=== PATIENT | male | born 1980 | race Caucasian/White ===

== ENCOUNTER 2023-10-24 11:00 | Outpatient (OUT) | payer OTHER, SELFPAY ==
--- NOTE | 2023-10-24 | XR_ITS ---
[address] [address] Patient Name: LEANNE BERGMAN MRN: [id number] date: 1980 Sex: M Assigned Patient Location: Current Patient Location: Accession/Order Number: [id number] Exam Date: 10/24/2023 11:12 Report Date: 10/25/2023 07:25 At the request of: VINAYAK XIAO Procedure: XR foot RT min 3V PROCEDURE: XR foot RT min 3V COMPARISON: 10/12/2023 HISTORY: RIGHT FOOT PAIN FINDINGS: BONES:Stable complex extra-articular fracture diaphysis of the first proximal phalanx. Some mild periosteal reaction with incomplete bony bridging. No new fracture or dislocation. SOFT TISSUES:Negative. No visible soft tissue swelling. EFFUSION:None visible. OTHER: Vascular calcifications XR/XR foot RT min 3V IMPRESSION: Stable extra-articular complex fracture diaphysis of the first proximal phalanx Electronically authenticated by: SOLO ELLIS Date: 10/25/2023 07:25
== END 2023-10-24 11:01 | disposition home or self-care (01) ==
PROVIDERS: Visit Provider Podiatrist Foot & Ankle Surgery
DX: M79.674 Pain in right toe(s) (principal); S92.414D Nondisplaced fracture of proximal phalanx of right great toe, subsequent encounter for fracture with routine healing
CPT/HCPCS: 73630

== ENCOUNTER 2023-11-02 08:43 | Outpatient (OUT) | payer OTHER, SELFPAY ==
--- NOTE | 2023-11-02 08:48 | CT_ITS ---
[address] [address] Patient Name: LEANNE BERGMAN MRN: [id number] date: 1980 Sex: M Assigned Patient Location: CT Current Patient Location: CT Accession/Order Number: [id number] Exam Date: 11/02/2023 08:50 Report Date: 11/02/2023 09:34 At the request of: VINAYAK XIAO Procedure: CT foot RT wo con EXAMINATION: CT foot RT wo con HISTORY: Hallux Fracture COMPARISON: Plain x-ray 10/24/2023 TECHNIQUE: Multi-planar CT images were created without IV contrast. Dose reduction techniques were achieved by using automated exposure control and/or adjustment of mA and/or kV according to patient size and/or use of iterative reconstruction technique. FINDINGS: BONES: Complex intra-articular fracture involving the first proximal phalanx with some mild periosteal reaction but no significant bony bridging. No additional fracture. No dislocation. Mild degenerative changes with joint space narrowing and marginal osteophyte formation. SOFT TISSUES: Diffuse vascular calcifications. EFFUSION: None visible. OTHER: Negative. CT/CT foot RT wo con IMPRESSION: Complex intra-articular fracture first proximal phalanx with minimal sclerotic healing Electronically authenticated by: SOLO ELLIS Date: 11/02/2023 09:34
== END 2023-11-02 08:44 | disposition home or self-care (01) ==
LOC: CT 08:43
PROVIDERS: Visit Provider Podiatrist Foot & Ankle Surgery
DX: S92.491A Other fracture of right great toe, initial encounter for closed fracture (principal)
CPT/HCPCS: 73700

== ENCOUNTER 2023-12-26 11:18 | Outpatient (OUT) | payer OTHER, SELFPAY ==
--- NOTE | 2023-12-26 | XR_ITS ---
The [address] [address] Patient Name: LEANNE BERGMAN MRN: [id number] date: 1980 Sex: M Assigned Patient Location: Current Patient Location: Accession/Order Number: [id number] Exam Date: 12/26/2023 11:18 Report Date: 12/27/2023 06:32 At the request of: VINAYAK XIAO Procedure: XR foot RT min 3V PROCEDURE: XR foot RT min 3V HISTORY: RIGHT FOOT PAIN ; first proximal phalanx fracture. COMPARISON: XR foot right 10/24/2023 FINDINGS: BONES:Comminuted fracture of first toe proximal phalanx with extension into the distal articular surface. Increased callus formation along margins and density of the fracture line. Relatively normal alignment is maintained. SOFT TISSUES:No visible soft tissue swelling. EFFUSION:None visible. OTHER: Negative. XR/XR foot RT min 3V IMPRESSION: 1. Stable alignment and ongoing bone healing of first toe proximal phalanx fracture. Electronically authenticated by: VLADIMIR LUND Date: 12/27/2023 06:32
== END 2023-12-26 11:19 | disposition home or self-care (01) ==
LOC: EC 11:18
PROVIDERS: Visit Provider Podiatrist Foot & Ankle Surgery
DX: S92.411K Displaced fracture of proximal phalanx of right great toe, subsequent encounter for fracture with nonunion (principal)
CPT/HCPCS: 73630

== ENCOUNTER 2024-01-30 10:49 | Outpatient (OUT) | payer OTHER, SELFPAY ==
--- NOTE | 2024-01-30 | XR_ITS ---
The [address] [address] Patient Name: LEANNE BERGMAN MRN: [id number] date: 1980 Sex: M Assigned Patient Location: Current Patient Location: Accession/Order Number: [id number] Exam Date: 01/30/2024 11:00 Report Date: 01/30/2024 13:14 At the request of: VINAYAK XIAO Procedure: XR foot RT min 3V PROCEDURE: XR foot RT min 3V COMPARISON: 12/26/2023 HISTORY: RIGHT FOOT PAIN FINDINGS: BONES:Stable complex fracture involving the diaphysis and head of the first proximal phalanx extending to the articular surface. Slight increase in bony sclerosis and bony bridging. No new fracture or dislocation. Degenerative changes most significant first metatarsal-phalangeal joint SOFT TISSUES:Negative. No visible soft tissue swelling. EFFUSION:None visible. OTHER: Vascular calcifications XR/XR foot RT min 3V IMPRESSION: Stable healing complex intra-articular fracture of the first proximal phalanx Electronically authenticated by: SOLO ELLIS Date: 01/30/2024 13:14
--- OUTSIDE RECORDS SUMMARY | 2024-01-30 11:04 | XMS_ITS | CCD ---
Author Organization [facility] CliniSyfl Care Team Providers Care [facility] Police Officer Name Role Phone NONE, XXXX Primary Care Physician Unavailab Josselin Nielson Primary Care Physician [phone] Jennifer Patel Unavailable Unavailable LISA MADDEN Primary Care Physician Elva Gilmore Unavailable Karina Ugarte Unavailable Troy De Paz Attending Unavailable Troy De Paz Admitting Unavailable Maryanne, Lisa Primary [facility] Primary [facility] Provider [facility] Lisa Attending Provider MD Red Harden Attending Provider Lisa Madden Primary Care Unavailable Red Harden Admitting Unavailable Red Harden Attending Unavailable Maryanne, Lisa Primary Care Unavailable Maryanne, Lisa Attending Unavailable Maryanne, Lisa Admitting Unavailable Maryanne, Lisa Primary Care Unavailable Elva Gilmore Admitting Unavailable Elva Gilmore Attending Unavailable Red Harden Admitting Unavailable Red Harden Attending Unavailable Maryanne, Lisa Primary Care Unavailable Maryanne, [facility] Lisa Primary Care Provider MD Red Harden Attending Provider [phone] [facility] Lisa Primary Care Provider MD Red Harden Attending Provider Yenni Watt Attending Unavailable Troy De Paz Attending Unavailable Holden De Paz Attending Unavailable LISA MADDEN Referring Unavailable MARYANNE, LISA Attending Unavailable MARYANNE, LISA Admitting Unavailable Dolce, Troy R Attending Unavailable MARYANNE, LISA Primary Care Unavailable Dolce, Troy R Attending Unavailable Dolce, Troy R Attending Unavailable Negro Roblero V. Attending Unavailabl e Dolce, Troy R Attending Unavailable Dolcesar, Holden Rider Attending Unavailable Dolce, Holden Rider Attending Unavailable Dolce, Troy R Referring Unavailable Dolce, Troy R Admitting Unavailable Dolce, Troy R Attending Unavailable MARYANNE, LISA Primary Care Unavailable MARYANNE, LISA Attending Unavailable MARYANNE, LISA Admitting Unavailable MARYANNE, LISA Primary Care Unavailable MARYANNE, LISA Attending Unavailable MARYANNE, LISA Admitting Unavailable MARYANNE, LISA Primary Care Unavailable MARYANNE, LISA Attending Unavailable MARYANNE, LISA Admitting Unavailable MARYANNE, LISA Primary Care Unavailable DEIRDRE, SHIVANI Portillo Admitting Unavailabl e SCALLY, SHIVANI Portillo Attending Unavailabl e Yenni Watt Admitting Unavailable Yenni aWtt Attending Unavailable MARYANNE, LISA Primary Care Unavailable MARYANNE, LISA Attending Unavailable MARYANNE, LISA Admitting Unavailable KARINA UGARTE Admitting Unavailable KARINA UGARTE Attending Unavailable MARYANNE, LISA Primary Care Unavailable MARYANNE, LISA Primary Care Unavailable MARYANNE, LISA Attending Unavailable MARYANNE, LISA Admitting Unavailable Yenni Watt Attending Unavailable MARYANNE, LISA Primary Care Unavailable Yenni Watt Attending Unavailable SCALLY, SHIVANI Portillo Attending Unavailabl e SCALLY, SHIVANI Portillo Admitting Unavailabl e MARYANNE, LISA Primary Care Unavailable Allergies Allergy Classification Reported Allergen(s) Allergy Type Date of Onset Reaction(s) Facility (20 sources) Penicillin; Translations: [penicillin] Drug Allergy Disease of skin (disorder) [facility] (1 source) Penicillins Drug allergy (disorder) [facility] Repository Medications Current Medications Medication Drug Class(es) Dates Sig (Normalized) Sig (Original) acetaminophen 300 mg / codeine phosphate 30 mg oral tablet (5 sources) Opioid Agonist Start: 09-07-2022 acetaminophen-cod eine 300 mg-30 mg Tab Refill(s) 0 Start Date: 09/07/22 Status: Ordered acetaminophen 325 mg / oxyCODONE hydrochloride 5 mg oral tablet (2 sources) Opioid Agonist Start: 05-31-2023 End: 06-05-2023 take 1 tablet by mouth every six hours Percocet 5 mg-325 mg oral tablet 1 tab(s), Oral, q6hr for 5 day(s), 20 tab(s), Refill(s) 0, [facility], 177, cm, 04/14/23 11:32:00 EDT, Height/Length Dosing, 73, kg, 04/14/23 11:32:00 EDT, Weight Dosing Start Date: 05/31/23 Stop Date: 06/05/23 Status: Ordered Start: 05-24-2023 End: 05-29-2023 take 1 tablet by mouth every six hours Percocet 5 mg-325 mg oral tablet 1 tab(s), Oral, q6hr for 5 day(s), 20 tab(s), Refill(s) 0, [facility], 177, cm, 04/14/23 11:32:00 EDT, Height/Length Dosing, 73, kg, 04/14/23 11:32:00 EDT, Weight Dosing Start Date: 05/24/23 Stop Date: 05/29/23 Status: Ordered 24 hr alfuzosin hydrochloride 10 mg extended release oral tablet (15 sources) alpha-Adrenergic Shanda Start: 04-14-2023 End: 04-08-2024 take 10 mg by mouth once daily Alfuzosin Active 10 MG PO Daily January 25, 2024 12:00am allopurinol 300 mg oral tablet (1 source) Xanthine Oxidase Inhibitor Start: 01-25-2024 take 300 mg by mouth once daily Allopurinol Active 300 MG PO Daily January 25, 2024 12:00am 24 hr buPROPion hydrochloride 150 mg extended release oral tablet (20 sources) Aminoketone Start: 09-21-2023 take 150 mg by mouth once daily Bupropion Hcl Active 150 MG PO Daily September 21, 2023 1:00am Start: 04-14-2023 buPROPion 150 mg/24 hours XL Tab Refills(s) 0 Start Date: 04/14/23 Status: Ordered Start: 03-30-2023 take 1 tablet by belkis th every twenty-four hours buPROPion HCl ER (XL) 150 MG 1 tablet in the morning Orally Once a day for 30 day(s) Mar, Active cholecalciferol 0.125 mg oral capsule (1 source) Vitamin D Start: 01-25-2024 take 125 ug by mouth once daily Cholecalciferol (Vitamin D3) Active 125 MCG PO Daily January 25, 2024 12:00am ciprofloxacin 500 mg oral tablet (3 sources) Quinolone Antimicrobial Start: 02-08-2022 End: 02-22-2022 take 1 tablet by mouth every twelve hours Cipro 500 mg Tab 500 mg = 1 tab(s), Oral, q12hr, X 14 day(s), # 28 tab(s), Refills(s) 0, Pharmacy: [facility], 177, cm, 02/08/22 8:43:00 EDT, Height/Length Dosing, 73, kg, 02/08/22 8:43:00 EDT, Weight Dosing Start Date: 02/08/22 Stop Date: 02/22/22 Status: Ordered Start: 01-24-2022 take 1 tablet by belkis th every twelve hours Cipro 500 mg Tab 500 mg = 1 tab(s), Oral, q12hr, # 20 tab(s), Refills(s) 0, Pharmacy: [facility], 177, cm, 01/24/22 8:22:00 EDT, Height/Length Dosing, 73, kg, 01/24/22 8:22:00 EDT, Weight Dosing Start Date: 01/24/22 Status: Ordered clindamycin 300 mg oral capsule (17 sources) Lincosamide Antibacterial Start: 02-08-2023 take 1 capsule by mouth every eight hours clindamycin 300 mg oral cap 300 mg = 1 cap(s), Oral, q8hr, # 24 cap(s), Refills(s) 0, Pharmacy: [facility], 177, cm, 02/08/23 14:32:00 EDT, Height/Length Dosing, 179.2, kg, 02/08/23 14:32:00 EDT, Weight Dosing Start Date: 02/08/23 Status: Ordered Start: 12-07-2022 take 1 capsule by [facility] every six hours clindamycin 300 mg oral cap 300 mg = 1 cap(s), Oral, q6hr, # 28 cap(s), Refills(s) 0, Pharmacy: [facility], 177 paul, 12/04/22 18:24:00 EDT, Height/Length Dosing, 73, kg, 12/05/22 5:37:00 EDT, Weight Dosing Start Date: 12/07/22 Status: Ordered Start: 09-07-2022 clindamycin 30 0 mg oral cap Refills(s) 0 Start Date: 09/07/22 Status: Ordered colestipol hydrochloride 1000 mg oral tablet (1 source) Bile Acid Sequestrant Start: 01-15-2024 Colestipol (Colestid) 1 gram tablet Active 1 GM PO Twice daily 60 January 15, 2024 12:00am dicyclomine hydrochloride 20 mg oral tablet (20 sources) Anticholinergic Start: 03-30-2023 take 20 mg by mouth three times daily Dicyclomine Active 20 MG PO Three times daily September 21, 2023 1:00am doxycycline hyclate 100 mg oral capsule (9 sources) Tetracycline-class Drug Start: 09-20-2021 take 1 capsule by mouth every twelve hours doxycycline hyclate 100 mg Cap 100 mg = 1 cap(s), Oral, q12hr, # 20 cap(s), Refills(s) 0, Pharmacy: [facility], Eric paul, 09/20/21 11:48:00 EST, Height/Length Dosing, 73.7, kg, 09/20/21 11:48:00 EST, Weight Dosing Start Date: 09/20/21 Status: Ordered Start: 07-28-2021 End: 09-21-2023 take 100 mg by mouth twice daily Doxycycline Hyclate Discontinued 100 MG PO Twice daily July 28, 2021 1:00am September 21, 2023 12:45pm ferrous sulfate 325 mg oral tablet (13 sources) Start: 09-14-2021 ferrous sulfat e 325 mg Tab 325 mg = 1 tab(s), Oral, BIDWM, # 60 tab(s), Refills(s) 0, Pharmacy: [facility], 177paul, 09/12/21 9:14:00 EST, Height/Length Dosing, 73, kg, 09/12/21 9:14:00 EST, Weight Dosing Start Date: 09/14/21 Status: Ordered Flash Glucose Scanning Reade r (Freestyle Soha 2 [place]) misc (15 sources) Start: 11-16-2023 Flash Glucose Scanning [place] (Freestyle Soha 2 [place]) misc Active 0 .Route 1 November 16, 2023 10:32am As directed Start: 09-21-2023 Flash Glucose Scanning [place] (Freestyle Soha 2 [place]) misc Active 0 .Route September 21, 2023 1:00am As directed Start: 09-21-2023 End: 11-16-2023 Flash Glucose Scanning Reade r (Freestyle Soha 2 [place]) misc Discontinued 0 .Route 1 September 21, 2023 1:00am November 16, 2023 10:35am As directed Start: 09-21-2023 Flash Glucose Scanning [place] (Freestyle Soha 2 [place]) misc Active 0 .Route 1 September 21, 2023 12:00am As directed Start: 09-21-2023 Flash Glucose Scanning [place] (Freestyle Soha 2 [place]) misc Active 0 .Route September 21, 2023 12:00am As directed Flash Glucose Sensor (Freest yle Soha 2 Sensor) kit (6 sources) Start: 09-21-2023 Flash Glucose Sensor (Freestyle Soha 2 Sensor) kit Active 0 .Route September 21, 2023 1:00am As directed Start: 09-21-2023 Flash Glucose Sensor (Freestyle Soha 2 Sensor) kit Active 0 .Route September 21, 2023 12:00am As directed FreeStyle Soha 2 [place] - (3 sources) Start: 03-30-2023 FreeStyle Soha 2 [place] - as directed Not-Taking/PRN FREESTYLE SHOA 2 READER MIS (14 sources) Start: 04-14-2023 FREESTYLE LIBR E 2 READER MIS FREESTYLE SOHA 2 READER MIS Start Date: 04/14/23 Status: Ordered FreeStyle Soha 2 Sensor - (3 sources) Start: 03-30-2023 FreeStyle Soha 2 Sensor - as directed Not-Taking/PRN FREESTYLE SOHA 2 SENSOR KIT (14 sources) Start: 04-14-2023 FREESTYLE LIBR E 2 SENSOR KIT FREESTYLE SOHA 2 SENSOR KIT Start Date: 04/14/23 Status: Ordered gabapentin 800 mg oral tablet (14 sources) Anti-epileptic Agent Start: 01-25-2024 take 800 mg by mouth four times daily Gabapentin Active 800 MG PO Four times daily January 25, 2024 12:00am Start: 09-21-2023 End: 01-25-2024 take 800 mg by mouth four times daily Gabapentin Discontinued 800 MG PO Four times daily September 21, 2023 1:00am January 25, 2024 10:15am Start: 09-21-2023 take 600 mg by mouth three times daily Gabapentin Active 600 MG PO Three times daily September 21, 2023 12:00am Start: 01-06-2023 End: 08-04-2023 take 1 capsule by mouth twice daily gabapentin 300 mg Cap 300 mg = 1 cap(s), Oral, BID, X 30 day(s), # 60 cap(s), Refills(s) 6, Pharmacy: [facility], 177, cm, 01/06/23 10:08:00 EDT, Height/Length Dosing, 73, kg, 01/06/23 10:08:00 EDT, Weight Dosing Start Date: 01/06/23 Stop Date: 08/04/23 Status: Ordered Start: 11-30-2022 take 1 capsule by mo [facility] twice daily gabapentin 300 mg Cap 300 mg = 1 cap(s), Oral, BID, Take 1 cap twice a day, # 74 cap(s), Refills(s) 0, Pharmacy: [facility], 177, cm, 09/07/22 10:14:00 EST, Height/Length Dosing, 73, kg, 09/07/22 10:14:00 EST, Weight Dosing Start Date: 11/30/22 Status: Ordered take 1 tablet by belkis every six hours Gabapentin 600 MG 1 capsule Orally 4 times a day for 30 days Active take 1 tablet by belkis every eight hours Gabapentin 600 MG 1 tablet Orally tid Active 3 ml insulin aspart protamine, human 70 unt/ml / insulin aspart, human 30 unt/ml pen injector (1 source) Insulin Analog NovoLOG 70/30 Fl exPen ReliOn (70-30) 100 UNIT/ML as directed Subcutaneous as needed Active insulin aspart, human (20 sources) Insulin Analog Start: 11-17-2023 Insulin Aspart U-100 Active 0 SUBCUT Use as Directed 45 90 November 17, 2023 11:52am [facility] ISS 1:25, ICR 1:7, has written informatio, subcutaneously use as directed; Start: 09-21-2023 End: 11-17-2023 inject 1 dose by subcutaneous injection three times daily Insulin Aspart U-100 Discontinued 1 sliding scale dose SUBCUT Three times daily September 21, 2023 1:00am November 17, 2023 11:55am Start: 09-21-2023 inject 1 dose by sub cutaneous injection three times daily Insulin Aspart U-100 Active 1 sliding scale dose SUBCUT Three times daily September 21, 2023 1:00am Start: 09-21-2023 inject 1 dose by sub cutaneous injection three times daily Insulin Aspart U-100 Active 1 sliding scale dose SUBCUT Three times daily September 21, 2023 12:00am Start: 04-14-2023 Relion NovoLOG Flexpen 100 units/mL injectable solution Refills(s) 0 Start Date: 04/14/23 Status: Ordered Start: 03-30-2023 insulin detemir 100 unt/ml injectable solution (20 sources) Insulin Analog Start: 01-25-2024 inject 32 [IU] by subcutaneous injection once daily Insulin Detemir U-100 (Levemir U-100 Insulin) 100 unit/mL solution Active 32 UNIT SUBCUT Daily January 25, 2024 10:16am Start: 11-16-2023 End: 01-25-2024 inject 30 [IU] by subcutaneous injection once daily Insulin Detemir U-100 (Levemir U-100 Insulin) 100 unit/mL solution Discontinued 30 UNIT SUBCUT Daily November 16, 2023 9:53am January 25, 2024 10:18am Start: 09-21-2023 End: 11-16-2023 inject 32 [IU] by subcutaneous injection once daily Insulin Detemir U-100 (Levemir U-100 Insulin) 100 unit/mL solution Discontinued 32 UNIT SUBCUT Daily September 21, 2023 12:45pm November 16, 2023 9:56am Start: 09-21-2023 End: 09-21-2023 inject 40 [IU] by subcutaneous injection once daily Insulin Detemir U-100 (Levemir U-100 Insulin) 100 unit/mL solution Discontinued 40 UNIT SUBCUT Daily September 21, 2023 1:00am September 21, 2023 12:47pm Start: 04-14-2023 Levemir 100 un its/mL Injection-Insulin Refills(s) 0 Start Date: 04/14/23 Status: Ordered inject 40 [IU] by zavala bcutaneous injection once daily Levemir 100 UNIT/ML 40 units Subcutaneous once a day for 30 days Active Levemir FlexPen 100 UNIT/ML 40 units Subcutaneous daily Active insulin glargine 100 unt/ml injectable solution (8 sources) Insulin Analog Start: 09-14-2021 inject 25 [IU] by subcutaneous injection at bedtime insulin glargine 100 units/mL subcutaneous solution 25 unit(s), SubCutaneous, Bedtime, # 12 mL, Refills(s) 0, Pharmacy: [facility], 177, cm, 09/12/21 9:14:00 EST, Height/Length Dosing, 73, kg, 09/12/21 9:14:00 EST, Weight Dosing Start Date: 09/14/21 Status: Ordered insulin glargine 100 units/mL subcutaneous solution (1 source) Start: 09-14-2021 inject 25 [IU] by subcutaneous injection at bedtime insulin glargine 100 units/mL subcutaneous solution 25 unit(s), SubCutaneous, Bedtime, # 12 mL, Refills(s) 0, Pharmacy: [facility], 177, cm, 09/12/21 9:14:00 EST, Height/Length Dosing, 73, kg, 09/12/21 9:14:00 EST, Weight Dosing Start Date: 09/14/21 Status: Ordered insulin isophane, human 70 unt/ml / insulin, regular, human 30 unt/ml injectable suspension (18 sources) Insulin Start: 12-07-2022 Humulin 70/30 10 mL Injection-Insulin 20 unit(s), SubCutaneous, BIDAC, # 10 mL, Refills(s) 2, Pharmacy: [facility], 177, cm, 12/04/22 18:24:00 EDT, Height/Length Dosing, 73, kg, 12/05/22 5:37:00 EDT, Weight Dosing Start Date: 12/07/22 Status: Ordered insulin lispro 100 units/mL injectable solution (20 sources) Start: 09-14-2021 insulin lispro 100 units/mL injectable solution See Instructions, QID AC, HS Take 2 units of lispro if BS between 151-200 Take 4 units of lispro if BS between 201-250 Take 6 units of lispro if BS between 251-300 Take 8 units of lispro if BS between 301-350 Take 10 units of lispro if BS between 351-400 Take 14 units of lispro if BS between >400, # 15 mL, Refills(s) 0, Pharmacy: [facility], 177, cm, 09/12/21 9:14:00 EST, Height/Length Dosing, 73, kg, 09/12/21 9:14:00 EST, Weight Dosing Start Date: 09/14/21 Status: Ordered Start: 09-14-2021 insulin lispro 100 units/mL injectable solution 5 unit(s), SubCutaneous, TIDAC, # 15 mL, Refills(s) 0, Pharmacy: [facility], 177, cm, 09/12/21 9:14:00 EST, Height/Length Dosing, 73, kg, 09/12/21 9:14:00 EST, Weight Dosing Start Date: 09/14/21 Status: Ordered Start: 09-14-2021 insulin lispro 100 units/mL injectable solution See Instructions, QID AC, HS Take 2 units of lispro if BS between 151-200 Take 4 units of lispro if BS between 201-250 Take 6 units of lispro if BS between 251-300 Take 8 units of lispro if BS between 301-350 Take 10 units of lispro if BS betwe... Start Date: 09/14/21 Status: Ordered ketorolac tromethamine 10 mg oral tablet (2 sources) Nonsteroidal Anti-inflammatory Drug, Cyclooxygenase Inhibitor Start: 01-24-2022 take 1 tablet by mouth every six hours as needed for pain ketorolac 10 mg Tab 10 mg = 1 tab(s), Oral, q6hr, PRN for pain, # 20 tab(s), Refills(s) 0, Pharmacy: [facility], 177, cm, 01/24/22 8:22:00 EDT, Height/Length Dosing, 73, kg, 01/24/22 8:22:00 EDT, Weight Dosing Start Date: 01/24/22 Status: Ordered Loperamide (4 sources) Opioid Agonist Start: 01-25-2024 Loperamide Active 4 MG PO January 25, 2024 12:00am Start: 12-13-2023 End: 01-15-2024 Loperamide (Imodium A-D) 2 m g capsule Discontinued 4 MG PO Four times daily January 05, 2024 8:36am January 15, 2024 3:00pm take first thing in the morning Multivitamin preparation (7 sources) Start: 07-28-2021 take 1 tablet by mouth once daily Multivitamin Active 1 TAB PO Daily July 28, 2021 1:00am Start: 07-28-2021 take 1 tablet by belkis th once daily Multivitamin Active 1 TAB PO Daily July 28, 2021 12:00am pantoprazole 40 mg delayed release oral tablet (20 sources) Proton Pump Inhibitor Start: 12-13-2023 End: 12-13-2023 take 40 mg by mouth once daily, then take 20 mg by mouth once daily Pantoprazole Active 40 MG PO Daily December 13, 2023 4:24pm 40 mg twice a day while on Pylera. Then resume to 20 mg daily. Start: 10-20-2023 End: 12-13-2023 take 40 mg by mouth twice daily, then take 20 mg by mouth once daily Pantoprazole Discontinued 40 MG PO Twice daily 26 05October 20, 2023 12:00am December 13, 2023 1:19pm 40 mg twice a day while on Pylera. Then resume to 20 mg daily. Start: 03-30-2023 End: 11-16-2023 take 20 mg by mouth once daily Pantoprazole Discontinu ed 20 MG PO Daily September 21, 2023 1:00am November 16, 2023 9:54am pen needle, diabetic (BD Ultra-Fine Charis Pen Needle) (6 sources) Start: 09-21-2023 pen needle, di abetic (BD Ultra-Fine Charis Pen Needle) Active .Route September 21, 2023 1:00am Start: 09-21-2023 pen needle, di abetic (BD Ultra-Fine Charis Pen Needle) Active .Route September 21, 2023 12:00am rifAXIMin 550 mg oral tablet (2 sources) Rifamycin Antibacterial take 1 tablet by mouth every twelve hours Xifaxan 550 MG 1 tablet Orally Twice a day Active sulfamethoxazole 800 mg / trimethoprim 160 mg oral tablet (2 sources) Dihydrofolate Reductase Inhibitor Antibacterial, Sulfonamide Antimicrobial Start: 022 Bactrim DS 800 mg-160 mg Tab See Instructions, 2 tab(s), Refill(s) 0, 1 tab day before procedure and 1 tab after procedure, [facility], 177, cm, 10/07/21 11:37:00 EST, Height/Length Dosing, 73.7, kg, 10/07/21 11:37:00 EST, Weight Dosing Start Date: 10/10/21 Status: Ordered tadalafil 20 mg oral tablet (20 sources) Phosphodiesterase 5 Inhibitor Start: 024 take 1 tablet by mouth once daily as needed Tadalafil (Pulm. Hypertension) Active 20 MG PO Daily October 18, 2023 12:00am FreeTextSi tablet as needed Orally Once a day; Note: Source Status: Taking; Provider: Torito Aparicio ( ) Start: 01-06-2023 Cialis 20 mg T ab 20 mg = 1 tab(s), Oral, As Directed, PRN erectile dysfunction, 1 tab 1-2 hours prior to intercourse. Do not exceed 20 mg /24 hours, # 30 tab(s), Refills(s) 6, Pharmacy: [facility], 177, cm, 01/06/23 10:08:00 EDT, Height/Length Dosing, 73, kg, 01/06/23 10:08:00 EDT, Weight Dosing Start Date: 01/06/23 Status: Ordered take 1 tablet by belkis th every twenty-four hours Tadalafil 20 MG 1 tablet as needed Orally Once a day Active tamsulosin hydrochloride 0.4 mg oral capsule (20 sources) alpha-Adrenergic Shanda Start: 09-21-2023 take 0.4 mg by mouth once daily Tamsulosin Active 0.4 MG PO Daily September 21, 2023 1:00am Start: 01-06-2023 take 2 capsules by m outh once daily Flomax 0.4 mg Cap 0.8 mg = 2 cap(s), Oral, Daily, # 180 cap(s), Refills(s) 3, Pharmacy: [facility], 177, cm, 01/06/23 10:08:00 EDT, Height/Length Dosing, 73, kg, 01/06/23 10:08:00 EDT, Weight Dosing Start Date: 01/06/23 Status: Ordered Start: 12-05-2022 End: 12-07-2022 take 1 capsule by mouth twice daily tamsulosin 0.4 mg Cap 0.4 mg = 1 cap(s), Oral, BID, Refills(s) 0 Start Date: 12/05/22 Status: Ordered Start: 02-22-2022 take 2 capsules by m outh once daily Flomax 0.4 mg Cap 0.8 mg = 2 cap(s), Oral, Daily, # 180 cap(s), Refills(s) 3, Pharmacy: [facility], 177, cm, 02/22/22 9:00:00 EDT, Height/Length Dosing, 73, kg, 02/22/22 9:00:00 EDT, Weight Dosing Start Date: 02/22/22 Status: Ordered Start: 12-23-2021 take 2 capsules by m outh once daily Flomax 0.4 mg Cap 0.8 mg = 2 cap(s), Oral, Daily, # 60 cap(s), Refills(s) 11, Pharmacy: [facility], 177, cm, 12/23/21 15:16:00 EDT, Height/Length Dosing, 73, kg, 12/23/21 15:16:00 EDT, Weight Dosing Start Date: 12/23/21 Status: Ordered Start: 10-11-2021 take 1 capsule by mo uth once daily tamsulosin 0.4 mg Cap 0.4 mg = 1 cap(s), Oral, Daily, # 30 cap(s), Refills(s) 1, Pharmacy: [facility], 177, cm, 10/11/21 14:29:00 EST, Height/Length Dosing, 73.7, kg, 10/11/21 14:29:00 EST, Weight Dosing Start Date: 10/11/21 Status: Ordered varenicline 0.5 mg oral tablet (3 sources) Partial Cholinergic Nicotinic Agonist Start: 07-10-2023 End: 12-08-2023 take 1 tablet by mouth twice daily Varenicline Tart rate (Starter) 0.5 MG X 11 & 1 MG X 42 as directed Orally Not-Taking/PRN Completed/Discontinued Medications Medication Drug Class(es) Dates Sig (Normalized) Sig (Original) Bismuth Subcit F-Qplvvnmoy-Rqq (Pylera) 140-125-125 mg capsule (4 sources) Start: 10-20-2023 End: 10-20-2023 Bismuth Subcit E-Ptrqturdr-[id number] (Pylera) 140-125-125 mg capsule Discontinued 0 PO per package directions 05 16October 20, 2023 12:00am October 20, 2023 1:43pm PO PER PKG DIR bismuth subsalicylate 262 mg oral tablet (4 sources) Bismuth Start: 10-20-2023 End: 01-15-2024 take 524 mg by mouth four times daily Bismuth Subsalicylate Discontinued 524 MG PO Four times daily October 20, 2023 12:00am January 15, 2024 3:00pm dapagliflozin 10 mg oral tablet (9 sources) Sodium-Glucose Cotransporter 2 Inhibitor Start: 09-21-2023 End: 09-21-2023 take 1 tablet by mouth once daily Dapagliflozin Propanediol (Farxiga) 10 mg tablet Discontinued 10 MG PO Daily September 21, 2023 1:00am September 21, 2023 2:19pm Farxiga 10 MG Ta ke 1 tablet by mouth once daily for 30 days for 30 Active ibuprofen 800 mg oral tablet (7 sources) Nonsteroidal Anti-inflammatory Drug Start: 07-28-2021 End: 09-21-2023 take 800 mg by mouth three times daily Ibuprofen Discontinued 800 MG PO Three times daily July 28, 2021 1:00am September 21, 2023 12:45pm Insulin Lispro (19 sources) Insulin Analog Start: 12-07-2022 End: 12-07-2022 Insulin Lispro Sliding Scale 0-10 units, Injection-Insulin, SubCutaneous, Start date 12/07/22 7:30:00 EDT Start Date: 12/07/22 Stop Date: 12/07/22 Status: Completed Start: 12-06-2022 End: 12-06-2022 Insulin Lispro Sliding Scale 0-10 units, Injection-Insulin, SubCutaneous, Start date 12/06/22 21:00:00 EDT Start Date: 12/06/22 Stop Date: 12/06/22 Status: Completed Start: 12-06-2022 End: 12-06-2022 Insulin Lispro Sliding Scale 0-10 units, Injection-Insulin, SubCutaneous, Start date 12/06/22 16:30:00 EDT Start Date: 12/06/22 Stop Date: 12/06/22 Status: Completed Start: 09-14-2021 insulin lispro 100 units/mL injectable solution See Instructions, QID AC, HS Take 2 units of lispro if BS between 151-200 Take 4 units of lispro if BS between 201-250 Take 6 units of lispro if BS between 251-300 Take 8 units of lispro if BS between 301-350 Take 10 units of lispro if BS between 351-400 Take 14 units of lispro if BS between >400, # 15 mL, Refills(s) 0, Pharmacy: [facility], 177, cm, 09/12/21 9:14:00 EST, Height/Length Dosing, 73, kg, 09/12/21 9:14:00 EST, Weight Dosing Start Date: 09/14/21 Status: Ordered Start: 09-14-2021 insulin lispro 100 units/mL injectable solution 5 unit(s), SubCutaneous, TIDAC, # 15 mL, Refills(s) 0, Pharmacy: [facility] 1986, 177, cm, 09/12/21 9:14:00 EST, Height/Length Dosing, 73, kg, 09/12/21 9:14:00 EST, Weight Dosing Start Date: 09/14/21 Status: Ordered magnesium citrate 58.2 mg/ml oral solution (7 sources) Start: 07-28-2021 End: 09-21-2023 take 1 mL by mouth once Magnesium Citrate Discontinued 120 ML PO Once 120 July 28, 2021 1:00am September 21, 2023 12:46pm metroNIDAZOLE 250 mg oral tablet (4 sources) Nitroimidazole Antimicrobial Start: 10-20-2023 End: 12-13-2023 take 250 mg by mouth four times daily Metronidazole Discontinued 250 MG PO Four times daily 56 October 20, 2023 12:00am December 13, 2023 1:10pm tetracycline hydrochloride 500 mg oral capsule (4 sources) Tetracycline-class Antimicrobial Start: 10-20-2023 End: 11-16-2023 take 500 mg by mouth four times daily Tetracycline Discontinued 500 MG PO Four times daily 56 October 20, 2023 12:00am November 16, 2023 9:56am Problems Problem Classification Problem Date Documented Da te Episodic/Chronic Abdominal pain (20 sources) Abdominal pain 09-20-2021 Episodic Administrative/social admission (1 source) Dietary counseling and surveillance Episodic Diabetes mellitus with complications (20 sources) Hyperglycemia due to type 2 diabetes mellitus; Translations: [Type 2 diabetes mellitus with hyperglycemia] Onset: Chronic Diabetes mellitus without complication (20 sources) Diabetes mellitus; Translations: [Type 2 diabetes mellitus without complication] Onset: 3 09-07-2022 Chronic Disorders of lipid metabolism (20 sources) Hyperlipidemia; Translations: [Hyperlipidemia, unspecified] Chronic Esophageal disorders (3 sources) Gastroesophageal reflux disease; Translations: [Gastro-esophageal reflux disease without esophagitis] Chronic Essential hypertension (20 sources) Hypertensive disorder; Translations: [Essential (primary) hypertension] Chronic Fluid and electrolyte disorders (1 source) Hypo-osmolality and or hyponatremia; Translations: [Hypo-osmolality and hyponatremia] Onset: Episodic Fracture of upper limb (20 sources) Fracture at wrist and/or hand level 09-12-2021 Episodic Genitourinary symptoms and ill-defined conditions (19 sources) Urge incontinence of urine 09-07-2022 Chronic Genitourinary symptoms and ill-defined conditions (20 sources) Dysuria; Translations: [Dysuria] Onset: 2 09-20-2021 Episodic Hyperplasia of prostate (20 sources) Benign prostatic hypertrophy with outflow obstruction; Translations: [Benign prostatic hyperplasia with lower urinary tract symptoms] Onset: 2 10-11-2021 Chronic Inflammatory conditions of male genital organs (20 sources) Orchitis and epididymitis; Translations: [Inflammation of scrotum] Onset: 2 09-20-2021 Episodic Intestinal infection (6 sources) Infection caused by Helicobacter pylori; Translations: [Other specified bacterial intestinal infections] 10-20-2023 Episodic Malaise and fatigue (1 source) Asthenia; Translations: [Weakness] Onset: 3 Episodic Nutritional deficiencies (20 sources) Vitamin D deficiency; Translations: [Vitamin D deficiency, unspecified] Chronic Nutritional deficiencies (16 sources) Cobalamin deficiency; Translations: [Deficiency of other specified B group vitamins] 09-21-2023 Episodic Other aftercare (9 sources) Long-term current use of insulin; 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] 09-21-2023 Episodic Other aftercare (12 sources) 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; Translations: [Long-term (current) use of insulin] Episodic Other connective tissue disease (1 source) Infected bursa; Translations: [Other infective bursitis, unspecified site] Onset: 3 Episodic Other diseases of kidney and ureters (3 sources) Urinary tract obstruction; Translations: [Other obstructive and reflux uropathy] Onset: 2 Episodic Other gastrointestinal disorders (2 sources) Irritable bowel syndrome with diarrhea; Translations: [Irritable bowel syndrome with diarrhea] 01-25-2024 Chronic Other gastrointestinal disorders (1 source) Irritable bowel syndrome with diarrhea Chronic Other gastrointestinal disorders (7 sources) Constipation; Translations: [Constipation, unspecified] 07-28-2021 Episodic Other gastrointestinal disorders (1 source) Change in bowel habit; Translations: [Change in bowel habit] Onset: 4 Episodic Other gastrointestinal disorders (2 sources) Diarrhea; Translations: [Diarrhea, unspecified] 12-13-2023 Episodic Other gastrointestinal disorders (2 sources) Incontinence of feces; Translations: [Full incontinence of feces] 12-13-2023 Episodic Other gastrointestinal disorders (2 sources) Urgent desire for stool; Translations: [Fecal urgency] 12-13-2023 Episodic Other gastrointestinal disorders (2 sources) Diarrhea, unspecified; Translations: [Diarrhea] 12-13-2023 Episodic Other gastrointestinal disorders (2 sources) Full incontinence of feces; Translations: [Full incontinence of feces] 12-13-2023 Episodic Other gastrointestinal disorders (2 sources) Fecal urgency; Translations: [Fecal urgency] 12-13-2023 Episodic Other male genital disorders (20 sources) Impotence; Translations: [Male erectile dysfunction, unspecified] Onset: 3 09-07-2022 Chronic Other male genital disorders (20 sources) Encysted hydrocele of spermatic cord; Translations: [Encysted hydrocele] Onset: 2 09-07-2021 Episodic Other male genital disorders (20 sources) Pain of left testicle 08-23-2021 Episodic Other male genital disorders (20 sources) Pain in scrotum ; Translations: [Scrotal pain] Onset: 3 09-07-2022 Episodic Other male genital disorders (1 source) H/O: male genital disorder; Translations: [Personal history of other diseases of male genital organs] Onset: 3 Episodic Other nervous system disorders (1 source) Polyneuropathy; Translations: [Polyneuropathy, unspecified] Onset: 3 Chronic Other nervous system disorders (1 source) Neuropathy; Translations: [Polyneuropathy, unspecified] 01-25-2024 Chronic Other non-traumatic joint disorders (1 source) Ankle joint effusion; Translations: [Effusion, right ankle] Onset: 3 Episodic Other nutritional; endocrine; and metabolic disorders (11 sources) Body mass index (BMI) 26.0-26.9, adult; Translations: [Body Mass Index 26.0-26.9, adult] Episodic Other nutritional; endocrine; and metabolic disorders (6 sources) Overweight in adulthood with body mass index of 25 or more but less than 30; Translations: [Body mass index (BMI) 26.0-26.9, adult] 09-21-2023 Episodic Other screening for suspected conditions (not mental disorders or infectious disease) (20 sources) No current problems or disability 01-20-2014 Episodic Other skin disorders (1 source) Disorder of skin; Translations: [Disorder of the skin and subcutaneous tissue, unspecified] Onset: 3 Episodic Residual codes; unclassified (1 source) Tobacco user; Translations: [Tobacco use] Onset: 3 Episodic Skin and subcutaneous tissue infections (1 source) Cellulitis; Translations: [Cellulitis, unspecified] Onset: 3 Episodic Substance-related disorders (20 sources) Smoker; Translations: [Nicotine dependence] Onset: 3 09-08-2016 Chronic Comment on above: Added secondary to d ocumentation in Social History. Unclassified (20 sources) Body mass index 20-24 - normal 08-23-2021 Unclassified (20 sources) Non-healing surgical wound 11-11-2021 Results Test Name Value Interpretation Reference Range Facility Lab Miscellaneous-LCon 01-02 Lab Miscellaneous COMMENT Invalid Interpretation Code [facility] Comment on above: Result Comment: Test Ordered: [id number] Diabetes Autoimmune Profile Insulin Antibodies 7.1 [H ] uU/mL ES This test is also known as insulin autoantibody or IAA. This test was developed and its performance characteristics determined by [employer]. It has not been cleared or approved by the Food and Drug Administration. Reference Range: <5.0 Negative > or = 5.0 Positive Anti NAZ 65 Antibodies <5.0 U/mL ES Reference Range: <5.0 Negative > or = 5.0 Positive IA-2 Autoantibodies <7.5 U/mL ES Reference Range: <7.5 Negative > or = 7.5 Positive ZNT8 Antibodies <15 U/mL ES Reference Range: All Ages: <15 Negative > or =15 Positive Type 1 Diabetes Interpretation Comment ES Published positivity rates for diabetes autoantibodies in new-onset Type 1 Diabetes patients listed below are based on the combined analysis of NAZ-65, ICA 512, Insulin Antibodies, and ZNT8 Antibodies. The combined analysis has a 98% autoimmunity detection rate, with 1.8% of Type 1 diabetic individuals remaining as autoantibody-negative. Positivity rate in new-onset Type 1 Diabetes patients: NAZ-65 Antibodies = 68% positive IA-2/ICA 512 Antibodies = 72% positive Insulin Antibodies = 55% positive ZNT8 Antibodies = 63% positive An increase in the number of positive antibodies is associated with a higher likelihood of Type 1 Diabetes. Less than 3% of Type 2 Diabetics have positive antibodies.(1) Kari et al. PNAS. 2007;104(43):80284-49693. Performed at: [address] [id number] PhD Edwar Kaplan Performed By: #### 1 [id number] #### [facility] [address] [place] [id number] C-Peptideon 12-22-2023 C peptide [Mass/Vol] 2.2 ng/mL Invalid Interpretation Code 1.1-4.4 [facility] Comment on above: Result Comment: C-Pe ptide reference interval is for fasting patients. Performed at: [address] [id number] PhD Edwar Kaplan Performed By: #### 1 [id number] #### [facility] [address] [place] [address] XR Shoulder Complete Lefton 12-22-2023 XR Shoulder Complete Left Exam Date/Time: 12/21/2023 10:05 EDT Reason for Exam: [id number] Report IMPRESSION: NO ACUTE OSSEOUS ABNORMALITY. EXAM: XR Shoulder Complete Left HISTORY: Shoulder pain COMPARISON: None available TECHNIQUE: AP internal, external rotation views , axillary view, and a Y view of the shoulder obtained. FINDINGS: No acute fracture or dislocation. The acromioclavicular joint is intact. Soft tissues are within normal limits. Ordering Provider: , FINAL REPORT Dictated: 12/22/2023 3:58 pm Leon Echavarria DO Signed (Electronic Signature): 12/22/2023 3:58 pm Signed by: Leon Echavarria DO Transcribed by: CAROLE Technologist: KENNETH Technical Comments Radiation Dose: Ka,r in mGy = na DAP = na Normal [facility] CHEMISTRYOrdered By: SYSTEM SYSTEM on 12-21-2023 25-hydroxyvitamin D3 [Mass/Vol] 14.5 ng/mL Low 30.0 - 100.0 ng/mL Remisol Chem Consent for Treatmenton 12-05 Consent for Treatment [id number] 4050 [id number]#1.0 0TIFF Normal [facility] Consent for Treatment [id number] 4050 [id number]#1.0 0TIFF Normal [facility] Glu Fastingon 12-21-2023 Glucose [Mass/Vol] 181 mg/dL High 55-99 [facility] Comment on above: Performed By: #### 2 [id number] #### [facility] [address] [place] [address] Lab Miscellaneous-LCon 12-20 Test Code 227951 Invalid Interpretation Code [facility] Comment on above: Performed By: #### 1 [id number] #### [facility] [address] [place] [address] Test Name Diabetes Autoim Invalid Interpretation Code [facility] Comment on above: Performed By: #### 1 [id number] #### [facility] [address] [place] [address] Laboratory - Chemistry and C hemistry - challengeOrdered By: SYSTEM SYSTEM on 12-21-2023 Cobalamin (Vitamin B12) [Mass/Vol] 406 pg/mL 50-1500 Remisol Chem Glucose [Mass/Vol] 181 mg/dL 55-99 Remiso l Chem Lipase [Catalytic activity/Vol] 52 U/L 13-58 Remisol Chem Lipase Levelon 12-21-2023 Lipase [Catalytic activity/Vol] 52 U/L Normal 13-58 [facility] Comment on above: Performed By: #### 2 [id number] #### [facility] [address] [place] [address] No Panel Informationon 12-20 25-Hydroxy Vitamin D Total 14.5 ng/mL 30.0-100.0 [facility] C-Peptide 2.2 ng/mL 1.1-4.4 [facility] Miscellaneous Serology Test 3 [id number] [facility] Miscellaneous Test COMMENT [facility] Reference Lab Test Name Diabetes Autoim [facility] Physician Orderon 12-21-2023 Physician Order [id number]#1. 00TIFF Normal [facility] Physician Order [id number]#1. 00TIFF Normal [facility] Reference Laboratory Testing Ordered By: Calli Gillespie on 12-21-2023 Test Code 984853 1 Invalid Interpretation Code [facility] [place] [facility] Test Name Diabetes Autoim Invalid Interpretation Code [facility] [place] [facility] Vit B12on 12-21-2023 Cobalamin (Vitamin B12) [Mass/Vol] 406 pg/mL Normal 50-1500 [facility] Comment on above: Performed By: #### 2 [id number] #### [facility] [address] [place] [address] Vitamin D 25 Hydroxyon 12-20 25-hydroxyvitamin D3 [Mass/Vol] 14.5 ng/mL Low 30.0-100.0 [facility] Comment on above: Performed By: #### 5 [id number] #### [facility] [address] [place] [address] No Panel Informationon 11-15 Bedside Glucose 356 [facility] Amphetamine Screen Ql (U)Ord ered By: Red Harden on 10-18-2023 Amphetamines Ql (U) Negative Negative [facility] Barbiturates [Presence] in U rine by Screen methodOrdered By: Red Harden on 10-18-2023 Barbiturates Screen Ql (U) Negative Negative [facility] Benzodiazepines Screen Ql (U )Ordered By: Red Harden on 10-18-2023 Benzodiazepines Ql (U) Negative Negative [facility] Benzoylecgonine [Presence] i n Urine by Screen methodOrdered By: Red Harden on 10-18-2023 Benzoylecgonine Screen Ql (U) Negative Negative [facility] Cannabinoids [Presence] in U rine by Screen methodOrdered By: Red Harden on 10-18-2023 Cannabinoids Screen Ql (U) Positive Negative [facility] Comment on above: These are unconfirme d results and should not be used for legal purposes. Drug Cut-Off Concentration: AMPH 1000 ng/mL CAROLA 200 ng/mL LILLY 200 ng/mL COCM 300 ng/mL OP 300 ng/mL PCP 25 ng/mL THC 20 ng/mL Drug Screen,Urineon 10-18-19 24 Amphetamine Screen,Urine Negative Normal Negative [facility] Comment on above: Performed By: #### U RDS #### [address] Barbiturate Screen,Urine Negative Normal Negative [facility] Comment on above: Performed By: #### U RDS #### [place] [address] [place] Benzodiazepines Screen,Urine Negative Normal Negative [facility] Comment on above: Performed By: #### U RDS #### [place] [address] [place] Cannabinoid Screen,Urine Positive High Negative [facility] Comment on above: Result Comment: Thes e are unconfirmed results and should not be used for legal purposes. Drug Cut-Off Concentration: AMPH 1000 ng/mL CAROLA 200 ng/mL LILLY 200 ng/mL COCM 300 ng/mL OP 300 ng/mL PCP 25 ng/mL THC 20 ng/mL PERFORMED BY: [place] [address] PATHOLOGIST DENTAL MANAGER TATI RAIN M.D. Performed By: #### U RDS #### [place] [address] [place] Cocaine Screen,Urine Negative Normal Negative [facility] Comment on above: Performed By: #### U RDS #### [place] [address] [place] Opiate Screen,Urine Negative Normal Negative [facility] Comment on above: Performed By: #### U RDS #### [place] [address] [place] Phencyclidine Screen,Urine Negative Normal Negative [facility] Comment on above: Performed By: #### U RDS #### [address] Glucose Glucometer (dC) [M ass/Vol]Ordered By: Red Harden on 10-18-2023 Glucose [Mass/Vol] 215 mg/dL [facility] Comment on above: Random Glucose Refer ence Range is dependent on time and content of last meal. Glucose of more than 200 mg/dL in a nonstressed, ambulatory subject supports the diagnosis of Diabetes Mellitus. Glucose Poct Glucometerson 0 10-18-2023 Commemt1 Glu2: Cleaned Meter Normal [facility] Comment on above: Result Comment: PERF ORMED BY: [place] [address] PATHOLOGIST DENTAL MANAGER TATI RAIN M.D. Performed By: #### G LULS #### Point of Care testing , Glucose [Mass/Vol] 215 mg/dL Normal [facility] Comment on above: Result Comment: [facility] Glucose Reference Range is dependent on time and content of last meal. Glucose of more than 200 mg/dL in a nonstressed, ambulatory subject supports the diagnosis of Diabetes Mellitus. Performed By: #### G LULS #### Point of Care testing , Angelito 10-18-2023 L Specimen: [id number] Received: 10/18/23 Status: DIXIE Stewartrod Num: [id number] Spec Type: Surgical Subm Dr: Red Harden MD Tissues: A Small Intestine - Biopsy/Polyp (SMALL BOWEL BX) B GASTRIC FOR HP (GASTRIC HP) C Esophagus Biopsy (ESOPHAGUS BX) D Colon Biopsy (RANDOM COLON BX) Procedures: HE/8, Gross/Micro L4/4, H PYLORI, IHC First AB Age/ Patient Sex Location Account Attending Physician Arturo Bergman 43/M [id number] Red Harden MD SPEC NUM: [id number] RECD: 10/18/23 STATUS: DIXIE STEWARTRod NUM: [id number] MARANDA: 10/18/23 DR: Red Harden MD ENTERED: 10/18/[address] [facility] [address]: SPEC TYPE: Surgical DEPT: S ORDERED: HE/8, Gross/Micro L4/4, H PYLORI, IHC First AB ORDERED: HE/8, Gross/Micro L4/4, H PYLORI, IHC First AB Pathological Diagnosis A. Small bowel biopsy: - Unremarkable small bowel mucosa. - No features of celiac disease are identified. B. Gastric biopsy - Moderate chronic, focally active gastritis. - Helicobacter pylori immunostain demonstrate a moderate number of H.pylori. - Intestinal metaplasia without dysplasia is present. - Negative for malignancy. C. Esophagus, biopsy: - Fragments of unremarkable squamous mucosa. - Negative for eosinophilic esophagitis. D. Random colon, biopsies: - Unremarkable colonic mucosa. - No evidence for collagenous colitis, Lymphocytic colitis or other forms of colitis. ---- Specimen: [id number] Received: 10/18/23 Status: DIXIE Partida Num: [id number] Spec Type: Surgical Subm Dr: Red Harden MD Tissues: A Small Intestine - Biopsy/Polyp (SMALL BOWEL BX) B GASTRIC FOR HP (GASTRIC HP) C Esophagus Biopsy (ESOPHAGUS BX) D Colon Biopsy (RANDOM COLON BX) Procedures: SANDRO/Khanh, Gross/Micro L4/4, H PYLORI, IHC First AB ---- Patient: Arturo Bergman [id number] (Continued) ---- Specimen: [id number] Received: 10/18/23 (Continued) Signed (signature on file) Mima Coronel MD 10/19/23 1627 ---- Specimen: [id number] Received: 10/18/23 Status: DIXIE Partida Num: [id number] Spec Type: Surgical Subm Dr: Red Harden MD Tissues: A Small Intestine - Biopsy/Polyp (SMALL BOWEL BX) B GASTRIC FOR HP (GASTRIC HP) C Esophagus Biopsy (ESOPHAGUS BX) D Colon Biopsy (RANDOM COLON BX) Procedures: HE/8, Gross/Micro L4/4, H PYLORI, IHC First AB ---- Patient: Arturo Bergman [id number] (Continued) ---- Specimen: [id number] Received: 10/18/23 (Continued) Clinical Information GERD, diarrhea, rule out celiac, rule out H. pylori, rule out EOE, rule out microscopic colitis Gross Description A. Received in formalin labeled with the patient's name, date of and small bowel biopsy is one sandoval tissue measuring 0.5 x 0.4 x 0.2 cm. Entirely submitted in one cassette labeled A1. B. Received in formalin labeled with the patient's name, date of and gastric biopsy are three sandoval tissues ranging from 0.1 cm to 0.3 cm. Entirely submitted in one cassette labeled B1. C. Received in formalin labeled with the patient's name, date of and esophagus biopsy are two sandoval tissues measuring 0.1 cm and 0.3 x 0.2 x 0.1 cm. Entirely submitted in one cassette labeled C1. D. Received in formalin labeled with the patient's name, date of and random colon biopsies are two sandoval tissues measuring 0.2 x 0.1 x 0.1 cm and 0.4 x 0.2 x 0.2 cm. Entirely submitted in one cassette labeled D1. Microscopic Description Microscopic evaluation supports the above rendered diagnosis. CPT Codes 35751j7, 87175 ---- ---- Specimen: [id number] Received: 10/18/23 Status: DIXIE Jaquan Num: [id number] Spec Type: Surgical Subm Dr: Red Harden MD Tissues: A Small Intestine - Biopsy/Polyp (SMALL BOWEL BX) B GASTRIC FOR HP (GASTRIC HP) C Esophagus Biopsy (ESOPHAGUS BX) D Colon Biopsy (RANDOM COLON BX) Procedures: HE/8, Gross/Micro L4/4, H PYLORI, IHC First AB ---- Patient: Arturo Bergman [id number] (Continued) ---- Signed (more content not included)... Normal [facility] No Panel InformationOrdered By: Red Harden on 10-18-2023 Bedside Glucose Comment Glu2: cleaned meter [facility] Opiates [Presence] in Urine by Screen methodOrdered By: Red Harden on 10-18-2023 Opiates Screen Ql (U) Negative Negative [facility] Phencyclidine Screen Ql (U)O rdered By: Red Harden on 10-18-2023 Phencyclidine Ql (U) Negative Negative [facility] CMPon 10-12-2023 Albumin [Mass/Vol] 3.4 g/dL Normal 3.3-5.0 [facility] Comment on above: Performed By: #### 1 [id number], [id number], 6332506, 7742085, 6773210 #### [facility] [address] [place] [address] Albumin/Globulin (S) [Mass conc ratio] 1.1 Normal 1.1-2.2 [facility] Comment on above: Performed By: #### 1 [id number], [id number], 5665147, 3554373, 8253410 #### [facility] [address] [place] [address] ALP [Catalytic activity/Vol] 127 Int._Unit/L High 21-98 [facility] Comment on above: Performed By: #### 1 [id number], 24057804, 0805782, 1482009, [id number] #### [facility] [address] [place] [address] ALT No additional P-5'-P [Catalytic activity/Vol] 15 Int._Unit/L Normal 6-46 [facility] Comment on above: Performed By: #### 1 [id number], [id number], 2402767, 6983209, 1664360 #### [facility] [address] [place] [address] Anion gap [Moles/Vol] 15 mmol/L Normal 6-16 [facility] Comment on above: Performed By: #### 1 [id number], [id number], 7211861, 8979577, 3967754 #### [facility] [address] [place] [address] AST [Catalytic activity/Vol] 12 Int._Unit/L Normal 5-43 [facility] Comment on above: Performed By: #### 1 [id number], 42561518, 7892022, 6791033, 4350071 #### [facility] [address] [place] [address] Bilirubin [Mass/Vol] 0.4 mg/dL Normal 0.0-1.1 [facility] Comment on above: Performed By: #### 1 [id number], [id number], 7870577, 2795783, 7599657 #### [facility] [address] [place] [address] Calcium [Mass/Vol] 9.1 mg/dL Normal 8.9-11.1 [facility] Comment on above: Performed By: #### 1 [id number], [id number], 3785276, 7169641, 2670780 #### [facility] [address] [place] [address] Chloride [Moles/Vol] 101 mmol/L Normal 101-111 [facility] Comment on above: Performed By: #### 1 [id number], 07826752, 8469969, 3771482, 6062628 #### [facility] [address] [place] [address] CO2 [Moles/Vol] 27 mmol/L Normal 21-31 [facility] Comment on above: Performed By: #### 1 [id number], [id number], 0853171, 3686884, 1929992 #### [facility] [address] [place] [address] Creatinine [Mass/Vol] 1.2 mg/dL Normal 0.5-1.3 [facility] Comment on above: Performed By: #### 1 4864756, 09991998, 5896021, 3629475, 8353017 #### [facility] [address] [place] [address] Globulin (S) [Mass/Vol] 3.0 g/dL Normal 1.4-4.0 [facility] Comment on above: Performed By: #### 1 8502395, 61474496, 5161913, 3839021, 1056876 #### [facility] [address] [place] [address] Glucose [Mass/Vol] 227 mg/dL High 55-199 [facility] Comment on above: Performed By: #### 1 0156412, [id number], 6549423, 7624635, 8777380 #### [facility] [address] [place] [address] Potassium [Moles/Vol] 4.9 mmol/L Normal 3.5-5.3 [facility] Comment on above: Performed By: #### 1 0294403, 90109392, 3901763, 0176749, 4456457 #### [facility] [address] [place] [address] Protein [Mass/Vol] 6.4 g/dL Normal 6.0-7.8 [facility] Comment on above: Performed By: #### 1 1768970, 70125000, 9544191, 4842002, 5610023 #### [facility] [address] [place] [address] Sodium [Moles/Vol] 138 mmol/L Normal 135-145 [facility] Comment on above: Performed By: #### 1 8282807, 45320598, 7966696, 7948144, 9116656 #### [facility] [address] [place] [address] Urea nitrogen [Mass/Vol] 22 mg/dL High 5-21 [facility] Comment on above: Performed By: #### 1 7508307, 03577844, 1718160, 8141391, 5919971 #### [facility] [address] [place] [address] Urea nitrogen/Creatinine [Mass ratio] 18 No Units Normal 10-20 [facility] Comment on above: Performed By: #### 1 5683948, 71156282, 3817164, 6202628, 0185255 #### [facility] [address] [place] [address] Consent for Treatmenton 03- Consent for Treatment [id number] [id number]#1.0 0TIFF Normal [facility] Lipid Panelon 10-12-2023 Cholesterol [Mass/Vol] 295 mg/dL High 120-200 [facility] Comment on above: Performed By: #### 1 4288806, 00850896, 6453951, 1973536, 2822494 ####[facility] [address] [place] [address] Cholesterol in HDL [Mass/Vol] 38 mg/dL Invalid Interpretation Code [facility] Comment on above: Result Comment: '>= 60 LOW RISK' '<= 40 HIGH RISK' Performed By: #### 1 4115588, 94260924, 2470817, 9331555, 6867788 ####[facility] [address] [place] [address] Cholesterol in LDL [Mass/Vol] 225 mg/dL High <=129 [facility] Comment on above: Performed By: #### 1 4358371, 61314748, 5755194, 5707491, 1257531 ####[facility] [address] [place] [address] Cholesterol in VLDL [Mass/Vol] 44 mg/dL High 7-40 [facility] Comment on above: Performed By: #### 1 2937820, 58734784, 9315909, 2005918, 5471233 ####[facility] [address] [place] [address] Triglyceride [Mass/Vol] 219 mg/dL High <=149 [facility] Comment on above: Performed By: #### 1 0010283, 86714267, 8514528, 4674999, 3667294 ####[facility] [address] [place] [address] Physician Orderon 10-12-2023 Physician Order [id number]#1.0 0TIFF Normal [facility] Physician Order [id number]#1.0 0TIFF Normal [facility] T4 & TSHon 10-12-2023 TSH Qn 1.86 m[IU]/L Normal 0.34-5.60 [facility] Comment on above: Performed By: #### 1 3403005, 95767153, 3105880, 0322246, 6920720 #### [facility] [address] [place] [address] T4 [Mass/Vol] 11.3 microgram/dL High 4.6-9.1 [facility] Comment on above: Performed By: #### 1 4929654, 25856990, 1631796, 5301806, 9587277 #### [facility] [address] [place] [address] Uric Acidon 10-12-2023 Urate (U) [Mass/Vol] 7.7 mg/dL High 2.2-7.4 [facility] Comment on above: Performed By: #### 1 0748448, 01638748, 9880026, 1896851, 0309573 ####[facility] [address] [place] [address] XR Toe(s) Min 2 Views Righto n 10-12-2023 XR Toe(s) Min 2 Views Right Exam Date/Time: 10/12/2023 09:39 EST Reason for Exam: [id number] Report IMPRESSION: HEALING FRACTURE OF THE PROXIMAL PHALANX OF THE GREAT TOE. EXAMINATION: XR Toe(s) Min 2 Views Right HISTORY: Pain and swelling since injury months ago. COMPARISON: None available TECHNIQUE: AP, lateral, and oblique views of the great toe of the right foot FINDINGS: Healing obliquely oriented fracture of the diaphysis of the proximal phalanx of the great toe with associated soft tissue edema. No definitive intra-articular extension. No dislocation. Mild degenerative changes at the first metatarsophalangeal joint. Ordering Provider: , FINAL REPORT Dictated: 10/12/2023 3:43 pm Leon Echavarria DO Signed (Electronic Signature): 10/12/2023 3:43 pm Signed by: Leon Echavarria DO Transcribed by: CAROLE Technologist: TAMIR Technical Comments Radiation Dose: Ka,r in mGy = na DAP = na Normal [facility] eGFRon 10-12-2023 eGFR 77 mL/min/1.73 m2 Normal >=59 [facility] Comment on above: Order Comment: Order added by Discern Expert. Performed By: #### 1 5454032, 34909678, 5479243, 3357427, 9155921 ####[facility] [address] [place] [address] Laboratory - Hematology and Cell countson 09-21-2023 HbA1c (Bld) [Mass fraction] 10.2 % [facility] No Panel Informationon 09-21 Bedside Glucose 240 [facility] O & P EXAM, ROUTINE, REFLEXo n 09-13-2023 Ova and parasites identified Concentration Nom (Stl) Comment Invalid Interpretation Code [facility] Comment on above: Result Comment: No o va, cysts, or parasites seen. One negative specimen does not rule out the possibility of a parasitic infection. Performed at: [facility] [address] [place], [place] [id number] PhD Edwar Kaplan Performed By: #### 1 1254241, 5195094010, 2735385185, 41259999, [id number] #### [facility] [address] [place] [address] O & P Exam, Routineon 2023 Ova and parasites identified LM Nom (Unsp spec) Final report Invalid Interpretation Code [facility] Comment on above: Result Comment: Thes e results were obtained using wet preparation(s) and trichrome stained smear. This test does not include testing for Cryptosporidium parvum, Cyclospora, or Microsporidia. Performed at: [facility] [id number] PhD Edwar Kaplan Performed By: #### 1 3220673, 9748096829, 9122238034, 82856382, [id number] #### [facility] [address] [place] [address] Pancreatic Elastase, Fecalon 09-13-2023 Elastase.pancreatic (Stl) [Mass/Mass] 310 Invalid Interpretation Code >200 [facility] Comment on above: Result Comment: Wandy re Pancreatic Insufficiency: <100 Moderate Pancreatic Insufficiency: 100 - 200 Normal: >200 Performed at: [facility] [id number] MD Fredrick Chen Performed By: #### 1 9314959, 7518503822, 1104510186, 46134877, 6211859262 #### [facility] [address] [place] [address] Celiac Disease Comprehensive on 09-11-2023 Endomysium IgA Ql (S) Negative Invalid Interpretation Code Negative [facility] Comment on above: Performed By: #### 1 9981903, 3049632892, 8124854682, 33573332, 8894522317 #### [facility] [address] [place] [address] Gliadin peptide IgA Qn (S) 15 unit(s) Invalid Interpretation Code 0-19 [facility] Comment on above: Result Comment: Nega tive 0 - 19 Weak Positive 20 - 30 Moderate to Strong Positive >30 Performed By: #### 1 7648018, 4521000279, 9388880378, 32380196, 5085783124 #### [facility] [address] [place] [address] Gliadin peptide IgG Qn (S) 3 unit(s) Invalid Interpretation Code 0-19 [facility] Comment on above: Result Comment: Nega tive 0 - 19 Weak Positive 20 - 30 Moderate to Strong Positive >30 Performed By: #### 1 6025324, 3403114494, 8318860566, 20219660, 5726221989 #### [facility] [address] [place] [address] IgA [Mass/Vol] 435 mg/dL High 90-386 [facility] Comment on above: Result Comment: Perf ormed at: [facility] [address] [id number] PhD Edwar Kaplan Performed By: #### 1 5509597, 2435251053, 5446637321, 08536980, 2423559368 #### [facility] [address] [place] [address] tTG IgA Qn (S) <2 Invalid Interpretation Code 0-3 [facility] Comment on above: Result Comment: Nega tive 0 - 3 Weak Positive 4 - 10 Positive >10 Tissue Transglutaminase (tTG) has been identified as the endomysial antigen. Studies have demonstr- ated that endomysial IgA antibodies have over 99% specificity for gluten sensitive enteropathy. Performed By: #### 1 2293704, 7212470077, 9625112194, 11277411, 7999905477 #### [facility] [address] [place] [address] tTG IgG Qn (S) <2 Invalid Interpretation Code 0-5 [facility] Comment on above: Result Comment: Nega tive 0 - 5 Weak Positive 6 - 9 Positive >9 Performed By: #### 1 7917356, 9735946972, 0324777220, 67909322, 9630319305 #### [facility] [address] [place] [address] HIV Screen 4th Generation wR fxon 09-11-2023 HIV 1+2 Ab+HIV1 p24 Ag IA Ql Non-Reactive Invalid Interpretation Code Non Reactive [facility] Comment on above: Result Comment: HIV Negative HIV-1/HIV-2 antibodies and HIV-1 p24 antigen were NOT detected. There is no laboratory evidence of HIV infection. Performed at: [facility] [id number] PhD Edwar Kaplan Performed By: #### 1 6234793, 6226623779, 1015132845, 67922526, 6526360529 #### [facility] [address] [place] [address] Enteric Panel by PCRon 09-08 C. coli+jejuni+upsaliens is DNA DONNELL+non-probe Ql (Stl) Not detected Normal [facility] Comment on above: Result Comment: Test ing was performed utilizing reverse senior label specialist (RT), polymerase chain reaction (PCR), and array hybridization to detect specific gastrointestinal microbial nucleic acid gene sequences associated with the following pathogenic bacteria and viruses:Campylobacter Group (composed of C. coli, C. jejuni, and C. alia), Salmonella species, Shigella species (including S. dysenteriae, S. boydii, S. sonnei and S. flexneri), Vibrio Group (composed of V. cholera and V. parahaemolyticus), Yersinia enterocolitica, Norovirus GI/GII, and Rotavirus A. In addition, EPdetects Shiga toxin 1 gene and Shiga toxin 2 gene virulence markers. Shiga toxin producing E. coli (STEC) typically harbor one or both genes that encode for Shiga toxins 1 and 2. Campylobacter group, Salmonella species, Shigella species, Vibrio group, Rotavirus A, Shiga Toxin 1, Shiga Toxin 2, Norovirus GI/GII, and Yersinia enterocolitica were tested by Verigene nulcleic acid test. Performed By: #### 1 7986051, 8241372641, 3456832932, 10914471, 1654440323 #### [facility] [address] [place] [address] E. coli stx1+stx2 genes DONNELL+non-probe Ql (Stl) Negative Normal [facility] Comment on above: Performed By: #### 1 0282528, 3771228181, 4925377748, 13563740, 7224948688 #### [facility] [address] [place] [address] Enteric Panel Intrl QC Pass Normal [facility] Comment on above: Result Comment: Test ing was performed utilizing reverse senior label specialist (RT), polymerase chain reaction (PCR), and array hybridization to detect specific gastrointestinal microbial nucleic acid gene sequences associated with the following pathogenic bacteria and viruses:Campylobacter Group (composed of C. coli, C. jejuni, and C. alia), Salmonella species, Shigella species (including S. dysenteriae, S. boydii, S. sonnei and S. flexneri), Vibrio Group (composed of V. cholera and V. parahaemolyticus), Yersinia enterocolitica, Norovirus GI/GII, and Rotavirus A. In addition, EPdetects Shiga toxin 1 gene and Shiga toxin 2 gene virulence markers. Shiga toxin producing E. coli (STEC) typically harbor one or both genes that encode for Shiga toxins 1 and 2. Performed By: #### 1 2406327, 9950678139, 2381279952, 81340381, 1195732391 #### [facility] [address] [place] [address] Norovirus genogroup I+II RNA DONNELL+non-probe Ql (Stl) Not detected Normal [facility] Comment on above: Performed By: #### 1 6221833, 7441199490, 7454080556, 68483722, 5703601634 #### [facility] [address] [place] [address] Rotavirus A RNA DONNELL+non-probe Ql (Stl) Not detected Normal [facility] Comment on above: Performed By: #### 1 9290555, 5717083048, 5917403489, 52016059, 6692217534 #### [facility] [address] [place] [address] S. enterica+bongori DNA DONNELL+non-probe Ql (Stl) Not detected Normal [facility] Comment on above: Result Comment: This test result should be correlated with clinical presentations and medical history by a healthcare provider to determine its clinical significance. Performed By: #### 1 6783383, 5484656313, 6631614719, 87374514, 7184746601 #### [facility] [address] [place] [address] Shigella species+EIEC invasion plasmid antigen H ipaH gene DONNELL+non-probe Ql (Stl) Not detected Normal [facility] Comment on above: Performed By: #### 1 1846369, 9123598790, 2708892229, 04962254, 5892952130 #### [facility] [address] [place] [address] V. cholerae+parahaemolyt icus+vulnificus DNA DONNELL+non-probe Ql (Stl) Not detected Normal [facility] Comment on above: Performed By: #### 1 2643934, 4371320638, 4083785260, 46949325, 2314807921 #### [facility] [address] [place] [address] Y. enterocolitica DNA DONNELL+non-probe Ql (Stl) Not detected Normal [facility] Comment on above: Performed By: #### 1 3004686, 7900317830, 6214812381, 75898628, 9995355945 #### [facility] [address] [place] [address] CDiff PCRon 09-07-2023 Cdiff Specimen Acceptable Unacceptable Normal [facility] Comment on above: Performed By: #### 1 1499229, 4910357751, 9535212135, 51298902, 1430775012 #### [facility] [address] [place] [address] Order Cancelled YES Normal [facility] Comment on above: Performed By: #### 1 5286257, 7054538394, 0274305503, 55951043, 9437957879 #### [facility] [address] [place] [address] CHEMISTRYOrdered By: SYSTEM SYSTEM on 09-07-2023 CRP 1.1 mg/dL Normal <=1.9mg/dL Remisol Chem TSH Qn 1.79 m[IU]/L Normal 0.34 - 5.60 mcIU/mL Remisol Chem CRPon 09-07-2023 CRP 1.1 mg/dL Normal <=1.9 [facility] Comment on above: Performed By: #### 1 0404494, 0700328414, 5868066199, 37628405, 4655177973 #### [facility] [address] [place] [address] Consent for Treatmenton Consent for Treatment [id number] 4020 [id number]#1.0 0TIFF [facility] HEMATOLOGYOrdered By: Mabel Diaz on 09-07-2023 ESR (Bld) [Velocity] 30 mm/h High 0 - 19 mm/hr [facility] HemeAutoSS Physician Orderon 09-07-2023 Physician Order [id number]#1. 00TIFF Normal [facility] Sed Rate Automatedon 024 ESR (Bld) [Velocity] 30 mm/h High 0-19 [facility] Comment on above: Performed By: #### 1 5597347, 4358579856, 0691039695, 17335509, 7051859087 #### [facility] [address] [place] [address] TSHon 09-07-2023 TSH Qn 1.79 m[IU]/L Normal 0.34-5.60 [facility] Comment on above: Performed By: #### 1 9622577, 1801313383, 1461645865, 83574713, 4785146563 #### [facility] [address] [place] [address] Glucose - FINGER STICKon Glucose [Mass/Vol] 167 mg/dL [employer] Other Nursing Note - Woundon 07-17 Nursing Note - Wound [id number]#2. 00TIFF [facility] SINGH w/Reflex if POSon 2022 Nuclear Ab Ql (S) Negative Invalid Interpretation Code Negative [facility] Comment on above: Result Comment: Perf ormed at: [facility] [address] [place] [id number] PhD Edwar Kaplan Performed By: #### 1 8396467, 6421273414, 3752837744, 42375468, 0523559084 #### [facility] [address] [place] [address] Insulin Lvlon 07-11-2023 Insulin Qn 6.1 u[IU]/mL Invalid Interpretation Code 2.6-24.9 [facility] Comment on above: Result Comment: Perf ormed at: [address] [id number] PhD Edwar Kaplan Performed By: #### 1 7212725, 5488585481, 1614636139, 64781897, 1309851317 #### [facility] [address] [place] [address] Auto Diffon 07-10-2023 Basophils/100 WBC (Bld) 0.6 % Normal 0.0-2.0 [facility] Comment on above: Order Comment: Order Added by Discern Expert. Performed By: #### 1 3714732, 6276480348, 2389818537, 68289713, 9562274253 #### [facility] [address] [place] [address] Basophils/Leukocytes Auto (Bld) [Pure # fraction] 0.1 E9/L Normal 0.0-0.2 [facility] Comment on above: Order Comment: Order Added by Discern Expert. Performed By: #### 1 1023914, 5743045861, 7164431808, 81989288, 8383589096 #### [facility] [address] [place] [address] Eosinophils/100 WBC (Bld) 1.7 % Normal 0.0-8.0 [facility] Comment on above: Order Comment: Order Added by Discern Expert. Performed By: #### 1 3251171, 1035740991, 0070786472, 30567203, 1381315564 #### [facility] [address] [place] [address] Eosinophils/Leukocyte s Auto (Bld) [Pure # fraction] 0.1 E9/L Normal 0.0-0.5 [facility] Comment on above: Order Comment: Order Added by Discern Expert. Performed By: #### 1 7777002, 0512204108, 1997573705, 26432847, 8721110960 #### [facility] [address] [place] [address] Lymphocytes/100 WBC (Bld) 24.0 % Normal 14.0-50.0 [facility] Comment on above: Order Comment: Order Added by Jenny Expert. Performed By: #### 1 1135743, 9485176328, 7667565810, 83086504, 3008606159 #### [facility] [address] [place] [address] Lymphocytes/Leukocyte s Auto (Bld) [Pure # fraction] 2.1 E9/L Normal 1.0-4.0 [facility] Comment on above: Order Comment: Order Added by Jenny Expert. Performed By: #### 1 0527686, 9474778128, 5089394272, 44511766, 0546323680 #### [facility] [address] [place] [address] Monocytes/100 WBC (Bld) 5.1 % Normal 4.0-14.0 [facility] Comment on above: Order Comment: Order Added by Jenny Expert. Performed By: #### 1 3968442, 2992577480, 5719930376, 43723762, 0967727359 #### [facility] [address] [place] [address] Monocytes/Leukocytes Auto (Bld) [Pure # fraction] 0.4 E9/L Normal 0.2-1.0 [facility] Comment on above: Order Comment: Order Added by Jenny Expert. Performed By: #### 1 2283389, 2281886489, 8605713096, 71938095, 6052035507 #### [facility] [address] [place] [address] Neutrophils/100 WBC (Bld) 68.6 % Normal 36.0-75.0 [facility] Comment on above: Order Comment: Order Added by Discern Expert. Performed By: #### 1 9936021, 8912081267, 7620380671, 56833826, 4260686740 #### [facility] [address] [place] [address] Neutrophils/Leukocyte s Auto (Bld) [Pure # fraction] 5.9 E9/L Normal 2.0-7.5 [facility] Comment on above: Order Comment: Order Added by Discern Expert. Performed By: #### 1 4216955, 9594948047, 9339845115, 11942629, 1430353475 #### [facility] [address] [place] [address] CBC w/ Auto Diffon 3 Erythrocyte distribution width (RBC) [Ratio] 14.0 % Normal 10.9-14.2 [facility] Comment on above: Performed By: #### 1 7202962, 4475304627, 0886212707, 77817824, 4256884402 #### [facility] [address] [place] [address] Hematocrit (Bld) [Volume fraction] 45.2 % Normal 37.7-49.0 [facility] Comment on above: Performed By: #### 1 9715545, 9411368114, 2279326312, 92417610, 7257494731 #### [facility] [address] [place] [address] Hemoglobin (Bld) [Mass/Vol] 15.5 g/dL Normal 13.5-17.5 [facility] Comment on above: Performed By: #### 1 0114328, 4912632327, 5443319099, 41046676, 2541781359 #### [facility] [address] [place] [address] MCH (RBC) [Entitic mass] 29.5 pg Normal 27.0-34.0 [facility] Comment on above: Performed By: #### 1 4906756, 8100603958, 4572551704, 38301468, 4174280042 #### [facility] [address] [place], [place] [address] MCHC (RBC) [Mass/Vol] 34.3 g/dL Normal 31.4-36.0 [facility] Comment on above: Performed By: #### 1 6425766, 9690398988, 8692511554, 69037328, 5262865167 #### [facility] [address] [place] [address] MCV (RBC) [Entitic vol] 85.9 fL Normal 80.0-100.0 [facility] Comment on above: Performed By: #### 1 8778923, 5154883298, 5891631740, 79996065, 6518696821 #### [facility] [address] [place] [address] Platelet mean volume (Bld) [Entitic vol] 9.1 fL Normal 6.4-10.8 [facility] Comment on above: Performed By: #### 1 2109325, 1168670408, 0199300901, 45170925, 9805469052 #### [facility] [address] [place] [address] Platelets (Bld) [#/Vol] 219.0 E9/L Normal 150.0-500.0 [facility] Comment on above: Performed By: #### 1 8438881, 2850775062, 5970352604, 81874306, 2991618968 #### [facility] [address] [place] [address] RBC (Bld) [#/Vol] 5.3 E12/L Normal 4.3-5.9 [facility] Comment on above: Performed By: #### 1 9679989, 2240531270, 5890248096, 41782487, 7047517354 #### [facility] [address] [place] [address] WBC corrected for nucl RBC Auto (Bld) [#/Vol] 8.7 E9/L Normal 4.0-11.0 [facility] Comment on above: Performed By: #### 1 3968547, 1058505445, 6333011885, 29692333, 5519580890 #### [facility] [address] [place] [address] CHEMISTRYOrdered By: SYSTEM SYSTEM on 07-10-2023 Albumin [Mass/Vol] 3.0 g/dL Low 3.3 - 5.0 gm/dL [facility] Remisol Albumin/Globulin [Mass ratio] 0.8 {ratio} Low 1.1 - 2.2 [facility] Remisol ALP [Catalytic activity/Vol] 123 [iU]/d High 21 - 98 Int._Unit/L [facility] Remisol ALT No additional P-5'-P [Catalytic activity/Vol] 26 [iU]/d Normal 6 - 46 Int._Unit/L [facility] Remisol Anion gap [Moles/Vol] 10 mmol/L Normal 6 - 16 mEq/L [facility] Remisol AST [Catalytic activity/Vol] 18 [iU]/d Normal 5 - 43 Int._Unit/L [facility] Remisol Bilirubin [Mass/Vol] 0.2 mg/dL Normal 0.0 - 1 .1 mg/dL [facility] Remisol Calcium [Mass/Vol] 8.7 mg/dL Low 8.9 - 11. 1 mg/dL [facility] Remisol Chloride [Moles/Vol] 102 mmol/L Normal 101 - 1 11 mmol/L [facility] Remisol CO2 [Moles/Vol] 28 mmol/L Normal 21 - 31 mmol/L [facility] Remisol Creatinine [Mass/Vol] 1.1 mg/dL Normal 0.5 - 1.3 mg/dL [facility] Remisol CRP [Mass/Vol] 1.3 mg/dL Normal <=1.9mg/dL [facility] Remis ol GFR/1.73 sq M.predicted among non-blacks MDRD (S/P/Bld) [Vol rate/Area] 85 mL/min/1.73 m2 Normal >=59mL/min/ 1.73 m2 [facility] Chem S Comment on above: Interpretive Data: C hronic kidney disease could be indicated at eGFR's of less than 60 mL/min/1.73m2. Kidney failure is indicated at less than 15 mL/min/1.73m2. Globulin (S) [Mass/Vol] 4.0 g/dL Normal 1.4 - 4.0 gm/dL [facility] Remisol Glucose [Mass/Vol] 221 mg/dL High 55 - 199 mg/dL [facility] Remisol Comment on above: Interpretive Data: I f this glucose result represents a fasting glucose, interpretation should refer to the following reference range: 55-99 mg/dL Potassium [Moles/Vol] 4.6 mmol/L Normal 3.5 - 5.3 mmol/L [facility] Remisol Protein [Mass/Vol] 7.0 g/dL Normal 6.0 - 7.8 gm/dL [facility] Remisol Sodium [Moles/Vol] 135 mmol/L Normal 135 - 145 mmol/L [facility] Remisol Urea nitrogen [Mass/Vol] 24 mg/dL High 5 - 21 mg/dL [facility] Remisol Urea nitrogen/Creatinine [Mass ratio] 22 mg/mg High 10 - 20 [facility] Remisol CMPon 07-10-2023 Albumin [Mass/Vol] 3.0 g/dL Low 3.3-5.0 [facility] Comment on above: Performed By: #### 1 [id number], [id number], [id number], 21575449, [id number] #### [facility] [address] [place] [address] Albumin/Globulin (S) [Mass conc ratio] 0.8 Low 1.1-2.2 [facility] Comment on above: Performed By: #### 1 2647526, [id number], [id number], 94099209, [id number] #### [facility] [address] [place] [address] ALP [Catalytic activity/Vol] 123 Int._Unit/L High 21-98 [facility] Comment on above: Performed By: #### 1 6404765, [id number], 3775108008, 55987074, [id number] #### [facility] [address] [place] [address] ALT No additional P-5'-P [Catalytic activity/Vol] 26 Int._Unit/L Normal 6-46 [facility] Comment on above: Performed By: #### 1 1173450, [id number], 7834462790, 65901862, [id number] #### [facility] [address] [place] [address] Anion gap [Moles/Vol] 10 mmol/L Normal 6-16 [facility] Comment on above: Performed By: #### 1 5780582, [id number], 9578308328, 44109643, [id number] #### [facility] [address] [place] [address] AST [Catalytic activity/Vol] 18 Int._Unit/L Normal 5-43 [facility] Comment on above: Performed By: #### 1 5975274, 6981304102, 4096525752, 00344811, [id number] #### [facility] [address] [place] [address] Bilirubin [Mass/Vol] 0.2 mg/dL Normal 0.0-1.1 [facility] Comment on above: Performed By: #### 1 0158362, 8999098117, 2630143068, 87037736, 6601805919 #### [facility] [address] [place] [address] Calcium [Mass/Vol] 8.7 mg/dL Low 8.9-11.1 [facility] Comment on above: Performed By: #### 1 5578451, 4325642413, 9639308315, 02511467, 1603805259 #### [facility] [address] [place] [address] Chloride [Moles/Vol] 102 mmol/L Normal 101-111 [facility] Comment on above: Performed By: #### 1 0845872, 8736060654, 8377755109, 16792566, 0858934320 #### [facility] [address] [place] [address] CO2 [Moles/Vol] 28 mmol/L Normal 21-31 [facility] Comment on above: Performed By: #### 1 7642140, 2733392069, 8286775118, 78829666, [id number] #### [facility] [address] [place] [address] Creatinine [Mass/Vol] 1.1 mg/dL Normal 0.5-1.3 [facility] Comment on above: Performed By: #### 1 3430800, 7439622787, 5650224726, 87447362, 4179831751 #### [facility] [address] [place] [address] Globulin (S) [Mass/Vol] 4.0 g/dL Normal 1.4-4.0 [facility] Comment on above: Performed By: #### 1 3420204, 1367807939, 6638713073, 81893140, 0384305446 #### [facility] [address] [place] [address] Glucose [Mass/Vol] 221 mg/dL High 55-199 [facility] Comment on above: Result Comment: If t his glucose result represents a fasting glucose, interpretation should refer to the following reference range: 55-99 mg/dL Performed By: #### 1 6805220, 0871774568, 2153087639, 55212819, 7569737531 #### [facility] [address] [place] [address] Potassium [Moles/Vol] 4.6 mmol/L Normal 3.5-5.3 [facility] Comment on above: Performed By: #### 1 8091080, 4734561192, 7977936492, 96454264, 3557868387 #### [facility] [address] [place] [address] Protein [Mass/Vol] 7.0 g/dL Normal 6.0-7.8 [facility] Comment on above: Performed By: #### 1 1573212, 5435702451, 9015715825, 84837592, 1244474338 #### [facility] [address] [place] [address] Sodium [Moles/Vol] 135 mmol/L Normal 135-145 [facility] Comment on above: Performed By: #### 1 3508284, 6171622658, 2136658892, 33670984, 7549217843 #### [facility] [address] [place] [address] Urea nitrogen [Mass/Vol] 24 mg/dL High 5-21 [facility] Comment on above: Performed By: #### 1 5282708, 5482622403, 1428460002, 03473375, 7156756190 #### [facility] [address] [place] [address] Urea nitrogen/Creatinine [Mass ratio] 22 No Units High 10-20 [facility] Comment on above: Performed By: #### 1 3986567, 0974483950, 8491592815, 87020898, 2280560201 #### [facility] [address] [place] [address] CRPon 07-10-2023 CRP [Mass/Vol] 1.3 mg/dL Normal <=1.9 [facility] Comment on above: Performed By: #### 1 3977112, 5623169515, 6678483399, 06427370, 4741861777 #### [facility] [address] [place] [address] Consent for Treatmenton Consent for Treatment [id number] [id number]#1.0 0TIFF Normal [facility] HEMATOLOGYOrdered By: SYSTEM SYSTEM on 07-10-2023 Basophils/100 WBC (Bld) 0.6 % Normal 0.0 - 2.0 % [facility] Basophils/Leukocytes Auto (Bld) [Pure # fraction] 0.1 E9/L Normal 0.0 - 0.2 E9/L [facility] Eosinophils/100 WBC (Bld) 1.7 % Normal 0.0 - 8.0 % [facility] Eosinophils/Leukocyte s Auto (Bld) [Pure # fraction] 0.1 E9/L Normal 0.0 - 0.5 E9/L [facility] Lymphocytes/100 WBC (Bld) 24.0 % Normal 14.0 - 50.0 % [facility] Lymphocytes/Leukocyte s Auto (Bld) [Pure # fraction] 2.1 E9/L Normal 1.0 - 4.0 E9/L [facility] Monocytes/100 WBC (Bld) 5.1 % Normal 4.0 - 14.0 % [facility] Monocytes/Leukocytes Auto (Bld) [Pure # fraction] 0.4 E9/L Normal 0.2 - 1.0 E9/L [facility] Neutrophils/100 WBC (Bld) 68.6 % Normal 36.0 - 75.0 % [facility] Neutrophils/Leukocyte s Auto (Bld) [Pure # fraction] 5.9 E9/L Normal 2.0 - 7.5 E9/L [facility] HEMATOLOGYOrdered By: Alise Smith on 07-10-2023 Erythrocyte distribution width (RBC) [Ratio] 14.0 % Normal 10.9 - 14.2 % [facility] Hematocrit (Bld) [Volume fraction] 45.2 % Normal 37.7 - 49.0 % [facility] Hemoglobin (Bld) [Mass/Vol] 15.5 g/dL Normal 13.5 - 17.5 gm/dL [facility] MCH (RBC) [Entitic mass] 29.5 pg Normal 27.0 - 34.0 pg [facility] MCHC (RBC) [Mass/Vol] 34.3 g/dL Normal 31.4 - 36.0 gm/dL [facility] MCV (RBC) [Entitic vol] 85.9 fL Normal 80.0 - 100.0 fL [facility] Platelet mean volume (Bld) [Entitic vol] 9.1 fL Normal 6.4 - 10.8 fL [facility] Platelets (Bld) [#/Vol] 219.0 E9/L Normal 150.0 - 500.0 E9/L [facility] RBC (Bld) [#/Vol] 5.3 E12/L Normal 4.3 - 5.9 E12/L [facility] WBC corrected for nucl RBC Auto (Bld) [#/Vol] 8.7 E9/L Normal 4.0 - 11.0 E9/L [facility] HEMATOLOGYOrdered By: Tonie Summers on 07-10-2023 ESR (Bld) [Velocity] 33 mm/h High 0 - 19 mm/hr [facility] Physician Orderon 07-10-2023 Physician Order [id number]#1.0 0TIFF Normal [facility] Sed Rate Automatedon 023 ESR (Bld) [Velocity] 33 mm/h High 0-19 [facility] Comment on above: Performed By: #### 1 4507797, 5282193547, 7674629608, 67583810, 2248304579 #### [facility] [address] [place] [address] eGFRon 07-10-2023 GFR/1.73 sq M.predicted among non-blacks MDRD (S/P/Bld) [Vol rate/Area] 85 mL/min/1.73 m2 Normal >=59 [facility] Comment on above: Order Comment: Order added by Discern Expert. 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 Kidney failure is indicated at less than 15 mL/min/1.73m2. Performed By: #### 1 9697872, 7700809549, 6669511509, 49027360, 4678392130 #### [facility] [address] [place] [address] Nursing Note - Woundon 06-22 Nursing Note - Wound [id number] 110 [id number]#2. 00TIFF [facility] Consent for Treatmenton Consent for Treatment [id number] 3110 [id number]#1.0 0TIFF [facility] Multi-Wound Charton 06-14-20 Multi-Wound Chart [id number] 10 [id number]#1. 00TIFF [facility] Nursing Assessment - Woundon 06-14-2023 Nursing Assessment - Wound [id number]#1. 00TIFF [facility] Physician Orderon 06-14-2023 Physician Order [id number]#1. 00TIFF [facility] Progress Note - Woundon Progress Note - Wound [id number] 7824 [id number]#1. 00TIFF [facility] Consent for Treatmenton Consent for Treatment [id number] 3110 [id number]#1.0 0TIFF [facility] Physician Orderon 06-12-2023 Physician Order [id number]#1. 00TIFF [facility] XR Wrist 3+ Views Righton XR Wrist 3+ Views Right Exam Date/Time: 06/12/2023 11:38 EST Reason for Exam: [id number] Report IMPRESSION: NEGATIVE RIGHT WRIST. CLINICAL INFORMATION: S69.91XA COMPARISON: None. FINDINGS: Four views of the right wrist were obtained. No fracture, dislocation, bone lesion. Calcification of the right radial and right ulnar artery is identified. Remote healed fracture, right fifth metacarpal. Ordering Provider: , FINAL REPORT Dictated: 06/12/2023 4:42 pm Joey Menendez MD Signed (Electronic Signature): 06/12/2023 4:42 pm Signed by: Joey Menendez MD Transcribed by: DP Technologist: ZACHARY Technical Comments Radiation Dose: Ka,r in mGy = na DAP = na [facility] Consent for Procedure/Surger yon 06-07-2023 Consent for Procedure/Surgery [id number]#1. 00TIFF [facility] Consent for Treatmenton Consent for Treatment [id number] [id number]#1.0 0TIFF [facility] Multi-Wound Charton 06-07-20 23 Multi-Wound Chart [id number] 10 [id number]#1. 00TIFF [facility] Nursing Assessment - Woundon 06-07-2023 Nursing Assessment - Wound [id number]#1. 00TIFF [facility] Physician Orderon 06-07-2023 Physician Order [id number]#1. 00TIFF [facility] Progress Note - Woundon Progress Note - Wound [id number] 7190 [id number]#1. 00TIFF [facility] Consent for Treatmenton 05-08 Consent for Treatment [id number] [id number]#1.0 0TIFF [facility] Multi-Wound Charton 05-31-20 23 Multi-Wound Chart [id number] 00 [id number]#1. 00TIFF [facility] Nursing Assessment - Woundon 05-31-2023 Nursing Assessment - Wound [id number]#1. 00TIFF [facility] Nursing Note - Woundon 05-31 Nursing Note - Wound [id number] 100 [id number]#1. 00TIFF [facility] Physician Orderon 05-31-2023 Physician Order [id number]#1. 00TIFF [facility] Progress Note - Woundon 05-08 Progress Note - Wound [id number] 0234 [id number]#1. 00TIFF [facility] Consent for Procedure/Surger yon 05-24-2023 Consent for Procedure/Surgery [id number]#1. 00TIFF [facility] Consent for Treatmenton 05-07 Consent for Treatment [id number] [id number]#1.0 0TIFF [facility] Multi-Wound Charton 05-24-20 Multi-Wound Chart [id number] 00 [id number]#1. 00TIFF [facility] Nursing Assessment - Woundon 05-24-2023 Nursing Assessment - Wound [id number]#1. 00TIFF [facility] Nursing Note - Woundon 05-24 Nursing Note - Wound [id number] 100 [id number]#1. 00TIFF [facility] Physician Orderon 05-24-2023 Physician Order [id number]#1. 00TIFF [facility] Progress Note - Woundon 05-07 Progress Note - Wound [id number] 2789 [id number]#1. 00TIFF [facility] Provider Orderson 05-23-2023 Provider Orders [id number]#1.0 [facility]22[facility]2023 Coding Summary HTMLBase 64 HxfveyluTXs5vNr+PGhlYW Q+RB5HMXZvJ00rtPFgnF9v B9LRPRaMPdtxIBLDJKpRZw DlpoYuML2rhCUwTBHc IC8+SS3mMXVlZgncgQFhq9 O2sHB4M38ksl9gYDsfqWG5 BSEoCoInuvymf5umfYp2DP cuNmluOyBt ZQDmcS36BVN3oO04Xj93zU NleUYcm8eshUg7EvOvEQWt PRI3xNyyYAgwt8LkPQVzK6 8hlLJfv4P9 SQTepLytsOQhMgAtoMG2vN 5dBXmqjyojy9hquhkyAci5 ea70wXOkw0R5hCF3V8Khdr L8RTWrmURr PbzkjVBKnR0kzargs2nvry iqBcZwIJKzGKz4ZNq0CTJg gDwvGwFbNS69ART4YTOfof LvH8JqNNBc xQdgOlQ7o6D7Ji6RK6AFJk efV0VRCOQNVCbliPB+PC90 bj08Y9CyChusNkz8ESUlDV P1uYN2lF7e UMVkWQics7S0cBY5K4Nnke Wjbn6kx5xeNKYnZFoyL49i vKLzi9T4WANixND6HDIbzF ruAxAosV70 Oyc+TVKicNmib2NgZlkmy8 scr8xbdCi6AgivDDImbzEr jKgcQGF7i0CsJl3tWWWakT G9vII9aJ6k GfMxJdN6FLgrN578UaOdsO GfMvzkL96uO1DkmMA+PHRy Lqo8DANccYroVW1cH1XcTV RpbmctbGVm qRmvLT8eXFOajukyEWLuoV 7hJDDyX1y9EhZkEnX3KOcx B0BkQIZpspdgAu66sV3iDv QjDvF4RKwt F4InagE6KZAcuKPxJBjoZD B9T15ii2S7NUDoDEGcWTX1 bRM8oM9pqAwvqnxwyZLevF sgdmVydGlj MWhhDEahE100VTJvjVfpVs NvZGluZyBEYXRlOiAgMTAv MTYvMjAyMzwvdGQ+PHRkIH Y0pAxhVPSr gJCoQJboSp4nwKeixUnbYQ 0gVKJzjakaOSPtfJ9zDIHn xCWgyAyoOF4eJHZonndrt9 81LsArFQY9 CHNdwHQhT9WqeY6lFyLvVQ XvZOIfM8AwtXFdXPiaK931 NEwjAqQ5FYKhzdTrQ8EbSY FsaWduOiB0 b5W6Hn3Kv6WltjfxO8YulD ZiCkQaIxigQEn5X4IgVnhw dHI+MA57EFXqJM11SKd6PG T6tGnyPWaa YIDuM2GaqJ4tYnRbPYAuLQ RkOyc+PHRhYmxlIHdpZHRo CVxnFLCePoFkqUboIE7gDn 9yZGVyLWNv zRaauEOfSxInm6ohFSWaZD ebXW6puUcpN2BmzTS7FPCh e0m6Vr69E76eO0JumSC+PG UzcZK1cVM1 rI5kBpVoEqF4WTouE156Sv DvpEOyHmclw0ngb9vsaAr5 IsE2GGOcpuFpbAqaAPV7b1 EiBf03Q96c IHdpZHRoPSIxNSUiIHZhbG nlvj0qtK2dLq3+PGNvbCB3 zGZ5uB4fOrArYlY4FKvdF1 49InRvcCIv Baivw7xjn2ujbEx2UiRvLT ZbbfHhkSavPMJ1i4AyGi22 K7KusAfjc9AoYyn7kg25fV Pnq6A5xFQ6 E0RuICQhjvddhVZptCsaOL 3sXOCktwuqMIXfoY8jLYNq N8n7AxIhZuL8LPfgL8Duqb U9IUXxhDTj OVNfbXENwA9linkhm8bmfd zzGwFtSLInDWf4EQc7XDWm cExoPnRfXZI1YiJ2YSH5pF AiaP7xfRhs whwbsT4yAhg+EDM3iMSyvN XJNV6rBbynnEZ+PHRkIHN0 pShlOGlaCQPihI8pQIUiS2 h0PqLyHjN8 UMniL4LwamQ1WFQltPKtER HllBJLjW8aynpwu4ekrdhm KuIcMDLdBFc3GIe0TRXkkK duOiBsZWZ0 SiF7QND7dXRkfB5yqUzfpi epgO4dIwe+QmlydGggRGF0 ZYi9F8BxDkz3EWOnsGpxPL 0ncGFkZGlu Et2uoCslnJdkYU4aUUFrmp ksc831UrPmo2ihICQmdWVc DFcqAOQ1M95yh0U4TUMwCJ GrLOJ1wAK4 aB7brBftjwvjqPObcIwnox RzcJozOXxaMMtvD244BXOw sEyaRjHiEIh2R6JpWrl1UZ JdmMcaRR0r bZOwZGupWv7ntJyksIqtRG 2nIQQvkkenm557XtJow0xa KEKvaTRfSOubBHW9M43tw4 N5BVVgJRKy MRN4kVT9zC6yxTsycbfmzC VmdDsgdmVydGljYWwtYWxp L602IGHudLytIcIqlQm2A7 RwSsy6EOTe wLxyWI7ncGGxPHlyVz5ngF mgfOtdHJ9mAZUulazza489 IfKdm3fiVGPioKSkYKpoJU G4N95ta0J7 VZTbNJXyQST1yLN3tL3yrS lnbjogbGVmdDsgdmVydGlj QZpjHLjfE419SCMrzFovQu BhdGllbnQg VRprCUg8G0KwBauntXN+PC 20WIWgWU44cNMhoMGlq0ul uTt8MgMkXOYtFSQ5vYxqMW hsi2CoGMYf W58ilLMmc0H9AKDdfDwtzC NyFiUkoHI7hY5yEMqmprvo k9xamouzOgkfb5leth50vB 39M53nJAjw ZHRoPSIzMCUiIHZhbGlnbj 3onZ6sXv1+CNJaoEQ6eWE9 pR0wFOAhFnM2OCtvY132Lq RvcCIvPjxj i3vlt5txgGl1KcU7HNKtbg ExqLrzRKF4f9JvBz76Q49f IHdpZHRoPSIyMCUiIHZhbG yyib4fzE6n Ii8+NYLdpIR0kTV4nT3pNj GsWuX7ZTosO912EwGnuXVg FzajW24yK6JpgRU+PHRyPj g1ACFffXly HF6vyMQnURqiDi5lFWU3Um MjEvDeOZhuJ6VpKBRxevkv pqdcgED0LPRzQJPotW04Rk 9udDogMTBw xNRCsN4sdfzpe6hlbccuIf KmHGDoUFj9SZg8MTHprFqi JwBuNVW6XkU1CCU6aDDjxH 1hbGlnbjog jK9gN4ThUZHderhtIv56jI 6yKzYxKtY5UEaaXhh+V09M EiGbTWGGQk9GTZ71YE88oR Qur6Z3cRP2 A0XsZUEjjxmkruhxbIB5WP KySPGppI73jMVjWKabWs5z g7O6z666XEAuPQKveA05Uo 9udDogMTBw yLWMcI7pagfoi9cewjasYt VcYHVbPJo5NFi9QBSbvPif JxUzBUP7MoA6KZV3fTHduT 1hbGlnbjog tA3oEda+IAgtOFYaNLc9YA wvdGQ+LZCtKYD2yBufIQfx TKQnnE7yGLPuB3i8UjYkFr V1HBgzB4Gj JCTmazwlNp92bI2wOxBaJl D1HHlpH6UtdhM2YUKylBFq XBcdORU8R71hu8Y8KWCeHN TePOA4lAS5 sA8nmEtpbxjwoQFufWowuq HenJmhBGwoBArdH998VLWs aTdkXoPvQFrkUQRhJU01GN 73kSDau9R1 vIR5D7BeSOFweovwmdzllJ K3LAErQONvzS82bEBrOQsx Iu5au1N5m182TPSjDEAtaM 15Yp2ovJek KWXipDWPbH6evyuha2lklw erKuPuBLNbRPj7VHw4YTKi hXumOeNyFHC2PeX3SEX2sW UcfG9orWyp xocjyL9xKfw+TUFMRTwvdG Q+JLVsLOU6sUgjQKahGZJx jX7aQWCzO8d5FrTsWtU1VT qdQ0IjSOId ywsmJx05aH9oGzPeRaW7PE akO8YmhgW1NVYoiEHkHBmm GTQ2P74fi0D6ZRRfOGKzEG L0xEG6mS4s bGlnbjogbGVmdDsgdmVydG jaTYzrYOhdX182QPJdoAfm PfXowOGQgEEmUCS9AZ43KR 00D1ApOuvh dGFibGU+PHRhYmxlIHdpZH MuXGonDKJwYrDmzXawQP9k Xs0xJQZlYHZpbFphvWFoCn Aka6ffHGKf YZqhII5xePhbE6HnxUQ0GW Byq1s7Gm91P05aK4BopML+ YJItoNB0zSA0qW0pXsHbSx C9ZAynH770 VbZtrUHhUduau8juy4wqgL i3CaNgDQEmbcOrdGdmHXA7 o2QsSi54A87jVXwxZAIqAS IyMCUiIHZh tGecre5haK0vBi1+PGNvbC N2hQK9nU2yLpDaFhB1USgp B211HeLylULhOlevG18pO9 JvdXA+PHRy Bin0MYAbwDjyXZ9jrRFvKT ahAw2eJZX6RuWpZvCiZFvz H8IcBUByddjbmtvbvCW5IU GqMCVoxR72 Rn3hxXmsIc2nKFBwRNQ6SN GbzBUjY3VyzM5zRcIoPDSr YXZxG8EjkMUnDGdbW142SI hzBtB4WSOi lqTwQ3CzPHSpmEjjNqD6u7 M0Iz7GyIgbsYWgLF8hGrPo ITm4T9LwWhg9DHDrlNqcTS 0ncGFkZGlu Nv8xsUuxbZkqGN1vIVRjoo lwr825LpTsz9gyLZGhkYQd YIgbHYR6T43nr7P0SJVbZJ LrDTB5zKE5 rF6xcWrgnocrxHRvbNpcrs UsnQelDSiqBXsnN522DTXr sEduKpOZKmx1H1XaEky1OQ GmtVpoGR6t pVZmMNyrHe6kyFxmhMvfNP 7cJSBlkbozz091OyYzw5fz QRTjuMYdEFjwVAQ7Y39tn7 W1RZEoTOGl IQI1xKS4iF2hnOrvswmldQ VmdDsgdmVydGljYWwtYWxp R192EOIhuEqsXi1TRed5H7 StGyw0DSEl gFgnPA5fqHRfZZizCc9ycV wbfEumCF1pJCLxijmto343 CrMyz0ohAQZojPVqKQckRV H4E28lr7Q7 ITVeFIKhEBF5qYO6rB0egF lnbjogbGVmdDsgdmVydGlj DMowFCydU694XJArlWabOh BheWVyOjwv dGQ+YL16uh48P0DaAjzhRa y7UAOtCKG6fFP1jO6xPFTb TEvnf2R7iZJ4A0ZveoOyit 9nt2vdZAHx ZTo (more content not included)... [facility] Consent Formson 05-22-2023 Consent Forms [id number]#1.0 0[facility] Outside Recordson 05-22-2023 Outside Records [id number]#[address] [place] [address] Telemetry Stripson Telemetry Strips [id number] 02 [id number]#1.00 [facility] Anesthesia Noteon 05-19-2023 Anesthesia Note Patient: CHRIS BERGMAN Age: 43 years Sex: MALE : 1980 Associated Diagnoses: None Author: Darryl Khan MD Postoperative Information Post Operative Note Health Status Allergies: Allergic Reactions (All) Mild Penicillin- Green. Problem list (past medical history): All Problems Enlarged prostate / SNOMED CT 103461788 / Confirmed Tobacco user / SNOMED CT 055033647 / Probable Type 2 diabetes mellitus / SNOMED CT 895035781 / Confirmed Physical Examination VS/Measurements Vital Signs (last 24 hrs) Last Charted Heart Rate Monitored 84 bpm (MAY 19:) Resp Rate 16 br/min (MAY 19:) SBP 120 mmHg (MAY 19:) DBP 75 mmHg (MAY 19:) Weight 86.600 kg (MAY 19 07:05) Height 180.34 cm (MAY 19:05) Assessment Anesthetic outcome No anesthetic complications noted. Plan Transfer/ Discharge: To home, Patient can be discharged from PACU when criteria met. Condition good. pt did well. pain controlled. no n/v. hd stable. resp and neuro status at baseline. volume status adequate [Electronically Signed on: 05/19/2023 10:12 EDT] Darryl Khan MD [Verified on: 05/19/2023 10:12 EDT] Darryl Khan MD [facility] Anesthesia Note Patient: CHRIS BERGMAN Age: 43 years Sex: MALE : 1980 Associated Diagnoses: None Author: Darryl Khan MD Preoperative Information Anesthesia history: Patient history: No difficult intubation, No malignant hyperthermia. Family history: No malignant hyperthermia. Review of Systems Constitutional: Negative. Respiratory: Negative, No shortness of breath. Cardiovascular: Negative, No chest pain. Gastrointestinal: No heartburn. Health Status Allergies: Allergic Reactions (All) Mild Penicillin- Green. Current medications: Home Medications (8) Active acetaminophen-hydrocod one 325 mg-5 mg oral tablet 1 tab(s), PRN, PO, BID alfuzosin 10 mg oral tablet, extended release 10 mg = 1 tab(s), PO, Daily buPROPion 150 mg/24 hours (XL) oral tablet, extended release 150 mg = 1 tab(s), PO, q24hr gabapentin 600 mg oral tablet 600 mg = 1 tab(s), PO, QID Levemir 100 units/mL subcutaneous solution 36 unit(s), SubQ, HS pantoprazole 20 mg oral delayed release tablet 20 mg = 1 tab(s), PO, Daily Relion NovoLOG Flexpen 100 units/mL injectable solution sulfamethoxazole-trime thoprim 800 mg-160 mg oral tablet 1 tab(s), PO, BID Problem list: All Problems Enlarged prostate / SNOMED CT 411187309 / Confirmed Tobacco user / SNOMED CT 606478652 / Probable Type 2 diabetes mellitus / SNOMED CT 256466239 / Confirmed Histories Family History: No family history items have been selected or recorded. Procedure history: Wrist ([id number]). Scrotum ([id number]). Comments: 05/18/2023 10:40 KEENANT - Greg Astorga RN infection Social History Electronic Cigarette/Vaping Assessment Electronic Cigarette Use: Use, within last 90 days. Tobacco Assessment Current everyday tobacco user Tobacco Use:. 1 pack/day per day. Substance Abuse Assessment Marijuana . Social & Psychosocial Habits Substance Use 05/18/2023 Type: Marijuana Tobacco 05/18/2023 Smoking tobacco use: Current everyday tobacco Number used per day: 1 pack/day Electronic Cigarette/Vaping 05/18/2023 Electronic Cigarette Use: Use, within last 90 days . Physical Examination Measurements from flowsheet : Measurements 05/19/2023 7:05 EDT Height 180.340 cm Height/Length Dosing 180.340 cm Weight 86.600 kg Weight Dosing 86.600 kg Body Mass Index 26.630 kg/m2 Vital Signs (last 24 hrs) Last Charted Heart Rate Peripheral 86 bpm (MAY 19 07:05) Resp Rate 16 br/min (MAY 19 07:05) SBP H 142 mmHg (MAY 19 07:05) DBP H 91 mmHg (MAY 19 07:05) Weight 86.600 kg (MAY 19 07:05) Height 180.34 cm (MAY 19 07:) Review / Management Laboratory Results Plan [place] [employer] (ASA) physical status classification: Class III. Anesthetic Preoperative Plan Anesthesia: Monitored anesthesia care. Anesthetic plan, risks, benefits, and alternatives discussed with the patient and/or family. Patient verbalized understanding. [Electronically Signed on: 05/19/2023 08:36 EDT] Darryl Khan MD [Verified on: 05/19/2023 08:36 EDT] Darryl Khan MD [facility] Inpatient Patient Summaryon 05-19-2023 Inpatient Patient Summary [address] [address] Patient Discharge Instructions Name: ARTURO BERGMAN : 1980 Patient Address: [address] [place] [id number] Primary Care Provider: Name: Lisa Madden CNP After you are discharged if you find you have any questions, please, call [phone] ext [phone] to speak to a nurse. 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 If you or anyone you know is experiencing suicidal thoughts, mental health, alcohol and/or drug addiction problems; contact the [facility] 27/02 Crisis Hotline -Text 4HOPE to 031729. If you received any narcotics, sedation, or any other medication that causes drowsiness for the next 24 hours, unless otherwise directed: ? Do not drive a car. ? Do not operate machinery such as power tools, lawn mowers, drills, sewing machines, or stoves ? Avoid alcoholic beverages and drugs for allergies, nerves, or sleep ? Do not make important personal or business decisions or sign any legal documents [facility] would like to thank you for allowing us to assist you with your healthcare needs. The following includes patient education materials and information regarding your injury/illness. ARTURO BERGMAN has been given the following list of follow-up instructions, prescriptions, and patient education materials: Follow-up Instructions With: Address: When: Troy De Paz [address] [place] [address] Business (1) Comments: wound care center 05/24/23 keep appointment at [facility] [place] [place] With: Address: When: Lisa Madden [address] [phone] Business (1) Medications During the course of your visit, your medication list was updated with the most current information. The details of those changes are reflected below: New Medications [facility], [address] [place] [id number], [phone] acetaminophen-oxycodon e (Percocet 5 mg-325 mg oral tablet) 1 tab(s) Oral every 6 hours as needed as needed for pain for 5 Days. Refills: 0. silver sulfADIAZINE topical (Silvadene 1% topical cream) 1 jose Topical every day. apply to graft site thigh one daily after cleaning with saline then place gauze koban right. Refills: 0. triamcinolone topical (triamcinolone 0.5% topical cream) 1 jose Topical 2 times a day. apply to left ankle twice a day. Refills: 0. Medications to Continue That Have Not Changed Other Medications acetaminophen-hydrocod one (acetaminophen-hydroco done 325 mg-5 mg oral tablet) 1 tab(s) Oral 2 times a day as needed as needed for pain. alfuzosin (alfuzosin 10 mg oral tablet, extended release) 1 tab(s) Oral every day. buPROPion (buPROPion 150 mg/24 hours (XL) oral tablet, extended release) 1 tab(s) Oral Every 24 hours scheduled. gabapentin (gabapentin 600 mg oral tablet) 1 tab(s) Oral 4 times a day. insulin aspart (Relion NovoLOG Flexpen 100 units/mL injectable solution) USE DIRECTED WITH SLIDING SCALE SUBCUTANEOUSLY 3 TIMES DAILY FOR 30 DAYS. 151-200 = 2 UNITS, 201-250 = 4 UNITS, 251-300 = 6 UNITS, 301-350 = 8 UNITS, 351-400 = 10 UNITS. insulin detemir (Levemir 100 units/mL subcutaneous solution) 36 unit(s) Subcutaneous At bedtime. pantoprazole (pantoprazole 20 mg oral delayed release tablet) 1 tab(s) Oral every day. sulfamethoxazole-trime thoprim (sulfamethoxazole-trim ethoprim 800 mg-160 mg oral tablet) 1 tab(s) Oral 2 times a day. It is important to always keep an active list of medications available so that you can share with other providers and manage your medications appropriately. As an additional courtesy, we are also providing you with your final active medications list that you can keep with you. acetaminophen-hydrocod one (acetaminophen-hydroco done 325 mg-5 mg oral tablet) 1 tab(s) Oral 2 times a day as needed as needed for pain. acetaminophen-oxycodon e (Percocet 5 mg-325 mg oral tablet) 1 tab(s) Oral every 6 hours as needed as needed for pain for 5 Days. Refills: 0. alfuzosin (alfuzosin 10 mg oral tablet, extended release) 1 tab(s) Oral every day. buPROPion (buPROPion 150 mg/24 hours (XL) oral tablet, extended release) 1 tab(s) Oral Every 24 hours scheduled. gabapentin (gabapentin 600 mg oral tablet) 1 tab(s) Oral 4 times a day. insulin aspart (Relion NovoLOG Flexpen 100 units/mL injectable solution) USE DIRECTED WITH SLIDING SCALE SUBCUTANEOUSLY 3 TIMES DAILY FOR 30 DAYS. 151-200 = 2 UNITS, 201-250 = 4 UNITS, 251-300 = 6 UNITS, 301-350 = 8 UNITS, 351-400 = 10 UNITS. insulin detemir (Levemir 100 units/mL subcutaneous solution) 36 unit(s) Subcutaneous At bedtime. pantoprazole (pantoprazole 20 mg oral d (more content not included)... Normal [facility] MAGR Intraoperative Recordon 05-19-2023 MAGR Intraoperative Record MAGR Intra-Op Record Summary Primary Physician: Troy De Paz DPM Finalized Date/Time: 05/19/23 11:16:21 Pt. Name: ARTURO BERGMAN/Sex: 1980 MALE Med Rec #: [id number] Physician: Troy De Paz DPM Financial #: [id number] Pt. Type: D Room/Bed: / Admit/Disch: 05/19/23 06:53:08 - Institution: Case Times MAGR Entry 1 Patient In Room Time 05/19/23 09:23:00 Out Room Time 05/19/23 10:04:00 Anesthesia Start Time 05/19/23 09:24:00 Stop Time 05/19/23 10:03:00 Surgery Start Time 05/19/23 09:46:00 Stop Time 05/19/23 10:02:00 Last Modified By: Nadja Mello RN 05/19/23 10:04:59 Case Attendance MAGR Entry 1 Entry 2 Entry 3 Case Attendee Troy De Paz DPM, John M MD Long, Barbara RN Role Performed Surgeon - Primary Anesthesiologist of Drywall Applicator Record Time In 05/19/23 09:25:00 05/19/23 09:23:00 05/19/23 09:23:00 Time Out 05/19/23 10:04:00 05/19/23 10:04:00 05/19/23 10:04:00 Procedure Wound Debridement- Wound Debridement- Wound Debridement- SURG(Right) SURG(Right) SURG(Right) Last Modified By: Nadja Mello RN, Barbara RN Long, Barbara RN 05/19/23 10:12:38 05/19/23 10:12:38 05/19/23 10:12:38 Entry 4 Entry 5 Case Attendee Fernando CONCRETE VIBRATOR OPERATOR, Chelo Cartagena CONCRETE VIBRATOR OPERATOR/CSFAMeagan CONCRETE VIBRATOR OPERATOR Role Performed Scrub Personnel Machine Lead Burner Time In 05/19/23 09:23:00 05/19/23 09:23:00 Time Out 05/19/23 10:04:00 05/19/23 10:04:00 Procedure Wound Debridement- Wound Debridement- SURG(Right) SURG(Right) Last Modified By: Nadja Mello RN, Barbara RN 05/19/23 10:12:38 05/19/23 10:12:38 General Comments: VERSA JET REP Surgical Procedures MAGR Pre-Care Text: A.20 Verifies operative procedure, surgical site, and laterality Im.150 Develops individualized plan of care Entry 1 Procedure Wound Debridement- SURG Primary Procedure Yes Primary Surgeon Troy De Paz DPM Modifiers Right Surgeon Comment PARTIAL THICKNESS WOUND Start 05/19/23 09:46:00 GRAFT WITH WOUND DEBRIDEMENT RIGHT ANKLE Stop 05/19/23 10:02:00 Anesthesia Type General Surgical Service Podiatry Wound Class Contaminated Technique Details Closure Technique Primary Entire procedure No was performed via laparoscope or robotic assistance Last Modified By: Nadja Mello RN 05/19/23 10:12:42 Post-Care Text: O.730 The patient's care is consistent with the individualized perioperative plan of care General Case Data MAGR Pre-Care Text: A.350.1 Classifies surgical wound Entry 1 Case Information OR MAGR OR 05 Case Level Level 4 Wound Class Contaminated Specialty Podiatry ASA Class 3 Diagnosis Preop Diagnosis CHRONIC WOUND RIGHT Postop Same As Preop Yes ANKLE Postop Diagnosis CHRONIC WOUND RIGHT ANKLE Blunt or No Is the procedure No penetrating injury considered occured prior to Emergent/Urgent? the start of the procedure: Last Modified By: Nadja Mello RN 05/19/23 09:55:43 Post-Care Text: O.760 Patient receives consistent and comparable care regardless of the setting Time Out MAGR Entry 1 Time out date/time 05/19/23 09:45:00 All team members Yes have introduced themselves by name and role Surgeon, Yes Surgeon reviews Yes anesthesia, nurse critical or confirm patient, unexpected steps, site, procedure operative duration, anticipated blood loss Anesthesia team Yes Nursing team Yes reviews any reviews sterility patient-specific (including concerns indicator results) and equipment issues/concerns Antibiotic Antibiotic N/A prophylaxis given within the last 60 minutes Last Modified By: Nadja Mello RN 05/19/23 11:11:31 Patient Positioning MAGR Pre-Care Text: A.280 Identifies baseline musculoskeletal status Im.40 Positions the patient Im.80 Applies safety devices Entry 1 Procedure Wound Debridement- Body Position Supine SURG(Right) Left Arm Position Extended on padded arm Right Arm Position Extended on padded arm board board Left Leg Position Extended Right Leg Position Extended Feet Uncrossed? Yes Press Points Checked Yes Positioning Device Arm Boards, Arm Strap, Outcome Met (O.80) Yes Safety Strap, Pillow Last Modified By: Nadja Mello RN 05/19/23 09:55:52 Post-Care Text: E.290 Evaluates musculoskeletal status O.80 Patient is free from signs and symptoms of injury related to positioning Counts Verification MAGR Pre-Care Text: A.20 Verifies operative procedure, surgical site, and laterality A.20.2 Assesses the risk for unintended retained foreign body Im.20 Performs required counts Entry 1 Procedure Wound Debridement- SURG(Right) Counts Verification Initial Counts Items included in Sponges, Sharps Initial Counts Nadja Mello RN, the Initial Count Performed By Chelo King CST Initial Count Time 05/19/23 09:20:00 Counts Verification Final Counts Items Included in Sponges, Sharps Final Count Method Manual Final Count Final Count Status Correct Final Counts Riaz, (more content not included)... [facility] [place] [facility] PACU Record Summary Primary Physician: Troy De Paz DPM Finalized Date/Time: 05/19/23 10:38:03 Pt. Name: ARTURO BERGMAN/Sex: 1980 MALE Med Rec #: [id number] Physician: Troy De Paz DPM Financial #: [id number] Pt. Type: D Room/Bed: / Admit/Disch: 05/19/23 06:53:08 - Institution: PACU Case Times MAGR Entry 1 In PACU I 05/19/23 10:05:00 Discharge from PACU 05/19/23 10:37:00 I Last Modified By: Nata Flor RN 05/19/23 10:37:54 Finalized By: Nata Flor RN Document Signatures Signed By: Nata Flor RN 05/19/23 10:38 [facility] MAGR Postoperative Recordon 05-19-2023 MAGR Postoperative Record MAGR Phase II Record Summary Primary Physician: Troy De Paz DPM Finalized Date/Time: 05/19/23 11:56:39 Pt. Name: ARTURO BERGMAN /Sex: 1980 MALE Med Rec #: [id number] Physician: Troy De Paz DPM Financial #: [id number] Pt. Type: D Room/Bed: / Admit/Disch: 05/19/23 06:53:08 - Institution: Phase II Case Times MAGR Pre-Care Text: Patient is free from s/s of injury. Patient remains free from compromised physical state related to surgery or anesthesia. Patient comfort maintained. Patient/family verbalize understanding of discharge instructions. Entry 1 In PACU II 05/19/23 10:40:00 Discharge from PACU 05/19/23 11:40:00 II Last Modified By: Nata Flor RN 05/19/23 11:56:34 Post-Care Text: The patient remains free from s/s of injury. Patient's vital signs stable, circulation maintained, return to preop mental and physical status, opsite/dressing intact, minimal or absent nausea and vomiting, tolerates po intake. Patient verbalizes adequate pain control. Patient/family express understanding of discharge instructions. General Comments: Continue with care Finalized By: Nata Flor RN Document Signatures Signed By: Nata Flor RN 05/19/23 11:56 [facility] MAGR Preoperative Recordon 1 MAGR Preoperative Record MAGR Pre-Op Record Summary Primary Physician: Troy De Paz DPM Finalized Date/Time: 05/19/23 11:57:02 Pt. Name: ARTURO BERGMANO.B./Sex: 1980 MALE Med Rec #: [id number] Physician: Troy De Paz DPM Financial #: [id number] Pt. Type: D Room/Bed: / Admit/Disch: 05/19/23 06:53:08 - Institution: Pre-Op Case Times MAGR Pre-Care Text: Patient will be optimally prepared for surgery. Patient is free from s/s of injury. Provide information to patient/family related to plan of care. Verify patient allergies. Confirm identity and verify consent before the operative or invasive procedure. Entry 1 Patient Arrival Time 05/19/23 07:02:00 Preop Departure 05/19/23 09:20:00 Last Modified By: Nata Flor RN 05/19/23 11:56:57 Post-Care Text: Patient is prepared mentally and physically and is ready for surgery. The patient remains free from s/s of injury. Patient/family express understanding of plan of care and participate in decisions affecting his or her perioperrative plan of care. Allergies documented appropriately. Patient identifiers and consent correct. General Comments: Pt arrives to w ambulatory. PT denies cp, sob, cough or flu like symptoms. Pt denies pacemaker/defibillator or sleep apnea. Finalized By: Nata Flor RN Document Signatures Signed By: Nata Flor RN 05/19/23 11:57 [facility] Operative Report - Surgeon/P joanna 05-19-2023 Operative Report - Surgeon/Physician Patient: ARTURO BERGMAN Age: 43 years Sex: MALE : 1980 Associated Diagnoses: None Author: Troy De Paz DPM Postoperative Information Procedure: Partial-thickness skin graft application right wound debridement right foot. Date/ Time: 05/19/2023 10:03:00 Preoperative Diagnosis: Chronic nonhealing ulceration right foot. Postoperative Diagnosis: Same. Performed by: Troy De Paz DPM. Procedure Performed: Patient had been seen in the wound care center in [place] for nonhealing chronic wound right foot. Patient has completed oral antibiotics with his last day being tomorrow seen in the preoperative holding area he was brought down to the operating room placed in the supine position after administration of anesthesia using 10 cc of 2% lidocaine for an to the right upper thigh was anesthetized in a 2.5 inch square and then attention was brought over to the wound right foot using 10 cc of 2% lidocaine with epinephrine was anesthetized. The right upper thigh was prepped with ChloraPrep and the foot was then scrubbed with sterile technique both areas were draped. Attention was then brought over to the upper thigh where using the graft harvester with a 2 inch plate harvested the right partial thickness skin graft from the upper thigh. It was then brought over to the mesher and meshed 1-1.5. applied xeroform to the upper thigh gauze and koban. Then brought over to the right foot wound where using a Versajet and mechanical debrider to remove all nonviable tissue with the Versajet all the fibrotic tissue there was probably about 40% fibrotic tissue to 60% granular no overt signs of infection there is no deep exposed structures it was only down to the deep exposed fat layer. After the wound was appropriately debrided down to a nice bleeding base the graft was then applied dermis down and adhered with camille then applied Xeroform gauze ABD Curlex double cast padding and a Agosto compressive dressing from the foot to below the knee. Patient tolerated procedure and anesthesia well with vital signs intact to the right foot patient will go home he was given appropriate pain medication and also a topical antibiotic for the thigh and patient did show me an area on his left foot that he believes is eczema and wrote for a topical steroid for that area patient is going to be seen in the wound care center in [place] on Monday of next week that insistent thank you. Supervisor Seaming: office support assistant. Anesthesia: General with local to the right thigh consisting of 2% lidocaine with epinephrine 10 cc and anesthetized the right foot wound with 2% lidocaine with epinephrine 10 cc. Findings: Chronic nonhealing wound right foot. Specimens Removed: None. Estimated Blood Loss: 5 ml. Complications: None. Grafts/Implants Used: Harvested a partial thickness skin graft from his right thigh. [Electronically Signed on: 05/19/2023 10:29 EDT] Troy De Paz R DPM [Verified on: 05/19/2023 10:29 EDT] Troy De Paz R DPM [facility] POCT Glucose Levelon 023 Glucose [Mass/Vol] 157 mg/dL High [address] [place] [address] Comment on above: Performed By: #### 4 [id number] ####[facility] (DEFAULT)[address] [place] [address] Glucose [Mass/Vol] 234 mg/dL [address] Comment on above: Performed By: #### 4 [id number] ####[facility] (DEFAULT)[address] [place] [address] Glucose [Mass/Vol] 247 mg/dL [address] Comment on above: Performed By: #### 4 [id number] #### [facility] (DEFAULT) [address] [place] [address] Patient Handouton 05-19-2023 Patient Handout [facility] Triage Panel 12on 05-19-2023 Triage Internal Control Pass [facility] Comment on above: Performed By: #### 1 [id number] ####[facility] (DEFAULT)[address] [place] [address] U Amph Scr Negative [facility] Comment on above: Performed By: #### 1 [id number] ####[facility] (DEFAULT)[address] [place] [address] U Carola Scr Negative [facility] Comment on above: Performed By: #### 1 [id number] ####[facility] (DEFAULT)[address] [place] [address] U Benzodia Scr Negative [facility] Comment on above: Performed By: #### 1 [id number] ####[facility] (DEFAULT)[address] [place] [address] U Cannab Scrn Positive [facility] Comment on above: Performed By: #### 1 [id number] ####[facility] (DEFAULT)[address] [place] [address] 12099 U Cocaine Scr Negative [facility] Comment on above: Performed By: #### 1 [id number] ####[facility] (DEFAULT)[address] [place] [address] U Methadone Scr Negative [facility] Comment on above: Performed By: #### 1 [id number] ####[facility] (DEFAULT)[address] [place] [address] 519[address] U Methamp Scrn Negative [facility] Comment on above: Performed By: #### 1 [id number] ####[facility] (DEFAULT)[address] [place] [address] 094[address] U Opiate Scr Positive [facility] Comment on above: Performed By: #### 1 [id number] ####[facility] (DEFAULT)[address] [place] [address] U Oxycod Scr Negative [facility] Comment on above: Performed By: #### 1 [id number] ####[facility] (DEFAULT)[address] [place] [address] U Phencyclidine Scr Negative [facility] Comment on above: Performed By: #### 1 [id number] ####[facility] (DEFAULT)[address] [place] [address] 41663 U Propoxyphene Scr Negative [facility] Comment on above: Performed By: #### 1 [id number] ####[facility] (DEFAULT)[address] [place] [address] 218[address] U Tricyclic Antidepress Scr Negative [facility] Comment on above: Result Comment: Resu lts are to be used only for medical (ie, treatment) purposes only. Positive tests will not be sent out for confirmation. PROFILE?-V MEDTOX Scan? Drugs of Abuse Test System detects drug classes at the following cutoff concentrations: AMP Amphetamine (d-amphetamine): 500 ng/mL BAR Barbituates (Butabital): 200 ng/mL BZO Benzodiazepines (Nordiazepam): 150 ng/mL BUP Buprenorphine (Buprenorphine): 10 ng/mL NEHAL Cocaine (Benzoylecgonine): 150 ng/mL MAMP Methamphetamine (d-Methamphetamine): 500 ng/mL MTD Methadone (Methadone): 200 ng/mL OPI Opiates (Morphine): 100 ng/mL or 2000 ng/mL OXY Oxycodone (Oxycodone): 100 ng/mL PCP Phencyclidine (Phencyclidine): 25 ng/mL PPX Propoxyphene (Norpropoxyphene): 300 ng/mL THC Cannabinoids (90-bqz-4-carboxy- -THC): 50 ng/mL TCA Tricyclic-Antidepressants (Desipramine): 300 ng/mL Performed By: #### 1 [id number] ####[facility] (DEFAULT)[address] [place] [address] Urine Source Voided Normal [facility] Comment on above: Performed By: #### 1 [id number] ####[facility] (DEFAULT)[address] [place] [address] Procedure - Woundon 05-17-20 Procedure - Wound [id number]#1. 00TIFF [facility] Progress Note - Woundon 05-07 Progress Note - Wound [id number]#1. 00TIFF [facility] Consent for Procedure/Surger yon 05-16-2023 Consent for Procedure/Surgery [id number]#1. 00TIFF [facility] Consent for Treatmenton 05-07 Consent for Treatment [id number]#1.0 0TIFF [facility] Correspondence - Woundon Correspondence - Wound [id number]#1. 00TIFF [facility] Multi-Wound Charton 05-16-20 23 Multi-Wound Chart [id number]#1. 00TIFF Normal [facility] Nursing Assessment - Woundon 05-16-2023 Nursing Assessment - Wound [id number]#1. 00TIFF Normal [facility] Nursing Note - Woundon 05-16 Nursing Note - Wound [id number] 100 [id number]#1. 00TIFF Normal [facility] Physician Orderon 05-16-2023 Physician Order [id number]#1. 00TIFF Normal [facility] Auto Diffon 05-15-2023 Basophils/100 WBC (Bld) 0.6 % Normal 0.0-2.0 [facility] Comment on above: Order Comment: Order Added by Discern Expert. Performed By: #### 1 [id number], [id number], [id number], [id number] ####[address] [place] [address] Basophils/Leukocytes Auto (Bld) [Pure # fraction] 0.0 E9/L Normal 0.0-0.2 [facility] Comment on above: Order Comment: Order Added by Discern Expert. Performed By: #### 1 [id number], [id number], 6309437, [id number] ####[address] [place] [address] Eosinophils/100 WBC (Bld) 1.6 % Normal 0.0-8.0 [facility] Comment on above: Order Comment: Order Added by Discern Expert. Performed By: #### 1 [id number], 0790369, 8103147, [id number] ####[address] [place] [address] Eosinophils/Leukocyte s Auto (Bld) [Pure # fraction] 0.1 E9/L Normal 0.0-0.5 [facility] Comment on above: Order Comment: Order Added by Discern Expert. Performed By: #### 1 [id number], 0479240, 6254518, [id number] ####[address] [address] Lymphocytes/100 WBC (Bld) 23.0 % Normal 14.0-50.0 [facility] Comment on above: Order Comment: Order Added by Discern Expert. Performed By: #### 1 [id number], 9697708, 7567092, 0566822 ####[address] [address] Lymphocytes/Leukocyte s Auto (Bld) [Pure # fraction] 1.8 E9/L Normal 1.0-4.0 [facility] Comment on above: Order Comment: Order Added by Discern Expert. Performed By: #### 1 [id number], 1104025, 5599001, 1333362 ####[address] [address] Monocytes/100 WBC (Bld) 7.0 % Normal 4.0-14.0 [facility] Comment on above: Order Comment: Order Added by Discern Expert. Performed By: #### 1 [id number], 1898113, 7297111, 0783768 ####[address] [address] Monocytes/Leukocytes Auto (Bld) [Pure # fraction] 0.5 E9/L Normal 0.2-1.0 [facility] Comment on above: Order Comment: Order Added by Jenny Expert. Performed By: #### 1 [id number], 7762026, 7552815, 9948135 ####[address] [address] Neutrophils/100 WBC (Bld) 67.8 % Normal 36.0-75.0 [facility] Comment on above: Order Comment: Order Added by Discern Expert. Performed By: #### 1 [id number], 0620473, 6551899, 7373464 ####[address] [address] Neutrophils/Leukocyte s Auto (Bld) [Pure # fraction] 5.3 E9/L Normal 2.0-7.5 [facility] Comment on above: Order Comment: Order Added by Discern Expert. Performed By: #### 1 [id number], 0683381, 9680314, [id number] ####[facility] [address] [place] [address] BMPon 05-15-2023 Anion gap [Moles/Vol] 7 mmol/L Normal 6-16 [facility] Comment on above: Performed By: #### 1 [id number], 4325697, 4760206, 9241849 ####[facility] [address] [place] [address] Calcium [Mass/Vol] 8.5 mg/dL Low 8.9-11.1 [facility] Comment on above: Performed By: #### 1 [id number], 6011808, 6661508, 9351082 ####[facility] [address] [place] [address] Chloride [Moles/Vol] 106 mmol/L Normal 101-111 [facility] Comment on above: Performed By: #### 1 [id number], 8488210, 1426212, 6276603 ####[facility] [address] [place] [address] CO2 [Moles/Vol] 28 mmol/L Normal 21-31 [facility] Comment on above: Performed By: #### 1 [id number], 5809774, 6533515, 2421846 ####[facility] [address] [place] [address] Creatinine [Mass/Vol] 1.1 mg/dL Normal 0.5-1.3 [facility] Comment on above: Performed By: #### 1 [id number], 3534716, 6929089, 9640682 ####[facility] [address] [place] [address] Glucose [Mass/Vol] 182 mg/dL Normal 55-199 [facility] Comment on above: Result Comment: If t his glucose result represents a fasting glucose, interpretation should refer to the following reference range: 55-99 mg/dL Performed By: #### 1 [id number], 8483621, 7792355, 4251855 ####[facility] [address] [place] [address] Potassium [Moles/Vol] 4.4 mmol/L Normal 3.5-5.3 [facility] Comment on above: Performed By: #### 1 [id number], 8122386, 2737126, 0787330 ####[facility] [address] [place] [address] Sodium [Moles/Vol] 137 mmol/L Normal 135-145 [facility] Comment on above: Performed By: #### 1 4841939, 6199918, 7045042, 6757013 ####[facility] [address] [place] [address] Urea nitrogen [Mass/Vol] 24 mg/dL High 5-21 [facility] Comment on above: Performed By: #### 1 1080471, 6987670, 1121683, 5898735 ####[facility] [address] [place] [address] Urea nitrogen/Creatinine [Mass ratio] 22 No Units High 10-20 [facility] Comment on above: Performed By: #### 1 7636466, 8486139, 1742838, 2200267 ####[facility] [address] [place] [address] CBC w/ Auto Diffon 3 Erythrocyte distribution width (RBC) [Ratio] 13.5 % Normal 10.9-14.2 [facility] Comment on above: Performed By: #### 1 [id number], 0003715, 4722870, 7360964 ####[facility] [address] [place] [address] Hematocrit (Bld) [Volume fraction] 41.7 % Normal 37.7-49.0 [facility] Comment on above: Performed By: #### 1 7471132, 1377782, 4585723, 1699970 ####[facility] [address] [place] [address] Hemoglobin (Bld) [Mass/Vol] 14.2 g/dL Normal 13.5-17.5 [facility] Comment on above: Performed By: #### 1 5788208, 9100247, 1932406, 7327277 ####[address] [place] [place] [address] MCH (RBC) [Entitic mass] 29.3 pg Normal 27.0-34.0 [facility] Comment on above: Performed By: #### 1 3042532, 8772142, 2155009, 1317073 ####[place] [address] MCHC (RBC) [Mass/Vol] 34.2 g/dL Normal 31.4-36.0 [facility] Comment on above: Performed By: #### 1 3781644, 8964627, 0966716, 6427859 ####[place] [address] MCV (RBC) [Entitic vol] 85.7 fL Normal 80.0-100.0 [facility] Comment on above: Performed By: #### 1 8867675, 8609145, 2866094, 1743105 ####[place] [address] Platelet mean volume (Bld) [Entitic vol] 8.8 fL Normal 6.4-10.8 [facility] Comment on above: Performed By: #### 1 3944765, 5438441, 9097583, 4436214 ####[place] [address] Platelets (Bld) [#/Vol] 200.0 E9/L Normal 150.0-500.0 [facility] Comment on above: Performed By: #### 1 8996979, 1174768, 0799262, 7752671 ####[address] [address] RBC (Bld) [#/Vol] 4.9 E12/L Normal 4.3-5.9 [facility] Comment on above: Performed By: #### 1 4051180, 1734966, 1259181, 5113904 ####[facility] [address] [place] [address] WBC corrected for nucl RBC Auto (Bld) [#/Vol] 7.8 E9/L Normal 4.0-11.0 [facility] Comment on above: Performed By: #### 1 1111100, 1748486, 3154054, 5278731 ####[facility] [address] [place] [address] Consent for Treatmenton Consent for Treatment [id number] [id number]#1.0 0TIFF Normal [facility] Physician Orderon 05-15-2023 Physician Order [id number]#1. 00TIFF Normal [facility] XR Chest 2 Viewson 3 XR Chest 2 Views Exam Date/Time: 05/15/2023 13:44 EDT Reason for Exam: Z01.818 pre-operative clearance Report IMPRESSION: NO RADIOGRAPHIC EVIDENCE OF ACTIVE DISEASE IN THE CHEST. CLINICAL INFORMATION: Z01.818 pre-operative clearance COMPARISON: SEPTEMBER 08, 2021 FINDINGS: Two views of the chest were obtained. Heart and mediastinum appear normal. The lungs appear clear. Visualized bony thorax and remainder of the chest appears unremarkable. Ordering Provider: Troy De Paz FINAL REPORT Dictated: 05/15/2023 4:02 pm Joey Menendez MD Signed (Electronic Signature): 05/15/2023 4:02 pm Signed by: Joey Menendez MD Transcribed by: CAROLE Technologist: KVNG Technical Comments Radiation Dose: Ka,r in mGy = . DAP = . Normal [facility] eGFRon 05-15-2023 GFR/1.73 sq M.predicted among non-blacks MDRD (S/P/Bld) [Vol rate/Area] 85 mL/min/1.73 m2 Normal >=59 [facility] Comment on above: Order Comment: Order added by Discern Expert. 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 Kidney failure is indicated at less than 15 mL/min/1.73m2. Performed By: #### 1 0526856, 1460036, 0373601, 5170912 ####[facility] [address] [place] [address] Nursing Note - Woundon 05-12 Nursing Note - Wound [id number] 100 [id number]#2. 00TIFF [facility] Physician Orderon 05-11-2023 Physician Order [id number] 00 [id number]#1. 00TIFF [facility] Procedure - Woundon 05-11-20 Procedure - Wound [id number] 00 [id number]#1. 00TIFF [facility] Physician Orderon 05-10-2023 Physician Order [id number] 00 [id number]#1.0 0CD:127 [facility] Consent for Treatmenton Consent for Treatment [id number] [id number]#1.0 0CD:127 [facility] Multi-Wound Charton 05-09-20 Multi-Wound Chart [id number] 00 [id number]#1. 00CD:127 [facility] Nursing Assessment - Woundon 05-09-2023 Nursing Assessment - Wound [id number]#1. 00CD:127 [facility] Consent for Treatmenton 04-08 Consent for Treatment [id number] [id number]#1.0 0CD:127 [facility] Multi-Wound Charton 05-03-20 Multi-Wound Chart [id number] 90 [id number]#1. 00CD:127 [facility] Nursing Assessment - Woundon 05-03-2023 Nursing Assessment - Wound [id number]#1. 00CD:127 [facility] Nursing Note - Woundon 05-03 Nursing Note - Wound [id number] 090 [id number]#1. 00CD:127 [facility] Outside Recordson 05-03-2023 Outside Records [id number] 03 [id number]#1.0 0CD:127 [facility] Physician Orderon 05-03-2023 Physician Order [id number] 90 [id number]#1. 00CD:127 [facility] Procedure - Woundon 05-03-20 Procedure - Wound [id number] 90 [id number]#1. 00CD:127 [facility] Progress Note - Woundon 04-08 Progress Note - Wound [id number] [id number]#1. 00CD:127 [facility] Physician Orderon 04-28-2023 Physician Order [id number] 05 [id number]#1. 00CD:127 [facility] Nursing Note - Woundon 04-27 Nursing Note - Wound [id number] 090 [id number]#2. 00CD:127 [facility] Outside Recordson 04-27-2023 Outside Records [id number] 04 [id number]#1. 00CD:127 [facility] Consent for Procedure/Surger yon 04-25-2023 Consent for Procedure/Surgery [id number]#1. 00CD:127 [facility] Consent for Treatmenton 04-07 Consent for Treatment [id number] [id number]#1.0 0CD:127 [facility] Consent to Photographon 04-07 Consent to Photograph [id number] [id number]#1. 00CD:127 [facility] Consent to Photograph [id number] [id number]#1. 00CD:127 [facility] Correspondence - Woundon Correspondence - Wound [id number]#1. 00CD:127 [facility] Correspondence - Wound [id number]#1. 00CD:127 [facility] Multi-Wound Charton 04-25-20 Multi-Wound Chart [id number] 90 [id number]#1. 00CD:127 [facility] Nursing Assessment - Woundon 04-25-2023 Nursing Assessment - Wound [id number]#1. 00CD:127 [facility] Nursing Assessment - Wound [id number]#1. 00CD:127 [facility] Physician Orderon 04-25-2023 Physician Order [id number] 90 [id number]#1. 00CD:127 [facility] Procedure - Woundon 04-25-20 Procedure - Wound [id number] 90 [id number]#1. 00CD:127 [facility] Progress Note - Woundon 04-07 Progress Note - Wound [id number] 1136 [id number]#1. 00CD:127 [facility] Screenson 04-17-2023 Screens [id number]#1. 00CD:127 [facility] Screens [id number] 01 [id number]#1. 00CD:127 [facility] Ambulatory Visit Summaryon 0 04-14-2023 Ambulatory Visit Summary ARTURO BERGMAN :1980 Visit Date:04/14/2023 Ambulatory Visit Instructions Your Diagnosis BPH with obstruction/lower urinary tract symptoms Scrotal pain Incomplete bladder emptying Erectile dysfunction Diabetes Your Care Team Attending Physician - Yenni Watt MD Primary Care Physician - Josselin Cruz MD This Is Your Medications List Misc Prescription (FREESTYLE SOHA 2 READER MIS) Misc Prescription (FREESTYLE SOHA 2 SENSOR KIT) Misc Prescription (ULTRA-FINE MINI PEN NEEDLE 31 GAUGE X 3/16 NEEDLE, DISPOSABLE) buPROPion (buPROPion 150 mg/24 hours XL Tab) clindamycin (clindamycin 300 mg oral cap) dicyclomine (dicyclomine 20 mg Tab) ferrous sulfate (ferrous sulfate 325 mg Tab) gabapentin (gabapentin 300 mg Cap) insulin aspart (Relion NovoLOG Flexpen 100 units/mL injectable solution) insulin detemir (Levemir 100 units/mL Injection-Insulin) insulin isophane-insulin regular (Humulin 70/30 10 mL Injection-Insulin) insulin lispro (insulin lispro 100 units/mL injectable solution) insulin lispro (insulin lispro 100 units/mL injectable solution) pantoprazole (Pantoprazole [address] Tab) tadalafil (Cialis 20 mg Tab) tamsulosin (Flomax 0.4 mg Cap) Procedures Performed Cystoscopy (10/11/2021), Excision of multiple scrotal sebaceous cysts (09/12/2021), Closed fracture dislocation of wrist. Discharge Vitals Heart Rate (Peripheral) 71 Blood Pressure 125/87 Height 177 cm Height 70 in Weight 73 kg Weight 160.6 lb BMI 23.3 What to do next You Need to Schedule the Following Appointments Follow Up with Shukri JAY, Yenni Mckeon, URL, URO When: Where: Medications What How Much When Why Instructions Unchanged buPROPion (buPROPion 150 mg/ 24 hours XL Tab) Unchanged clindamycin (clindamycin 300 mg oral cap) 1 Capsules By Mouth Every 8 hours Skin lesion Unchanged dicyclomine (dicyclomine 20 mg Tab) Unchanged ferrous sulfate (ferrous sulfate 325 mg Tab) 1 Tablets By Mouth Twice a day (with meals) Unchanged gabapentin (gabapentin 300 mg Cap) 1 Capsules By Mouth 2 times a day Duration: 30 Days Unchanged insulin aspart (Relion NovoLOG Flexpen 100 units/ mL injectable solution) Unchanged insulin detemir (Levemir 100 units/ mL Injection-Insulin) Unchanged insulin isophane-insulin regular (Humulin 70/ 30 10 mL Injection-Insulin) 20 Units Subcutaneous Twice a day (before meals) Unchanged insulin lispro (insulin lispro 100 units/ mL injectable solution) See instructions QID AC, HS Take 2 units of lispro if BS between 151-200 Take 4 units of lispro if BS between 201-250 Take 6 units of lispro if BS between 251-300 Take 8 units of lispro if BS between 301-350 Take 10 units of lispro if BS between 351-400 Take 14 units of lispro if BS between >400 Unchanged insulin lispro (insulin lispro 100 units/ mL injectable solution) 5 Units Subcutaneous Before meals Unchanged Misc Prescription (FREESTYLE SOHA 2 READER MIS) 0 Unchanged Misc Prescription (FREESTYLE SOHA 2 SENSOR KIT) 0 Unchanged Misc Prescription (ULTRA-FINE MINI PEN NEEDLE 31 GAUGE X 3/ 16 NEEDLE, DISPOSABLE) 0 Unchanged pantoprazole (Pantoprazole [address] Tab) Unchanged tadalafil (Cialis 20 mg Tab) 1 Tablets By Mouth As Directed as needed for erectile dysfunction Erectile dysfunction 1 tab 1-2 hours prior to intercourse. Do not exceed 20 mg / 24 hours Unchanged tamsulosin (Flomax 0.4 mg Cap) 2 Capsules By Mouth Every day Allergies penicillin (Skin disorder) Problems Ongoing - Any problem that you are currently receiving treatment for. Abdominal pain BMI 23.0-23.9, adult BPH with obstruction/lower urinary tract symptoms Diabetes Dysuria Erectile dysfunction Hydrocele, left Incomplete bladder emptying Non-healing surgical wound Orchitis and epididymitis Prostatitis Scrotal abscess Scrotal pain Smoker Testicular pain, left Urge incontinence Historical - Any problem that you are no longer receiving treatment for. None Education Materials Erectile Dysfunction Erectile dysfunction (ED) is the inability to get or keep an erection in order to have sexual intercourse. ED is considered a symptom of an underlying disorder and is not considered a disease. ED may include: ? Inability to get an erection. ? Lack of enough hardness of the erection to allow penetration. ? Loss of erection before sex is finished. What are the causes? This condition may be caused by: ? Physical causes, such as: ? Artery problems. This may include heart disease, high blood pressure, atherosclerosis, and diabetes. ? Hormonal problems, such as low testosterone. ? Obesity. ? Nerve problems. This may include back or pelvic injuries, multiple sclerosis, Parkinson's disease, spinal cord injury, and stroke. ? Certain medicines, such as: ? Pain relievers. ? Antidepressants. ? Blood pressure medicines and water pills (diuretics). ? Cancer medicines. ? (more content not included)... Normal [facility] Patient Educationon 04-14-20 Patient Education Urology Erectile Dysfunction Erectile dysfunction (ED) is the inability to get or keep an erection in order to have sexual intercourse. ED is considered a symptom of an underlying disorder and is not considered a disease. ED may include: ? Inability to get an erection. ? Lack of enough hardness of the erection to allow penetration. ? Loss of erection before sex is finished. What are the causes? This condition may be caused by: ? Physical causes, such as: ? Artery problems. This may include heart disease, high blood pressure, atherosclerosis, and diabetes. ? Hormonal problems, such as low testosterone. ? Obesity. ? Nerve problems. This may include back or pelvic injuries, multiple sclerosis, Parkinson's disease, spinal cord injury, and stroke. ? Certain medicines, such as: ? Pain relievers. ? Antidepressants. ? Blood pressure medicines and water pills (diuretics). ? Cancer medicines. ? Antihistamines. ? Muscle relaxants. ? Lifestyle factors, such as: ? Use of drugs such as marijuana, cocaine, or opioids. ? Excessive use of alcohol. ? Smoking. ? Lack of physical activity or exercise. ? Psychological causes, such as: ? Anxiety or stress. ? Sadness or depression. ? Exhaustion. ? Fear about sexual performance. ? Guilt. What are the signs or symptoms? Symptoms of this condition include: ? Inability to get an erection. ? Lack of enough hardness of the erection to allow penetration. ? Loss of the erection before sex is finished. ? Sometimes having normal erections, but with frequent unsatisfactory episodes. ? Low sexual satisfaction in either partner due to erection problems. ? A curved penis occurring with erection. The curve may cause pain, or the penis may be too curved to allow for intercourse. ? Never having nighttime or morning erections. How is this diagnosed? This condition is often diagnosed by: ? Performing a physical exam to find other diseases or specific problems with the penis. ? Asking you detailed questions about the problem. ? Doing tests, such as: ? Blood tests to check for diabetes mellitus or high cholesterol, or to measure hormone levels. ? Other tests to check for underlying health conditions. ? An ultrasound exam to check for scarring. ? A test to check blood flow to the penis. ? Doing a sleep study at home to measure nighttime erections. How is this treated? This condition may be treated by: ? Medicines, such as: ? Medicine taken by mouth to help you achieve an erection (oral medicine). ? Hormone replacement therapy to replace low testosterone levels. ? Medicine that is injected into the penis. Your health care provider may instruct you how to give yourself these injections at home. ? Medicine that is delivered with a short applicator tube. The tube is inserted into the opening at the tip of the penis, which is the opening of the urethra. A tiny pellet of medicine is put in the urethra. The pellet dissolves and enhances erectile function. This is also called MUSE (medicated urethral system for erections) therapy. ? Vacuum pump. This is a pump with a ring on it. The pump and ring are placed on the penis and used to create pressure that helps the penis become erect. ? Penile implant surgery. In this procedure, you may receive: ? An inflatable implant. This consists of cylinders, a pump, and a reservoir. The cylinders can be inflated with a fluid that helps to create an erection, and they can be deflated after intercourse. ? A semi-rigid implant. This consists of two silicone rubber rods. The rods provide some rigidity. They are also flexible, so the penis can both curve downward in its normal position and become straight for sexual intercourse. ? Blood vessel surgery to improve blood flow to the penis. During this procedure, a blood vessel from a different part of the body is placed into the penis to allow blood to flow around (bypass) damaged or blocked blood vessels. ? Lifestyle changes, such as exercising more, losing weight, and quitting smoking. Follow these instructions at home: Medicines ? Take kypj-kjq-ctxuvxz and prescription medicines only as told by your health care provider. Do not increase the dosage without first discussing it with your health care provider. ? If you are using self-injections, do injections as directed by your health care provider. Make sure you avoid any veins that are on the surface of the penis. After giving an injection, apply pressure to the injection site for 5 minutes. ? Talk to your health care provider about how to prevent headaches while taking ED medicines. These medicines may cause a sudden headache due to the increase in blood flow in your body. General instructions ? Exercise regularly, as directed by your health care provider. Work with your health care provider to lose weight, if needed. ? Do not use any products that contain nicotine or tobacco. These products include cig (more content not included)... Normal [facility] Urology Office/Clinic Noteon 04-14-2023 Urology Office/Clinic Note Chief Complaint Pt is here for 3 month f/u HPI Staff 3 month follow up started pt on Cialis 20mg PRN. Previous DX: BPH with urinary obstruction, dysuria, ED, hydrocele, incomplete bladder emptying, prostatitis, scrotal abscess, testicle pain, urge incontinence. Flomax 0.4mg QD. S/P cysto 10/11/21. Pt states Cialis is not working. Pt states Tamsulosin is giving him diarrhea so he stopped taking it. Dysuria: yes painful Incomplete bladder emptying: denies Hematuria: denies Frequency: denies Urgency: denies Nocturia: 2-3x a night Stream: straining to urinate, okay stream Leaking: denies Post void dripping: denies Wearing pads/ Depends: denies Urge incontinence: denies Stress incontinence: denies Incontinence without Sensory Awareness: denies Abdominal pain: denies Flank pain: denies Sexual complaints: _ History of Present Illness Tests reviewed: reviewed UA I have reviewed the previous health record information and history for this patient from Dr. Watt. I have reviewed and verified the staff HPI to be accurate for this encounter. There have been no associated fever, chills, flank pain, or blood in the urine. Denies any urinary infections since last encounter. Review of Systems PHQ Score Initial Depression Screen Score: 0 ROS - Provider Constitutional: denies weight loss, denies hot flashes. Eyes: denies eye problems. Gastrointestinal: denies nausea, denies vomiting. Cardiovascular: denies chest pain or angina. Integumentary: no dryness Musculoskeletal: denies musculoskeletal symptoms. ENMT: denies otolaryngeal symptoms. Respiratory: no shortness of breath. Heme/Lymph: denies easy bleeding tendency, denies easy bruising tendency. Psychiatric: no confusion, no anxiety. Genitourinary: See HPI. Physical Exam Vitals & Measurements HR: 71(Peripheral) BP: 125/87 HT: 70 in HT: 177 cm WT: 73 kg WT: 160.6 lb BMI: 23.3 General Appearance: alert, no distress, well nourished, well developed male. Genitourinary: Flank Pain: none. Bladder: nonpalpable. Assessment/Plan 43 yo male prior DLS pt here for follow up of BPH with LUTS, chronic scrotal pain and ED Pt here with his girlfriend today. 1. BPH with obstruction/lower urinary tract symptoms (N40.1: Benign prostatic hyperplasia with lower urinary tract symptoms) Cysto by Dr. Summers 10/11/21 - Obstructing inflamed prostate. No sample provided for UA today. IPSS 12 (none prior). Voiding q2hr. Pt stopped taking Flomax 0.4 mg qd due to having diarrhea. Diarrhea improved after d/c med but urination did worsen. Discussed trying 5-alpha reductase inhibitor vs other alpha shanda. SEs discussed. Discussed minimally invasive prostate procedures including Urolift and Rezum. Educational pamphlets provided. Patient would like to try medical therapy prior to procedures. -Start Alfuzosin 10 mg ER qd. SEs discussed. Rx sent to [facility]. If severe side effects occur, the medication should be stopped and the office notified. -If pt fails Alfuzosin, pt to call to schedule cysto/TRUS and consider PERALTA procedure. 2. Scrotal pain (N50.82: Scrotal pain) S/p I&D scrotal abscess, left hydrocelectomy 09/12/21. infection and drainage requiring multiple rounds of abx. 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 PCP now managing Gabapentin for other problems. Nerve denervation only other option. Pt deferred. It is tolerable, overall has improved from initial re-presentation to my office. -Continue gabapentin, NSAIDs as needed, scrotal support and conservative management 3. Incomplete bladder emptying (R33.9: Retention of urine, unspecified) Bladder scan (cc): 09/07/22 - 510 01/06/23 - 360 04/14/23 - 20 *random scan, voided prior to leaving for appt Much improved from prior. Continue timed voiding and medications as above 4. Erectile dysfunction (N52.9: Male erectile dysfunction, unspecified) LIMA 1 (5). Started Cialis 20 mg prn at prior OV. Able to achieve half an erection. PCP recently added Wellbutrin to help with erections, pt hasn't tried yet. T level wnl. Discussed daily low-dose cialis for BPH but less on demand vs JESUS and ring, ICI, or penile implant. Pt deferred ICI and penile implant, does not like giving himself insulin. -Recommended Nitric Oxide and enhancement lubrication OTC, [facility] -Cont cialis prn -Consider JESUS/ring 5. Diabetes (E11.9: Type 2 diabetes mellitus without complications) Insulin dependent [1]. Reports recent A1C 8.2 from 15 12/2022 -Cont DM control as this contributes to his urinary and ED issues. I spent 30 minutes today with the patient: reviewing tests in preparation to see and discuss them with the patient, documenting clinical information in the electronic health records, and care coordination. Time was spent performing a medical exam and evaluation, counseling and educating the patient/family, and ordering medications in caring for the patient. Follow-up With When (more content not included)... Normal [facility] Comment on above: Result Comment: Elec tronically Signed By: Yenni Watt MD\.br\Date and Time Signed: 04/14/23 13:14 EDT\.br\Electronically Co-Signed By: Mary Montana\.br\Date and Time Co-Signed: 04/14/23 12:01 EDT\.br\Electronically Co-Signed By: Mary Montana\.br\Date and Time Co-Signed: 04/14/23 12:01 EDT Auto Diffon 03-09-2023 Basophils/100 WBC (Bld) 1.0 % Normal 0.0-2.0 [facility] Comment on above: Order Comment: Order Added by Discern Expert. Performed By: #### 2 050006, 1135078, 41434444, 2274288, 6649239, 51913363 ####[facility] [address] [place] [address] Basophils/Leukocytes Auto (Bld) [Pure # fraction] 0.1 E9/L Normal 0.0-0.2 [facility] Comment on above: Order Comment: Order Added by Discern Expert. Performed By: #### 2 644653, 5189987, 89540172, 6820627, 1058946, 88551425 ####[address] [place] [address] Eosinophils/100 WBC (Bld) 1.8 % Normal 0.0-8.0 [facility] Comment on above: Order Comment: Order Added by Discern Expert. Performed By: #### 2 952048, 7626575, 44289707, 6068649, 5400374, 96275076 ####[address] [place] [address] Eosinophils/Leukocyte s Auto (Bld) [Pure # fraction] 0.1 E9/L Normal 0.0-0.5 [facility] Comment on above: Order Comment: Order Added by Discern Expert. Performed By: #### 2 198752, 0051891, 50580752, 4522597, 9480061, 36786897 ####[address] [address] Lymphocytes/100 WBC (Bld) 24.7 % Normal 14.0-50.0 [facility] Comment on above: Order Comment: Order Added by Discern Expert. Performed By: #### 2 381800, 6962725, 09643495, 8613667, 2383231, 80858278 ####[address] [place] [address] Lymphocytes/Leukocyte s Auto (Bld) [Pure # fraction] 1.7 E9/L Normal 1.0-4.0 [facility] Comment on above: Order Comment: Order Added by Discern Expert. Performed By: #### 2 524158, 8855828, 37459533, 2522708, 5951707, 34379343 ####[address] [place] [address] Monocytes/100 WBC (Bld) 6.3 % Normal 4.0-14.0 [facility] Comment on above: Order Comment: Order Added by Discern Expert. Performed By: #### 2 831722, 9785236, 44750951, 6587401, 9915904, 79887051 ####[facility] [address] [place] [address] Monocytes/Leukocytes Auto (Bld) [Pure # fraction] 0.4 E9/L Normal 0.2-1.0 [facility] Comment on above: Order Comment: Order Added by Discern Expert. Performed By: #### 2 759612, 8288017, 47438449, 1382519, 4933670, 58864373 ####[address] [place] [address] Neutrophils/100 WBC (Bld) 66.2 % Normal 36.0-75.0 [facility] Comment on above: Order Comment: Order Added by Discern Expert. Performed By: #### 2 730874, 0475761, 35177161, 1901269, 5219022, 63256176 ####[address] [place] [address] Neutrophils/Leukocyte s Auto (Bld) [Pure # fraction] 4.6 E9/L Normal 2.0-7.5 [facility] Comment on above: Order Comment: Order Added by Discern Expert. Performed By: #### 2 232551, 1649956, 42530656, 8051578, 8271093, 48906505 ####[facility] [address] [place] [address] CBC w/ Auto Diffon 3 Erythrocyte distribution width (RBC) [Ratio] 13.6 % Normal 10.9-14.2 [facility] Comment on above: Performed By: #### 2 662272, 4402117, 53599220, 9706897, 3601161, 23101640 ####[address] [place] [address] Hematocrit (Bld) [Volume fraction] 42.3 % Normal 37.7-49.0 [facility] Comment on above: Performed By: #### 2 361210, 2694751, 17262920, 2974577, 7954613, 15385870 ####[facility] [address] [place] [address] Hemoglobin (Bld) [Mass/Vol] 14.1 g/dL Normal 13.5-17.5 [facility] Comment on above: Performed By: #### 2 681315, 7573345, 43375353, 5203255, 1861595, 88039072 ####[facility] [address] [place] [address] MCH (RBC) [Entitic mass] 29.1 pg Normal 27.0-34.0 [facility] Comment on above: Performed By: #### 2 596106, 1164008, 94859400, 8251044, 9508257, 68586515 ####[address] MCHC (RBC) [Mass/Vol] 33.2 g/dL Normal 31.4-36.0 [facility] Comment on above: Performed By: #### 2 310565, 1338354, 28095057, 0783342, 5775723, 79595308 ####[address] [address] MCV (RBC) [Entitic vol] 87.6 fL Normal 80.0-100.0 [facility] Comment on above: Performed By: #### 2 870406, 6774248, 78174221, 0349496, 1645545, 51595593 ####[address] [place] [address] Platelet mean volume (Bld) [Entitic vol] 10.0 fL Normal 6.4-10.8 [facility] Comment on above: Performed By: #### 2 277280, 0846044, 46084423, 9335453, 0862655, 51790551 ####[address] [place] [address] Platelets (Bld) [#/Vol] 239.0 E9/L Normal 150.0-500.0 [facility] Comment on above: Performed By: #### 2 518186, 6832334, 76066126, 0813760, 4089099, 70350646 ####[address] [place] [address] RBC (Bld) [#/Vol] 4.8 E12/L Normal 4.3-5.9 [facility] Comment on above: Performed By: #### 2 316737, 3810906, 41310293, 9143340, 3806881, 52155905 ####[address] [address] WBC corrected for nucl RBC Auto (Bld) [#/Vol] 6.9 E9/L Normal 4.0-11.0 [facility] Comment on above: Performed By: #### 2 486705, 8315440, 86268188, 3686654, 8265929, 86347009 ####[address] [place] [address] CMPon 03-09-2023 Albumin [Mass/Vol] 3.0 g/dL Low 3.3-5.0 [facility] Comment on above: Performed By: #### 2 891954, 0348679, 07082079, 0402968, 0148446, 58168004 ####[address] [place] [address] Albumin/Globulin (S) [Mass conc ratio] 0.9 Low 1.1-2.2 [facility] Comment on above: Performed By: #### 2 257470, 6590063, 22532629, 2805147, 9903746, 14482061 ####[address] [place] [address] ALP [Catalytic activity/Vol] 105 Int._Unit/L High 21-98 [facility] Comment on above: Performed By: #### 2 944220, 4786353, 14110066, 2348263, 9392420, 62414956 ####[facility] [address] [place] [address] ALT No additional P-5'-P [Catalytic activity/Vol] 14 Int._Unit/L Normal 6-46 [facility] Comment on above: Performed By: #### 2 297361, 7552706, 64123880, 5589689, 1699550, 60260924 ####[facility] [address] [place] [address] Anion gap [Moles/Vol] 12 mmol/L Normal 6-16 [facility] Comment on above: Performed By: #### 2 049061, 8571323, 30931874, 6513106, 5755639, 81856257 ####[facility] [address] [place] [address] AST [Catalytic activity/Vol] 12 Int._Unit/L Normal 5-43 [facility] Comment on above: Performed By: #### 2 363639, 3949715, 58307340, 2486669, 9669657, 05215604 ####[facility] [address] [place] [address] Bilirubin [Mass/Vol] 0.4 mg/dL Normal 0.0-1.1 [facility] Comment on above: Performed By: #### 2 049148, 3546586, 73508626, 3739814, 2694243, 40219368 ####[facility] [address] [place] [address] Calcium [Mass/Vol] 9.5 mg/dL Normal 8.9-11.1 [facility] Comment on above: Performed By: #### 2 681130, 8929641, 27844725, 5948685, 5036577, 08980839 ####[facility] [address] [place] [address] Chloride [Moles/Vol] 102 mmol/L Normal 101-111 [facility] Comment on above: Performed By: #### 2 805219, 2695861, 55460793, 2705796, 2728341, 89002483 ####[facility] [address] [place] [address] CO2 [Moles/Vol] 29 mmol/L Normal 21-31 [facility] Comment on above: Performed By: #### 2 915288, 8496568, 98630612, 6029517, 9807041, 50523078 ####[facility] [address] [place] [address] Creatinine [Mass/Vol] 1.0 mg/dL Normal 0.5-1.3 [facility] Comment on above: Performed By: #### 2 996761, 3791365, 28415803, 8556450, 4988556, 27589866 ####[facility] [address] [place] [address] Globulin (S) [Mass/Vol] 3.4 g/dL Normal 1.4-4.0 [facility] Comment on above: Performed By: #### 2 699505, 2247169, 83578140, 1227372, 9098640, 94571273 ####[facility] [address] [place] [address] Glucose [Mass/Vol] 228 mg/dL High 55-199 [facility] Comment on above: Result Comment: If t his glucose result represents a fasting glucose, interpretation should refer to the following reference range: 55-99 mg/dL Performed By: #### 2 680447, 5849092, 13653310, 3213896, 6921415, 39099847 ####[facility] [address] [place] [address] Potassium [Moles/Vol] 5.2 mmol/L Normal 3.5-5.3 [facility] Comment on above: Performed By: #### 2 718459, 8221552, 99942687, 3623368, 6366826, 74574476 ####[facility] [address] [place] [address] Protein [Mass/Vol] 6.4 g/dL Normal 6.0-7.8 [facility] Comment on above: Performed By: #### 2 173714, 4014920, 76920955, 2092874, 7998724, 23552930 ####[facility] [address] [place] [address] Sodium [Moles/Vol] 138 mmol/L Normal 135-145 [facility] Comment on above: Performed By: #### 2 944132, 6228179, 65134316, 4021621, 8510690, 99710313 ####[facility] [address] [place] [address] Urea nitrogen [Mass/Vol] 17 mg/dL Normal 5-21 [facility] Comment on above: Performed By: #### 2 236699, 7057730, 46781061, 7031519, 9743396, 98787084 ####[facility] [address] [place] [address] Urea nitrogen/Creatinine [Mass ratio] 17 No Units Normal 10-20 [facility] Comment on above: Performed By: #### 2 439637, 3433325, 60218028, 2235915, 0471190, 69652486 ####[facility] [address] [place] [address] Lipid Panelon 03-09-2023 Cholesterol [Mass/Vol] 263 mg/dL High 120-200 [facility] Comment on above: Performed By: #### 1 9728902, 3342153707, 7739277173, 27520422, 6496738506 #### [facility] [address] [place] [address] Cholesterol in HDL [Mass/Vol] 46 mg/dL Invalid Interpretation Code [facility] Comment on above: Result Comment: HDL > or equal to 60 mg/dL: Low cardiovascular risk HDL < 40 mg/dL : High cardiovascular risk Performed By: #### 1 7114607, 0880026382, 9160270920, 03014202, 9956555754 #### [facility] [address] [place] [address] Cholesterol in LDL [Mass/Vol] 189 mg/dL High <=129 [facility] Comment on above: Performed By: #### 1 1212703, 3300106488, 4469662041, 27361432, 4499935900 #### [facility] [address] [place] [address] Cholesterol in VLDL [Mass/Vol] 43 mg/dL High 7-40 [facility] Comment on above: Performed By: #### 1 5825574, 3231653009, 5945297754, 74617139, 7178718175 #### [facility] [address] [place] [address] Triglyceride [Mass/Vol] 213 mg/dL High <=149 [facility] Comment on above: Performed By: #### 1 6793310, 8088271151, 5832410754, 63039002, 1480469733 #### [facility] [address] [place] [address] Physician Orderon 03-09-2023 Physician Order [id number]. 00CD:127 Normal [facility] T4 & TSHon 03-09-2023 T4 [Mass/Vol] 8.9 microgram/dL Normal 4.6-9.1 [facility] Comment on above: Performed By: #### 1 5148109, 5009429284, 7517175173, 08435773, 5372551277 #### [facility] [address] [place] [address] TSH Qn 3.26 m[IU]/L Normal 0.34-5.60 [facility] Comment on above: Performed By: #### 1 7857432, 0560007872, 1587768673, 95564799, 1587934453 #### [facility] [address] [place] [address] eGFRon 03-09-2023 GFR/1.73 sq M.predicted among non-blacks MDRD (S/P/Bld) [Vol rate/Area] 96 mL/min/1.73 m2 Normal >=59 [facility] Comment on above: Order Comment: Order added by Discern Expert. 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 Kidney failure is indicated at less than 15 mL/min/1.73m2. Performed By: #### 1 5544653, 4168588291, 4198704851, 14823741, 5442288245 #### [facility] [address] [place] [address] Physician Referralon 023 Physician Referral [id number]#1. 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 Onset- a month Fever- no Chills- yes Location- Lt foot ankle Radiating- yes entire foot Numbness/ tingling- yes Pain- yes Swelling- no Warmth- yes Redness- yes Drainage- yes- yellow Treatments- Triple Antibiotic ointment Area is wrapped Partner changes dressing every morning and every night History of Present Illness Portions of this record may have been created with voice recognition artificial intelligence software, specifically [employer], [employer] and or [employer]. Substitutions may have occurred due to the inherent limitations of voice recognition and artificial intelligence software. Staff hpi reviewed. Patient is a 42-year-old male presents for possible infection to his leg. Patient with a quarter sized green area to the left ankle. There are no other complaints or concerns. Patient states using triple antibiotic ointment and wrapping the area. Changing dressings approximately every 12 hours. Patient is diabetic. Allergy to penicillin. Review of Systems PHQ Score Initial Depression Screen Score: 2 Physical Exam Vitals & Measurements T: 36.5 ?C(Temporal Artery) HR: 87(Peripheral) BP: 104/60 SpO2: 99% HT: 70 in HT: 177 cm WT: 79.2 kg WT: 174.24 lb BMI: 25.28 General - alert no acute distress Skin - warm dry, quarter size indurated lesion to the medial aspect of the left leg just superior to the medial malleolus Head -normocephalic atraumatic Cardiovascular - regular rate regular rhythm Respiratory - lungs clear to auscultation, non-labored respirations, breath sounds equal Back - no cva tenderness Gastrointestinal - soft, nontender, nondistended Assessment/Plan 1. Skin lesion (L98.9: Disorder of the skin and subcutaneous tissue, unspecified) There is a suspicious lesion that needs to be followed by dermatology. A referral has been provided for you. I also provided with an antibiotic. Ordered: clindamycin, 300 mg = 1 cap(s), Oral, q8hr, # 24 cap(s), Refills(s) 0, Pharmacy: [facility], 177, cm, 02/08/23 14:32:00 EDT, Height/Length Dosing, 179.2, kg, 02/08/23 14:32:00 EDT, Weight Dosing [facility] External Ambulatory Referral 2. Smoker (F17.200: Nicotine dependence, unspecified, uncomplicated) We strongly recommend to quit tobacco use. Cigarette smoking harms nearly every organ of the body, causes many diseases, and reduces the health of smokers in general. Quitting smoking lowers your risk for smoking-related diseases and can add years to your life. We encourage you to visit www.smokefree.gov access to helpful resources including free telephone support. If you decide on prescription treatment to help you quit, we would be happy to provide these. 3. Diabetes (E11.9: Type 2 diabetes mellitus without complications) Keep a close eye on your blood sugar this can effect how your body heals. Your blood sugar in December was in the 300 level, normal level is 80-120. Follow-up With When Contact Information Nancy JAY, [address] [place] [address]- Additional Instructions: Patient Education Excision of Skin Lesions Blood Glucose Monitoring, Adult Steps to Quit Smoking Health Risks of Smoking Problem List/Past Medical History Ongoing Abdominal pain BMI 23.0-23.9, adult BPH with urinary obstruction Diabetes Dysuria Erectile dysfunction Hydrocele, left Incomplete bladder emptying Non-healing surgical wound Orchitis and epididymitis Prostatitis Scrotal abscess Scrotal pain Smoker Testicular pain, left Urge incontinence Historical None Procedure/Surgical History Cystoscopy (10/11/2021), Excision of multiple scrotal sebaceous cysts (09/12/2021), Closed fracture dislocation of wrist. Medications acetaminophen-codeine 300 mg-30 mg Tab, Not taking Cialis 20 mg Tab, 20 mg= 1 tab(s), Oral, As Directed, PRN, 6 refills clindamycin 300 mg oral cap, 300 mg= 1 cap(s), Oral, q8hr ferrous sulfate 325 mg Tab, 325 mg= 1 tab(s), Oral, BIDWM, Not taking Flomax 0.4 mg Cap, 0.8 mg= 2 cap(s), Oral, Daily, 3 refills gabapentin 300 mg Cap, 300 mg= 1 cap(s), Oral, BID, 6 refills Humulin 70/30 10 mL Injection-Insulin, 20 unit(s), SubCutaneous, BIDAC, 2 refills insulin lispro 100 units/mL injectable solution, See Instructions insulin lispro 100 units/mL injectable solution, 5 unit(s), SubCutaneous, TIDAC tamsulosin 0.4 mg Cap, 0.4 mg= 1 cap(s), Oral, BID Allergies penicillin (Skin disorder) Social History Alcohol - Denies Alcohol Use, 08/23/2021 Substance Abuse - High Risk, 09/08/2021 Current, Marijuana, Daily, 09/07/2022 Tobacco - High Risk, 09/08/2021 Smoker, current status unknown Tobacco Use:. Never Smokeless Tobacco Use:. Cigarettes, 02/08/2023 10 or more cigarettes (1/2 pack or more)/day in last 30 days Tobacco Use:. Never Smokeless Tobacco Use:. Cigarettes, 2 per day. Yes, (more content not included)... Normal [facility] Comment on above: Result Comment: Elec tronically Signed By: Annika THOMAS, Negro Pryor\.br\Date and Time Signed: 02/08/23 15:05 EDT Patient Educationon 02-09-20 Patient Education Dermatology Excision of Skin Lesions Excision of a skin lesion is the removal of a section of skin by making small incisions in the skin. Through this process, the lesion is completely removed. This procedure is often done to treat or prevent cancer or infection. It may also be done to improve cosmetic appearance. You may have this procedure to remove: ? Cancerous (malignant) growths, such as basal cell carcinoma, squamous cell carcinoma, or melanoma. ? Noncancerous (benign) growths, such as a cyst or lipoma. ? Growths, such as moles or skin tags, which may be removed for cosmetic reasons. Various excision or surgical techniques may be used depending on your condition, the location of the lesion, and your overall health. Tell your health care provider about: ? Any allergies you have. ? All medicines you are taking, including vitamins, herbs, eye drops, creams, and mbhw-ucc-goqgoqo medicines. ? Any problems you or family members have had with anesthetic medicines. ? Any bleeding problems you have. ? Any surgeries you have had. ? Any medical conditions you have. ? Whether you are or may be . What are the risks? Generally, this is a safe procedure. However, problems may occur, including: ? Bleeding. ? Infection. ? Scarring. ? Recurrence of the cyst, lipoma, or cancer. ? Allergic reaction to anesthetics, surgical materials, or ointments. ? Damage to nerves, blood vessels, muscles, or other structures. What happens before the procedure? Medicines Ask your health care provider about: ? Changing or stopping your regular medicines. This is especially important if you are taking diabetes medicines or blood thinners. ? Taking medicines such as aspirin and ibuprofen. These medicines can thin your blood. Do not take these medicines unless your health care provider tells you to take them. ? Taking shpi-dzk-yraeudx medicines, vitamins, herbs, and supplements. General instructions ? Do not use any products that contain nicotine or tobacco. These products include cigarettes, chewing tobacco, and vaping devices, such as e-cigarettes. If you need help quitting, ask your health care provider. ? Follow instructions from your health care provider about eating or drinking restrictions. ? Ask your health care provider: ? How your surgery site will be marked. ? What steps will be taken to help prevent infection. These steps may include: ? Removing hair at the surgery site. ? Washing skin with a germ-killing soap. ? Taking antibiotic medicine. ? Ask your health care provider if you will need someone to take you home from the hospital or clinic after the procedure. What happens during the procedure? ? You will be given a medicine to numb the area (local anesthetic). ? Your health care provider will remove the lesions using one of the following excision techniques. ? Complete surgical excision. This procedure may be done to treat a cancerous growth or a noncancerous cyst or lesion. ? A small scalpel or scissors will be used to gently cut around and under the lesion until it is completely removed. ? If bleeding occurs, it will be stopped with a device that delivers heat (electrocautery). ? The edges of the wound may be stitched (sutured) together. ? A bandage (dressing) will be applied. ? Samples will be sent to a lab for testing. ? Excision of a cyst. ? An incision will be made on the cyst. ? The entire cyst will be removed through the incision. ? The incision may be closed with sutures. ? Shave excision. This may be done to remove a mole or other small growths. ? A small blade or scalpel will be used to shave off the lesion. ? The wound is usually left to heal on its own without sutures. ? The sample may be sent to a lab for testing. ? Punch excision. This may be done to completely remove a mole or other small growths. ? A small tool that is like a cookie cutter or a hole punch is used to cut a [place] shape out of the skin. ? The outer edges of the skin will be sutured together. ? The sample may be sent to a lab for testing. ? Mohs micrographic surgery. This is usually done to treat skin cancer. This type of excision is mostly used on the face and ears. This procedure is minimally invasive, and it ensures the best cosmetic outcome. ? A scalpel or a loop instrument will be used to remove layers of the lesion until all the abnormal or cancerous tissue has been removed. ? The wound may be sutured, depending on its size. ? The tissue will be checked under a microscope right away. The procedure may vary among health care providers and hospitals. At the end of any of these procedures, antibiotic ointment will be applied as needed. What happens after the procedure? ? Talk with your health care provider to discuss any test results, treatment options, and if necessary, the need for more tests. ? Keep all follow-up visits. This is important. Summary ? (more content not included)... Normal [facility] [place] [facility] [address] [place] [phone] February 08, 2023 ART[address]AN [address] [place] [address] : 1980 Please excuse ARTURO BERGMAN from work . Date and/or Time of Absence: 02/08/23 Restrictions: None Comments: Please excuse due to an acute illness. Provider Signature: Carmelina Schaefer APRN, [employer] Nurse Practitioner [facility] [address] [place] [address] [facility] Testost Totalon 01-22-2023 Testosterone [Mass/Vol] 535 ng/dL Invalid Interpretation Code [id number] [facility] Comment on above: Result Comment: Adul t male reference interval is based on a population of healthy nonobese males (BMI <30) between 19 and 39 years old. Jt et.al. JCEM 2017,102;8824-5292. PMID: 96198186. Performed at: [facility] [address] [id number] PhD Edwar Kaplan Performed By: #### 2 691006 #### [facility] [address] [place] [address] Consent for Treatmenton 01-05 Consent for Treatment [id number] 0CD:127 Normal [facility] Screenson 01-09-2023 Screens [id number] 0CD:127 Normal [facility] Patient Educationon 01-07-20 Patient Education Urology Erectile Dysfunction Erectile dysfunction (ED) is the inability to get or keep an erection in order to have sexual intercourse. ED is considered a symptom of an underlying disorder and is not considered a disease. ED may include: ? Inability to get an erection. ? Lack of enough hardness of the erection to allow penetration. ? Loss of erection before sex is finished. What are the causes? This condition may be caused by: ? Physical causes, such as: ? Artery problems. This may include heart disease, high blood pressure, atherosclerosis, and diabetes. ? Hormonal problems, such as low testosterone. ? Obesity. ? Nerve problems. This may include back or pelvic injuries, multiple sclerosis, Parkinson's disease, spinal cord injury, and stroke. ? Certain medicines, such as: ? Pain relievers. ? Antidepressants. ? Blood pressure medicines and water pills (diuretics). ? Cancer medicines. ? Antihistamines. ? Muscle relaxants. ? Lifestyle factors, such as: ? Use of drugs such as marijuana, cocaine, or opioids. ? Excessive use of alcohol. ? Smoking. ? Lack of physical activity or exercise. ? Psychological causes, such as: ? Anxiety or stress. ? Sadness or depression. ? Exhaustion. ? Fear about sexual performance. ? Guilt. What are the signs or symptoms? Symptoms of this condition include: ? Inability to get an erection. ? Lack of enough hardness of the erection to allow penetration. ? Loss of the erection before sex is finished. ? Sometimes having normal erections, but with frequent unsatisfactory episodes. ? Low sexual satisfaction in either partner due to erection problems. ? A curved penis occurring with erection. The curve may cause pain, or the penis may be too curved to allow for intercourse. ? Never having nighttime or morning erections. How is this diagnosed? This condition is often diagnosed by: ? Performing a physical exam to find other diseases or specific problems with the penis. ? Asking you detailed questions about the problem. ? Doing tests, such as: ? Blood tests to check for diabetes mellitus or high cholesterol, or to measure hormone levels. ? Other tests to check for underlying health conditions. ? An ultrasound exam to check for scarring. ? A test to check blood flow to the penis. ? Doing a sleep study at home to measure nighttime erections. How is this treated? This condition may be treated by: ? Medicines, such as: ? Medicine taken by mouth to help you achieve an erection (oral medicine). ? Hormone replacement therapy to replace low testosterone levels. ? Medicine that is injected into the penis. Your health care provider may instruct you how to give yourself these injections at home. ? Medicine that is delivered with a short applicator tube. The tube is inserted into the opening at the tip of the penis, which is the opening of the urethra. A tiny pellet of medicine is put in the urethra. The pellet dissolves and enhances erectile function. This is also called MUSE (medicated urethral system for erections) therapy. ? Vacuum pump. This is a pump with a ring on it. The pump and ring are placed on the penis and used to create pressure that helps the penis become erect. ? Penile implant surgery. In this procedure, you may receive: ? An inflatable implant. This consists of cylinders, a pump, and a reservoir. The cylinders can be inflated with a fluid that helps to create an erection, and they can be deflated after intercourse. ? A semi-rigid implant. This consists of two silicone rubber rods. The rods provide some rigidity. They are also flexible, so the penis can both curve downward in its normal position and become straight for sexual intercourse. ? Blood vessel surgery to improve blood flow to the penis. During this procedure, a blood vessel from a different part of the body is placed into the penis to allow blood to flow around (bypass) damaged or blocked blood vessels. ? Lifestyle changes, such as exercising more, losing weight, and quitting smoking. Follow these instructions at home: Medicines ? Take gijz-eez-gzkttlx and prescription medicines only as told by your health care provider. Do not increase the dosage without first discussing it with your health care provider. ? If you are using self-injections, do injections as directed by your health care provider. Make sure you avoid any veins that are on the surface of the penis. After giving an injection, apply pressure to the injection site for 5 minutes. ? Talk to your health care provider about how to prevent headaches while taking ED medicines. These medicines may cause a sudden headache due to the increase in blood flow in your body. General instructions ? Exercise regularly, as directed by your health care provider. Work with your health care provider to lose weight, if needed. ? Do not use any products that contain nicotine or tobacco. These products include cig (more content not included)... Normal [facility] Provider Letteron 01-06-2023 Provider Letter January 06, 2023 ARTURO [address]AN [address] [place] [address] : 1980 To Whom It May Concern, Please excuse above patient from work. Date of Illness: From: _ 01/06/2023 To: _ May Return to Work On:01/06/2023 Restrictions: _n/a Comments: _ Sincerely, [facility] [id number] [address] [facility] Urology Office/Clinic Noteon 01-06-2023 Urology Office/Clinic Note Chief Complaint pt here for 4 month f/u HPI Staff Arturo is a 42 yr old Male here today for a 4 month f/u. Previous DX: BPH with urinary obstruction, dysuria, ED, hydrocele, incomplete bladder emptying, prostitis, scrotal abscess, testicle pain, urge incontinence. Pts currently taking Flomax 0.4mg QD. S/P cysto 10/11/21. Pt states sometimes he has to strain to use the restroom. Pt states he does need refills. Dysuria: denies Incomplete bladder emptying: denies Hematuria: denies Frequency: denies Urgency: denies Nocturia: 2-3x Stream: strong, steady Leaking: denies Post void dripping: denies Wearing pads/ Depends: denies Urge incontinence: denies Stress incontinence: denies Incontinence without Sensory Awareness: denies Abdominal pain: sometimes Flank pain: denies Sexual complaints: _ History of Present Illness Tests Reviewed: Reviewed UA. I have reviewed the previous health record information and history for this patient from Dr. Watt I have reviewed and verified the staff HPI to be accurate for this encounter. There have been no associated fever, chills, flank pain, or blood in the urine. Denies any urinary infections since last encounter. Review of Systems PHQ Score Initial Depression Screen Score: 0 ROS - Provider Constitutional: denies weight loss, denies hot flashes. Eyes: denies eye problems. Gastrointestinal: denies nausea, denies vomiting. Cardiovascular: denies chest pain or angina. Integumentary: no dryness Musculoskeletal: denies musculoskeletal symptoms. ENMT: denies otolaryngeal symptoms. Respiratory: no shortness of breath. Heme/Lymph: denies easy bleeding tendency, denies easy bruising tendency. Psychiatric: no confusion, no anxiety. Genitourinary: see HPI Physical Exam Vitals & Measurements HR: 107(Peripheral) BP: 119/89 HT: 70 in HT: 177 cm WT: 73 kg WT: 160.6 lb BMI: 23.3 General Appearance: alert, no distress, well nourished, well developed male. Genitourinary: Flank Pain: none. Bladder: nonpalpable Assessment/Plan 1. BPH with urinary obstruction (N40.1: Benign prostatic hyperplasia with lower urinary tract symptoms) S/p cysto done 10/11/21 by DLS - obstructing inflamed prostate. Pt taking Flomax 0.8 mg QD (taking 2 0.4 mg tabs at once). Complains of nocturia 2-3x. Refused CIC or catheter placement Feels symptoms overall improving. His PVR has improved from prior, still elevated. Again discussed risks and benefits of interventions for bladder retraining and potential for atonic bladder in the future and permanent catheter placement. He again declines further intervention. ' -He will continue behavioral modifications of timed voiding, diabetes control -Patient is tolerating current medication for BPH with LUTS well without side effects, he would like to continue the medication. Will send refill and follow up in 3 months 2. Prostatitis (N41.9: Inflammatory disease of prostate, unspecified) Levaquin 500 mg QD x 6 weeks at last encounter. States that the abx did help. -Continue symptomatic monitoring 3. Scrotal pain (N50.82: Scrotal pain) S/p I&D scrotal abscess, left hydrocelectomy done 09/12/21. Postop complicated by persistent wound infection and drainage requiring multiple rounds of abx. Gabapentin 300mg bid x6 weeks given at last encounter and was refilled 2x afterwards. Patient states that he no longer feels the pain at the incision site. Risks and benefits of continued medication discussed. He does not want to discontinue it -Patient is tolerating current medication for scrotal skin nerve pain well without side effects, he would like to continue the medication. Will send refill and follow up in 3 mths 4. Incomplete bladder emptying (R33.9: Retention of urine, unspecified) PVR in office today was 360ml, previously 510ml patient not willing to cath himself, advised him to continue time voids. Advised patient that in the future there may be need for a parts counterman catheter if he loses complete bladder function. -Cont per #1 5. Erectile dysfunction (N52.9: Male erectile dysfunction, unspecified) LIMA-5 Patient has been unable to get a full erection for 5 or more years. Has tried sildenafil 100mg in the past with no success as well as a vacuum device. Discussed options for ED, including oral medications, erection pumps, MUSE intraurethral pellet, intracorporal injection therapy, and surgical options. Discussed the issue of testosterone replacement therapy at length with the patient. I informed him he will need to have serum testosterone monitoring, as well as checking other blood work. -Will get testosterone checked now, if still low a repeat lab will be needed with LH and testosterone therapy will be given after that. -Will try Cialis 20mg advised patient that 20mg is the max dose of this medication and any more than that will cause heart issues, patient aware if he has an erection longer than 4 hours to go to the ER. Risks/benefits discussed 6. (more content not included)... Normal [facility] Comment on above: Result Comment: Elec tronically Signed By: Shukri JAY, Yenni Mckeon\.br\Date and Time Signed: 01/06/23 12:39 EDT\.br\Electronically Co-Signed By: Erin Blanco MA\.br\Date and Time Co-Signed: 01/06/23 10:58 EDT CHEMISTRYOrdered By: Carlos JACKSON User on 12-07-2022 Glucose [Mass/Vol] 369 mg/dL High 55 - 99 mg/dL [facility] POC Subsection Comment on above: Result Comment: Drea ORTIZ POC Device SN [id number] Invalid Interpretation Code [facility] POC Subsection POC User ID [id number] Invalid Interpretation Code [facility] POC Subsection POC Username [email or web address] RODRIGUEZ Invalid Interpretation Code [facility] POC Subsection CHEMISTRYOrdered By: Carlos JACKSON User on 12-06-2022 Glucose [Mass/Vol] 285 mg/dL High 55 - 99 mg/dL [facility] POC Subsection Comment on above: Result Comment: Drea ORTIZ POC Device SN [id number] Invalid Interpretation Code [facility] POC Subsection POC User ID [id number] Invalid Interpretation Code [facility] POC Subsection POC Username RENARD KEEN Invalid Interpretation Code [facility] POC Subsection Glucose [Mass/Vol] 318 mg/dL High 55 - 99 mg/dL [facility] POC Subsection Comment on above: Result Comment: Drae espinal RN/ POC Device SN [id number] Invalid Interpretation Code [facility] [place] POC Subsection POC User ID [id number] Invalid Interpretation Code [facility] [place] POC Subsection POC Username [email or web address] RODRIGUEZ Invalid Interpretation Code [facility] [place] POC Subsection CHEMISTRYOrdered By: SYSTEM SYSTEM on 12-06-2022 Vancomycin trough [Moles/Vol] 11 microgram/mL Normal 10 - 20 mcg/mL [facility] Remisol Vancomycin peak [Moles/Vol] 38 microgram/mL Normal 20 - 40 mcg/mL [facility] Remisol CHEMISTRYOrdered By: Weilos SYSTEM on 12-05-2022 Anion gap [Moles/Vol] 7 mmol/L Normal 6 - 16 mEq/L [facility] Remisol Calcium [Mass/Vol] 7.8 mg/dL Low 8.9 - 11. 1 mg/dL [facility] Remisol Chloride [Moles/Vol] 103 mmol/L Normal 101 - 1 11 mmol/L [facility] Rem[facility] CO2 [Moles/Vol] 26 mmol/L Normal 21 - 31 mmol/L [facility] Rem[facility] Creatinine [Mass/Vol] 0.9 mg/dL Normal 0.5 - 1.3 mg/dL [facility] Remisol CRP [Mass/Vol] 10.2 mg/dL High <=1.9mg/dL [facility] Remis ol GFR/1.73 sq M.predicted among non-blacks MDRD (S/P/Bld) [Vol rate/Area] 109 mL/min/1.73 m2 Normal >=59mL/min/ 1.73 m2 [facility] [place] Chem S Glucose [Mass/Vol] 280 mg/dL High 55 - 199 mg/dL [facility] Remisol Potassium [Moles/Vol] 4.0 mmol/L Normal 3.5 - 5.3 mmol/L [facility] Remisol Sodium [Moles/Vol] 132 mmol/L Low 135 - 145 mmol/L [facility] Rem[facility] Urate [Mass/Vol] 5.8 mg/dL Normal 2.2 - 7.4 mg/dL [facility] Rem[facility] Urea nitrogen [Mass/Vol] 20 mg/dL Normal 5 - 21 mg/dL [facility] Remisol Urea nitrogen/Creatinine [Mass ratio] 22 mg/mg High 10 - 20 [facility] Remisol CHEMISTRYOrdered By: Opal gilliam on 12-05-2022 HbA1c (Bld) [Mass fraction] 13.0 % High <=5.9% [facility] ChemAutoSS COAGULATIONOrdered By: Sunil Santa on 12-05-2022 aPTT Coag (PPP) [Time] 34.9 s Normal 25.1 - 36.5 second(s) [facility] Auto Coag INR Coag (PPP) [Relative time] 1.0 {INR} Invalid Interpretation Code [facility] Auto Coag PT Coag (PPP) [Time] 11.5 s Normal 9.4 - 1 2.5 second(s) [facility] Auto Coag HEMATOLOGYOrdered By: Weilos SYSTEM on 12-05-2022 Basophils/100 WBC (Bld) 0.3 % Normal 0.0 - 2.0 % [facility] HemeAutoSS Basophils/Leukocytes Auto (Bld) [Pure # fraction] 0.0 E9/L Normal 0.0 - 0.2 E9/L [facility] HemeAutoSS Eosinophils/100 WBC (Bld) 1.6 % Normal 0.0 - 8.0 % [facility] HemeAutoSS Eosinophils/Leukocyte s Auto (Bld) [Pure # fraction] 0.2 E9/L Normal 0.0 - 0.5 E9/L [facility] HemeAutoSS Lymphocytes/100 WBC (Bld) 19.6 % Normal 14.0 - 50.0 % [facility] HemeAutoSS Lymphocytes/Leukocyte s Auto (Bld) [Pure # fraction] 2.0 E9/L Normal 1.0 - 4.0 E9/L [facility] HemeAutoSS Monocytes/100 WBC (Bld) 9.0 % Normal 4.0 - 14.0 % [facility] HemeAutoSS Monocytes/Leukocytes Auto (Bld) [Pure # fraction] 0.9 E9/L Normal 0.2 - 1.0 E9/L [facility] HemeAutoSS Neutrophils/100 WBC (Bld) 69.5 % Normal 36.0 - 75.0 % [facility] HemeAutoSS Neutrophils/Leukocyte s Auto (Bld) [Pure # fraction] 7.2 E9/L Normal 2.0 - 7.5 E9/L [facility] HemeAutoSS HEMATOLOGYOrdered By: Sunil Santa on 12-05-2022 Erythrocyte distribution width (RBC) [Ratio] 12.1 % Normal 10.9 - 14.2 % [facility] HemeAutoSS Hematocrit (Bld) [Volume fraction] 37.0 % Low 37.7 - 49.0 % [facility] HemeAutoSS Hemoglobin (Bld) [Mass/Vol] 12.1 g/dL Low 13.5 - 17.5 gm/dL [facility] HemeAutoSS MCH (RBC) [Entitic mass] 28.4 pg Normal 27.0 - 34.0 pg [facility] HemeAutoSS MCHC (RBC) [Mass/Vol] 32.8 g/dL Normal 31.4 - 36.0 gm/dL [facility] HemeAutoSS MCV (RBC) [Entitic vol] 86.7 fL Normal 80.0 - 100.0 fL [facility]eAutoSS Platelet mean volume (Bld) [Entitic vol] 8.6 fL Normal 6.4 - 10.8 fL [facility] HemeAutoSS Platelets (Bld) [#/Vol] 180.0 E9/L Normal 150.0 - 500.0 E9/L [facility] HemeAutoSS RBC (Bld) [#/Vol] 4.3 E12/L Normal 4.3 - 5.9 E12/L [facility] HemeAutoSS WBC corrected for nucl RBC Auto (Bld) [#/Vol] 10.3 E9/L Normal 4.0 - 11.0 E9/L [facility] HemeAutoSS CHEMISTRYOrdered By: SYSTEM SYSTEM on 12-04-2022 Anion gap [Moles/Vol] 11 mmol/L Normal 6 - 16 mEq/L [facility] Remisol Calcium [Mass/Vol] 8.3 mg/dL Low 8.9 - 11. 1 mg/dL [facility] Remisol Chloride [Moles/Vol] 100 mmol/L Low 101 - 1 11 mmol/L [facility] Remisol CO2 [Moles/Vol] 26 mmol/L Normal 21 - 31 mmol/L [facility] Creatinine [Mass/Vol] 1.0 mg/dL Normal 0.5 - 1.3 mg/dL [facility] CRP [Mass/Vol] 8.8 mg/dL High <=1.9mg/dL [facility] Remis ol GFR/1.73 sq M.predicted among non-blacks MDRD (S/P/Bld) [Vol rate/Area] 96 mL/min/1.73 m2 Normal >=59mL/min/ 1.73 m2 [facility] [place] Chem S Glucose [Mass/Vol] 286 mg/dL High 55 - 199 mg/dL [facility] Remisol Potassium [Moles/Vol] 4.4 mmol/L Normal 3.5 - 5.3 mmol/L [facility] Remisol Sodium [Moles/Vol] 133 mmol/L Low 135 - 145 mmol/L [facility] Remisol Urate [Mass/Vol] 5.7 mg/dL Normal 2.2 - 7.4 mg/dL [facility] Remisol Urea nitrogen [Mass/Vol] 16 mg/dL Normal 5 - 21 mg/dL [facility] Remisol Urea nitrogen/Creatinine [Mass ratio] 16 mg/mg Normal 10 - 20 [facility] Remisol HEMATOLOGYOrdered By: SYSTEM SYSTEM on 12-04-2022 Basophils/100 WBC (Bld) 0.5 % Normal 0.0 - 2.0 % [facility] HemeAutoSS Basophils/Leukocytes Auto (Bld) [Pure # fraction] 0.1 E9/L Normal 0.0 - 0.2 E9/L [facility] HemeAutoSS Eosinophils/100 WBC (Bld) 0.8 % Normal 0.0 - 8.0 % [facility] HemeAutoSS Eosinophils/Leukocyte s Auto (Bld) [Pure # fraction] 0.1 E9/L Normal 0.0 - 0.5 E9/L [facility] HemeAutoSS Lymphocytes/100 WBC (Bld) 13.3 % Low 14.0 - 50.0 % [facility] HemeAutoSS Lymphocytes/Leukocyte s Auto (Bld) [Pure # fraction] 1.4 E9/L Normal 1.0 - 4.0 E9/L [facility] HemeAutoSS Monocytes/100 WBC (Bld) 8.9 % Normal 4.0 - 14.0 % [facility] HemeAutoSS Monocytes/Leukocytes Auto (Bld) [Pure # fraction] 0.9 E9/L Normal 0.2 - 1.0 E9/L [facility] HemeAutoSS Neutrophils/100 WBC (Bld) 76.5 % High 36.0 - 75.0 % [facility] HemeAutoSS Neutrophils/Leukocyte s Auto (Bld) [Pure # fraction] 7.9 E9/L High 2.0 - 7.5 E9/L [facility] HemeAutoSS HEMATOLOGYOrdered By: Sunil Santa on 12-04-2022 Erythrocyte distribution width (RBC) [Ratio] 12.2 % Normal 10.9 - 14.2 % [facility] HemeAutoSS Hematocrit (Bld) [Volume fraction] 39.2 % Normal 37.7 - 49.0 % [facility] HemeAutoSS Hemoglobin (Bld) [Mass/Vol] 13.2 g/dL Low 13.5 - 17.5 gm/dL [facility] HemeAutoSS MCH (RBC) [Entitic mass] 28.9 pg Normal 27.0 - 34.0 pg [facility]eAutoSS MCHC (RBC) [Mass/Vol] 33.7 g/dL Normal 31.4 - 36.0 gm/dL [facility] HemeAutoSS MCV (RBC) [Entitic vol] 85.5 fL Normal 80.0 - 100.0 fL [facility] HemeAutoSS Platelet mean volume (Bld) [Entitic vol] 8.6 fL Normal 6.4 - 10.8 fL [facility] HemeAutoSS Platelets (Bld) [#/Vol] 213.0 E9/L Normal 150.0 - 500.0 E9/L [facility] HemeAutoSS RBC (Bld) [#/Vol] 4.6 E12/L Normal 4.3 - 5.9 E12/L [facility] HemeAutoSS Sed Rate Automated 54 mm/h High 0 - 19 mm/hr [facility] HemeAutoSS WBC corrected for nucl RBC Auto (Bld) [#/Vol] 10.3 E9/L Normal 4.0 - 11.0 E9/L [facility] HemeAutoSS No Panel InformationOrdered By: [facility] 12-[facility]-2022 Blood Culture Charcoal No growth at 2 days. Final to follow at 7 days. [facility] Blood Culture Charcoal No growth at 2 days. Final to follow at 7 days. [facility] Vital Signs Date Time Vital Sign Value Performing Clinician Facility 01-25-2024 10:12-0400 Diastolic blood pressure 82 mm[Hg] [facility] 01-25-2024 10:12-0400 Systolic blood pressure 163 mm[Hg] [facility] 01-25-2024 09:51-0400 Body height 180.34 cm [facility] 01-25-2024 09:51-0400 Body mass index (BMI) [Ratio] 27.2 kg/m2 [facility] 01-25-2024 09:51-0400 Body weight 88.5 kg [facility] 01-25-2024 09:51-0400 Heart rate 88 /min [facility] 01-25-2024 09:51-0400 Respiratory rate 20 /min [facility] 01-25-2024 09:51-0400 SaO2% (BldA) [Mass fraction] 95 % [facility] 12-13-2023 13:07-0400 Body height 180.34 cm [employer]- Lisa Maryanne Work Phone: [facility] 12-13-2023 13:07-0400 Body mass index (BMI) [Ratio] 27 kg/m2 [employer] Lisa Maryanne Work Phone: [facility] 12-13-2023 13:07-0400 Body weight 88 kg [employer] Lisa Maryanne Work Phone: [facility] 11-16-2023 10:02-0400 Body height 180.34 cm [employer] Lisa Maryanne Work Phone: [facility] 11-16-2023 10:02-0400 Body mass index (BMI) [Ratio] 27.2 kg/m2 [employer] Lisa Maryanne Work Phone: [facility] 11-16-2023 10:02-0400 Body weight 88.59 kg [employer]- Lisa Maryanne Work Phone: [facility] 11-16-2023 10:02-0400 Diastolic blood pressure 80 mm[Hg] [facility] Lisa Maryanne Work Phone: [facility] 11-16-2023 10:02-0400 Heart rate 88 /min [employer] Lisa Maryanne Work Phone: [facility] 11-16-2023 10:02-0400 Respiratory rate 18 /min [employer]- Lisa Maryanne Work Phone: [facility] 11-16-2023 10:02-0400 SaO2% (BldA) [Mass fraction] 96 % [employer] Lisa Maryanne Work Phone: [facility] 11-16-2023 10:02-0400 Systolic blood pressure 119 mm[Hg] [employer] Lisa Maryanne Work Phone: [facility] 10-18-2023 10:48-0400 Diastolic blood pressure 88 mm[Hg] [employer] Lisa Maryanne Work Phone: [facility] 10-18-2023 10:48-0400 Heart rate 77 /min [employer] Lisa Maryanne Work Phone: [facility] 10-18-2023 10:48-0400 Respiratory rate 16 /min [employer] Lisa Maryanne Work Phone: [facility] 10-18-2023 10:48-0400 SaO2% (BldA) [Mass fraction] 95 % [employer] Lisa Maraynne Work Phone: [facility] 10-18-2023 10:48-0400 Systolic blood pressure 145 mm[Hg] [employer] Lisa Maryanne Work Phone: [facility] 10-18-2023 08:43-0400 Body height 180.34 cm [employer] Lisa Maryanne Work Phone: [facility] 10-18-2023 08:43-0400 Body weight 83.91 kg [employer] Lisa Maryanne Work Phone: [facility] 09-21-2023 11:38-0500 Body height 177.8 cm [employer] Lisa Maryanne Work Phone: [facility] 09-21-2023 11:38-0500 Body mass index (BMI) [Ratio] 28.2 kg/m2 [employer] Lisa Maryanne Work Phone: [facility] 09-21-2023 11:38-0500 Body weight 89.15 kg [employer] Lisa Maryanne Work Phone: [facility] 09-21-2023 11:38-0500 Diastolic blood pressure 84 mm[Hg] [facility] Lisa Madden Work Phone: [facility] 09-21-2023 11:38-0500 Heart rate 79 /min [facility] Lisa Madden Work Phone: [facility] 09-21-2023 11:38-0500 Respiratory rate 18 /min [facility] Lisa Madden Work Phone: [facility] 09-21-2023 11:38-0500 SaO2% (BldA) [Mass fraction] 96 % [facility] Lisa Madden Work Phone: [facility] 09-21-2023 11:38-0500 Systolic blood pressure 125 mm[Hg] [facility] Lisa Madden Work Phone: [facility] 08-24-2023 09:00-0500 Body height 179.71 cm Karina Scovanner Other [facility] 08-24-2023 09:00-0500 Body mass index (BMI) [Ratio] 28.65 kg/m2 Karina Scovanner Other [facility] [employer] Other 08-24-2023 09:00-0500 Body weight 92.53 kg Karina Scovanner Other [facility] 08-10-2023 13:00-0500 Body height 179.71 cm Elva Scally Other [facility] 08-10-2023 13:00-0500 Body mass index (BMI) [Ratio] 28.71 kg/m2 Elva Scally Other [facility] [employer] Other 08-10-2023 13:00-0500 Body weight 92.72 kg Elva Scally Other [facility] [employer] Other 08-10-2023 13:00-0500 Body weight 92.71 kg [facility] Lisa Madden Work Phone: [facility] 07-21-2023 10:15-0500 Body height 179.71 cm Elva Scally Other [facility] 07-21-2023 10:15-0500 Body mass index (BMI) [Ratio] 26.42 kg/m2 Elva Scally Other [facility] [employer] Other 07-21-2023 10:15-0500 Body weight 85.32 kg Elva Scally Other [facility] 07-21-2023 10:15-0500 Diastolic blood pressure 84 mm[Hg] Elva Scally Other [facility] 07-21-2023 10:15-0500 Respiratory rate 18 /min Elva Scally Other [facility] [employer] Other 07-21-2023 10:15-0500 SaO2% (BldA) [Mass fraction] 97 % Elva Scally Other [facility] [employer] Other 07-21-2023 10:15-0500 Systolic blood pressure 121 mm[Hg] Elva Scally Other [facility] 04-14-2023 11:29-0400 Blood Pressure Location Yenni Lue [facility] 04-14-2023 11:29-0400 Diastolic blood pressure 87 mm[Hg] Yenni Lue [facility] 04-14-2023 11:29-0400 Heart rate 71 /min Yenni Lue [facility] 04-14-2023 11:29-0400 Systolic blood pressure 125 mm[Hg] Yenni Lue [facility] 02-08-2023 14:29-0400 Blood Pressure Location [facility] 02-08-2023 14:29-0400 Body temperature 97.7 [degF] [facility] 02-08-2023 14:29-0400 Diastolic blood pressure 60 mm[Hg] Negro Spasic [facility] 02-08-2023 14:29-0400 Heart rate 87 /min Negro Spasic [facility] 02-08-2023 14:29-0400 SaO2% (BldA) [Mass fraction] 99 % Negro Spasic [facility] 02-08-2023 14:29-0400 Systolic blood pressure 104 mm[Hg] Negro Spasic [facility] 01-06-2023 10:01-0400 Blood Pressure Location Yenni Lue [facility] 01-06-2023 10:01-0400 Diastolic blood pressure 89 mm[Hg] Yenni Lue [facility] 01-06-2023 10:01-0400 Heart rate 107 /min Yenni Lue [facility] 01-06-2023 10:01-0400 Systolic blood pressure 119 mm[Hg] Yenni Lue [facility] [place] 12-07-2022 09:17-0400 gluc 369 mg/dL Zuhair YAHIR [facility] 12-07-2022 09:16-0400 Diastolic blood pressure 72 mm[Hg] Zuhair YAHIR [facility] 12-07-2022 09:16-0400 Systolic blood pressure 122 mm[Hg] Zuhair YAHIR [facility] 12-07-2022 08:06-0400 Heart rate 74 /min Zuhair YAHIR [facility] 12-07-2022 08:06-0400 SaO2% (BldA) [Mass fraction] 97 % Zuhair YAHIR [facility] 12-07-2022 08:04-0400 Diastolic blood pressure 72 mm[Hg] Zuhair YAHIR [facility] 12-07-2022 08:04-0400 Mean blood pressure 89 mm[Hg] Zuhair YAHIR [facility] 12-07-2022 08:04-0400 Systolic blood pressure 122 mm[Hg] Zuhair YAHIR [facility] 12-07-2022 08:04-0400 Body temperature 98.24 [degF] Zuhair YAHIR [facility] 12-07-2022 06:00-0400 Hourly Rounding Zuhair YAHIR [facility] 12-07-2022 06:00-0400 Promise to Return Zuhair YAHIR [facility] 12-07-2022 05:00-0400 Hourly Rounding Zuhair YAHIR [facility] 12-07-2022 05:00-0400 Promise to Return Zuhairjulia WEBSTERSLIN [facility] 12-07-2022 04:00-0400 Hourly Rounding Zuhairjulia WE[facility]ST[facility]LIN [facility] 12-07-2022 04:00-0400 Promise to Return Zuhairjulia WE[facility]STERSLIN [facility] 12-07-2022 03:50-0400 Blood Pressure Location Zuhairjulia [facility] 12-07-2022 03:50-0400 Body temperature 98.78 [degF] Zuhairjulia WE[facility]STERSLIN [facility] 12-07-2022 03:50-0400 Diastolic blood pressure 71 mm[Hg] Zuhairjulia WE[facility]STERSLIN [facility] 12-07-2022 03:50-0400 Heart rate 88 /min Zuhair YAHIR [facility] 12-07-2022 03:50-0400 Mean blood pressure 88 mm[Hg] Zuhairjulia WEBSTERSLIN [facility] 12-07-2022 03:50-0400 Respiratory rate 16 /min Zuhairjulia WE[facility]STERSLIN [facility] 12-07-2022 03:50-0400 SaO2% (BldA) [Mass fraction] 96 % Zuhair YAHIR [facility] 12-07-2022 03:50-0400 Systolic blood pressure 121 mm[Hg] Zuhair YAHIR [facility] 12-07-2022 00:10-0400 Blood Pressure Location Zuhair YAHIR [facility] 12-07-2022 00:10-0400 Body temperature 98.96 [degF] Zuhair YAHIR [facility] 12-07-2022 00:10-0400 Heart rate 91 /min Zuhair YAHIR [facility] 12-07-2022 00:10-0400 Mean blood pressure 70 mm[Hg] Zuhair YAHIR [facility] 12-07-2022 00:10-0400 Respiratory rate 16 /min Zuhair YAHIR [facility] 12-07-2022 00:10-0400 SaO2% (BldA) [Mass fraction] 97 % Zuhair YAHIR [facility] 12-06-2022 20:42-0400 gluc 285 mg/dL Zuhair YAHIR [facility] 12-06-2022 17:00-0400 gluc 318 mg/dL Zuhair YAHIR [facility] 12-06-2022 16:28-0400 Mean blood pressure 107 mm[Hg] Zuhair YAHIR [facility] 12-06-2022 12:03-0400 Mean blood pressure 92 mm[Hg] Zuhair YAHIR [facility] 12-05-2022 07:00-0400 Heart rate 84 /min Zuhair YAHIR [facility] 12-05-2022 07:00-0400 Mean blood pressure 79 mm[Hg] Zuhair YAHIR [facility] 12-05-2022 00:00-0400 Heart rate 85 /min Zuhair YAHIR [facility] 12-04-2022 23:30-0400 Respiratory rate 14 /min Zuhair SINCLAIR [facility] 12-04-2022 23:00-0400 Respiratory rate 16 /min Zuhair SINCLAIR [facility] 12-04-2022 18:22-0400 Heart rate 89 /min Zuhair SINCLAIR [facility] 02-22-2022 08:59-0400 Blood Pressure Location Nilo Summers Jr. [facility] 02-22-2022 08:59-0400 Diastolic blood pressure 84 mm[Hg] Nilo Summers Jr. [facility] 02-22-2022 08:59-0400 Heart rate 100 /min Nilo Summers Jr. [facility] 02-22-2022 08:59-0400 Respiratory rate 16 /min Nilo Summers Jr. [facility] 02-22-2022 08:59-0400 Systolic blood pressure 128 mm[Hg] Nilo Summers Jr. [facility] 02-08-2022 08:42-0400 Blood Pressure Location Nilo Summers Jr. [facility] 02-08-2022 08:42-0400 Diastolic blood pressure 79 mm[Hg] Nilo Summers Jr. [facility] 02-08-2022 08:42-0400 Heart rate 98 /min Nilo Summers Jr. [facility] 02-08-2022 08:42-0400 Respiratory rate 16 /min Nilo Summers . [facility] 02-08-2022 08:42-0400 Systolic blood pressure 111 mm[Hg] Nilo Summers . [facility] 01-24-2022 08:12-0400 Blood Pressure Location Nilo Summers Jr. [facility] 01-24-2022 08:12-0400 Diastolic blood pressure 81 mm[Hg] Nilo Summers . [facility] 01-24-2022 08:12-0400 Heart rate 89 /min Nilo Summers . [facility] 01-24-2022 08:12-0400 Systolic blood pressure 125 mm[Hg] Nilo Summers . [facility] Encounters Encounter Date Encounter Type Care Provider Facility Start: 01-25-2024 End: 01-25-2024 ambulatory [facility] Work Phone: Start: 01-25-2024 End: 01-25-2024 Patient encounter procedure [facility] Work Phone: Start: 12-21-2023 End: 12-22-2023 ambulatory LISAERASMO MADDEN Facility:[facility] Start: 12-21-2023 Non-patient / Non-visit [facility] Work Phone: Start: 12-21-2023 End: 12-21-2023 Patient encounter procedure ELVA GILMORE [facility] Start: 12-13-2023 End: 12-13-2023 ambulatory INDUSTRIAL [employer]FFEE GRINDER-BC Lisa Maryanne Work Phone: [facility] Work Phone: Start: 12-13-2023 End: 12-13-2023 Patient encounter procedure INDUSTRIAL [employer]EE GRINDER-BC Lisa Maryanne Work Phone: [facility] Work Phone: Start: 12-13-2023 End: 12-13-2023 ambulatory INDUSTRIAL COFFEE GRINDER-BC Lisa Maryanne Work Phone: [facility] Work Phone: Start: 12-13-2023 End: 12-13-2023 Patient encounter procedure INDUSTRIAL COFFEE GRINDER-BC Lisa Maryanne Work Phone: [facility] Work Phone: Start: 11-16-2023 End: 11-16-2023 ambulatory INDUSTRIAL COFFEE GRINDER-BC Lisa Maryanne Work Phone: [facility] Work Phone: Start: 11-16-2023 End: 11-16-2023 Patient encounter procedure INDUSTRIAL COFFEE GRINDER-BC Lisa Maryanne Work Phone: [facility] Physician [facility] Work Phone: Start: 10-18-2023 End: 10-18-2023 ambulatory Red Harden Facility:[facility] Start: 10-18-2023 Non-patient / Non-visit [employer] GR[employer]ER-BC Lisa Maryanne Work Phone: [facility] Physician [facility] Work Phone: Start: 10-18-2023 End: 10-18-2023 Admission to same day surgery center [facility] Lisa Madden Work Phone: [facility] Work Phone: Start: 10-12-2023 End: 10-13-2023 ambulatory LISA MADDEN Facility:[facility] Start: 10-12-2023 End: 10-12-2023 Patient encounter procedure LISA MADDEN [facility] Start: 10-11-2023 End: 10-12-2023 ambulatory LISA MADDEN Facility:[facility] Start: 09-21-2023 ambulatory Lisa Madden Facil ity:[facility] Start: 09-21-2023 End: 09-21-2023 ambulatory [facility] Lisa Madden Work Phone: [facility] Work Phone: Start: 09-21-2023 End: 09-21-2023 Patient encounter procedure [facility] Lisa Madden Work Phone: [facility] Work Phone: Start: 09-14-2023 End: 09-14-2023 ambulatory Lisa Madden Facility:[facility] Start: 09-14-2023 End: 09-14-2023 Admission to same day surgery center [facility] Lisa Madden Work Phone: [facility] Work Phone: Start: 09-14-2023 End: 09-14-2023 ambulatory [facility] Lisa Madden Work Phone: [facility] Work Phone: Start: 09-07-2023 End: 09-08-2023 ambulatory KARINA UGARTE Facility:[facility] Start: 09-07-2023 End: 09-07-2023 Patient encounter procedure KARINA UGARTE [facility] Start: 08-24-2023 End: 08-24-2023 ambulatory Karina Ugarte Other [employer] Other Start: 08-24-2023 Office outpatient ne w 30 minutes Karina Ugarte [facility] Start: 08-24-2023 End: 08-24-2023 Patient encounter procedure INDUSTRIAL COFFEE GRINDER-BC Lisa Websterault Work Phone: [facility]- Start: 08-10-2023 Nursing evaluation o f patient and report Elva Billingsmelony [facility] Start: 08-10-2023 End: 08-11-2023 ambulatory INDUSTRIAL COFFEE GRINDER-BC Lisa Maryanne Work Phone: [facility] [employer] Other Start: 08-10-2023 End: 08-10-2023 Discharged Recurring INDUST[employer]AL COFFEE GRINDER-BC Lisa Madden Work Phone: [facility] Work Phone: Start: 08-10-2023 Registered Recurring INDUSTRIAL COFFEE GRINDER-BC [facility] Work Phone: Start: 08-10-2023 End: 08-10-2023 Patient encounter procedure IND[employer]RIAL COFFEE GRINDER-BC Lisa Maryanne Work Phone: [facility] Work Phone: Start: 07-28-2023 End: 07-29-2023 ambulatory LISA MARYANNE Facility: [place] Start: 07-28-2023 End: 07-28-2023 Patient encounter procedure Yenni Watt [facility] Start: 07-21-2023 End: 07-21-2023 ambulatory Elva Gilmore Other [facility] [employer] Other Start: 07-21-2023 [facility] visit new patient Elva Gilmore [facility] Start: 07-21-2023 End: 07-21-2023 Patient encounter procedure INDUSTRIAL COFFEE GRINDER-BC Lisa Madden Work Phone: [facility] Work Phone: Start: 07-10-2023 End: 07-11-2023 ambulatory LISA MADDEN Facility:[facility] Start: 07-10-2023 End: 07-10-2023 Patient encounter procedure LISA MADDEN [facility] Start: 06-14-2023 End: 06-15-2023 ambulatory Troy R Dolce Facility:[facility] Start: 06-14-2023 End: 06-14-2023 Patient encounter procedure Rtoy R Dolce [facility] Start: 06-12-2023 End: 06-13-2023 ambulatory LISA MADDEN Facility:[facility] Start: 06-12-2023 End: 06-12-2023 Patient encounter procedure LISA MADDEN [facility] Start: 06-07-2023 End: 06-08-2023 ambulatory Troy R Dolce Facility:[facility] Start: 06-07-2023 End: 06-07-2023 Patient encounter procedure Troy R Dolce [facility] Start: 05-31-2023 End: 06-01-2023 ambulatory Troy R Dolce Facility:[facility] Start: 05-31-2023 End: 05-31-2023 Patient encounter procedure Troy R Dolce [facility] Start: 05-24-2023 End: 05-25-2023 ambulatory Troy R Dolce Facility:[facility] Start: 05-24-2023 End: 05-24-2023 Patient encounter procedure Troy R Majorce [facility] Start: 05-19-2023 End: 05-19-2023 ambulatory Troy R Dolce Facility:[facility] Start: 05-16-2023 End: 05-17-2023 ambulatory Holden D Dolce Facility:[facility] Start: 05-15-2023 End: 05-16-2023 ambulatory Troy R Dolce Facility:[facility] Start: 05-09-2023 End: 05-10-2023 ambulatory Holden D Dolce Facility:[facility] Start: 05-09-2023 End: 05-09-2023 Patient encounter procedure Holden D Zandra [facility] Start: 05-03-2023 End: 05-04-2023 ambulatory Troy R Dolce Facility:[facility] Start: 04-25-2023 End: 04-26-2023 ambulatory Holden D Dolce Facility:[facility] Start: 04-25-2023 End: 04-25-2023 Patient encounter procedure Holden D Zandra [facility] Start: 04-14-2023 End: 04-15-2023 ambulatory Yenni Watt Facility:[facility] Start: 04-14-2023 End: 04-14-2023 Patient encounter procedure Yenni Watt [facility] [place] Start: 03-08-2023 End: 03-09-2023 ambulatory LISA MADDEN Facility:[facility] Start: 02-08-2023 End: 02-09-2023 ambulatory Negro V. Spasic Facility:[facility] Start: 02-08-2023 End: 02-08-2023 Patient encounter procedure Negro V. Spasic [facility] Start: 01-21-2023 End: 01-22-2023 ambulatory Yenni Watt Facility:[facility] Start: 01-21-2023 End: 01-21-2023 Patient encounter procedure Yenni Watt [facility] Start: 01-06-2023 End: 01-07-2023 ambulatory Yenni Watt Facility: [facility] Start: 01-06-2023 End: 01-06-2023 Patient encounter procedure Yenni Watt [facility] Start: 12-04-2022 End: 12-07-2022 Evaluation and management of inpatient Zuhair SINCLAIR [facility] Start: 11-16-2022 End: 11-16-2022 Patient encounter procedure Yenni Watt [facility] Start: 02-22-2022 End: 02-22-2022 Patient encounter procedure Nilo Summers Jr. [facility] Start: 02-08-2022 End: 02-08-2022 Patient encounter procedure Nilo Summers Jr. [facility] Start: 01-26-2022 End: 01-26-2022 Patient encounter procedure Nilo Summers Jr. [facility] Start: 01-24-2022 End: 01-24-2022 Patient encounter procedure Nilo Summers Jr. [facility] Start: 12-24-2021 End: 12-24-2021 Lab Drop off CHRISTIANA Armas PRAVIN [facility] Start: 12-23-2021 End: 12-23-2021 Patient encounter procedure CHRISTIANA Pawel COSTELLO [facility] Start: 11-25-2021 End: 12-03-2021 Pre-admission assessment Darryl Ware [facility] Start: 11-17-2021 End: 11-26-2021 Pre-admission assessment Darryl Ware [facility] Procedures Date Procedure Procedure Detail Performing Clinician Start: 10-18-2023 Esophagogastroduodenoscopy INDUSTRIAL COFFEE GRINDER- Bernardinoshereen azul Madden Work Phone: Start: 10-11-2021 Cystoscopy Darryl Ware Start: 09-12-2021 Excision of multiple scrotal sebaceous cysts Darryl Ware Closed fracture disl ocation of wrist (disorder) Darryl Ware Plan of Treatment Date Care Activity Detail Author Start: 10-18-2023 [facility] Helicobacter pylori Ag [Presence] in Stool by Immunoassay [facility] Insulin C-peptide measurement [facility] Immunizations Immunization Date Immunization Notes Care Provider Fa cility NEGATED: Highlighted row has not occurred!12-23-2021 SARS-CoV-2 mRNA (tozinameran 5y-11y) vaccine CHRISTIANA COSTELLO [facility] NEGATED: Highlighted row has not occurred!10-11-2021 SARS-CoV-2 (COVID-19) Ad26 vaccine, recombinant Darryl Ware [facility] Payers Date Payer Category Payer Medicaid [id number] 2. [id number] 2021 Self-pay [id number] 1980 Unknown [id number] 2.16.8 40.1.239427.3.579.2.8 1980 Unknown [id number] 2.16.8 40.1.547215.3.579.2. 1980 Unknown [id number] 2.16.8 40.1.728817.3.579.2. 1980 Unknown [id number] 2.16.8 40.1.995970.3.579.2. 1980 Unknown [id number] 2.16.8 40.1.953682.3.579.2. 1980 Unknown [id number] 2.16.8 40.1.198822.3.579.2.7 1980 Unknown [id number] 2.16.8 40.1.824983.3.579.2. 1980 Unknown [id number] 2.16.8 40.1.773401.3.579.2.7 1980 Unknown [id number] 2.16.8 40.1.627524.3.579.2. 1980 Unknown [id number] 2.16.8 40.1.127708.3.579.2. 1980 Unknown [id number] 2.16.8 40.1.681733.3.579.2. 1980 Unknown [id number] 2.16.8 40.1.294360.3.579.2.727 1980 Unknown [id number] 2.16.8 40.1.097849.3.579.2.72 1980 Unknown [id number] 2.16.8 40.1.941668.3.579.2.727 1980 Unknown [id number] 2.16.8 40.1.636999.3.579.2. 1980 Unknown [id number] 2.16.8 40.1.446730.3.579.2. 1980 Unknown [id number] .16.8 40.1.951192.3.579.2. 1980 Unknown [id number] .16.8 40.1.674404.3.579.2. 1980 Unknown [id number] .16.8 40.1.137703.3.579.2. 1980 Unknown [id number] .16.8 40.1.189533.3.579.2. 1980 Unknown [id number] .16.8 40.1.234847.3.579.2. 1980 Unknown [id number] 2.16.8 40.1.698552.3.579.2. 1980 Unknown [id number] 2.16.8 40.1.657040.3.579.2.727 Unknown [id number] 2.16.8 40.1.829169.3.579.2.531 Unknown [id number] 2.16.8 40.1.815019.3.579.2.531 Unknown [id number] 2.16.8 40.1.675911.3.579.2.531 Unknown [id number] 2.16.8 40.1.291094.3.579.2.531 Social History Date Type Detail Facility Tobacco 2 ppd Tobacco Us e:. Cigarettes [facility] Sex Assigned At Male [facility] Start: 01-24-2022 End: 01-06-2023 Tobacco smoking status Heavy tobacco smoker (finding) [facility] Tobacco smoking status Never [facility] Comment on above: a pack a day Start: 12-05-2022 End: 11-16-2023 Tobacco smoking status Smoker (finding) [facility] Comment on above: a pack a day Start: 1980 Sex Assigned At Male F [facility] Medical Equipment Procedure Code Equipment Code Equipment Origin al Text Equipment Identifier Dates glucometer, test ing strips, alcohol swab, lancets, insulin syringes, Print Requisition, Supply Start: 09-14-2021 glucometer, test ing strips, alcohol swab, lancets, insulin syringes, Print Requisition, Supply Start: 09-14-2021 glucometer, test ing strips, alcohol swab, lancets, insulin syringes, Print Requisition, Supply Start: 09-14-2021 glucometer, test ing strips, alcohol swab, lancets, insulin syringes, Print Requisition, Supply Start: 09-14-2021 glucometer, test ing strips, alcohol swab, lancets, insulin syringes, Print Requisition, Supply Start: 09-14-2021 glucometer, test ing strips, alcohol swab, lancets, insulin syringes, Print Requisition, Supply Start: 09-14-2021 glucometer, test ing strips, alcohol swab, lancets, insulin syringes, Print Requisition, Supply Start: 09-14-2021 glucometer, test ing strips, alcohol swab, lancets, insulin syringes, Print Requisition, Supply Start: 09-14-2021 glucometer, test ing strips, alcohol swab, lancets, insulin syringes, Print Requisition, Supply Start: 09-14-2021 ULTRA-FINE MINI PEN NEEDLE 31 GAUGE X 3/16 NEEDLE, DISPOSABLE Start: 04-14-2023 ULTRA-FINE MINI PEN NEEDLE 31 GAUGE X 3/16 NEEDLE, DISPOSABLE Start: 04-14-2023 ULTRA-FINE MINI PEN NEEDLE 31 GAUGE X 3/16 NEEDLE, DISPOSABLE Start: 04-14-2023 ULTRA-FINE MINI PEN NEEDLE 31 GAUGE X 3/16 NEEDLE, DISPOSABLE Start: 04-14-2023 ULTRA-FINE MINI PEN NEEDLE 31 GAUGE X 3/16 NEEDLE, DISPOSABLE Start: 04-14-2023 ULTRA-FINE MINI PEN NEEDLE 31 GAUGE X 3/16 NEEDLE, DISPOSABLE Start: 04-14-2023 ULTRA-FINE MINI PEN NEEDLE 31 GAUGE X 3/16 NEEDLE, DISPOSABLE Start: 04-14-2023 ULTRA-FINE MINI PEN NEEDLE 31 GAUGE X 3/16 NEEDLE, DISPOSABLE Start: 04-14-2023 ULTRA-FINE MINI PEN NEEDLE 31 GAUGE X 3/16 NEEDLE, DISPOSABLE Start: 04-14-2023 ULTRA-FINE MINI PEN NEEDLE 31 GAUGE X 3/16 NEEDLE, DISPOSABLE Start: 04-14-2023 Pen [place] 30G X 5 MM Start: 03-30-2023 ULTRA-FINE MINI PEN NEEDLE 31 GAUGE X 3/16 NEEDLE, DISPOSABLE Start: 04-14-2023 Pen Needle, Diab etic (Easy Touch Pen Needle) 30 gauge x 5/16 needle Start: 09-21-2023 Pen Needle, Diab etic (Easy Touch Pen Needle) 30 gauge x 5/16 needle Start: 09-21-2023 ULTRA-FINE MINI PEN NEEDLE 31 GAUGE X 3/16 NEEDLE, DISPOSABLE Start: 04-14-2023 Pen Needle, Diab etic (Easy Touch Pen Needle) 30 gauge x 5/16 needle Start: 09-21-2023 Blood Sugar Diagnostic (True Metrix Glucose Test Strip) strip Start: 12-13-2023 Pen Needle, Diab etic (Bd Ultra-Fine Charis Pen Needle) 32 gauge x 5/32 needle Start: 11-17-2023 Pen Needle, Diab etic (Easy Touch Pen Needle) 30 gauge x 5/16 needle Start: 09-21-2023 Blood Sugar Diagnostic (True Metrix Glucose Test Strip) strip Start: 12-13-2023 Pen Needle, Diab etic (Bd Ultra-Fine Charis Pen Needle) 32 gauge x 5/32 needle Start: 11-17-2023 Pen Needle, Diab etic (Easy Touch Pen Needle) 30 gauge x 5/16 needle Start: 09-21-2023 ULTRA-FINE MINI PEN NEEDLE 31 GAUGE X 3/16 NEEDLE, DISPOSABLE Start: 04-14-2023 ULTRA-FINE MINI PEN NEEDLE 31 GAUGE X 3/16 NEEDLE, DISPOSABLE Start: 04-14-2023 Blood Sugar Diagnostic (True Metrix Glucose Test Strip) strip Start: 12-13-2023 Pen Needle, Diab etic (Bd Ultra-Fine Charis Pen Needle) 32 gauge x needle Start: 11-17-2023 Pen Needle, Diab etic (Easy Touch Pen Needle) 30 gauge x /16 needle Start: 09-21-2023 Goals Date Patient Goal Desired Activity /State Functional Status Date Assessment Result Facility 04-14-2023 Functional Status N/A [facility] 02-08-2023 Functional Status N/A [facility] 01-06-2023 Functional Status N/A [facility] 12-05-2022 Functional Status No [facility] 12-04-2022 Functional Status [facility] 02-22-2022 Functional Status N/A [facility] 02-08-2022 Functional Status N/A [facility] 01-24-2022 Functional Status N/A [facility] Clinical Notes 12-23-2021 to 12-21-2023 Note Date & Type Note Facility 12-21-2023 Evaluation + Plan note Diagnostic Tests PendingC-Peptide 12/21/23 [facility] 09-21-2023 Evaluation note Authored September 21, 2023 2:11pm [facility] Work Phone: 1(416) 520-159602-15-2024 Evaluation note* Author Elva Gilmore [facility] Authored September 21, 2023 1:11pm [facility] Work Phone: 1(245) 676-741802-01-2024 Evaluation + Plan note Diagnostic Tests Pending * HIV Screen 4th Generation wRfx 09/07/23 * Celiac Disease Comprehensive 09/07/23 * Enteric Panel by PCR 09/07/23 * O & P Exam, Routine 09/07/23 * Pancreatic Elastase, Fecal 09/07/23 [facility]02-01-2024 Evaluation note* Author Elva Deirdre [facility] Authored September 21, 2023 11:51am Libre2 AGP to September throu 21 September 2023, CGM active 25%, average glucose 287, variability is 23.9%. Ranges: Greater than 250 is 68%, 181-250 is 26%, 70-180 is 6%, below 69 0 0%. Full day omissions from data are through 15 September and September 1. Uncontrolled, a Type 2 diabetes with A1c of [] was 8.7 % (06-12-2023 per PCP) 2. INTOLERANT TO FARXIGA URINARY. LIPIDS ELEVATED< NOT ON STATIN [] [] Blood glucose levels above goal. We reviewed implications of hemoglobin A1c. Signs symptoms of hypoglycemia and treatment of hypoglycemia. We will have him continue Farxiga 10 mg once daily, we will reduce his Levemir to 36 units once daily, if at any time of day consistently is running under 100 or compel to eat to satisfy blood glucose levels she will further reduce by 10%. Will have him continue aspart 1 unit for every 25 mg/dL above goal, written information has been given. Will have him return to clinic in 2 weeks after Libre2 placement for further download and optimization of his medications. Consider Labs to characterize diabetes type and to assist with further recommendations. 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 We did discuss implications of SGLT2, loss of sugar through urination and potential complications. If any issues should discontinue Farxiga, call if blood sugars run higher. Research shows that stamina with the current regime may fatigue, as would outcomes and CGM is equitable compaired to disease instability. Patient also maintains active lifestyle which increases cumbersome nature of current regime. Patient on basal bolus insulin, CGM needed to titrate insulin. 3. Patient is alert, oriented and receptive to making changes or counseling. Notes: Seen for an assessment of current glucose pattern, changes in treatment plan, counseling and coordination of care related to diabetes, risks, and benefits of treatment, medications, side effects. Given handouts to reinforce concepts reviewed during counseling, see scanned notes. TOPICS REVIEWED: 1. Time was spent reviewing: a. Basic concepts of diabetes, progressive beta cell , concepts of basal/bolus/corrective insulin requirements. Basal: The goal is fasting blood glucose of 90-130mg. IF fasting blood glucose starts to run under 100mg 3x's/ week, decrease dose by 10%. Bolus: The goal is to hold the blood glucose level steady meal to meal. If pt. is going to have increased physical activity after a meal, decrease the schedule meal dose prior to the activity by 30-50%. If pt. skips a meal do not take this dose. Correction: The goal is to correct an elevated glucose back into the 100-150mg range b. Nutrition: Concepts of healthy diet, encouraged to decrease saturated fat in diet and increase non-starchy vegetables and fruits in diet. BMI: Pt. needs to select one small change to decrease caloric intake or increase physical activity to help decrease weight. c. Correct treatment of hypoglycemia, carry a glucose source at all times on your person, in vehicles, and at bedside. Can use glucose tablets/4, four ounces of pop or juice equal to 15 G of carbohydrate. Blood glucose should be 100 mg/dl or higher when driving. d. ADA glucose goals for age and medical complexity reviewed e. Patient questions addressed 2. Activity/exercise: Encouraged to start any form of physical activity. Start low level and increase slowly to a minimal goal of 150 minutes/week. Limit activity to what is allowed by other issues such as cardiac, pulmonary or orthopedic restrictions. 3. Standards of care: Reminded to have an annual dilated eye exam, A1C every 3 months, urine testing for microalbumin once/year, check feet daily and report any cuts or sores that do not appear to be healing. 4. Meter: Plan to check blood glucose: Please check blood glucose levels 4 times/day. Back to back meals reveal effectiveness of bolus dosing. The blood glucose data is used to determine insulin doses and confirm symptoms for hypoglycemia and hyperglcyemia. 5. [facility] Contact office if any issues or concerns with patterns of hypoglycemia, hyperglycemia, or diabetes medication issues. 6. Prescriptions: []New patient 07-21-2023 uses [facility]. 2. Vitamin D deficiency Learning About Vitamin D material was published to portal 3. Dietary counseling and surveillance Learning About Healthy Weight material was published to portal 4. Hyperlipidemia Learning About High Cholesterol material was published to portal 5. HTN (hypertension) High Blood Pressure: Care Instructions material was published to portal [facility] Work Phone: [phone]) 567-654801-18-2024 Evaluation note* Encounter Date Diagnosis Assessment Notes Treatment Notes Treatment Clinical Notes Aug, Irritable bowel syndrome with diarrhea (ICD-10 - K58.0) Patient states his bowels either do not move at all or he has diarrhea all day long. He has rectal bleeding at times. This awakens him at night. He has incontinence. He states this is a life long issue. He is on Dicyclomine & uses Pepto as needed. He has never had a colonoscopy. Proceed with labs & stool studies. Proceed with colonoscopy. Aug, GERD (gastroesophageal reflux disease) (ICD-10 - K21.9) The patient complains of acid reflux & belching with a sulfur smell. He has vomiting. This can awaken him at night. He often vomits undigested food. He has dysphaiga as well. He is taking Pantoprazole 20 mg daily & he should continue this for the time being. Proceed with EGD [employer] Other 01-04-2024 Evaluation note* Encounter Date Diagnosis Assessment Notes Treatment Notes Treatment Clinical Notes Aug, Type 2 diabetes mellitus with hyperglycemia (ICD-10 - E11.65) Patient in today for review of blood glucose logs, food logs, and insulin dosing. Patient's Osha 2 was downloaded with ranges between lowest 109-400 highest for the past 30 days. Average reading 236 mg/dl. CGM active 22%. Time in ranges very high 39%, high 37%, target range 24%, low 0%, and very low 0%. Patient states they have been checking their blood sugars ac, hs with a glucose goal of 90-130 ac 120-180 hs. Pt has currently been taking Levemir 40 units a day (takes at 10 pm daily), and Aspart 1:25 corrective scale ac tid, hs if >200 half dose. Reports he was taking Farxiga 10 mg po daily but discontinued this medication on 07/27/23 from the recommendation of his PCP due to difficulty urinating and burning. Pt admits to skipping meals, typically only eats 1 meal a day at dinner. Discussed the importance of insulin compliance. Pt states he was using his old scale from his other provider for a short time, then switched to 1:25 corrective scale. Encouraged pt to use scales provided from diabetic provider, discard any old scales. Patient states he has been using his glucometer along with the Soha CGM, reports a 50-60 point difference, but making treatment decisions from glucometer results. Pt states he has had a couple bad Soha sensors. One sensor completely stopped providing data around 07/27/23-08/08/23. Pt was unsure what to do at the time, but used his home glucometer to check his blood glucose. Instructed pt to place a new sensor if this should occur again and contact [employer] to request a replacement sensor. Pt did not bring his glucometer to today's visit. Instructed him to bring his meter to all healthcare appointments. Pt did apply new sensor and is not having any difficulty currently. Soha report downloaded and discussed with MARSHAL Eng. Patient to continue Levemir 40 units daily, Aspart corrective 1:25 ac tid, and add ICR 1:10 ac tid. Written information was provided including a copy of corrective and ICR scales. Discussed meal planning examples and reviewed use of corrective scale and ICR. Pt was able to provide correct amount of insulin doses for 3 seperate examples. Encouraged patient to check glucose before meals and bedtime, fingerstick when not wearing CGM. Pt encouraged to contact [employer] for Soha sensor replacement, pt agrees with plan. All questions and concerns addressed. Encouraged to follow up for next appointment, will plan to order labs at this time per Miah. 45 minutes was spent on education by Taylor MELISSA, RN [employer] Other 12-15-2023 Evaluation note* Encounter Date Diagnosis Assessment Notes Treatment Notes Treatment Clinical Notes Jul, Type 2 diabetes mellitus with hyperglycemia (ICD-10 - E11.65) ASSESSMENT: 1. Uncontrolled, a Type 2 diabetes with A1c of 8.7 % (06-12-2023 per PCP) 2. Blood glucose levels above goal. We reviewed implications of hemoglobin A1c. Signs symptoms of hypoglycemia and treatment of hypoglycemia. We will have him continue Farxiga 10 mg once daily, we will reduce his Levemir to 36 units once daily, if at any time of day consistently is running under 100 or compel to eat to satisfy blood glucose levels she will further reduce by 10%. Will have him continue aspart 1 unit for every 25 mg/dL above goal, written information has been given. Will have him return to clinic in 2 weeks after Libre2 placement for further download and optimization of his medications. Consider Labs to characterize diabetes type and to assist with further recommendations. 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 We did discuss implications of SGLT2, loss of sugar through urination and potential complications. If any issues should discontinue Farxiga, call if blood sugars run higher. Research shows that stamina with the current regime may fatigue, as would outcomes and CGM is equitable compaired to disease instability. Patient also maintains active lifestyle which increases cumbersome nature of current regime. Patient on basal bolus insulin, CGM needed to titrate insulin. 3. Patient is alert, oriented and receptive to making changes or counseling. Notes: Seen for an assessment of current glucose pattern, changes in treatment plan, counseling and coordination of care related to diabetes, risks, and benefits of treatment, medications, side effects. Given handouts to reinforce concepts reviewed during counseling, see scanned notes. TOPICS REVIEWED: 1. Time was spent reviewing: a. Basic concepts of diabetes, progressive beta cell , concepts of basal/bolus/correc tive insulin requirements. Basal: The goal is fasting blood glucose of 90-130mg. IF fasting blood glucose starts to run under 100mg 3x's/ week, decrease dose by 10%. Bolus: The goal is to hold the blood glucose level steady meal to meal. If pt. is going to have increased physical activity after a meal, decrease the schedule meal dose prior to the activity by 30-50%. If pt. skips a meal do not take this dose. Correction: The goal is to correct an elevated glucose back into the 100-150mg range b. Nutrition: Concepts of healthy diet, encouraged to decrease saturated fat in diet and increase non-starchy vegetables and fruits in diet. BMI: Pt. needs to select one small change to decrease caloric intake or increase physical activity to help decrease weight. c. Correct treatment of hypoglycemia, carry a glucose source at all times on your person, in vehicles, and at bedside. Can use glucose tablets/4, four ounces of pop or juice equal to 15 G of carbohydrate. Blood glucose should be 100 mg/dl or higher when driving. d. ADA glucose goals for age and medical complexity reviewed e. Patient questions addressed 2. Activity/exercise: Encouraged to start any form of physical activity. Start low level and increase slowly to a minimal goal of 150 minutes/week. Limit activity to what is allowed by other issues such as cardiac, pulmonary or orthopedic restrictions. 3. Standards of care: Reminded to have an annual dilated eye exam, A1C every 3 months, urine testing for microalbumin once/year, check feet daily and report any cuts or sores that do not appear to be healing. 4. Meter: Plan to check blood glucose: Please check blood glucose levels 4 times/day. Back to back meals reveal effectiveness of bolus dosing. The blood glucose data is used to determine insulin doses and confirm symptoms for hypoglycemia and hyperglcyemia. 5. [facility]. Contact office if any issues or concerns with patterns of hypoglycemia, hyperglycemia, or diabetes medication issues. 6. Prescriptions: New patient 07-21-2023 uses [facility]. 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 SURGERY Clinical Discharge Summary PERSON INFORMATION Name ARTURO BERGMAN Age 43 Years 1980 Sex MALE Language Beninese PCP Lisa Madden CNP Marital Status Single Phone Med Service Ambulatory Surgery Acct# Arrival 05/19/2023 06:53:08 Visit Reason SURGERY - PARTIAL THICKNESS WOUND GRAFT WITH WOUND DEBRIDEMENT RIGHT ANKLE Acuity LOS 003 03:48 Address: [address] [place] [address] Comment: PROVIDER INFORMATION VITALS INFORMATION Vital Sign Triage Latest Temp Oral Temp Temporal Temp Intravascular Temp Axillary Temp Rectal 02 Sat 100 % 95 % Respiratory Rate Peripheral Pulse Rate Apical Heart Rate Blood Pressure / 92 mmHg / 84 mmHg Comment: MEDICAL INFORMATION Allergy Info: penicillin Prescriptions Given: acetaminophen-hydrocodone (acetaminophen-hydrocodone 325 mg-5 mg oral tablet) 1 tab(s) Oral 2 timesa day as needed as needed for pain. acetaminophen-oxycodone (Percocet 5 mg-325 mg oral tablet) 1 tab(s) Oral every 6 hours as needed asneeded for pain for 5 Days. Refills: 0. alfuzosin (alfuzosin 10 mg oral tablet, extended release) 1 tab(s) Oral every day. buPROPion (buPROPion 150 mg/24 hours (XL) oral tablet, extended release) 1 tab(s) Oral Every 24 hours scheduled. gabapentin (gabapentin 600 mg oral tablet) 1 tab(s) Oral 4 times a day. insulin aspart (Relion NovoLOG Flexpen 100 units/mL injectable solution) USE DIRECTED WITH SLIDING SCALE SUBCUTANEOUSLY 3 TIMES DAILY FOR 30 DAYS. 151-200 = 2 UNITS, 201-250 = 4 UNITS, 251-300 = 6UNITS, 301-350 = 8 UNITS, 351-400 = 10 UNITS. insulin detemir (Levemir 100 units/mL subcutaneous solution) 36 unit(s) Subcutaneous At bedtime. pantoprazole (pantoprazole 20 mg oral delayed release tablet) 1 tab(s) Oral every day. silver sulfADIAZINE topical (Silvadene 1% topical cream) 1 jose Topical every day. apply to graft site thigh one daily after cleaning with saline then place gauze koban right. Refills: 0. sulfamethoxazole-trimethoprim (sulfamethoxazole-trimethoprim 800 mg-160 mg oral tablet) 1 tab(s) Oral 2 times a day. triamcinolone topical (triamcinolone 0.5% topical cream) 1 jose Topical 2 times a day. apply to leftankle twice a day. Refills: 0. Medication List: New Medications [facility], [address] [place] [id number], [phone] acetaminophen-oxycodone (Percocet 5 mg-325 mg oral tablet) 1 tab(s) Oral every 6 hours as needed asneeded for pain for 5 Days. Refills: 0. silver sulfADIAZINE topical (Silvadene 1% topical cream) 1 jose Topical every day. apply to graft site thigh one daily after cleaning with saline then place gauze koban right. Refills: 0. triamcinolone topical (triamcinolone 0.5% topical cream) 1 jose Topical 2 times a day. apply to leftankle twice a day. Refills: 0. Medications to Continue That Have Not Changed Other Medications acetaminophen-hydrocodone (acetaminophen-hydrocodone 325 mg-5 mg oral tablet) 1 tab(s) Oral 2 timesa day as needed as needed for pain. alfuzosin (alfuzosin 10 mg oral tablet, extended release) 1 tab(s) Oral every day. buPROPion (buPROPion 150 mg/24 hours (XL) oral tablet, extended release) 1 tab(s) Oral Every 24 hours scheduled. gabapentin (gabapentin 600 mg oral tablet) 1 tab(s) Oral 4 times a day. insulin aspart (Relion NovoLOG Flexpen 100 units/mL injectable solution) USE DIRECTED WITH SLIDING SCALE SUBCUTANEOUSLY 3 TIMES DAILY FOR 30 DAYS. 151-200 = 2 UNITS, 201-250 = 4 UNITS, 251-300 = 6UNITS, 301-350 = 8 UNITS, 351-400 = 10 UNITS. insulin detemir (Levemir 100 units/mL subcutaneous solution) 36 unit(s) Subcutaneous At bedtime. pantoprazole (pantoprazole 20 mg oral delayed release tablet) 1 tab(s) Oral every day. sulfamethoxazole-trimethoprim (sulfamethoxazole-trimethoprim 800 mg-160 mg oral tablet) 1 tab(s) Oral 2 times a day. New Medications [facility], [address] [place] [id number], [phone] acetaminophen-oxycodone (Percocet 5 mg-325 mg oral tablet) 1 tab(s) Oral every 6 hours as needed asneeded for pain for 5 Days. Refills: 0. silver sulfADIAZINE topical (Silvadene 1% topical cream) 1 jose Topical every day. apply to graft site thigh one daily after cleaning with saline then place gauze koban right. Refills: 0. triamcinolone topical (triamcinolone 0.5% topical cream) 1 jose Topical 2 times a day. apply to leftankle twice a day. Refills: 0. Medications to Continue That Have Not Changed Other Medications acetaminophen-hydrocodone (acetaminophen-hydrocodone 325 mg-5 mg oral tablet) 1 tab(s) Oral 2 timesa day as needed as needed for pain. alfuzosin (alfuzosin 10 mg oral tablet, extended release) 1 tab(s) Oral every day. buPROPion (buPROPion 150 mg/24 hours (XL) oral tablet, extended release) 1 tab(s) Oral Every 24 hours scheduled. gabapentin (gabapentin 600 mg oral tablet) 1 tab(s) Oral 4 times a day. insulin aspart (Relion NovoLOG Flexpen 100 units/mL injectable solution) USE DIRECTED WITH (morecontent not included)...[facility] [id number] Note Microbiology PROCEDURE: Wound Culture [R1] SOURCE: Wound BODY SITE: Foot R COLLECTED DATE/TIME: 04/25/2023 14:15 EDT RECEIVED DATE/TIME: 04/25/2023 16:45 EDT START DATE/TIME: 04/25/2023 16:45 EDT FREE TEXT SOURCE: right foot wound culture Zandra BUENROSTRO, Holden De Paz DPM, Holden Rider FINAL REPORTS Final Report [] Verified Date/Time: 04/28/2023 11:35 EDT Scant growth of Yeast, not Kamini albicans Presumptive isolated. Scant growth of Staphylococcus species coagulase negative isolated. STAINS Gram Stain Report [] Verified Date/Time: 04/26/2023 07:06 EDT No organisms seen. Performing Locations R1: This test was performed at: [facility], [address] [place] [address], [id number] , , [facility]jlztx[facility] CenterComment on above:Performed By: #### [id number], [id number], [id number], [id number], [id number] #### [facility] [address] [place] [address] [id number] Hospital Discharge instructions Follow Up Care 04/14/2023 12:03:01 With:Shukri JAY, INDU Haile, URO Address: [address] [phone] When: Unknown [facility] Amy 09-08-2023 Hospital Discharge instructions Patient Education 04/14/2023 11:59:55 Erectile Dysfunction Erectile Dysfunction Erectile dysfunction (ED) is the inability to get or keep an erection in order to have sexual intercourse. ED is considered a symptom of an underlying disorder and is not considered a disease. ED mayinclude: Inability to get an erection. Lack of enough hardness of the erection to allow penetration. Loss of erection before sex is finished. What are the causes? This condition may be caused by: Physical causes, such as: ?Artery problems. This may include heart disease, high blood pressure, atherosclerosis, and diabetes. ?Hormonal problems, such as low testosterone. ?Obesity. ?Nerve problems. This may include back or pelvic injuries, multiple sclerosis, Parkinson's disease,spinal cord injury, and stroke. Certain medicines, such as: ?Pain relievers. ?Antidepressants. ?Blood pressure medicines and water pills (diuretics). ?Cancer medicines. ?Antihistamines. ?Muscle relaxants. Lifestyle factors, such as: ?Use of drugs such as marijuana, cocaine, or opioids. ?Excessive use of alcohol. ?Smoking. ?Lack of physical activity or exercise. Psychological causes, such as: ?Anxiety or stress. ?Sadness or depression. ?Exhaustion. ?Fear about sexual performance. ?Guilt. What are the signs or symptoms? Symptoms of this condition include: Inability to get an erection. Lack of enough hardness of the erection to allow penetration. Loss of the erection before sex is finished. Sometimes having normal erections, but with frequent unsatisfactory episodes. Low sexual satisfaction in either partner due to erection problems. A curved penis occurring with erection. The curve may cause pain, or the penis may be too curved toallow for intercourse. Never having nighttime or morning erections. How is this diagnosed? This condition is often diagnosed by: Performing a physical exam to find other diseases or specific problems with the penis. Asking you detailed questions about the problem. Doing tests, such as: ?Blood tests to check for diabetes mellitus or high cholesterol, or to measure hormone levels. ?Other tests to check for underlying health conditions. ?An ultrasound exam to check for scarring. ?A test to check blood flow to the penis. Doing a sleep study at home to measure nighttime erections. How is this treated? This condition may be treated by: Medicines, such as: ?Medicine taken by mouth to help you achieve an erection (oral medicine). ?Hormone replacement therapy to replace low testosterone levels. ?Medicine that is injected into the penis. Your health care provider may instruct you how to give yourself these injections at home. ?Medicine that is delivered with a short applicator tube. The tube is inserted into the opening at the tip of the penis, which is the opening of the urethra. A tiny pellet of medicine is put in the urethra. The pellet dissolves and enhances erectile function. This is also called MUSE (medicated urethral system for erections) therapy. Vacuum pump. This is a pump with a ring on it. The pump and ring are placed on the penis and used to create pressure that helps the penis become erect. Penile implant surgery. In this procedure, you may receive: ?An inflatable implant. This consists of cylinders, a pump, and a reservoir. The cylinders can be inflated with a fluid that helps to create an erection, and they can be deflated after intercourse. ?A semi-rigid implant. This consists of two silicone rubber rods. The rods provide some rigidity. They are also flexible, so the penis can both curve downward in its normal position and become straight for sexual intercourse. Blood vessel surgery to improve blood flow to the penis. During this procedure, a blood vessel froma different part of the body is placed into the penis to allow blood to flow around (bypass) damaged or blocked blood vessels. Lifestyle changes, such as exercising more, losing weight, and quitting smoking. Follow these instructions at home: Medicines Take [id number]-fwu-[id number] and prescription medicines only as told by your health care provider. Do not increase the dosage without first discussing it with your health care provider. If you are using self-injections, do injections as directed by your health care provider. Make sureyou avoid any veins that are on the surface of the penis. After giving an injection, apply pressureto the injection site for 5 minutes. Talk to your health care provider about how to prevent headaches while taking ED medicines. These medicines may cause a sudden headache due to the increase in blood flow in your body. General instructions Exercise regularly, as directed by your health care provider. Work with your health care provider to lose weight, if needed. Do not use any products that contain nicotine or tobacco. These products include cigarettes, chewing tobacco, and vaping devices, such as e-cigarettes. If you need help quitting, ask your health careprovider. Before using a vacuum pump, read the instructions that come with the pump and discuss any questionswith your health care provider. Keep all follow-up visits. This is important. Contact a health care provider if: You feel nauseous. You are vomiting. You get sudden headaches while taking ED medicines. You have any concerns about your sexual health. Get help right away if: You are taking oral or injectable medicines and you have an erection that lasts longer than 4 hours. If your health care provider is unavailable, go to the nearest emergency room for evaluation. An erection that lasts much longer than 4 hours can result in permanent damage to your penis. You have severe pain in your groin or abdomen. You develop redness or severe swelling of your penis. You have redness spreading at your groin or lower abdomen. You are unable to urinate. You experience chest pain or a rapid heartbeat (palpitations) after taking oral medicines. These symptoms may represent a serious problem that is an emergency. Do not wait to see if the symptoms will go away. Get medical help right away. Call your local emergency services (911 in the [place] Do not drive yourself to the hospital. Summary Erectile dysfunction (ED) is the inability to get or keep an erection during sexual intercourse. This condition is diagnosed based on a physical exam, your symptoms, and tests to determine the cause. Treatment varies depending on the cause and may include medicines, hormone therapy, surgery, or a vacuum pump. You may need follow-up visits to make sure that you are using your medicines or devices correctly. Get help right away if you are taking or injecting medicines and you have an erection that lasts longer than 4 hours. This information is not intended to replace advice given to you by your health care provider. Make sure you discuss any questions you have with your health care provider. Document Revised: 10/20/2021 Document Reviewed: 10/20/2021 [employer] Patient Education 2022 [employer]one. Follow Up Care 01/06/2023 10:58:16 With:Shukri JAY, INDU Haile, URO Address: When: Unknown [facility] Amy 07-05-2023 Hospital Discharge instructions Patient Education 02/08/2023 15:02:52 Excision of Skin Lesions Excision of Skin Lesions Excision of a skin lesion is the removal of a section of skin by making small incisions in the skin. Through this process, the lesion is completely removed. This procedure is often done to treat or prevent cancer or infection. It may also be done to improve cosmetic appearance. You may have this procedure to remove: Cancerous (malignant) growths, such as basal cell carcinoma, squamous cell carcinoma, or melanoma. Noncancerous (benign) growths, such as a cyst or lipoma. Growths, such as moles or skin tags, which may be removed for cosmetic reasons. Various excision or surgical techniques may be used depending on your condition, the location of the lesion, and your overall health. Tell your health care provider about: Any allergies you have. All medicines you are taking, including vitamins, herbs, eye drops, creams, and dezx-fgr-yhjhlsl medicines. Any problems you or family members have had with anesthetic medicines. Any bleeding problems you have. Any surgeries you have had. Any medical conditions you have. Whether you are or may be . What are the risks? Generally, this is a safe procedure. However, problems may occur, including: Bleeding. Infection. Scarring. Recurrence of the cyst, lipoma, or cancer. Allergic reaction to anesthetics, surgical materials, or ointments. Damage to nerves, blood vessels, muscles, or other structures. What happens before the procedure? Medicines Ask your health care provider about: Changing or stopping your regular medicines. This is especially important if you are taking diabetes medicines or blood thinners. Taking medicines such as aspirin and ibuprofen. These medicines can thin your blood. Do not take these medicines unless your health care provider tells you to take them. Taking hzaa-aiz-lbpkmxs medicines, vitamins, herbs, and supplements. General instructions Do not use any products that contain nicotine or tobacco. These products include cigarettes, chewing tobacco, and vaping devices, such as e-cigarettes. If you need help quitting, ask your health careprovider. Follow instructions from your health care provider about eating or drinking restrictions. Ask your health care provider: ?How your surgery site will be marked. ?What steps will be taken to help prevent infection. These steps may include: ?Removing hair at the surgery site. ?Washing skin with a germ-killing soap. ?Taking antibiotic medicine. Ask your health care provider if you will need someone to take you home from the hospital or clinicafter the procedure. What happens during the procedure? You will be given a medicine to numb the area (local anesthetic). Your health care provider will remove the lesions using one of the following excision techniques. ?Complete surgical excision. This procedure may be done to treat a cancerous growth or a noncancerous cyst or lesion. ?A small scalpel or scissors will be used to gently cut around and under the lesion until it is completely removed. ?If bleeding occurs, it will be stopped with a device that delivers heat (electrocautery). ?The edges of the wound may be stitched (sutured) together. ?A bandage (dressing) will be applied. ?Samples will be sent to a lab for testing. ?Excision of a cyst. ?An incision will be made on the cyst. ?The entire cyst will be removed through the incision. ?The incision may be closed with sutures. ?Shave excision. This may be done to remove a mole or other small growths. ?A small blade or scalpel will be used to shave off the lesion. ?The wound is usually left to heal on its own without sutures. ?The sample may be sent to a lab for testing. ?Punch excision. This may be done to completely remove a mole or other small growths. ?A small tool that is like a cookie cutter or a hole punch is used to cut a [place] shape out of theskin. ?The outer edges of the skin will be sutured together. ?The sample may be sent to a lab for testing. ?Mohs micrographic surgery. This is usually done to treat skin cancer. This type of excision is mostly used on the face and ears. This procedure is minimally invasive, and it ensures the best cosmetic outcome. ?A scalpel or a loop instrument will be used to remove layers of the lesion until all the abnormal or cancerous tissue has been removed. ?The wound may be sutured, depending on its size. ?The tissue will be checked under a microscope right away. The procedure may vary among health care providers and hospitals. At the end of any of these procedures, antibiotic ointment will be applied as needed. What happens after the procedure? Talk with your health care provider to discuss any test results, treatment options, and if necessary, the need for more tests. Keep all follow-up visits. This is important. Summary Excision of a skin lesion is the removal of a section of skin by making small incisions in the skin. This procedure is often done to treat or prevent skin cancer, remove benign growths, or it may be done to improve cosmetic appearance. Various excision or surgical techniques may be used depending on your condition, the location of the lesion, and your overall health. After the procedure, talk with your health care provider to discuss any test results, treatment options, and if necessary, the need for more tests. Keep all follow-up visits. This is important. This information is not intended to replace advice given to you by your health care provider. Make sure you discuss any questions you have with your health care provider. Document Revised: 02/22/2022 Document Reviewed: 02/22/2022 [employer] Patient Education 2022 Epi[employer]one. 02/08/2023 15:02:40 Blood Glucose Monitoring, Adult Blood Glucose Monitoring, Adult Monitoring your blood sugar (glucose) is an important part of managing your diabetes. Blood glucosemonitoring involves checking your blood glucose as often as directed and keeping a log or record ofyour results over time. Checking your blood glucose regularly and keeping a blood glucose log can: Help you and your health care provider adjust your diabetes management plan as needed, including your medicines or insulin. Help you understand how food, exercise, illnesses, and medicines affect your blood glucose. Let you know what your blood glucose is at any time. You can quickly find out if you have low bloodglucose (hypoglycemia) or high blood glucose (hyperglycemia). Your health care provider will set individualized treatment goals for you. Your goals will be basedon your age, other medical conditions you have, and how you respond to diabetes treatment. Generally, the goal of treatment is to maintain the following blood glucose levels: Before meals (preprandial): 80 130 mg/dL (4.4 7.2 mmol/L). After meals (postprandial): below 180 mg/dL (10 mmol/L). A1C level: less than 7%. Supplies needed: Blood glucose meter. Test strips for your meter. Each meter has its own strips. You must use the strips that came with your meter. A needle to prick your finger (lancet). Do not use a lancet more than one time. A device that holds the lancet (lancing device). A journal or log book to write down your results. How to check your blood glucose Checking your blood glucose 1.Wash your hands for at least 20 seconds with soap and water. 2.Prick the side of your finger (not the tip) with the lancet. Do not use the same finger consecutively. 3.Gently rub the finger until a small drop of blood appears. 4.Follow instructions that come with your meter for inserting the test strip, applying blood to thestrip, and using your blood glucose meter. 5.Write down your result and any notes in your log. Using alternative sites Some meters allow you to use areas of your body other than your finger (alternative sites) to test your blood. The most common alternative sites are the forearm, the thigh, and the palm of your hand. Alternative sites may not be as accurate as the fingers because blood flow is slower in those areas. This means that the result you get may be delayed, and it may be different from the result that you would get from your finger. Use the finger only, and do not use alternative sites, if: You think you have hypoglycemia. You sometimes do not know that your blood glucose is getting low (hypoglycemia unawareness). General tips and recommendations Blood glucose log Every time you check your blood glucose, write down your result. Also write down any notes about things that may be affecting your blood glucose, such as your diet and exercise for the day. This information can help you and your health care provider: ?Look for patterns in your blood glucose over time. ?Adjust your diabetes management plan as needed. Check if your meter allows you to download your records to a computer or if there is an jose for [employer]. Most glucose meters store a record of glucose readings in the meter. If you have type 1 diabetes: Check your blood glucose 4 or more times a day if you are on intensive insulin therapy with multiple daily injections (MDI) or if you are using an insulin pump. Check your blood glucose: ?Before every meal and snack. ?Before bedtime. Also check your blood glucose: ?If you have symptoms of hypoglycemia. ?After treating low blood glucose. ?Before doing activities that create a risk for injury, like driving or using machinery. ?Before and after exercise. ?Two hours after a meal. ?Occasionally between 2:00 a.m. and 3:00 a.m., as directed. You may need to check your blood glucose more often, 6 10 times per day, if: ?You have diabetes that is not well controlled. ?You are ill. ?You have a history of severe hypoglycemia. ?You have hypoglycemia unawareness. If you have type 2 diabetes: Check your blood glucose 2 or more times a day if you take insulin or other diabetes medicines. Check your blood glucose 4 or more times a day if you are on intensive insulin therapy. Occasionally, you may also need to check your glucose between 2:00 a.m. and 3:00 a.m., as directed. Also check your blood glucose: ?Before and after exercise. ?Before doing activities that create a risk for injury, like driving or using machinery. You may need to check your blood glucose more often if: ?Your medicine is being adjusted. ?Your diabetes is not well controlled. ?You are ill. General tips Make sure you always have your supplies with you. After you use a few boxes of test strips, adjust (calibrate) your blood glucose meter by following instructions that came with your meter. If you have questions or need help, all blood glucose meters have a 24-hour hotline phone number available that you can call. Also contact your health care provider with questions or concerns you mayhave. Where to find more information The [place] [employer]: www.diabetes.org The Association of Diabetes [employer] Education Specialists: www.diabeteseducator.org Contact a health care provider if: Your blood glucose is at or above 240 mg/dL (13.3 mmol/L) for 2 days in a row. You have been sick or have had a fever for 2 days or longer, and you are not getting better. You have any of the following problems for more than 6 hours: ?You cannot eat or drink. ?You have nausea or vomiting. ?You have diarrhea. Get help right away if: Your blood glucose is lower than 54 mg/dL (3 mmol/L). You become confused, or you have trouble thinking clearly. You have difficulty breathing. You have moderate or large ketone levels in your urine. These symptoms may represent a serious problem that is an emergency. Do not wait to see if the symptoms will go away. Get medical help right away. Call your local emergency services (911 in the [place] Do not drive yourself to the hospital. Summary Monitoring your blood glucose is an important part of managing your diabetes. Blood glucose monitoring involves checking your blood glucose as often as directed and keeping a log or record of your results over time. Your health care provider will set individualized treatment goals for you. Your goals will be basedon your age, other medical conditions you have, and how you respond to diabetes treatment. Every time you check your blood glucose, write down your result. Also, write down any notes about things that may be affecting your blood glucose, such as your diet and exercise for the day. This information is not intended to replace advice given to you by your health care provider. Make sure you discuss any questions you have with your health care provider. Document Revised: 04/21/2021 Document Reviewed: 04/21/2021 [employer] Patient Education 2022 [employer]one. 02/08/2023 15:02:38 Steps to Quit Smoking Steps to Quit Smoking Smoking tobacco is the leading cause of preventable . It can affect almost every organ in the body. Smoking puts you and those around you at risk for developing many serious chronic diseases. Quitting smoking can be very challenging. Do not get discouraged if you are not successful the first time. Some people need to make many attempts to quit before they achieve long-term success. Do your best to stick to your quit plan, and talk with your health care provider if you have any questionsor concerns. How do I get ready to quit? When you decide to quit smoking, create a plan to help you succeed. Before you quit: Pick a date to quit. Set a date within the next 2 weeks to give you time to prepare. Write down the reasons why you are quitting. Keep this list in places where you will see it often. Tell your family, friends, and co-workers that you are quitting. Support from people you are close to can make quitting easier. Talk with your health care provider about your options for quitting smoking. Find out what treatment options are covered by your health insurance. Identify people, places, things, and activities that make you want to smoke (triggers). Avoid them. What first steps can I take to quit smoking? Throw away all cigarettes at home, at work, and in your car. Throw away smoking accessories, such as ashtrays and lighters. Clean your car. Make sure to empty the ashtray. Clean your home, including curtains and carpets. What strategies can I use to quit smoking? Talk with your health care provider about combining strategies, such as taking medicines while you are also receiving in-person counseling. Using these two strategies together makes you more likely to succeed in quitting than if you used either strategy on its own. If you are or , talk with your health care provider about finding counseling or other support strategies to quit smoking. Do not take medicine to help you quit smoking unless your health care provider tells you to. Quit right away Quit smoking completely, instead of gradually reducing how much you smoke over a period of time. Stopping smoking right away may be more successful than gradually quitting. Attend in-person counseling to help you build problem-solving skills. You are more likely to succeed in quitting if you attend counseling sessions regularly. Even short sessions of 10 minutes can be effective. Take medicine You may take medicines to help you quit smoking. Some medicines require a prescription. You can also purchase khkv-cqi-fqelqry medicines. Medicines may have nicotine in them to replace the nicotine in cigarettes. Medicines may: Help to stop cravings. Help to relieve withdrawal symptoms. Your health care provider may recommend: Nicotine patches, gum, or lozenges. Nicotine inhalers or sprays. Non-nicotine medicine that you take by mouth. Find resources Find resources and support systems that can help you quit smoking and remain smoke-free after you quit. These resources are most helpful when you use them often. They include: Online chats with a counselor. Telephone quitlines. Printed self-help materials. Support groups or group counseling. Text messaging programs. Mobile phone apps or applications. Use apps that can help you stick to your quit plan by providing reminders, tips, and encouragement. Examples of free services include Quit Guide from the CDC and smokefree.gov What can I do to make it easier to quit? Reach out to your family and friends for support and encouragement. Call telephone quitlines, such as 0-715-SJTK-NOW, reach out to support groups, or work with a counselor for support. Ask people who smoke to avoid smoking around you. Avoid places that trigger you to smoke, such as bars, parties, or smoke-break areas at work. Spend time with people who do not smoke. Lessen the stress in your life. Stress can be a smoking trigger for some people. To lessen stress, try: ?Exercising regularly. ?Doing deep-breathing exercises. ?Doing yoga. ?Meditating. What benefits will I see if I quit smoking? Over time, you should start to see positive results, such as: Improved sense of smell and taste. Decreased coughing and sore throat. Slower heart rate. Lower blood pressure. Clearer and healthier skin. The ability to breathe more easily. Fewer sick days. Summary Quitting smoking can be very challenging. Do not get discouraged if you are not successful the first time. Some people need to make many attempts to quit before they achieve long-term success. When you decide to quit smoking, create a plan to help you succeed. Quit smoking right away, not slowly over a period of time. Find resources and support systems that can help you quit smoking and remain smoke-free after you quit. This information is not intended to replace advice given to you by your health care provider. Make sure you discuss any questions you have with your health care provider. Document Revised: 07/15/2022 Document Reviewed: 07/15/2022 [employer] Patient Education 2022 EpiBone. 02/08/2023 15:02:37 Health Risks of Smoking Health Risks of Smoking Smoking tobacco is very bad for your health. Tobacco smoke contains many toxic chemicals that can damage every part of your body. Secondhand smoke can be harmful to those around you. Tobacco or nicotine use can cause many long-term (chronic) diseases. Smoking is difficult to quit because a chemical in tobacco, called nicotine, causes addiction or dependence. When you smoke and inhale, nicotine is absorbed quickly into your bloodstream through yourlungs. Both inhaled and non-inhaled nicotine may be addictive. How can quitting affect me? There are health benefits of quitting smoking. Some benefits happen right away and others take time. Benefits may include: Blood flow, blood pressure, heart rate, and lung capacity may begin to improve. However, any lung damage that has already occurred cannot be repaired. Respiratory symptoms from smoking, such as nasal congestion and cough, may improve over time. Your risk of heart disease, stroke, and cancer is reduced. The overall quality of your health may improve. You may save money, as you will not spend money on tobacco products and may spend less money on smoking-related health issues. What can increase my risk? Smoking harms nearly every organ in the body. People who smoke tobacco have a shorter life expectancy and an increased risk of many serious medical problems. These include: More respiratory infections, such as colds and pneumonia. Cancer. Heart disease. Stroke. Chronic respiratory diseases. Delayed wound healing and increased risk of complications during surgery. Problems with reproduction, , and childbirth, such as infertility, early (premature) births, stillbirths, and defects. Secondhand smoke exposure to children increases the risk of: Sudden syndrome (SIDS). Infections in the nose, throat, or airways (respiratory infections). Chronic respiratory symptoms. What actions can I take to quit? Smoking is an addiction that affects both your body and your mind, and long-time habits can be hardto change. Your health care provider can recommend: Nicotine replacement products, such as patches, gum, and nasal sprays. Use these products only as directed. Do not replace cigarette smoking with electronic cigarettes, which are commonly called e-cigarettes. The safety of e-cigarettes is not known, and some may contain harmful chemicals. Programs and community resources, which may include group support, education, or talk therapy. Prescription medicines to help reduce cravings. A combination of two or more quit methods, which may increase the success of quitting. Where to find support Follow the recommendations from your health care provider about support groups and other assistance. You can also visit: [place]. Department of Health and Human Services: www.smokefree.gov [place] [employer]: www.freedomfromsmoking.org [place] [employer]: www.heart.org Where to find more information Centers for Disease Control and Prevention: www.cdc.gov World Health Organization: www.who.int Summary Smoking tobacco is very bad for your health. Tobacco smoke contains many toxic chemicals that can damage every part of the body. Smoking is difficult to quit because a chemical in tobacco, called nicotine, causes addiction or dependence. There are immediate and long-term health benefits of quitting smoking. A combination of two or more quit methods may increase the success of quitting. This information is not intended to replace advice given to you by your health care provider. Make sure you discuss any questions you have with your health care provider. Document Revised: 07/26/2022 Document Reviewed: 07/26/2022 [employer] Patient Education 2022 EpiBone. Follow Up Care 02/08/2023 14:20:24 With:Josselin Cruz MD Address: [address] [place] [address] ADIS Hameed [id number]- When: Unknown [facility] 06-02-2023 Hospital Discharge instructions Patient Education 01/06/2023 10:22:21 Erectile Dysfunction Erectile Dysfunction Erectile dysfunction (ED) is the inability to get or keep an erection in order to have sexual intercourse. ED is considered a symptom of an underlying disorder and is not considered a disease. ED mayinclude: Inability to get an erection. Lack of enough hardness of the erection to allow penetration. Loss of erection before sex is finished. What are the causes? This condition may be caused by: Physical causes, such as: ?Artery problems. This may include heart disease, high blood pressure, atherosclerosis, and diabetes. ?Hormonal problems, such as low testosterone. ?Obesity. ?Nerve problems. This may include back or pelvic injuries, multiple sclerosis, Parkinson's disease,spinal cord injury, and stroke. Certain medicines, such as: ?Pain relievers. ?Antidepressants. ?Blood pressure medicines and water pills (diuretics). ?Cancer medicines. ?Antihistamines. ?Muscle relaxants. Lifestyle factors, such as: ?Use of drugs such as marijuana, cocaine, or opioids. ?Excessive use of alcohol. ?Smoking. ?Lack of physical activity or exercise. Psychological causes, such as: ?Anxiety or stress. ?Sadness or depression. ?Exhaustion. ?Fear about sexual performance. ?Guilt. What are the signs or symptoms? Symptoms of this condition include: Inability to get an erection. Lack of enough hardness of the erection to allow penetration. Loss of the erection before sex is finished. Sometimes having normal erections, but with frequent unsatisfactory episodes. Low sexual satisfaction in either partner due to erection problems. A curved penis occurring with erection. The curve may cause pain, or the penis may be too curved toallow for intercourse. Never having nighttime or morning erections. How is this diagnosed? This condition is often diagnosed by: Performing a physical exam to find other diseases or specific problems with the penis. Asking you detailed questions about the problem. Doing tests, such as: ?Blood tests to check for diabetes mellitus or high cholesterol, or to measure hormone levels. ?Other tests to check for underlying health conditions. ?An ultrasound exam to check for scarring. ?A test to check blood flow to the penis. Doing a sleep study at home to measure nighttime erections. How is this treated? This condition may be treated by: Medicines, such as: ?Medicine taken by mouth to help you achieve an erection (oral medicine). ?Hormone replacement therapy to replace low testosterone levels. ?Medicine that is injected into the penis. Your health care provider may instruct you how to give yourself these injections at home. ?Medicine that is delivered with a short applicator tube. The tube is inserted into the opening at the tip of the penis, which is the opening of the urethra. A tiny pellet of medicine is put in the urethra. The pellet dissolves and enhances erectile function. This is also called MUSE (medicated urethral system for erections) therapy. Vacuum pump. This is a pump with a ring on it. The pump and ring are placed on the penis and used to create pressure that helps the penis become erect. Penile implant surgery. In this procedure, you may receive: ?An inflatable implant. This consists of cylinders, a pump, and a reservoir. The cylinders can be inflated with a fluid that helps to create an erection, and they can be deflated after intercourse. ?A semi-rigid implant. This consists of two silicone rubber rods. The rods provide some rigidity. They are also flexible, so the penis can both curve downward in its normal position and become straight for sexual intercourse. Blood vessel surgery to improve blood flow to the penis. During this procedure, a blood vessel froma different part of the body is placed into the penis to allow blood to flow around (bypass) damaged or blocked blood vessels. Lifestyle changes, such as exercising more, losing weight, and quitting smoking. Follow these instructions at home: Medicines Take sovw-ljc-piflqse and prescription medicines only as told by your health care provider. Do not increase the dosage without first discussing it with your health care provider. If you are using self-injections, do injections as directed by your health care provider. Make sureyou avoid any veins that are on the surface of the penis. After giving an injection, apply pressureto the injection site for 5 minutes. Talk to your health care provider about how to prevent headaches while taking ED medicines. These medicines may cause a sudden headache due to the increase in blood flow in your body. General instructions Exercise regularly, as directed by your health care provider. Work with your health care provider to lose weight, if needed. Do not use any products that contain nicotine or tobacco. These products include cigarettes, chewing tobacco, and vaping devices, such as e-cigarettes. If you need help quitting, ask your health careprovider. Before using a vacuum pump, read the instructions that come with the pump and discuss any questionswith your health care provider. Keep all follow-up visits. This is important. Contact a health care provider if: You feel nauseous. You are vomiting. You get sudden headaches while taking ED medicines. You have any concerns about your sexual health. Get help right away if: You are taking oral or injectable medicines and you have an erection that lasts longer than 4 hours. If your health care provider is unavailable, go to the nearest emergency room for evaluation. An erection that lasts much longer than 4 hours can result in permanent damage to your penis. You have severe pain in your groin or abdomen. You develop redness or severe swelling of your penis. You have redness spreading at your groin or lower abdomen. You are unable to urinate. You experience chest pain or a rapid heartbeat (palpitations) after taking oral medicines. These symptoms may represent a serious problem that is an emergency. Do not wait to see if the symptoms will go away. Get medical help right away. Call your local emergency services (911 in the [place] Do not drive yourself to the hospital. Summary Erectile dysfunction (ED) is the inability to get or keep an erection during sexual intercourse. This condition is diagnosed based on a physical exam, your symptoms, and tests to determine the cause. Treatment varies depending on the cause and may include medicines, hormone therapy, surgery, or a vacuum pump. You may need follow-up visits to make sure that you are using your medicines or devices correctly. Get help right away if you are taking or injecting medicines and you have an erection that lasts longer than 4 hours. This information is not intended to replace advice given to you by your health care provider. Make sure you discuss any questions you have with your health care provider. Document Revised: 10/20/2021 Document Reviewed: 10/20/2021 [employer] Patient Education 2022 [employer]. Follow Up Care 11/24/2022 14:04:21 With:Shukri JAY, INDU Haile, URO Address: [phone] When:Within 3 Month(s) [facility] Amy 05-03-2023 Evaluation + Plan noteExtracted from: Title:Discharge Note Author:TALIA JAY, Suha Tani e:12/07/22 Left AMA Discharge To, Anticipated II - Home independently Discharged to - Home with family residential Left AMA Prescriptions clindamycin 300 mg oral cap, 300 mg= 1 cap(s), Oral, q6hr ferrous sulfate 325 mg Tab, 325 mg= 1 tab(s), Oral, BIDWM Flomax 0.4 mg Cap, 0.8 mg= 2 cap(s), Oral, Daily, 3 refills gabapentin 300 mg Cap, 300 mg= 1 cap(s), Oral, BID Humulin 70/30 10 mL Injection-Insulin, 20 unit(s), SubCutaneous, BIDAC, 2 refills insulin lispro 100 units/mL injectable solution, See Instructions, Not taking insulin lispro 100 units/mL injectable solution, 5 unit(s), SubCutaneous, TIDAC, Not taking Home acetaminophen-codeine 300 mg-30 mg Tab tamsulosin 0.4 mg Cap, 0.4 mg= 1 cap(s), Oral, BID With When Contact Information [place] [address]- Business (1) Additional Instructions: Extracted from: Title:Admission H & P Author:Zuhair SINCLAIR DO Date:12/05/22 1. Septic bursitis (M71.10: Other infective bursitis, unspecified site) Leads the differential with significant warmth ,tenderness and limitation range of motion. He also admits to fevers and chills at home though he did not record his temperature. Note #3 below. Orthopedic surgeon has been contacted by Aditya in the emergency department and is aware they will be on consult. To be complete with below we will check a uric acid. Await blood cultures, continue antibiotics pending orthopedic evaluation Ordered: cefepime + Sodium Chloride 0.9% intravenous solution 50 mL, 2,000 mg = 1 EA, IV Piggyback, q12hr, Routine, Start date 12/05/22 10:00:00 EDT, 100 mL/hr, Infuse over 30 minute(s), 12/05/22 10:00:00 EDT HYDROmorphone, 0.5 mg = 0.5 mL, Injection, IV Push, q4hr PRN Pain, Routine, Start date 12/05/22 1:27:00 EDT, 12/05/22 1:27:00 EDT ketorolac, 15 mg = 1 mL, Injection, IV Push, q6hr PRN Pain for 5 day(s), Stop date 12/10/22 1:25:00 EDT, Routine, Start date 12/05/22 1:26:00 EDT, 12/05/22 1:26:00 EDT vancomycin, PHARMACY TO DOSE, Injection, IV, As Directed, Routine, Start date 12/05/22 1:25:00 EDT C-Reactive Protein Consult to Orthopedics PT & PTT Uric Acid 2. Cellulitis (L03.90: Cellulitis, unspecified) Area of erythema warmth and tenderness inferior to the patella greater than superior to the patella. Patient states in his youth he had an allergic reaction to penicillin he had difficulty breathing. He was given cefepime in the emergency department with no allergic reaction and was tolerated well. He was also given vancomycin. We will continue these with next dosing in the morning (every 12 hours will be due at 10 AM) awaiting culture results and orthopedic consultation 3. Right ankle swelling (M25.471: Effusion, right ankle) I was unable to appreciate any extending erythema in between right knee joint to the right ankle. There was tenderness with external compression but no limitation range of motion with passive dorsi and plantarflexion. We will check a uric acid. Note patient as of yet has had no recorded fevers and does not have an elevated white cell count. We will follow temperature curve, repeat CBC and await orthopedic consultation Ordered: Consult to Orthopedics Uric Acid 4. Diabetes mellitus (E11.9: Type 2 diabetes mellitus without complications) Blood sugar was 286 in the emergency department. When patient had his logic surgery in September 2021 his hemoglobin A1c was 15. There are limitations for him he does state he realizes the importance of following his blood sugars closely and keeping his blood sugars under control but states he does have limitations as a cost over thousand dollars a month for both the short acting and basal insulin he had been prescribed. Last social service agency director to assist to see if there are any vouchers etc. that can be provided for him to prevent consequences of poorly controlled blood sugars for now we will follow his blood sugars closely cover with sliding scale. Check hemoglobin A1c. We will consider use of basal insulin depending on the blood sugars and influence by perhaps what we could make available for him upon discharge. It is of importance that his blood sugars be controlled in the short-term in light of above. Ordered: Telephone Answerer Follow Up HgbA1c 5. Hyponatremia (E87.1: Hypo-osmolality and hyponatremia) We will monitor closely as we hydrate with normal saline 6. Tobacco abuse (Z72.0: Tobacco use) Nicotine patch. Recommend cessation 7. Weakness (R53.1: Weakness) Patient states he has been weak for several months with denying any recent worsening. He does have a family history of coronary artery disease but he denies any suspicious symptoms such as chest pain or shortness of breath. Weakness could be multifactorial as he does have erectile dysfunction cannot rule out testosterone deficiency is being evaluated by urology, likely influence of poor control of his diabetes and depletion of the intracellular glucose. We will monitor blood pressure pulse during his hospitalization 8. Neuropathy (G62.9: Polyneuropathy, unspecified) Patient states he had this since his surgery but has had no recall of any spinal injury. He states it does involve both legs but is much worse on the left describes it at times as like a bolt it is not in the typical distal distribution as with diabetes. Patient denies any worsening of the symptoms with standing it is not positional cannot explain any precipitating factors. As this has not been acutely influenced recommend evaluated first by his PCP in the outpatient basis 9. History of BPH (Z87.438: Personal history of other diseases of male genital organs) Continue Flomax Orders: acetaminophen, 650 mg = 2 tab(s), Tab, Oral, q6hr PRN Pain, Routine, Start date 12/05/22 1:31:00 EDT, 12/05/22 1:31:00 EDT ferrous sulfate, 325 mg = 1 tab(s), Tab, Oral, BIDWM, Routine, Start date 12/05/22 8:00:00 EDT, 12/05/22 1:24:00 EDT gabapentin, 300 mg = 1 cap(s), Oral, BID, Take 1 cap twice a day, # 74 cap(s), Refills(s) 0, Pharmacy: [facility], 177, cm, 09/07/22 10:14:00 EST, Height/Length Dosing, 73, kg, 09/07/22 10:14:00 EST, Weight Dosing gabapentin, 300 mg = 1 cap(s), Cap, Oral, BID, Routine, Start date 12/05/22 9:00:00 EDT, 12/05/22 1:24:00 EDT glucose, 50 mL, Soln-IV, IV Push, Once PRN Blood glucose, Routine, Start date 12/05/22 1:32:00 EDT insulin lispro, 0-10 Units, Injection-Insulin, SubCutaneous, q6hr, Routine, Start date 12/05/22 6:00:00 EDT insulin lispro, 5 unit(s), SubCutaneous, TIDAC, # 15 mL, Refills(s) 0, Pharmacy: [facility], 177, cm, 09/12/21 9:14:00 EST, Height/Length Dosing, 73, kg, 09/12/21 9:14:00 EST, Weight Dosing insulin lispro, See Instructions, QID AC, HS Take 2 units of lispro if BS between 151-200 Take 4 units of lispro if BS between 201-250 Take 6 units of lispro if BS between 251-300 Take 8 units of lispro if BS between 301-350 Take 10 units of lispro if BS betwe... nicotine, 14 mg, 1 patch(es), Patch-ER, TransDermal, Daily, Routine, Start date 12/05/22 9:00:00 EDT ondansetron, 4 mg = 2 mL, Injection, IV Push, q6hr PRN Nausea, Routine, Start date 12/05/22 1:31:00 EDT, 12/05/22 1:31:00 EDT Sodium Chloride 0.9% intravenous solution 1,000 mL, 1,000 mL, IV, 75 mL/hr, Routine, Start date 12/05/22 1:31:00 EDT, 13.3 hour(s), Total volume (mL): 1,000, 73 kg, 1.89, m2 tamsulosin, 0.4 mg = 1 cap(s), Cap, Oral, BID, Routine, Start date 12/05/22 9:00:00 EDT, 12/05/22 1:24:00 EDT Basic Metabolic Panel Cardiac Monitoring CBC w/ Auto Diff Diabetic/Calorie Control Diet Elevate Head of Bed Hypoglycemia Protocol Responsive Patient Hypoglycemia Protocol Unresponsive Patient Notify Provider Vital Signs Notify Provider Vital Signs Place in Status Resuscitation Status - Full Routine Capillary Glucose POC Vital Signs Weight Note await orthopedic evaluation and determination of procedure and to rule out intra-articular bleed which I doubt and would consider risk versus benefits of subcutaneous heparin to prevent deep venous thrombosis if patient's mobility remains limited with above. Patient is admitted as general inpatient with the anticipation he will require greater than 2 midnight stay Extracted from: Title:ED Note Author:Kenrick Maxwell PA-C Tani e:12/05/22 Cellulitis (L03.90: Cellulit is, unspecified) Septic bursitis (M71.10: Other infective bursitis, unspecified site) Orders: acetaminophen-oxycodone, 1 tab(s), Tab, Oral, Once, Stop date 12/04/22 18:47:00 EDT, STAT, Start date 12/04/22 18:47:00 EDT cefepime + Sodium Chloride 0.9% intravenous solution 50 mL, 2,000 mg = 1 EA, IV Piggyback, BID, STAT, Start date 12/04/22 21:24:00 EDT, 100 mL/hr, Infuse over 30 minute(s), 12/04/22 21:24:00 EDT HYDROmorphone, 1 mg = 1 mL, Injection, IV, Once, Stop date 12/04/22 21:41:00 EDT, Start date 12/04/22 21:41:00 EDT HYDROmorphone, 2 mg = 2 mL, Injection, IV Push, Once, Stop date 12/04/22 21:27:00 EDT, STAT, Start date 12/04/22 21:27:00 EDT, 12/04/22 21:27:00 EDT lidocaine, 100 mg = 10 mL, Injection, Block, Once, Stop date 12/04/22 21:48:00 EDT, Start date 12/04/22 21:48:00 EDT ondansetron, 4 mg = 2 mL, Injection, IV Push, Once, Stop date 12/04/22 21:27:00 EDT, STAT, Start date 12/04/22 21:27:00 EDT, 12/04/22 21:27:00 EDT vancomycin + Generic Diluent 400 mL, Reason for Vancomycin: Other reason documented in physician not, 2,000 mg = 400 mL, IV Piggyback, Once, Stop date 12/04/22 22:00:00 EDT, Routine, Start date 12/04/22 22:00:00 EDT, Infuse over 2 hour(s) Automated Diff Basic Metabolic Panel Blood Culture Charcoal Blood Culture Charcoal C-Reactive Protein CBC w/ Auto Diff ED Physician consult Hospitalist for continued care eGFR Extra Blue Tube Extra SST Tube Sedimentation Rate Automated Uric Acid XR Knee Complete 4+ Views Right Future Appointments Appointment Date:01/06/2023 10:00:00 AM Scheduled Provider:Shukri JAY, Yenni Mckeon Location:[facility] Appointment Type:URO Office Visit [facility]04-30-2023 Hospital Discharge instructions Follow Up Care 12/04/2022 18:20:17 With:Josselin Cruz Address: [address] [place] [id number] Business (1) When: Unknown [facility]07-19-2022 Hospital Discharge instructions Patient Education 02/22/2022 09:14:08 Testicular Self-Exam, Ihwx-hv-Brbo Testicular Self-Exam A self-exam of your testicles (testicular self-exam) is looking at and feeling your testicles for unusual lumps or swelling. Swelling, lumps, or pain can be caused by: Injuries. Puffiness, redness, and soreness (inflammation). Infection. Extra fluids around your testicle (hydrocele). Twisted testicles (testicular torsion). Cancer of the testicle (testicular cancer). Why is it important to do a self-exam of testicles? You may need to do self-exams if you are at risk for cancer of the testicles. You may be at risk ifyou have: A testicle that has not descended (cryptorchidism). A history of cancer of the testicle. A family history of cancer of the testicle. How to do a self-exam of testicles It is easiest to do a self-exam after a warm bath or shower. Testicles are harder to examine when you are cold. A normal testicle is egg-shaped and feels firm. It is smooth, and it is not tender. At the back of your testicles, there is a firm cord that feels like spaghetti (spermatic cord). Look and feel for changes Stand and hold your penis away from your body. Look at each testicle to check for lumps or swelling. Roll each testicle between your thumb and finger. Feel the whole testicle. Feel for: ?Lumps. ?Swelling. ?Discomfort. Check for swelling or tender bumps in the groin area. Your groin is where your lower belly (abdomen) meets your upper thighs. Contact a health care provider if: You find a bump or lump. This may be like a small, hard bump that is the size of a pea. You find swelling. You find pain. You find soreness. You see or feel any other changes. Summary A self-exam of your testicles is looking at and feeling your testicles for lumps or swelling. You may need to do self-exams if you are at risk for cancer of the testicle. You should check each of your testicles for lumps, swelling, or discomfort. You should check for swelling or tender bumps in the groin area. Your groin is where your lower belly (abdomen) meets your upper thighs. This information is not intended to replace advice given to you by your health care provider. Make sure you discuss any questions you have with your health care provider. Document Released: 10/20/2009 Document Revised: 11/14/2019 Document Reviewed: 06/19/2017 [employer] Patient Education 2019 [employer] Follow Up Care 02/08/2022 09:47:56 With:Kristopher Gonzales MD, Nilo Amaya URO Address: [facility] [address] , [place] [address]- When:Within 6 Month(s) [facility] Paulie 07-05-2022 Hospital Discharge instructions Patient Education 02/08/2022 09:24:13 Hydrocele, Adult Hydrocele, Adult A hydrocele is a collection of fluid in the loose pouch of skin that holds the testicles (scrotum).This may happen because: The amount of fluid produced in the scrotum is not absorbed by the rest of the body. Fluid from the abdomen fills the scrotum. Normally, the testicles develop in the abdomen then move (drop) into to the scrotum before . The tube that the testicles travel through usually closes after the testicles drop. If the tube does not close, fluid from the abdomen can fill the scrotum. This is less common in adults. What are the causes? The cause of a hydrocele in adults is usually not known. However, it may be caused by: An injury to the scrotum. An infection (epididymitis). Decreased blood flow to the scrotum. Twisting of a testicle (testicular torsion). A defect. A tumor or cancer of the testicle. What are the signs or symptoms? A hydrocele feels like a water-filled balloon. It may also feel heavy. Other symptoms include: Swelling of the scrotum. The swelling may decrease when you lie down. You may also notice more swelling at night than in the morning. Swelling of the groin. Mild discomfort in the scrotum. Pain. This can develop if the hydrocele was caused by infection or twisting. The larger the hydrocele, the more likely you are to have pain. How is this diagnosed? This condition may be diagnosed based on: Physical exam. Medical history. You may also have other tests, including: Imaging tests, such as ultrasound. Blood or urine tests. How is this treated? Most hydroceles go away on their own. If you have no discomfort or pain, your health care provider may suggest close monitoring of your condition (called watch and wait or watchful waiting) until thecondition goes away or symptoms develop. If treatment is needed, it may include: Treating an underlying condition. This may include using an antibiotic medicine to treat an infection. Surgery to stop fluid from collecting in the scrotum. Surgery to drain the fluid. Options include: ?Needle aspiration. A needle is used to drain fluid. However, the fluid buildup will come back quickly. ?Hydrocelectomy. For this procedure, an incision is made in the scrotum to remove the fluid sac. Follow these instructions at home: Watch the hydrocele for any changes. Take dznj-akx-swqgtwn and prescription medicines only as told by your health care provider. If you were prescribed an antibiotic medicine, use it as told by your health care provider. Do not stop taking the antibiotic even if you start to feel better. Keep all follow-up visits as told by your health care provider. This is important. Contact a health care provider if: You notice any changes in the hydrocele. The swelling in your scrotum or groin gets worse. The hydrocele becomes red, firm, painful, or tender to the touch. You have a fever. Get help right away if you: Develop a lot of pain, or your pain becomes worse. Summary A hydrocele is a collection of fluid in the loose pouch of skin that holds the testicles (scrotum). Hydroceles can cause swelling, discomfort, and sometimes pain. In adults, the cause of a hydrocele usually is not known. However, it is sometimes caused by an infection or a rotation and twisting of the scrotum. Treatment is usually not needed. Hydroceles often go away on their own. If a hydrocele causes pain,treatment may be given to ease the pain. This information is not intended to replace advice given to you by your health care provider. Make sure you discuss any questions you have with your health care provider. Document Released: 01/11/2011 Document Revised: 08/04/2018 Document Reviewed: 08/04/2018 [employer] Patient Education 2020 [employer]. Follow Up Care 01/24/2022 08:56:25 With:Kristopher Gonzales MD, Nilo Amaya, URO Address: [facility] [address] [place] [phone] When: Unknown [facility] 06-20-2022 Hospital Discharge instructions Patient Education 01/24/2022 08:28:36 Benign Prostatic Hyperplasia Benign Prostatic Hyperplasia Benign prostatic hyperplasia (BPH) is an enlarged prostate gland that is caused by the normal agingprocess and not by cancer. The prostate is a walnut-sized gland that is involved in the production of semen. It is located in front of the rectum and below the bladder. The bladder stores urine and the urethra is the tube that carries the urine out of the body. The prostate may get bigger as a man gets older. An enlarged prostate can press on the urethra. This can make it harder to pass urine. The build-up of urine in the bladder can cause infection. Back pressure and infection may progress to bladder damage and kidney (renal) failure. What are the causes? This condition is part of a normal aging process. However, not all men develop problems from this condition. If the prostate enlarges away from the urethra, urine flow will not be blocked. If it enlarges toward the urethra and compresses it, there will be problems passing urine. What increases the risk? This condition is more likely to develop in men over the age of 50 years. What are the signs or symptoms? Symptoms of this condition include: Getting up often during the night to urinate. Needing to urinate frequently during the day. Difficulty starting urine flow. Decrease in size and strength of your urine stream. Leaking (dribbling) after urinating. Inability to pass urine. This needs immediate treatment. Inability to completely empty your bladder. Pain when you pass urine. This is more common if there is also an infection. Urinary tract infection (UTI). How is this diagnosed? This condition is diagnosed based on your medical history, a physical exam, and your symptoms. Tests will also be done, such as: A post-void bladder scan. This measures any amount of urine that may remain in your bladder after you finish urinating. A digital rectal exam. In a rectal exam, your health care provider checks your prostate by putting a lubricated, gloved finger into your rectum to feel the back of your prostate gland. This exam detects the size of your gland and any abnormal lumps or growths. An exam of your urine (urinalysis). A prostate specific antigen (PSA) screening. This is a blood test used to screen for prostate cancer. An ultrasound. This test uses sound waves to electronically produce a picture of your prostate gland. Your health care provider may refer you to a specialist in kidney and prostate diseases (urologist). How is this treated? Once symptoms begin, your health care provider will monitor your condition (active surveillance or watchful waiting). Treatment for this condition will depend on the severity of your condition. Treatment may include: Observation and yearly exams. This may be the only treatment needed if your condition and symptoms are mild. Medicines to relieve your symptoms, including: ?Medicines to shrink the prostate. ?Medicines to relax the muscle of the prostate. Surgery in severe cases. Surgery may include: ?Prostatectomy. In this procedure, the prostate tissue is removed completely through an open incision or with a laparoscope or robotics. ?Transurethral resection of the prostate (TURP). In this procedure, a tool is inserted through the opening at the tip of the penis (urethra). It is used to cut away tissue of the inner core of the prostate. The pieces are removed through the same opening of the penis. This removes the blockage. ?Transurethral incision (TUIP). In this procedure, small cuts are made in the prostate. This lessens the prostate's pressure on the urethra. ?Transurethral microwave thermotherapy (TUMT). This procedure uses microwaves to create heat. The heat destroys and removes a small amount of prostate tissue. ?Transurethral needle ablation (TUNA). This procedure uses radio frequencies to destroy and remove a small amount of prostate tissue. ?Interstitial laser coagulation (ILC). This procedure uses a laser to destroy and remove a small amount of prostate tissue. ?Transurethral electrovaporization (TUVP). This procedure uses electrodes to destroy and remove a small amount of prostate tissue. ?Prostatic urethral lift. This procedure inserts an implant to push the lobes of the prostate away from the urethra. Follow these instructions at home: Take hnkl-yyl-ldmlibh and prescription medicines only as told by your health care provider. Monitor your symptoms for any changes. Contact your health care provider with any changes. Avoid drinking large amounts of liquid before going to bed or out in public. Avoid or reduce how much caffeine or alcohol you drink. Give yourself time when you urinate. Keep all follow-up visits as told by your health care provider. This is important. Contact a health care provider if: You have unexplained back pain. Your symptoms do not get better with treatment. You develop side effects from the medicine you are taking. Your urine becomes very dark or has a bad smell. Your lower abdomen becomes distended and you have trouble passing your urine. Get help right away if: You have a fever or chills. You suddenly cannot urinate. You feel lightheaded, or very dizzy, or you faint. There are large amounts of blood or clots in the urine. Your urinary problems become hard to manage. You develop moderate to severe low back or flank pain. The flank is the side of your body between the ribs and the hip. These symptoms may represent a serious problem that is an emergency. Do not wait to see if the symptoms will go away. Get medical help right away. Call your local emergency services (911 in the [place] Do not drive yourself to the hospital. Summary Benign prostatic hyperplasia (BPH) is an enlarged prostate that is caused by the normal aging process and not by cancer. An enlarged prostate can press on the urethra. This can make it hard to pass urine. This condition is part of a normal aging process and is more likely to develop in men over the age of 50 years. Get help right away if you suddenly cannot urinate. This information is not intended to replace advice given to you by your health care provider. Make sure you discuss any questions you have with your health care provider. Document Released: 07/24/2006 Document Revised: 06/18/2019 Document Reviewed: 08/28/2017 [employer] Patient Education 2020 [employer]. Follow Up Care 01/18/2022 11:14:15 With:Kristopher Gonzales MD, Nilo Amaya URO Address: [facility] [address], [place] [address]- When:Within 2 Week(s) Comments:w/ scrotal US [facility] Amy 05-19-2022 Hospital Discharge instructions Patient Education 12/23/2021 16:47:03 Dysuria Dysuria Dysuria is pain or discomfort while urinating. The pain or discomfort may be felt in the part of your body that drains urine from the bladder (urethra) or in the surrounding tissue of the genitals. The pain may also be felt in the groin area, lower abdomen, or lower back. You may have to urinate frequently or have the sudden feeling that you have to urinate (urgency). Dysuria can affect both men and women, but it is more common in women. Dysuria can be caused by many different things, including: Urinary tract infection. Kidney stones or bladder stones. Certain sexually transmitted infections (STIs), such as chlamydia. Dehydration. Inflammation of the tissues of the vagina. Use of certain medicines. Use of certain soaps or scented products that cause irritation. Follow these instructions at home: General instructions Watch your condition for any changes. Urinate often. Avoid holding urine for long periods of time. After a bowel movement or urination, women should cleanse from front to back, using each tissue only once. Urinate after sexual intercourse. Keep all follow-up visits as told by your health care provider. This is important. If you had any tests done to find the cause of dysuria, it is up to you to get your test results. Ask your health care provider, or the department that is doing the test, when your results will be ready. Eating and drinking Drink enough fluid to keep your urine pale yellow. Avoid caffeine, tea, and alcohol. They can irritate the bladder and make dysuria worse. In men, alcohol may irritate the prostate. Medicines Take ocsh-itd-xowbhdh and prescription medicines only as told by your health care provider. If you were prescribed an antibiotic medicine, take it as told by your health care provider. Do notstop taking the antibiotic even if you start to feel better. Contact a health care provider if: You have a fever. You develop pain in your back or sides. You have nausea or vomiting. You have blood in your urine. You are not urinating as often as you usually do. Get help right away if: Your pain is severe and not relieved with medicines. You cannot eat or drink without vomiting. You are confused. You have a rapid heartbeat while at rest. You have shaking or chills. You feel extremely weak. Summary Dysuria is pain or discomfort while urinating. Many different conditions can lead to dysuria. If you have dysuria, you may have to urinate frequently or have the sudden feeling that you have tourinate (urgency). Watch your condition for any changes. Keep all follow-up visits as told by your health care provider. Make sure that you urinate often and drink enough fluid to keep your urine pale yellow. This information is not intended to replace advice given to you by your health care provider. Make sure you discuss any questions you have with your health care provider. Document Released: 04/21/2005 Document Revised: 07/06/2018 Document Reviewed: 05/10/2018 [employer] Patient Education 2020 [employer]. 12/22/2021 14:43:48 Benign Prostatic Hyperplasia Benign Prostatic Hyperplasia Benign prostatic hyperplasia (BPH) is an enlarged prostate gland that is caused by the normal agingprocess and not by cancer. The prostate is a walnut-sized gland that is involved in the production of semen. It is located in front of the rectum and below the bladder. The bladder stores urine and the urethra is the tube that carries the urine out of the body. The prostate may get bigger as a man gets older. An enlarged prostate can press on the urethra. This can make it harder to pass urine. The build-up of urine in the bladder can cause infection. Back pressure and infection may progress to bladder damage and kidney (renal) failure. What are the causes? This condition is part of a normal aging process. However, not all men develop problems from this condition. If the prostate enlarges away from the urethra, urine flow will not be blocked. If it enlarges toward the urethra and compresses it, there will be problems passing urine. What increases the risk? This condition is more likely to develop in men over the age of 50 years. What are the signs or symptoms? Symptoms of this condition include: Getting up often during the night to urinate. Needing to urinate frequently during the day. Difficulty starting urine flow. Decrease in size and strength of your urine stream. Leaking (dribbling) after urinating. Inability to pass urine. This needs immediate treatment. Inability to completely empty your bladder. Pain when you pass urine. This is more common if there is also an infection. Urinary tract infection (UTI). How is this diagnosed? This condition is diagnosed based on your medical history, a physical exam, and your symptoms. Tests will also be done, such as: A post-void bladder scan. This measures any amount of urine that may remain in your bladder after you finish urinating. A digital rectal exam. In a rectal exam, your health care provider checks your prostate by putting a lubricated, gloved finger into your rectum to feel the back of your prostate gland. This exam detects the size of your gland and any abnormal lumps or growths. An exam of your urine (urinalysis). A prostate specific antigen (PSA) screening. This is a blood test used to screen for prostate cancer. An ultrasound. This test uses sound waves to electronically produce a picture of your prostate gland. Your health care provider may refer you to a specialist in kidney and prostate diseases (urologist). How is this treated? Once symptoms begin, your health care provider will monitor your condition (active surveillance or watchful waiting). Treatment for this condition will depend on the severity of your condition. Treatment may include: Observation and yearly exams. This may be the only treatment needed if your condition and symptoms are mild. Medicines to relieve your symptoms, including: ?Medicines to shrink the prostate. ?Medicines to relax the muscle of the prostate. Surgery in severe cases. Surgery may include: ?Prostatectomy. In this procedure, the prostate tissue is removed completely through an open incision or with a laparoscope or robotics. ?Transurethral resection of the prostate (TURP). In this procedure, a tool is inserted through the opening at the tip of the penis (urethra). It is used to cut away tissue of the inner core of the prostate. The pieces are removed through the same opening of the penis. This removes the blockage. ?Transurethral incision (TUIP). In this procedure, small cuts are made in the prostate. This lessens the prostate's pressure on the urethra. ?Transurethral microwave thermotherapy (TUMT). This procedure uses microwaves to create heat. The heat destroys and removes a small amount of prostate tissue. ?Transurethral needle ablation (TUNA). This procedure uses radio frequencies to destroy and remove a small amount of prostate tissue. ?Interstitial laser coagulation (ILC). This procedure uses a laser to destroy and remove a small amount of prostate tissue. ?Transurethral electrovaporization (TUVP). This procedure uses electrodes to destroy and remove a small amount of prostate tissue. ?Prostatic urethral lift. This procedure inserts an implant to push the lobes of the prostate away from the urethra. Follow these instructions at home: Take gvls-esa-aivasnv and prescription medicines only as told by your health care provider. Monitor your symptoms for any changes. Contact your health care provider with any changes. Avoid drinking large amounts of liquid before going to bed or out in public. Avoid or reduce how much caffeine or alcohol you drink. Give yourself time when you urinate. Keep all follow-up visits as told by your health care provider. This is important. Contact a health care provider if: You have unexplained back pain. Your symptoms do not get better with treatment. You develop side effects from the medicine you are taking. Your urine becomes very dark or has a bad smell. Your lower abdomen becomes distended and you have trouble passing your urine. Get help right away if: You have a fever or chills. You suddenly cannot urinate. You feel lightheaded, or very dizzy, or you faint. There are large amounts of blood or clots in the urine. Your urinary problems become hard to manage. You develop moderate to severe low back or flank pain. The flank is the side of your body between the ribs and the hip. These symptoms may represent a serious problem that is an emergency. Do not wait to see if the symptoms will go away. Get medical help right away. Call your local emergency services (911 in the [place] Do not drive yourself to the hospital. Summary Benign prostatic hyperplasia (BPH) is an enlarged prostate that is caused by the normal aging process and not by cancer. An enlarged prostate can press on the urethra. This can make it hard to pass urine. This condition is part of a normal aging process and is more likely to develop in men over the age of 50 years. Get help right away if you suddenly cannot urinate. This information is not intended to replace advice given to you by your health care provider. Make sure you discuss any questions you have with your health care provider. Document Released: 07/24/2006 Document Revised: 06/18/2019 Document Reviewed: 08/28/2017 [employer] Patient Education 2019 [employer]. Follow Up Care 11/11/2021 10:42:44 With:TIAN 6 weeks Address:Unknown When: Unknown With:CHRISTIANA COSTELLO PA-C, URL Address: [address] [place] [address]. 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 Type 2 diabetes mellitus with hyperglycemia Vitamin D deficiency [facility] Work Phone: Evaluation + Plan note Future Appointments Appointment Date:12/02/2021 08:15:00 AM Scheduled Provider:Darryl Ware MD [facility] Appointment Type: New Patient 30 () Appointment Date:12/23/2021 03:00:00 PM Scheduled Provider:CHRISTIANA COSTELLO PA-C Location:[facility] Future Appointments Appointment Date:12/23/2021 03:00:00 PM Scheduled Provider:CHRISTIANA COSTELLO PA-C Location:[facility] Appointment Type:[facility] Future Appointments Appointment Date:01/31/2022 08:15:00 AM Scheduled Provider:Nilo Summers Jr., MD Location:[facility] Appointment Type:URO Office Visit [facility] Evaluation + Plan note Future Appointments Appointment Date:01/31/2022 08:15:00 AM Scheduled Provider:Nilo Summers Jr., MD Location:[facility] Appointment Type:URO Office Visit Diagnostic Tests Pending * Urine Culture [facility] Future Appointments Appointment Date:02/08/2022 08:30:00 AM Scheduled Provider:Nilo Summers Jr., MD Location:[facility] Appointment Type:URO Office Visit Future Scheduled Tests Radiology* US Scrotum (Contents) 01/24/22 [facility] Evaluation + Plan note Future Appointments Appointment Date:02/08/2022 08:30:00 AM Scheduled Provider:Nilo Summers Jr., MD [facility] Future Appointments Appointment Date:02/22/2022 08:30:00 AM Scheduled Provider:Nilo Summers Jr., MD [facility] Office Visit [facility] evaluation + Plan note Future Appointments Appointment Date:08/30/2022 08:30:00 AM Scheduled Provider:Nilo Summers Jr., MD Location:[facility] Appointment Type:URO Office Visit [facility] evaluation + Plan note Future Appointments Appointment Date:04/14/2023 11:15:00 AM Scheduled Provider:Yenni Watt MD Location:[facility] Appointment Type:URO Office Visit Future Scheduled Tests Laboratory* Testosterone Level Total 01/06/23 [facility] Evaluation + Plan note Future Appointments Appointment Date:04/14/2023 11:15:00 AM Scheduled Provider:Yenni Watt MD Location:[facility] Appointment Type:URO Office Visit Diagnostic Tests Pending * Testosterone Level Total 01/21/23 [facility] Future Appointments Appointment Date:04/14/2023 11:15:00 AM Scheduled Provider:Yenni Watt MD Location:[facility] Appointment Type:URO Office Visit [facility] Evaluation + Plan note Future Appointments Appointment Date:07/28/2023 11:15:00 AM Scheduled Provider:Yenni Watt MD Location:[facility] Appointment Type:URO Office Visit [facility] Evaluation + Plan note Future Appointments Appointment Date:05/03/2023 11:15:00 AM Scheduled Provider:Troy De Paz DPM [facility]oint[facility] Type:WC Follow Up Visit (FT) Appointment Date:07/28/2023 11:15:00 AM Scheduled Provider:Yenni Watt MD Location:[facility] Appointment Type:URO Office Visit Diagnostic Tests Pending * Wound Culture [facility] Future Appointments Appointment Date:05/11/2023 07:45:00 AM Scheduled Provider:Shamir SOSA RD, LD, Kelly Location[facility] Appointment Type:DM Diabetes Initial Assessment [address] RD (F Appointment Date:05/16/2023 02:15:00 PM Scheduled Provider:Holden De Paz DPM [facility] Appointment Type:WC Follow Up Visit (FT) Appointment Date:07/28/2023 11:15:00 AM Scheduled Provider:Yenni Watt MD Location:[facility] Future Appointments Appointment Date:05/31/2023 10:30:00 AM Scheduled Provider:Troy De Paz DPM [facility] Appointment Type:WC Follow Up Visit (FT) Appointment Date:07/28/2023 11:15:00 AM Scheduled Provider:Yenni Watt MD Location:[facility] App[facility]ment [facility] + Plan note Future Appointments Appointment Date:06/07/2023 10:45:00 AM Scheduled Provider:Troy De Paz DPM [facility] Appointment Type:WC Follow Up Visit (FT) Appointment Date:07/28/2023 11:15:00 AM Scheduled Provider:Yenni Watt MD Location:[facility] App[facility]ment [facility] Plan note Future Appointments Appointment Date:06/14/2023 09:00:00 AM Scheduled Provider:Troy De Paz DPM [facility] Appointment Type:WC Follow Up Visit (FT) Appointment Date:07/28/2023 11:15:00 AM Scheduled Provider:Yenni Watt MD Location:[facility] Appointment Type:URO Office Visit 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 pylori infection acute BMI 26.0-26.9,adult acute Dietary B12 deficiency acute HTN (hypertension) acute Hyperlipidemia acute pen[facility]entiary current use of insulin acute Type 2 diabetes mellitus with hyperglycemia acute Vitamin D deficiency acute [facility] Work Phone: History general Narrative - Reported* Type Description Date Medical History type II diabetes Medical History irritable bowel syndrome Medical History Esophageal reflux Medical History ulcer left ankle Medical History enlarged prostate Medical History neuropathy Medical History stomach ulcers Surgical History testicles 2020 Surgical History left wrist Surgical History left foot Surgical History right foot skin [facility] Hospitalization History See Above [employer] Other [employer] general Narrative - Reported* Type Description Date Medical History type II diabetes Medical History irritable bowel syndrome Medical History Esophageal reflux Medical History ulcer left ankle Medical History enlarged prostate Medical History neuropathy Medical History stomach ulcers Surgical History testicles 2020 Surgical History left wrist Surgical History left foot Surgical History right foot skin [facility] Surgical History L wrist Hospitalization History See Above Hospitalization History see surgeries above [employer] Other Hospital course Narrative No data available for this section [facility] No data available for this section [facility] No data available for this section [facility] [place] Reason for referral (narrative) , suspicous lesion Referred by: Negro Roblero PA-C, V. [facility] Summary Purpose Family History Relationship Condition Age at Onset Recorded Date/T festus father Heart disease Unknown History of stroke Unknown Hypertension Unknown family member Family history of other condition Unknow n Not Specified Diabetes mellitus Unknown Unknown Malignant neoplasm Unknown Relationship Condition Age at Onset Recorded Date/T festus father History of stroke Unknown Heart disease Unknown Hypertension Unknown family member Family history of other condition Unknow n Not Specified Unknown Malignant neoplasm of breast Unknown Diabetes mellitus Unknown Malignant neoplasm Unknown No Family History Records Found Advance Directives Advance Directive Response Recorded Date/ Time Advance Directives No July 10:59am Advance Directive Response Recorded Date/ Time Advance Directives No July 11:59am Chief Complaint and Reason for Visit Chief Complaint Ref By Shaheed Madden For Ibs, Diarrhea & Diarrhea, Gerd DMN f/u diarrhea, GERD diarrhea, GERD DMN f/u- METER Reason for Visit BMI 26.0-26.9,adult Dietary B12 deficiency HTN (hypertension) 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 Type 2 diabetes mellitus with hyperglycemia Vitamin D deficiency BMI 26.0-26.9,adult Dietary B12 deficiency HTN (hypertension) Hyperlipidemia penitentiary current use of insulin Type 2 diabetes mellitus with hyperglycemia Vitamin D deficiency Chief Complaint DMN f/u diarrhea, GERD diarrhea, GERD DMN f/u- METER DL per DS Reason for Visit BMI 26.0-26.9,adult Dietary B12 deficiency HTN (hypertension) Hyperlipidemia penitentiary current use of insulin Type 2 diabetes mellitus with hyperglycemia Vitamin D deficiency BMI 26.0-26.9,adult Dietary B12 deficiency HTN (hypertension) 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 pylori infection Chief Complaint DMN f/u- METER DL per DS follow up h. 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 pylori infection BMI 26.0-26.9,adult Dietary B12 deficiency HTN (hypertension) Hyperlipidemia penitentiary current use of insulin Type 2 diabetes mellitus with hyperglycemia Vitamin D deficiency Additional Source Comments Patient Care team informatio n (unrecognized section and content) Team Status: Active Member Role Status Dates Lisa Madden [facility] Primary Care Provider Activ e Team Status: Inactive Member Role Status Dates Elva Gilmore APRN Attending Provider Active Start: July 21, 2023 End: July 21, 2023 Team Status: Inactive Member Role Status Dates Elva Gilmore APRN Attending Provider Active Start: August 10, 2023 End: August 10, 2023 Team Status: Active Member Role Status Dates Lisa Madden [facility] Primary Care Provider, Attending Provider Active Start: August 10, 2023 Team Status: Inactive Member Role Status Dates Karina Ugarte APRN Attending Provider Active Start: August 24, 2023 End: August 24, 2023 Team Status: Inactive Member Role Status Dates Lisa Madden [facility] Primary Care Provider Activ e Start: September 14, 2023 End: September 14, 2023 Red Harden MD Attending Provider Active S tart: September 14, 2023 End: September 14, 2023 Personnel Name: LISA MADDEN CNP Address: Address: [address] [place] [address] Name: Jennifer Patel LPN Personnel Name: Josselin Cruz MD Address: Address: [address] [place] [address] Name: Jennifer Patel LPN REASON FOR VISIT (unrecogniz ed section and content) Referral Lisa Vega DownloadREF BY SHAHEED MADDEN FOR IBS, DIARRHEA & GERD (unrecognized sect ion and content) No Status Records FoundNo Status Records FoundNo Status Records FoundNo Status Records FoundNo Status Records FoundNo Status Records FoundNo Status Records FoundNo Status Records FoundNo Status Records Found INFORMATION SOURCE (unrecogn ized section and content) DATE CREATED AUTHOR 09/04/2023 [facility] DATE CREATED AUTHOR AUTHOR'S ORGANIZ ATION 10/23/2023 [facility] DATE CREATED AUTHOR AUTHOR'S ORGANIZ ATION 12/23/2023 [facility] DATE CREATED AUTHOR AUTHOR'S ORGANIZ ATION 12/24/[address] [facility] DATE CREATED AUTHOR AUTHOR'S ORGANIZ ATION 01/03/2024 [facility] Goals (unrecognized section and content) Goals may be documented in a n alternate section FOR RECORDS PERTAINING TO PATIENTS WHO ARE OR HAVE BEEN ENROLLED IN A CHEMICAL DEPENDENCY/SUBSTANCEABUSE PROGRAM, SOME INFORMATION MAY BE OMITTED. This clinical summary was aggregated from multiple sources. Caution should be exercised in using it in the provision of clinical care. This summary normalizes information from multiple sources, and as a consequence, information in this document may materially change the coding, format and clinical context of patient data. In addition, data may be omitted in some cases. CLINICAL DECISIONS SHOULD BE BASED ON THE PRIMARY CLINICAL RECORDS. [employer] [facility]. provides no warranty or guarantee of the accuracy or completeness of information in this document.
== END 2024-01-30 10:50 | disposition home or self-care (01) ==
LOC: EC 10:49
PROVIDERS: Visit Provider Podiatrist Foot & Ankle Surgery
DX: M79.671 Pain in right foot (principal); S92.414D Nondisplaced fracture of proximal phalanx of right great toe, subsequent encounter for fracture with routine healing
CPT/HCPCS: 73630

== ENCOUNTER 2024-04-09 09:25 | Outpatient (OUT) | payer OTHER, SELFPAY ==
--- NOTE | 2024-04-09 | XR_ITS ---
The [address] [address] Patient Name: LEANNE BERGMAN MRN: [id number] date: 1980 Sex: M Assigned Patient Location: Current Patient Location: Accession/Order Number: [id number] Exam Date: 04/09/2024 09:30 Report Date: 04/10/2024 06:43 At the request of: VINAYAK XIAO Procedure: XR foot RT min 3V PROCEDURE: XR foot RT min 3V HISTORY: RIGHT FOOT PAIN COMPARISON: XR foot right 01/30/2024 FINDINGS: BONES:Increasing sclerosis of first proximal phalanx diaphysis and increasing density of prior fracture line. Normal alignment is maintained. SOFT TISSUES:No visible soft tissue swelling. EFFUSION:None visible. OTHER: Negative. XR/XR foot RT min 3V IMPRESSION: 1. Stable alignment and ongoing bone healing of prior first proximal phalanx fracture. Electronically authenticated by: VLADIMIR LUND Date: 04/10/2024 06:43
--- OUTSIDE RECORDS SUMMARY | 2024-04-09 09:48 | XMS_ITS | CCD ---
Author Organization [facility] Care Team Providers Care Compliance Professional Name Role Phone NONE, XXXX Primary Care Physician Unavailab Josselin Nielson Primary Care Physician [phone] Jennifer Patel Unavailable Unavailable LISA MADDEN Primary Care Physician Elva Howard Unavailable Karina Ugarte Unavailable Troy De Paz Attending Unavailable Troy De Paz Admitting Unavailable Maryanne, Lisa [facility] Attending Provider MD Red Harden Attending Provider Lisa Madden Primary Care Unavailable Red Harden Admitting Unavailable Red Harden Attending Unavailable Maryanne, Lisa Primary Care Unavailable Maryanne, Lisa Attending Unavailable Maryanne, Lisa Admitting Unavailable Maryanne, Lisa Primary Care Unavailable Elva Howard Admitting Unavailable Elva Howard Attending Unavailable Red Harden Admitting Unavailable Red Harden Attending Unavailable Maryanne, Lisa Primary Care Unavailable Maryanne, [facility] Lisa Primary Care Provider MD Red Harden Attending Provider [phone] [facility] Primary Care Provider MD Red [...] Unavailabl e Yenni Watt Admitting Unavailable Yenni Watt Attending Unavailable MARYANNE, [...] [penicillin] Drug Allergy Disease of skin (disorder) [facility] (1 source) Penicillins Drug allergy (disorder) [facility] Repository Medications Current Medications Medication Drug Class(es) [...] for 5 day(s), 20 tab(s), Refill(s) 0, [facility], 177, cm, 04/14/23 11:32:00 EDT, Height/Length Dosing, 73, kg, 04/14/23 11:32:00 EDT, Weight Dosing Start Date: 05/31/23 Stop Date: 06/05/23 Status: Ordered Start: 05-24-2023 End: 05-29-2023 take 1 tablet by mouth every six hours Percocet 5 mg-325 mg oral tablet 1 tab(s), Oral, q6hr for 5 day(s), 20 tab(s), Refill(s) 0, [facility], 177, cm, 04/14/23 11:32:00 EDT, Height/Length Dosing, 73, kg, 04/14/23 11:32:00 EDT, Weight Dosing Start Date: 05/24/23 Stop Date: 05/29/23 Status: Ordered 24 hr alfuzosin hydrochloride 10 mg extended release oral tablet (16 sources) alpha-Adrenergic Shanda Start: 04-14-2023 End: 04-08-2024 take 10 mg by mouth once daily Alfuzosin Active 10 MG PO Daily January 25, 2024 12:00am allopurinol 300 mg oral tablet (2 sources) Xanthine Oxidase Inhibitor Start: 01-25-2024 take 300 [...] Mar, Active cholecalciferol 0.125 mg oral capsule (2 sources) Vitamin D Start: 01-25-2024 take 125 ug [...] day(s), # 28 tab(s), Refills(s) 0, Pharmacy: [facility], 177, cm, 02/08/22 8:43:00 EDT, Height/Length Dosing, 73, kg, 02/08/22 8:43:00 EDT, Weight Dosing Start Date: 02/08/22 Stop Date: 02/22/22 Status: Ordered Start: 01-24-2022 take 1 tablet by belkis th every twelve hours Cipro 500 mg Tab 500 mg = 1 tab(s), Oral, q12hr, # 20 tab(s), Refills(s) 0, Pharmacy: [facility], 177, cm, 01/24/22 8:22:00 EDT, Height/Length Dosing, 73, kg, 01/24/22 8:22:00 EDT, Weight Dosing Start Date: 01/24/22 Status: Ordered clindamycin 300 mg oral capsule (17 sources) Lincosamide Antibacterial Start: 02-08-2023 take 1 capsule by mouth every eight hours clindamycin 300 mg oral cap 300 mg = 1 cap(s), Oral, q8hr, # 24 cap(s), Refills(s) 0, Pharmacy: [facility], 177, cm, 02/08/23 14:32:00 EDT, Height/Length Dosing, 179.2, kg, 02/08/23 14:32:00 EDT, Weight Dosing Start Date: 02/08/23 Status: Ordered Start: 12-07-2022 take 1 capsule by [facility] every six hours clindamycin 300 mg oral cap 300 mg = 1 cap(s), Oral, q6hr, # 28 cap(s), Refills(s) 0, Pharmacy: [facility], 177 paul, 12/04/22 18:24:00 EDT, Height/Length Dosing, 73, kg, 12/05/22 5:37:00 EDT, Weight Dosing Start Date: 12/07/22 Status: Ordered Start: 09-07-2022 clindamycin 30 0 mg oral cap Refills(s) 0 Start Date: 09/07/22 Status: Ordered colestipol hydrochloride 1000 mg oral tablet (2 sources) Bile Acid Sequestrant Start: 01-15-2024 Colestipol (Colestid) 1 gram tablet Active 1 GM PO Twice daily 60 January 15, 2024 12:00am dicyclomine hydrochloride 20 mg oral tablet (20 sources) Anticholinergic Start: 03-30-2023 take 20 mg by mouth three times daily Dicyclomine Active 20 MG PO Three times daily September 21, 2023 1:00am doxycycline hyclate 100 mg oral capsule (10 sources) Tetracycline-class Drug Start: 09-20-2021 take 1 capsule by mouth every twelve hours doxycycline hyclate 100 mg Cap 100 mg = 1 cap(s), Oral, q12hr, # 20 cap(s), Refills(s) 0, Pharmacy: [facility], Eric paul, 09/20/21 11:48:00 EST, [...] BIDWM, # 60 tab(s), Refills(s) 0, Pharmacy: [facility], 177paul, 09/12/21 9:14:00 EST, Height/Length Dosing, 73, kg, 09/12/21 9:14:00 EST, Weight Dosing Start Date: 09/14/21 Status: Ordered Flash Glucose Scanning Reade r (Freestyle Soha 2 [place]) misc (18 sources) Start: 11-16-2023 Flash Glucose Scanning [place] (Freestyle Soha 2 [place]) misc Active 0 .Route 1 November 16, 2023 10:32am As directed Start: 09-21-2023 Flash Glucose Scanning [place] (Freestyle Soha 2 [place]) misc Active 0 .Route September 21, 2023 1:00am As directed Start: 09-21-2023 End: 11-16-2023 Flash Glucose Scanning Reade r (Freestyle Soha 2 [place]) misc Discontinued 0 .Route 1 September 21, 2023 1:00am November 16, 2023 10:35am As directed Start: 09-21-2023 Flash Glucose Scanning [place] (Freestyle Soha 2 [place]) misc Active 0 .Route 1 September 21, 2023 12:00am As directed Start: 09-21-2023 Flash Glucose Scanning [place] (Freestyle Soha 2 [place]) misc Active 0 .Route September 21, 2023 12:00am As directed Flash Glucose Sensor (Freest yle Soha 2 Sensor) kit (7 sources) Start: 09-21-2023 Flash Glucose Sensor (Freestyle Soha 2 Sensor) kit Active 0 .Route September 21, 2023 1:00am As directed Start: 09-21-2023 Flash Glucose Sensor (Freestyle Soha 2 Sensor) kit Active 0 .Route September 21, 2023 12:00am As directed FreeStyle Soha 2 [place] - (3 sources) Start: 03-30-2023 FreeStyle Soha 2 [place] - as directed Not-Taking/PRN FREESTYLE SOHA 2 READER MIS (14 sources) Start: 04-14-2023 [...] Status: Ordered gabapentin 800 mg oral tablet (16 sources) Anti-epileptic Agent Start: 01-25-2024 take 800 [...] day(s), # 60 cap(s), Refills(s) 6, Pharmacy: [facility], 177, cm, 01/06/23 10:08:00 EDT, Height/Length Dosing, 73, kg, 01/06/23 10:08:00 EDT, Weight Dosing Start Date: 01/06/23 Stop Date: 08/04/23 Status: Ordered Start: 11-30-2022 take 1 capsule by mo [facility] twice daily gabapentin 300 mg Cap 300 mg = 1 cap(s), Oral, BID, Take 1 cap twice a day, # 74 cap(s), Refills(s) 0, Pharmacy: [facility], 177, cm, 09/07/22 10:14:00 EST, [...] Bedtime, # 12 mL, Refills(s) 0, Pharmacy: [facility], 177, cm, 09/12/21 9:14:00 EST, Height/Length Dosing, 73, kg, 09/12/21 9:14:00 EST, Weight Dosing Start Date: 09/14/21 Status: Ordered insulin glargine 100 units/mL subcutaneous solution (1 source) Start: 09-14-2021 inject 25 [IU] by subcutaneous injection at bedtime insulin glargine 100 units/mL subcutaneous solution 25 unit(s), SubCutaneous, Bedtime, # 12 mL, Refills(s) 0, Pharmacy: [facility], 177, cm, 09/12/21 9:14:00 EST, Height/Length Dosing, 73, kg, 09/12/21 9:14:00 EST, Weight Dosing Start Date: 09/14/21 Status: Ordered insulin isophane, human 70 unt/ml / insulin, regular, human 30 unt/ml injectable suspension (18 sources) Insulin Start: 12-07-2022 Humulin 70/30 10 mL Injection-Insulin 20 unit(s), SubCutaneous, BIDAC, # 10 mL, Refills(s) 2, Pharmacy: [facility], 177, cm, 12/04/22 18:24:00 EDT, [...] >400, # 15 mL, Refills(s) 0, Pharmacy: [facility], 177, cm, 09/12/21 9:14:00 EST, Height/Length Dosing, 73, kg, 09/12/21 9:14:00 EST, Weight Dosing Start Date: 09/14/21 Status: Ordered Start: 09-14-2021 insulin lispro 100 units/mL injectable solution 5 unit(s), SubCutaneous, TIDAC, # 15 mL, Refills(s) 0, Pharmacy: [facility], 177, cm, 09/12/21 9:14:00 EST, [...] pain, # 20 tab(s), Refills(s) 0, Pharmacy: [facility], 177, cm, 01/24/22 8:22:00 EDT, Height/Length Dosing, 73, kg, 01/24/22 8:22:00 EDT, Weight Dosing Start Date: 01/24/22 Status: Ordered Loperamide (7 sources) Opioid Agonist Start: 01-25-2024 Loperamide Active 4 MG PO January 25, 2024 12:00am Start: 12-13-2023 End: 01-15-2024 Loperamide (Imodium A-D) 2 m g capsule Discontinued 4 MG PO Four times daily January 05, 2024 8:36am January 15, 2024 3:00pm take first thing in the morning Multivitamin preparation (8 sources) Start: 07-28-2021 take 1 tablet by [...] needle, diabetic (BD Ultra-Fine Charis Pen Needle) (7 sources) Start: 09-21-2023 pen needle, di abetic [...] before procedure and 1 tab after procedure, [facility], 177, cm, 10/07/21 11:37:00 EST, [...] hours, # 30 tab(s), Refills(s) 6, Pharmacy: [facility], 177, cm, 01/06/23 10:08:00 EDT, [...] Daily, # 180 cap(s), Refills(s) 3, Pharmacy: [facility], 177, cm, 01/06/23 10:08:00 EDT, [...] Daily, # 180 cap(s), Refills(s) 3, Pharmacy: [facility], 177, cm, 02/22/22 9:00:00 EDT, Height/Length Dosing, 73, kg, 02/22/22 9:00:00 EDT, Weight Dosing Start Date: 02/22/22 Status: Ordered Start: 12-23-2021 take 2 capsules by m outh once daily Flomax 0.4 mg Cap 0.8 mg = 2 cap(s), Oral, Daily, # 60 cap(s), Refills(s) 11, Pharmacy: [facility], 177, cm, 12/23/21 15:16:00 EDT, Height/Length Dosing, 73, kg, 12/23/21 15:16:00 EDT, Weight Dosing Start Date: 12/23/21 Status: Ordered Start: 10-11-2021 take 1 capsule by mo uth once daily tamsulosin 0.4 mg Cap 0.4 mg = 1 cap(s), Oral, Daily, # 30 cap(s), Refills(s) 1, Pharmacy: [facility], 177, cm, 10/11/21 14:29:00 EST, [...] Dates Sig (Normalized) Sig (Original) Bismuth Subcit L-Acpljqfiu-Hza (Pylera) 140-125-125 mg capsule (5 sources) Start: 10-20-2023 End: 10-20-2023 Bismuth Subcit J-Laahdcyqr-Esg (Pylera) 140-125-125 mg capsule Discontinued 0 PO per package directions 05 16October 20, 2023 12:00am October 20, 2023 1:43pm PO PER PKG DIR bismuth subsalicylate 262 mg oral tablet (5 sources) Bismuth Start: 10-20-2023 End: 01-15-2024 take 524 mg by mouth four times daily Bismuth Subsalicylate Discontinued 524 MG PO Four times daily October 20, 2023 12:00am January 15, 2024 3:00pm dapagliflozin 10 mg oral tablet (10 sources) Sodium-Glucose Cotransporter 2 Inhibitor Start: 09-21-2023 End: 09-21-2023 take 1 tablet by mouth once daily Dapagliflozin Propanediol (Farxiga) 10 mg tablet Discontinued 10 MG PO Daily September 21, 2023 1:00am September 21, 2023 2:19pm Farxiga 10 MG Ta ke 1 tablet by mouth once daily for 30 days for 30 Active ibuprofen 800 mg oral tablet (8 sources) Nonsteroidal Anti-inflammatory Drug Start: 07-28-2021 End: [...] >400, # 15 mL, Refills(s) 0, Pharmacy: [facility], 177, cm, 09/12/21 9:14:00 EST, Height/Length Dosing, 73, kg, 09/12/21 9:14:00 EST, Weight Dosing Start Date: 09/14/21 Status: Ordered Start: 09-14-2021 insulin lispro 100 units/mL injectable solution 5 unit(s), SubCutaneous, TIDAC, # 15 mL, Refills(s) 0, Pharmacy: [facility], 177, cm, 09/12/21 9:14:00 EST, Height/Length Dosing, 73, kg, 09/12/21 9:14:00 EST, Weight Dosing Start Date: 09/14/21 Status: Ordered magnesium citrate 58.2 mg/ml oral solution (8 sources) Start: 07-28-2021 End: 09-21-2023 take 1 mL by mouth once Magnesium Citrate Discontinued 120 ML PO Once 120 July 28, 2021 1:00am September 21, 2023 12:46pm metroNIDAZOLE 250 mg oral tablet (5 sources) Nitroimidazole Antimicrobial Start: 10-20-2023 End: 12-13-2023 take 250 mg by mouth four times daily Metronidazole Discontinued 250 MG PO Four times daily 56 October 20, 2023 12:00am December 13, 2023 1:10pm tetracycline hydrochloride 500 mg oral capsule (5 sources) Tetracycline-class Antimicrobial Start: 10-20-2023 End: 11-16-2023 [...] Hyperlipidemia; Translations: [Hyperlipidemia, unspecified] Chronic Esophageal disorders (4 sources) Gastroesophageal reflux disease; Translations: [Gastro-esophageal reflux [...] scrotum] Onset: 2 09-20-2021 Episodic Intestinal infection (8 sources) Infection caused by Helicobacter pylori; Translations: [Other specified bacterial intestinal infections] 10-20-2023 Episodic Malaise and fatigue (1 source) Asthenia; Translations: [Weakness] Onset: 3 Episodic Nutritional deficiencies (20 sources) Vitamin D deficiency; Translations: [Vitamin D deficiency, unspecified] Chronic Nutritional deficiencies (19 sources) Cobalamin deficiency; Translations: [Deficiency of other specified B group vitamins] 09-21-2023 Episodic Other aftercare (10 sources) Long-term current use of insulin; Translations: [half-way (current) use of insulin] 09-21-2023 Episodic Other aftercare (15 sources) 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; Translations: [Long-term (current) use of insulin] Episodic Other connective tissue disease (1 source) Infected bursa; Translations: [Other infective bursitis, unspecified site] Onset: 3 Episodic Other diseases of kidney and ureters (3 sources) Urinary tract obstruction; Translations: [Other obstructive and reflux uropathy] Onset: 2 Episodic Other gastrointestinal disorders (3 sources) Irritable bowel syndrome with diarrhea; Translations: [Irritable bowel syndrome with diarrhea] 01-25-2024 Chronic Other gastrointestinal disorders (1 source) Irritable bowel syndrome with diarrhea Chronic Other gastrointestinal disorders (8 sources) Constipation; Translations: [Constipation, unspecified] 07-28-2021 Episodic Other gastrointestinal disorders (1 source) Change in bowel habit; Translations: [Change in bowel habit] Onset: 4 Episodic Other gastrointestinal disorders (3 sources) Diarrhea; Translations: [Diarrhea, unspecified] 12-13-2023 Episodic Other gastrointestinal disorders (3 sources) Incontinence of feces; Translations: [Full incontinence of feces] 12-13-2023 Episodic Other gastrointestinal disorders (3 sources) Urgent desire for stool; Translations: [Fecal urgency] 12-13-2023 Episodic Other gastrointestinal disorders (3 sources) Diarrhea, unspecified; Translations: [Diarrhea] 12-13-2023 Episodic Other gastrointestinal disorders (3 sources) Full incontinence of feces; Translations: [Full incontinence of feces] 12-13-2023 Episodic Other gastrointestinal disorders (3 sources) Fecal urgency; Translations: [Fecal urgency] 12-13-2023 [...] Onset: 3 Chronic Other nervous system disorders (2 sources) Neuropathy; Translations: [Polyneuropathy, unspecified] 01-25-2024 Chronic Other non-traumatic joint disorders (1 source) Ankle joint effusion; Translations: [Effusion, right ankle] Onset: 3 Episodic Other nutritional; endocrine; and metabolic disorders (13 sources) Body mass index (BMI) 26.0-26.9, adult; Translations: [Body Mass Index 26.0-26.9, adult] Episodic Other nutritional; endocrine; and metabolic disorders (7 sources) Overweight in adulthood with body mass [...] Test Name Value Interpretation Reference Range Facility No Panel Informationon 01-24 Bedside Glucose 404 [facility] - Hematology and Cell countson 01-11-2024 Hemoglobin (Bld) [Mass/Vol] 9.7 g/dL [facility] Miscellaneous-LCon 01-02 Lab Miscellaneous COMMENT Invalid Interpretation Code [facility] Comment on above: Result Comment: Test Ordered: [id number] Diabetes Autoimmune Profile Insulin Antibodies 7.1 [H ] uU/mL ES This test is also known as insulin autoantibody or IAA. This test was developed and its performance characteristics determined by [employer]. It has not been cleared or approved [...] Type 2 Diabetics have positive antibodies.(1) Kari connell al. PNAS. 2007;104(43):39240-67780. Performed at: [address] [id number] PhD Edwar Kaplan Performed By: #### 1 [id number] #### [facility] [address] [place] [address] C-Peptideon 12-22-2023 C peptide [Mass/Vol] 2.2 ng/mL Invalid Interpretation Code 1.1-4.4 [facility] Comment on above: Result Comment: C-Pe ptide reference interval is for fasting patients. Performed at: [address] [id number] PhD Edwar Kaplan Performed By: #### 1 [id number] #### [facility] [address] [place] [address] XR Shoulder Complete Lefton 12-22-2023 XR Shoulder [...] mGy = na DAP = na Normal [facility] CHEMISTRYOrdered By: SYSTEM SYSTEM on 12-21-2023 25-hydroxyvitamin D3 [Mass/Vol] 14.5 ng/mL Low 30.0 - 100.0 ng/mL Remisol Chem Consent for Treatmenton 12-05 Consent for Treatment [id number]#1.0 0TIFF Normal [facility] Consent for Treatment [id number] [id number]#1.0 0TIFF Normal [facility] Glu Fastingon 12-21-2023 Glucose [Mass/Vol] 181 mg/dL High 55-99 [facility] Comment on above: Performed By: #### 2 [id number] #### [facility] [address] [place] [address] Lab Miscellaneous-LCon 12-20 Test Code 647371 Invalid Interpretation Code [facility] Comment on above: Performed By: #### 1 [id number] #### [facility] [address] [place] [address] Test Name Diabetes Autoim Invalid Interpretation Code [facility] Comment on above: Performed By: #### 1 [id number] #### [facility] [address] [place] [address] Laboratory - Chemistry and C hemistry - challengeOrdered By: SYSTEM SYSTEM on 12-21-2023 Cobalamin (Vitamin B12) [Mass/Vol] 406 pg/mL 50-1500 Remisol Chem Glucose [Mass/Vol] 181 mg/dL High 55-99 Remiso l Chem Lipase [Catalytic activity/Vol] 52 U/L 13-58 Remisol Chem Lipase Levelon 12-21-2023 Lipase [Catalytic activity/Vol] 52 U/L Normal - [facility] Comment on above: Performed By: #### 2 [id number] #### [facility] [address] [place] [address] No Panel Informationon 12-20 Zinc Transporter 8 Antibody < 15 [facility] Anti-IA2 Antibody < 7.5 [facility] Anti-NAZ 65 Antibody < 5.0 [facility] Insulin Antibody 7.1 [facility] 25-Hydroxy Vitamin D Total 14.5 ng/mL Low 30.0-100.0 [facility] C-Peptide 2.2 ng/mL 1.1-4.4 [facility] Miscellaneous Serology Test 3 [id number] [facility] Miscellaneous Test COMMENT [facility] Reference Lab Test Name Diabetes Autoim [facility] Physician Orderon 12-21-2023 Physician Order [id number]. 00TIFF Normal [facility] Physician Order [id number]#1. 00TIFF Normal [facility] Reference Laboratory Testing Ordered By: Calli Gillespie on 12-21-2023 Test Code [id number] 1 Invalid Interpretation Code [facility]OutsSS Test Name Diabetes Autoim Invalid Interpretation Code [facility] Vit B12on 12-21-2023 Cobalamin (Vitamin B12) [Mass/Vol] 406 pg/mL Normal 50-1500 [facility] Comment on above: Performed By: #### 2 [id number] #### [facility] [address] [place] [address] Vitamin D 25 Hydroxyon 12-20 25-hydroxyvitamin D3 [Mass/Vol] 14.5 ng/mL Low 30.0-100.0 [facility] Comment on above: Performed By: #### 5 [id number] #### [facility] [address] [place] [address] No Panel Informationon 11-15 Bedside Glucose 356 [facility] Amphetamine Screen Ql (U)Ord ered By: Red Harden on 10-18-2023 Amphetamines Ql (U) Negative Negative [facility] Barbiturates [Presence] in U rine by Screen methodOrdered By: Red Harden on 10-18-2023 Barbiturates Screen Ql (U) Negative Negative [facility] Benzodiazepines Screen Ql (U )Ordered By: Red Harden on 10-18-2023 Benzodiazepines Ql (U) Negative Negative [facility] Benzoylecgonine [Presence] i n Urine by Screen methodOrdered By: Red Harden on 10-18-2023 Benzoylecgonine Screen Ql (U) Negative Negative [facility] Cannabinoids [Presence] in U rine by Screen methodOrdered By: Red Harden on 10-18-2023 Cannabinoids Screen Ql (U) Positive Negative [facility] Comment on above: These are unconfirme d results and should not be used for legal purposes. Drug Cut-Off Concentration: AMPH 1000 ng/mL CAROLA 200 ng/mL LILLY 200 ng/mL COCM 300 ng/mL OP 300 ng/mL PCP 25 ng/mL THC 20 ng/mL Drug Screen,Urineon 10-18-19 24 Amphetamine Screen,Urine Negative Normal Negative [facility] Comment on above: Performed By: #### U RDS #### [address] Barbiturate Screen,Urine Negative Normal Negative [facility] Comment on above: Performed By: #### U RDS #### [place] [address] [place] Benzodiazepines Screen,Urine Negative Normal Negative [facility] Comment on above: Performed By: #### U RDS #### [address] Cannabinoid Screen,Urine Positive High Negative [facility] Comment on above: Result Comment: Thes e are unconfirmed results and should not be used for legal purposes. Drug Cut-Off Concentration: AMPH 1000 ng/mL CAROLA 200 ng/mL LILLY 200 ng/mL COCM 300 ng/mL OP 300 ng/mL PCP 25 ng/mL THC 20 ng/mL PERFORMED BY: [place] [address] PATHOLOGIST PATIENT CASE MANAGER TATI RAIN M.D. Performed By: #### U RDS #### [address] Cocaine Screen,Urine Negative Normal Negative [facility] Comment on above: Performed By: #### U RDS #### [place] [address] [place] Opiate Screen,Urine Negative Normal Negative [facility] Comment on above: Performed By: #### U RDS #### [place] [address] [place] Phencyclidine Screen,Urine Negative Normal Negative [facility] Comment on above: Performed By: #### U RDS #### [address] Glucose Glucometer (BldC) [M ass/Vol]Ordered By: Red Harden on 10-18-2023 Glucose [Mass/Vol] 215 mg/dL [facility] Comment on above: Random Glucose Refer ence Range is dependent on time and content of last meal. Glucose of more than 200 mg/dL in a nonstressed, ambulatory subject supports the diagnosis of Diabetes Mellitus. Glucose Poct Glucometerson 0 10-18-2023 Commemt1 Glu2: Cleaned Meter Normal [facility] Comment on above: Result Comment: PERF ORMED BY: [facility] [place] [address] PATHOLOGIST PATIENT CASE MANAGER TATI RAIN M.D. Performed By: #### G LULS #### Point of Care testing , Glucose [Mass/Vol] 215 mg/dL Normal [facility] Comment on above: Result Comment: Adrian om Glucose Reference Range is dependent on time and content of last meal. Glucose of more than 200 mg/dL in a nonstressed, ambulatory subject supports the diagnosis of Diabetes Mellitus. Performed By: #### G LULS #### Point of Care testing , Angelito 10-18-2023 L Specimen: [id number] Received: 10/18/23 Status: SOUT Req Num: [id number] Spec Type: Surgical Subm Dr: Red Harden MD Tissues: A Small Intestine - Biopsy/Polyp (SMALL BOWEL BX) B GASTRIC FOR HP (GASTRIC HP) C Esophagus Biopsy (ESOPHAGUS BX) D Colon Biopsy (RANDOM COLON BX) Procedures: HE/8, Gross/Micro L4/4, H PYLORI, IHC First AB Age/ Patient Sex Location Account Attending Physician Arturo Bergman 43/M [id number] Red Harden MD SPEC NUM: [id number] RECD: 10/18/23 STATUS: SOUT REQ NUM: [id number] MARANDA: 10/18/23- SUBM DR: Red Harden MD ENTERED: 10/18/[address] [facility] DR: SPEC TYPE: Surgical DEPT: S ORDERED: [...] or other forms of colitis. ---- Specimen: [id number] Received: 10/18/23 Status: DIXIE Sahubandar Num: [id number] Spec Type: Surgical Subm Dr: Red Harden MD Tissues: A Small Intestine - Biopsy/Polyp (SMALL BOWEL BX) B GASTRIC FOR HP (GASTRIC HP) C Esophagus Biopsy (ESOPHAGUS BX) D Colon Biopsy (RANDOM COLON BX) Procedures: HE/8, Gross/Micro L4/4, H PYLORI, IHC First AB ---- Patient: Arturo Bergman [id number] (Continued) ---- Specimen: [id number] Received: 10/18/23 (Continued) Signed (signature on file) Mima Coronel MD 10/19/23 1627 ---- Specimen: [id number] Received: 10/18/23 Status: DIXIE Partida Num: [id number] Spec Type: Surgical Subm Dr: Red Harden MD Tissues: A Small Intestine - Biopsy/Polyp (SMALL BOWEL BX) B GASTRIC FOR HP (GASTRIC HP) C Esophagus Biopsy (ESOPHAGUS BX) D Colon Biopsy (RANDOM COLON BX) Procedures: HE/8, Gross/Micro L4/4, H PYLORI, IHC First AB ---- Patient: BergmanArturo Huy [id number] (Continued) ---- Specimen: [id number] Received: 10/18/23 (Continued) Clinical Information GERD, diarrhea, [...] supports the above rendered diagnosis. CPT Codes 26587v2, 75916 ---- ---- Specimen: [id number] Received: 10/18/23 Status: BRYKathleen Partida Num: [id number] Spec Type: Surgical Subm Dr: Red Harden MD Tissues: A Small Intestine - Biopsy/Polyp (SMALL BOWEL BX) B GASTRIC FOR HP (GASTRIC HP) C Esophagus Biopsy (ESOPHAGUS BX) D Colon Biopsy (RANDOM COLON BX) Procedures: HE/8, Gross/Micro L4/4, H PYLORI, IHC First AB ---- Patient: Arturo Bergman [id number] (Continued) ---- Signed (more content not included)... Normal [facility] No Panel InformationOrdered By: Red Harden on 10-18-2023 Bedside Glucose Comment Glu2: cleaned meter [facility] Opiates [Presence] in Urine by Screen methodOrdered By: Red Harden on 10-18-2023 Opiates Screen Ql (U) Negative Negative [facility] Phencyclidine Screen Ql (U)O rdered By: Red Harden on 10-18-2023 Phencyclidine Ql (U) Negative Negative [facility] CMPon 10-12-2023 Albumin [Mass/Vol] 3.4 g/dL Normal 3.3-5.0 [facility] Comment on above: Performed By: #### 1 9305562, 05808031, 9183578, 1545846, 2890791 #### [facility] Laboratory [address] [place] [address] Albumin/Globulin (S) [Mass conc ratio] 1.1 Normal 1.1-2.2 [facility] Comment on above: Performed By: #### 1 2583532, 51578024, 8642242, 9407916, 1630572 #### [facility] Laboratory [address] [place] [address] ALP [Catalytic activity/Vol] 127 Int._Unit/L High 21-98 [facility] Comment on above: Performed By: #### 1 7420661, 94745718, 8451235, 3098800, 2375371 #### [facility] Laboratory [address] [place] [address] ALT No additional P-5'-P [Catalytic activity/Vol] 15 Int._Unit/L Normal 6-46 [facility] Comment on above: Performed By: #### 1 3829123, 70596345, 4231688, 8691309, 5881440 #### [facility] Laboratory [address] [place] [address] Anion gap [Moles/Vol] 15 mmol/L Normal 6-16 [facility] Comment on above: Performed By: #### 1 3385503, 91849689, 6467106, 0786890, 1674297 #### [facility] Laboratory [address] [place] [address] AST [Catalytic activity/Vol] 12 Int._Unit/L Normal 5-43 [facility] Comment on above: Performed By: #### 1 0016316, 65006441, 0626940, 2780028, 3247173 #### [facility] Laboratory [address] [place] [address] Bilirubin [Mass/Vol] 0.4 mg/dL Normal 0.0-1.1 [facility] Comment on above: Performed By: #### 1 9278767, 68679571, 5580376, 6613705, 2927517 #### [facility] [address] [place] [address] Calcium [Mass/Vol] 9.1 mg/dL Normal 8.9-11.1 [facility] Comment on above: Performed By: #### 1 8358940, 10431185, 7783125, 3551913, 2998173 #### [facility] Laboratory [address] [place] [address] Chloride [Moles/Vol] 101 mmol/L Normal 101-111 [facility] Comment on above: Performed By: #### 1 1873374, 57062135, 0680586, 4361227, 5879581 #### [facility] Laboratory [address] [place] [address] CO2 [Moles/Vol] 27 mmol/L Normal 21-31 [facility] Comment on above: Performed By: #### 1 6358962, 33135186, 7656377, 7326995, 4830094 #### [facility] [address] [place] [address] Creatinine [Mass/Vol] 1.2 mg/dL Normal 0.5-1.3 [facility] Comment on above: Performed By: #### 1 7068254, 35411708, 1300869, 8102296, 1330080 #### [facility] [address] [place] [address] Globulin (S) [Mass/Vol] 3.0 g/dL Normal 1.4-4.0 [facility] Comment on above: Performed By: #### 1 5881306, 70140496, 1222561, 6789949, 9860752 #### [facility] [address] [place] [address] Glucose [Mass/Vol] 227 mg/dL High 55-199 [facility] Comment on above: Performed By: #### 1 8509102, 29331091, 4071524, 5854509, 1802983 #### [facility] [address] [place] [address] Potassium [Moles/Vol] 4.9 mmol/L Normal 3.5-5.3 [facility] Comment on above: Performed By: #### 1 0520485, 43371227, 6803712, 2177965, 6903056 #### [facility] [address] [place] [address] Protein [Mass/Vol] 6.4 g/dL Normal 6.0-7.8 [facility] Comment on above: Performed By: #### 1 7666753, 51821987, 0968303, 4948298, 5302741 #### [facility] [address] [place] [address] Sodium [Moles/Vol] 138 mmol/L Normal 135-145 [facility] Comment on above: Performed By: #### 1 4248972, 69151147, 9789190, 3055716, 8676331 #### [facility] [address] [place] [address] Urea nitrogen [Mass/Vol] 22 mg/dL High 5-21 [facility] Comment on above: Performed By: #### 1 2277011, 20012446, 6033070, 9362023, 8450838 #### [facility] Laboratory [address] [place] [address] Urea nitrogen/Creatinine [Mass ratio] 18 No Units Normal 10-20 [facility] Comment on above: Performed By: #### 1 3231479, 24324546, 2192767, 2807549, 1691928 #### [facility] Laboratory [address] [place] [address] Consent for Treatmenton 03 Consent for Treatment [id number] [id number]#1.0 0TIFF Normal [facility] Lipid Panelon 10-12-2023 Cholesterol [Mass/Vol] 295 mg/dL High 120-200 [facility] Comment on above: Performed By: #### 1 0570825, 69937426, 6876773, 9071639, 2281207 ####[facility] [address] [place] [address] Cholesterol in HDL [Mass/Vol] 38 mg/dL Invalid Interpretation Code [facility] Comment on above: Result Comment: '>= 60 LOW RISK' '<= 40 HIGH RISK' Performed By: #### 1 7774225, 20311799, 8924271, 3378621, 3154134 ####[facility] [address] [place] [address] Cholesterol in LDL [Mass/Vol] 225 mg/dL High <=129 [facility] Comment on above: Performed By: #### 1 9348319, 40956033, 8091423, 6718915, 3825870 ####[facility] [address] [place] [address] Cholesterol in VLDL [Mass/Vol] 44 mg/dL High 7-40 [facility] Comment on above: Performed By: #### 1 2822030, 12003494, 7673185, 9488390, 2337360 ####[facility] [address] [place] [address] Triglyceride [Mass/Vol] 219 mg/dL High <=149 [facility] Comment on above: Performed By: #### 1 2363556, 16869141, 5435137, 5950320, 2001380 ####[facility] [address] [place] [address] Physician Orderon 10-12-2023 Physician Order [id number]#1.0 0TIFF Normal [facility] Physician Order [id number]#1.0 0TIFF Normal [facility] T4 & TSHon 10-12-2023 TSH Qn 1.86 m[IU]/L Normal 0.34-5.60 [facility] Comment on above: Performed By: #### 1 0477302, 64418971, 5362366, 0786054, 4102133 #### [facility] Laboratory [address] [place] [address] T4 [Mass/Vol] 11.3 microgram/dL High 4.6-9.1 [facility] Comment on above: Performed By: #### 1 8298256, 18100011, 1718999, 3104269, 9402835 #### [facility] Laboratory [address] [place] [address] Uric Acidon 10-12-2023 Urate (U) [Mass/Vol] 7.7 mg/dL High 2.2-7.4 [facility] Comment on above: Performed By: #### 1 6726110, 02325288, 6585444, 9514477, 5166271 ####[facility] [address] [place] [address] XR Toe(s) Min 2 Views Righto n [...] mGy = na DAP = na Normal [facility] eGFRon 10-12-2023 eGFR 77 mL/min/1.73 m2 Normal >=59 [facility] Comment on above: Order Comment: Order added by Discern Expert. Performed By: #### 1 1918421, 19827425, 7934887, 0668716, 1460692 ####[facility] [address] [place] [address] Laboratory - Hematology and Cell countson 09-21-2023 HbA1c (Bld) [Mass fraction] 10.2 % [facility] No Panel Informationon 09-21 Bedside Glucose 240 [facility] O & P EXAM, ROUTINE, REFLEXo n 09-13-2023 Ova and parasites identified Concentration Nom (Stl) Comment Invalid Interpretation Code [facility] Comment on above: Result Comment: No o va, cysts, or parasites seen. One negative specimen does not rule out the possibility of a parasitic infection. Performed at: [address] [id number] PhD Edwar Kaplan Performed By: #### 1 4275536, 0175379598, 4469502908, 17194641, 5255965070 #### [facility] Laboratory [address] [place] [address] O & P Exam, Routineon 2023 Ova and parasites identified LM Nom (Unsp spec) Final report Invalid Interpretation Code [facility] Comment on above: Result Comment: Thes e results were obtained using wet preparation(s) and trichrome stained smear. This test does not include testing for Cryptosporidium parvum, Cyclospora, or Microsporidia. Performed at: [facility] [address], [place] [id number] PhD Edwar Kaplan Performed By: #### 1 0765971, 9458486589, 0388237508, 66692461, 0947958208 #### [facility] Laboratory [address] [place] [address] Pancreatic Elastase, Fecalon 09-13-2023 Elastase.pancreatic (Stl) [Mass/Mass] 310 Invalid Interpretation Code >200 [facility] Comment on above: Result Comment: Wandy re Pancreatic Insufficiency: <100 Moderate Pancreatic Insufficiency: 100 - 200 Normal: >200 Performed at: [address] [id number] MD Fredrick Chen Performed By: #### 1 6340411, 4479152902, 0930207770, 26188538, 1806425967 #### [facility] Laboratory [address] [place] [address] Celiac Disease Comprehensive on 09-11-2023 Endomysium IgA Ql (S) Negative Invalid Interpretation Code Negative [facility] Comment on above: Performed By: #### 1 3695201, 3541866292, 3238636518, 72355729, 1090907546 #### [facility] Laboratory [address] [place] [address] Gliadin peptide IgA Qn (S) 15 unit(s) Invalid Interpretation Code 0-19 [facility] Comment on above: Result Comment: Nega tive 0 - 19 Weak Positive 20 - 30 Moderate to Strong Positive >30 Performed By: #### 1 5293339, 7284491265, 1119881203, 38671180, 6289818385 #### [facility] Laboratory [address] [place] [address] Gliadin peptide IgG Qn (S) 3 unit(s) Invalid Interpretation Code 0-19 [facility] Comment on above: Result Comment: Nega tive 0 - 19 Weak Positive 20 - 30 Moderate to Strong Positive >30 Performed By: #### 1 3584688, 3014176211, 2615828103, 93539930, 0142889983 #### [facility] [address] [place] [address] IgA [Mass/Vol] 435 mg/dL High 90-386 [facility] Comment on above: Result Comment: Perf ormed at: [facility] [address] [id number] PhD Edwar Kaplan Performed By: #### 1 8641562, 8766479061, 7928362806, 80846292, 6186501797 #### [facility] [address] [place] [address] tTG IgA Qn (S) <2 Invalid Interpretation Code 0-3 [facility] Comment on above: Result Comment: Nega tive 0 - 3 Weak Positive 4 - 10 Positive >10 Tissue Transglutaminase (tTG) has been identified as the endomysial antigen. Studies have demonstr- ated that endomysial IgA antibodies have over 99% specificity for gluten sensitive enteropathy. Performed By: #### 1 8942178, 1028948031, 6021882616, 85154590, 0007590480 #### [facility] Laboratory [address] [place] [address] tTG IgG Qn (S) <2 Invalid Interpretation Code 0-5 [facility] Comment on above: Result Comment: Nega tive 0 - 5 Weak Positive 6 - 9 Positive >9 Performed By: #### 1 5450790, 8049768051, 3766835179, 48479296, 3835966189 #### [facility] Laboratory [address] [place] [address] HIV Screen 4th Generation wR fxon 09-11-2023 HIV 1+2 Ab+HIV1 p24 Ag IA Ql Non-Reactive Invalid Interpretation Code Non Reactive [facility] Comment on above: Result Comment: HIV Negative HIV-1/HIV-2 antibodies and HIV-1 p24 antigen were NOT detected. There is no laboratory evidence of HIV infection. [facility]: [facility] [address], [place] [id number] PhD Edwar Kaplan Performed By: #### 1 7163102, 8063878306, 4727916531, 33245134, 8273505201 #### [facility] Laboratory [address] [place] [address] Enteric Panel by PCRon 09-08 C. coli+jejuni+upsaliens is DNA DONNELL+non-probe Ql (Stl) Not detected Normal [facility] Comment on above: Result Comment: Test ing was performed utilizing reverse retail sales representative (RT), polymerase chain reaction (PCR), and array [...] nulcleic acid test. Performed By: #### 1 5855522, 8565004223, 4859684882, 95713629, 9920911497 #### [facility] Laboratory [address] [place] [address] E. coli stx1+stx2 genes DONNELL+non-probe Ql (Stl) Negative Normal [facility] Comment on above: Performed By: #### 1 4222455, 0768306232, 4747975963, 49142219, 5446131416 #### [facility] [address] [place] [address] Enteric Panel Intrl QC Pass Normal [facility] Comment on above: Result Comment: Test ing was performed utilizing reverse retail sales representative (RT), polymerase chain reaction (PCR), and array [...] 1 and 2. Performed By: #### 1 1054724, 8269269818, 1893634978, 66124310, 5276887407 #### [facility] [address] [place] [address] Norovirus genogroup I+II RNA DONNELL+non-probe Ql (Stl) Not detected Normal [facility] Comment on above: Performed By: #### 1 2753262, 4858558772, 8755879975, 20158979, 7842601393 #### [facility] [address] [place] [address] Rotavirus A RNA DONNELL+non-probe Ql (Stl) Not detected Normal [facility] Comment on above: Performed By: #### 1 1311474, 0948907520, 2192372066, 31463176, 1893422102 #### [facility] Laboratory [address] [place] [address] S. enterica+bongori DNA DONNELL+non-probe Ql (Stl) Not detected Normal [facility] Comment on above: Result Comment: This test result should be correlated with clinical presentations and medical history by a healthcare provider to determine its clinical significance. Performed By: #### 1 8214720, 4133063714, 5705851453, 35338242, 9569295069 #### [facility] [address] [place] [address] Shigella species+EIEC invasion plasmid antigen H ipaH gene DONNELL+non-probe Ql (Stl) Not detected Normal [facility] Comment on above: Performed By: #### 1 5141713, 4080415652, 7231092524, 55618240, 2626349881 #### [facility] Laboratory [address] [place] [address] V. cholerae+parahaemolyt icus+vulnificus DNA DONNELL+non-probe Ql (Stl) Not detected Normal [facility] Comment on above: Performed By: #### 1 2737180, 9458107465, 8299583853, 82061774, 9979689032 #### [facility] [address] [place] [address] Y. enterocolitica DNA DONNELL+non-probe Ql (Stl) Not detected Normal [facility] Comment on above: Performed By: #### 1 6707239, 6739747532, 0719129612, 16333653, 9206032834 #### [facility] [address] [place] [address] CDiff PCRon 09-07-2023 Cdiff Specimen Acceptable Unacceptable Normal [facility] Comment on above: Performed By: #### 1 5628027, 4605555840, 3176716715, 25532986, 1705331945 #### [facility] [address] [place] [address] Order Cancelled YES Normal [facility] Comment on above: Performed By: #### 1 5499658, 6068067799, 2874877162, 58331509, 0633471900 #### [facility] [address] [place] [address] CHEMISTRYOrdered By: SYSTEM SYSTEM on 09-07-2023 CRP 1.1 mg/dL Normal <=1.9mg/dL Remisol Chem TSH Qn 1.79 m[IU]/L Normal 0.34 - 5.60 mcIU/mL Remisol Chem CRPon 09-07-2023 CRP 1.1 mg/dL Normal <=1.9 [facility] Comment on above: Performed By: #### 1 0243820, 5614747178, 9801710783, 75703037, 6341051609 #### [facility] [address] [place] [address] Consent for Treatmenton Consent for Treatment [id number]#1.0 0TIFF Normal [facility] HEMATOLOGYOrdered By: Mabel Diaz on 09-07-2023 ESR (Bld) [Velocity] 30 mm/h High 0 - 19 mm/hr [facility] HemeAutoSS Physician Orderon 09-07-2023 Physician Order [id number]#1. 00TIFF Normal [facility] Sed Rate Automatedon 024 ESR (Bld) [Velocity] 30 mm/h High 0-19 [facility] Comment on above: Performed By: #### 1 4138584, 3192109287, 5502314421, 67112872, 2377565496 #### [facility] [address] [place] [address] TSHon 09-07-2023 TSH Qn 1.79 m[IU]/L Normal 0.34-5.60 [facility] Comment on above: Performed By: #### 1 3708680, 9670879845, 8725417460, 95522129, 8747397415 #### [facility] [address] [place] [address] Glucose - FINGER STICKon Glucose [Mass/Vol] 167 mg/dL [employer] Other Nursing Note - Woundon 07-17 Nursing Note - Wound [id number]#2. 00TIFF Normal [facility] SINGH w/Reflex if POSon 2022 Nuclear Ab Ql (S) Negative Invalid Interpretation Code Negative [facility] Comment on above: Result Comment: Perf ormed at: [address] [id number] PhD Edwar Kaplan Performed By: #### 1 9880869, 3519683959, 2275815011, 15719556, 5981260939 #### [facility] [address] [place] [address] Insulin Lvlon 07-11-2023 Insulin Qn 6.1 u[IU]/mL Invalid Interpretation Code 2.6-24.9 [facility] Comment on above: Result Comment: Perf ormed at: [facility] [id number] PhD Edwar Kaplan Performed By: #### 1 2986544, 4872889739, 1704061724, 04896924, 3156490182 #### [facility] [address] [place] [address] Auto Diffon 07-10-2023 Basophils/100 WBC (Bld) 0.6 % Normal 0.0-2.0 [facility] Comment on above: Order Comment: Order Added by Discern Expert. Performed By: #### 1 5595614, 2252305283, 1599735020, 20825305, 6951787895 #### [facility] [address] [place] [address] Basophils/Leukocytes Auto (Bld) [Pure # fraction] 0.1 E9/L Normal 0.0-0.2 [facility] Comment on above: Order Comment: Order Added by Jenny Expert. Performed By: #### 1 8438081, 7886885289, 3021386818, 69879075, 6213481870 #### [facility] Laboratory [address] [place] [address] Eosinophils/100 WBC (Bld) 1.7 % Normal 0.0-8.0 [facility] Comment on above: Order Comment: Order Added by Discern Expert. Performed By: #### 1 2032686, 5615388879, 7270176883, 86288504, 3480617892 #### [facility] [address] [place] [address] Eosinophils/Leukocyte s Auto (Bld) [Pure # fraction] 0.1 E9/L Normal 0.0-0.5 [facility] Comment on above: Order Comment: Order Added by Jenny Expert. Performed By: #### 1 8629140, 8204538151, 7385633654, 05867824, 7728827818 #### [facility] [address] [place] [address] Lymphocytes/100 WBC (Bld) 24.0 % Normal 14.0-50.0 [facility] Comment on above: Order Comment: Order Added by Jenny Expert. Performed By: #### 1 2476639, 4771427447, 3173434567, 21667126, 0503130448 #### [facility] [address] [place] [address] Lymphocytes/Leukocyte s Auto (Bld) [Pure # fraction] 2.1 E9/L Normal 1.0-4.0 [facility] Comment on above: Order Comment: Order Added by Jenny Expert. Performed By: #### 1 3322512, 5436049293, 1719391098, 78845218, 1052635587 #### [facility] [address] [place] [address] Monocytes/100 WBC (Bld) 5.1 % Normal 4.0-14.0 [facility] Comment on above: Order Comment: Order Added by Discern Expert. Performed By: #### 1 2903510, 9727690033, 5633333669, 28560746, 0455545075 #### [facility] [address] [place] [address] Monocytes/Leukocytes Auto (Bld) [Pure # fraction] 0.4 E9/L Normal 0.2-1.0 [facility] Comment on above: Order Comment: Order Added by Discern Expert. Performed By: #### 1 1408017, 7633840860, 3497011798, 64023373, 6950676600 #### [facility] [address] [place] [address] Neutrophils/100 WBC (Bld) 68.6 % Normal 36.0-75.0 [facility] Comment on above: Order Comment: Order Added by Discern Expert. Performed By: #### 1 9392086, 8607230167, 8331654093, 28574925, 6545686468 #### [facility] [address] [place] [address] Neutrophils/Leukocyte s Auto (Bld) [Pure # fraction] 5.9 E9/L Normal 2.0-7.5 [facility] Comment on above: Order Comment: Order Added by Discern Expert. Performed By: #### 1 5467883, 7445331877, 9818840072, 10367068, 8130255725 #### [facility] [address] [place] [address] CBC w/ Auto Diffon 3 Erythrocyte distribution width (RBC) [Ratio] 14.0 % Normal 10.9-14.2 [facility] Comment on above: Performed By: #### 1 5679640, 8208944629, 3858301201, 03311024, 9243868860 #### [facility] [address] [place] [address] Hematocrit (Bld) [Volume fraction] 45.2 % Normal 37.7-49.0 [facility] Comment on above: Performed By: #### 1 4305310, 2044726919, 2176189702, 41860722, 9459803503 #### [facility] [address] [place] [address] Hemoglobin (Bld) [Mass/Vol] 15.5 g/dL Normal 13.5-17.5 [facility] Comment on above: Performed By: #### 1 2139978, 1032527358, 1630672754, 50809251, 8177614653 #### [facility] [address] [place] [address] MCH (RBC) [Entitic mass] 29.5 pg Normal 27.0-34.0 [facility] Comment on above: Performed By: #### 1 6718584, 8692249444, 1658590472, 77843594, 1683385696 #### [facility] [address] [place] [address] MCHC (RBC) [Mass/Vol] 34.3 g/dL Normal 31.4-36.0 [facility] Comment on above: Performed By: #### 1 2174042, 5997135703, 7458685972, 71197732, 3524979792 #### [facility] [address] [place] [address] MCV (RBC) [Entitic vol] 85.9 fL Normal 80.0-100.0 [facility] Comment on above: Performed By: #### 1 [id number], [id number], [id number], [id number], [id number] #### [facility] [address] [place] [address] Platelet mean volume (Bld) [Entitic vol] 9.1 fL Normal 6.4-10.8 [facility] Comment on above: Performed By: #### 1 [id number], [id number], [id number], 20251342, [id number] #### [facility] [address] [place] [address] Platelets (Bld) [#/Vol] 219.0 E9/L Normal 150.0-500.0 [facility] Comment on above: Performed By: #### 1 [id number], [id number], 5046899028, 51328627, [id number] #### [facility] [address] [place] [address] RBC (Bld) [#/Vol] 5.3 E12/L Normal 4.3-5.9 [facility] Comment on above: Performed By: #### 1 7231295, [id number], [id number], 52431819, [id number] #### [facility] [address] [place] [address] WBC corrected for nucl RBC Auto (Bld) [#/Vol] 8.7 E9/L Normal 4.0-11.0 [facility] Comment on above: Performed By: #### 1 [id number], [id number], [id number], 23024483, [id number] #### [facility] [address] [place] [address] CHEMISTRYOrdered By: SYSTEM SYSTEM on 07-10-2023 Albumin [...] Remisol CRP [Mass/Vol] 1.3 mg/dL Normal <=1.9mg/dL FT Remis ol GFR/1.73 sq M.predicted among non-blacks MDRD (S/P/Bld) [Vol rate/Area] 85 mL/min/1.73 m2 Normal >=59mL/min/ 1.73 m2 [facility] Chem S Comment on above: Interpretive Data: C hronic kidney disease could be indicated at eGFR's of less than 60 mL/min/1.73m2. Kidney failure is indicated at less than 15 mL/min/1.73m2. Globulin (S) [Mass/Vol] 4.0 g/dL Normal 1.4 - 4.0 gm/dL FT Remisol Glucose [Mass/Vol] 221 mg/dL High 55 - 199 mg/dL FT Remisol Comment on above: Interpretive Data: I f this glucose result represents a fasting glucose, interpretation should refer to the following reference range: 55-99 mg/dL Potassium [Moles/Vol] 4.6 mmol/L Normal 3.5 - 5.3 mmol/L FT Remisol Protein [Mass/Vol] 7.0 g/dL Normal 6.0 - 7.8 gm/dL FT Remisol Sodium [Moles/Vol] 135 mmol/L Normal 135 - 145 mmol/L FT Remisol Urea nitrogen [Mass/Vol] 24 mg/dL High 5 - 21 mg/dL FT Remisol Urea nitrogen/Creatinine [Mass ratio] 22 mg/mg High 10 - 20 [facility] Remisol CMPon 07-10-2023 Albumin [Mass/Vol] 3.0 g/dL Low 3.3-5.0 [facility] Comment on above: Performed By: #### 1 1595788, [id number], 6206924865, 89980434, [id number] #### [facility] [address] [place] [address] Albumin/Globulin (S) [Mass conc ratio] 0.8 Low 1.1-2.2 [facility] Comment on above: Performed By: #### 1 9782862, [id number], 1823347112, 11560669, [id number] #### [facility] [address] [place] [address] ALP [Catalytic activity/Vol] 123 Int._Unit/L High 21-98 [facility] Comment on above: Performed By: #### 1 5872212, 2402837446, 4034748179, 27319561, [id number] #### [facility] [address] [place] [address] ALT No additional P-5'-P [Catalytic activity/Vol] 26 Int._Unit/L Normal 6-46 [facility] Comment on above: Performed By: #### 1 2883607, 2213768139, 4024077663, 85268913, 0928390298 #### [facility] [address] [place] [address] Anion gap [Moles/Vol] 10 mmol/L Normal 6-16 [facility] Comment on above: Performed By: #### 1 3310247, [id number], 8525392639, 88832017, [id number] #### [facility] [address] [place] [address] AST [Catalytic activity/Vol] 18 Int._Unit/L Normal 5-43 [facility] Comment on above: Performed By: #### 1 2578601, [id number], 3853999859, 14119818, 0482738166 #### [facility] [address] [place] [address] Bilirubin [Mass/Vol] 0.2 mg/dL Normal 0.0-1.1 [facility] Comment on above: Performed By: #### 1 2258343, 7485409272, 5886361088, 27172510, 3557072053 #### [facility] [address] [place] [address] Calcium [Mass/Vol] 8.7 mg/dL Low 8.9-11.1 [facility] Comment on above: Performed By: #### 1 7361612, 2904099123, 5781490295, 91304414, 7260620384 #### [facility] [address] [place] [address] Chloride [Moles/Vol] 102 mmol/L Normal 101-111 [facility] Comment on above: Performed By: #### 1 9517728, 7824027149, 3987910832, 50003245, 0201343578 #### [facility] [address] [place] [address] CO2 [Moles/Vol] 28 mmol/L Normal 21-31 [facility] Comment on above: Performed By: #### 1 9791290, 0323321076, 1611205317, 78084450, 6340024739 #### [facility] [address] [place] [address] Creatinine [Mass/Vol] 1.1 mg/dL Normal 0.5-1.3 [facility] Comment on above: Performed By: #### 1 5968115, 5561668803, 4584886579, 45466490, 4863351298 #### [facility] [address] [place] [address] Globulin (S) [Mass/Vol] 4.0 g/dL Normal 1.4-4.0 [facility] Comment on above: Performed By: #### 1 1580940, 1564492049, 4672959306, 42741276, 6288589495 #### [facility] [address] [place] [address] Glucose [Mass/Vol] 221 mg/dL High 55-199 [facility] Comment on above: Result Comment: If t his glucose result represents a fasting glucose, interpretation should refer to the following reference range: 55-99 mg/dL Performed By: #### 1 8935359, 8211511319, 2192346245, 16551013, 0310374749 #### [facility] [address] [place] [address] Potassium [Moles/Vol] 4.6 mmol/L Normal 3.5-5.3 [facility] Comment on above: Performed By: #### 1 3667391, 0740370705, 3357687715, 77643472, 1986411340 #### [facility] [address] [place] [address] Protein [Mass/Vol] 7.0 g/dL Normal 6.0-7.8 [facility] Comment on above: Performed By: #### 1 0051755, 3328016001, 2395146857, 78935809, 5512493874 #### [facility] [address] [place] [address] Sodium [Moles/Vol] 135 mmol/L Normal 135-145 [facility] Comment on above: Performed By: #### 1 0465792, 9963873689, 0437174685, 83276808, 8622425135 #### [facility] [address] [place] [address] Urea nitrogen [Mass/Vol] 24 mg/dL High 5-21 [facility] Comment on above: Performed By: #### 1 4242779, 1675495645, 7841580893, 99457334, 3888963663 #### [facility] [address] [place] [address] Urea nitrogen/Creatinine [Mass ratio] 22 No Units High 10-20 [facility] Comment on above: Performed By: #### 1 7820125, 2683480373, 9241301038, 23564336, 3340937419 #### [facility] [address] [place] [address] CRPon 07-10-2023 CRP [Mass/Vol] 1.3 mg/dL Normal <=1.9 [facility] Comment on above: Performed By: #### 1 5827522, 8656603727, 2837637192, 90462482, 5853328156 #### [facility] [address] [place] [address] Consent for Treatmenton Consent for Treatment [id number] [id number]#1.0 0TIFF Normal [facility] HEMATOLOGYOrdered By: SYSTEM SYSTEM on [...] 15.5 g/dL Normal 13.5 - 17.5 gm/dL FT HemeAutoSS MCH (RBC) [Entitic mass] 29.5 pg Normal 27.0 - 34.0 pg FT HemeAutoSS MCHC (RBC) [Mass/Vol] 34.3 g/dL Normal 31.4 - 36.0 gm/dL FT HemeAutoSS MCV (RBC) [Entitic vol] 85.9 fL Normal 80.0 - 100.0 fL FT [facility]eAuto[facility] Platelet mean volume (Bld) [Entitic vol] 9.1 fL Normal 6.4 - 10.8 fL FT [facility] Platelets (Bld) [#/Vol] 219.0 E9/L Normal 150.0 - 500.0 E9/L FT [facility]eAutoSS RBC (Bld) [#/Vol] 5.3 E12/L Normal 4.3 - 5.9 E12/L FT HemeAutoSS WBC corrected for nucl RBC Auto (Bld) [#/Vol] 8.7 E9/L Normal 4.0 - 11.0 E9/L [facility] HemeAutoSS HEMATOLOGYOrdered By: Tonie Summers on 07-10-2023 ESR (Bld) [Velocity] 33 mm/h High 0 - 19 mm/hr [facility] HemeAutoSS Physician Orderon 07-10-2023 Physician Order [id number]#1.0 0TIFF Normal [facility] Sed Rate Automatedon 023 ESR (Bld) [Velocity] 33 mm/h High 0-19 [facility] Comment on above: Performed By: #### 1 [id number], [id number], 8108883765, 36318284, 6435985205 #### [facility] [address] [place] [address] eGFRon 07-10-2023 GFR/1.73 sq M.predicted among non-blacks MDRD (S/P/Bld) [Vol rate/Area] 85 mL/min/1.73 m2 Normal >=59 [facility] Comment on above: Order Comment: Order added by Discern Expert. Result Comment: Rn Infusion kylee kidney disease could be indicated at eGFR's of less than 60 mL/min/1.73m2. Kidney failure is indicated at less than 15 mL/min/1.73m2. Performed By: #### 1 7893440, 8224563986, 8625166305, 09022619, 3073774638 #### [facility] [address] [place] [address] Nursing Note - Woundon 06-22 Nursing Note - Wound [id number] 110 [id number]#2. 00TIFF [facility] Consent for Treatmenton Consent for Treatment [id number] 3110 [id number]#1.0 0TIFF [facility] Multi-Wound Charton 06-14-20 Multi-Wound Chart [id number]#1. 00TIFF [facility] Nursing Assessment - Woundon 06-14-2023 Nursing Assessment - Wound [id number]#1. 00TIFF [facility] Physician Orderon 06-14-2023 Physician Order [id number] 10 [id number]#1. 00TIFF [facility] Progress Note - Woundon Progress Note - Wound [id number] 4206 [id number]#1. 00TIFF [facility] Consent for Treatmenton Consent for Treatment [id number] 3110 [id number]#1.0 0TIFF [facility] Physician Orderon 06-12-2023 Physician Order [id number]#1. 00TIFF [facility] XR Wrist 3+ Views Righton XR Wrist [...] , FINAL REPORT Dictated: 06/12/2023 4:42 pm SignJoey wagner MD Signed (Electronic Signature): 06/12/2023 4:42 pm Signed by: Joey Menendez MD Transcribed by: CAROLE Technologist: ZACHARY Technical Comments Radiation Dose: Ka,r in mGy = na DAP = na [facility] Consent for Procedure/Surger yon 06-07-2023 Consent for Procedure/Surgery [id number]#1. 00TIFF [facility] Consent for Treatmenton Consent for Treatment [id number] 3110 [id number]#1.0 0TIFF [facility] Multi-Wound Charton 06-07-20 Multi-Wound Chart [id number] 10 [id number]#1. 00TIFF [facility] Nursing Assessment - Woundon 06-07-2023 Nursing Assessment - Wound [id number]#1. 00TIFF [facility] Physician Orderon 06-07-2023 Physician Order [id number] 10 [id number]#1. 00TIFF [facility] Progress Note - Woundon Progress Note - Wound [id number] 2432 [id number]#1. 00TIFF [facility] Consent for Treatmenton 05-08 Consent for Treatment [id number] 3100 [id number]#1.0 0TIFF [facility] Multi-Wound Charton 05-31-20 23 Multi-Wound Chart [id number] 00 [id number]#1. 00TIFF [facility] Nursing Assessment - Woundon 05-31-2023 Nursing Assessment - Wound [id number]#1. 00TIFF [facility] Nursing Note - Woundon 05-31 Nursing Note - Wound [id number] 100 [id number]#1. 00TIFF [facility] Physician Orderon 05-31-2023 Physician Order [id number] 00 [id number]#1. 00TIFF [facility] Progress Note - Woundon 05-08 Progress Note - Wound [id number] 5857 [id number]#1. 00TIFF [facility] Consent for Procedure/Surger yon 05-24-2023 Consent for Procedure/Surgery [id number]#1. 00TIFF [facility] Consent for Treatmenton 05-07 Consent for Treatment [id number] 3100 [id number]#1.0 0TIFF [facility] Multi-Wound Charton 05-24-20 Multi-Wound Chart [id number] 00 [id number]#1. 00TIFF [facility] Nursing Assessment - Woundon 05-24-2023 Nursing Assessment - Wound [id number]#1. 00TIFF [facility] Nursing Note - Woundon 05-24 Nursing Note - Wound [id number] 100 [id number]#1. 00TIFF [facility] Physician Orderon 05-24-2023 Physician Order [id number] 00 [id number]#1. 00TIFF [facility] Progress Note - Woundon 05-07 Progress Note - Wound [id number] 6843 [id number]#[facility]. [facility] Provider Orders [id number] 00 [id number]#1.0 0[facility] Coding Summaryon 05-22-2023 [facility] CqnvtufrRMf5uJn+PGhlYW Q+TC6RFYPiS02mvFYffV7n H8YCLJaIGkplGSQMFJwARw DwotRqGX2isZKeBQGe IC8+GK1tEGCwWpjvvEWwh3 Z1dHS7J63ebc2pKJpxtSP4 HFBbRmMpsvsyv8dfnJi2LE cuNmluOyBt KZTrlC02HVM3sS62Vb38mT EodDJth9bqsXv4OzIyIUSb WTQ1qVksCHnzr9UkOEYvM7 9neHGzm2R0 KEPhqCmtjZDrUnFxcOZ2aU 2wWBrzqmscc9cbzpshIxv2 xj07cFAeg2G1hUD9Z0Nxno U5KDIekMSc GmnhrSNMmW5qmyear1itcg amKxOdSFNlERl7KAc7OZIb lPebLqThOB96KZB6TBAcqu DfQ0DhPSLz iAwbIsY7m7V5Hw4KZ7NFDu esQ0ZRAWFUVWvrgSE+PC90 rm94I5XuStmhGhj7NWMxFG A0oQH0yB5p NAKoNViig9A9nJB9K9Ikvx Uxtf9dl4bhIMOrRQmlZ87x yCGhd2N7IKCkzSA0RBNxpC amUePrhR98 Oyc+DUTpmWcjc2JvExiuq4 epf3rubFc1WgojZEHqvfBc lHcfSTR9p4YpOp7eFTIxmT B6yVT8fG6p LgJvImQ2ZTzrW879CfWlwF UhTvraB97sH2BcdUQ+PHRy Mel0XPMrwYcaBJ7kX9NyPG RpbmctbGVm xBmiMA4dGIXovyagGVNswC 4mSUAgY6l1MvSqOwB6WBnn F5XpHAAytvxpVa30mZ8bVh FlQrN8VNbg K3MkqjP1AONqvAXeDEpbDN R7C74zt1U2EDRcGMDiEQJ3 fUZ1qT3jzQldqecwkDHqgR sgdmVydGlj QNzdODayV169FFEuvNdcLm NvZGluZyBEYXRlOiAgMTAv MTYvMjAyMzwvdGQ+PHRkIH W7bXuwJLLl cERxVYbrYa1lpHmtuEmxSH 9rDJLzdpglKTAteR0uMVTp cNLbtFfbOM8eBBKqqvcdt9 86QtMyCBN3 PJCdxUZuT8OycC5lMkImWE ZwZKJnD9IwvCGiFKgpP375 EEmsPtE9RBYkpmQvB0LtTQ FsaWduOiB0 j9J9Ng6Ak1FfjjwxS4MdhC HtGwPnSwjaWUx6W6HvNqur dHI+MT19PJIsJZ70ZLs8YX E1tRziOOef WDGrW9XftQ8wFfCfPGUpUE RkOyc+PHRhYmxlIHdpZHRo FQgzDFCcHoKyyBnoJA4tVs 9yZGVyLWNv gHaipCZuWeUqu2wdQCEnGY zqAA6eeZeeF8SnwSS0FIAt r4x3Cz48S58mG4RjwXI+PG EhuSF2pGP7 pL4aVhPhGzU6GRbhW230Dp VyqDQwTirnh1dil2ahaFl9 IiB6MXBbtcEsvJfwAMN9p1 QwXj62K86u IHdpZHRoPSIxNSUiIHZhbG cpek4pgQ5lGx3+PGNvbCB3 mCX6rK6nOmSsNkW4TCufX0 49InRvcCIv Qcevn0ypl7gcfDz7TcDcOE OzhnZsyMjjWXW7x6NoYd54 G7DzvUtlw2FdBnb0fh43xL Qcc2R9pLN9 H8WsPBTrtykcfOVjvHtxGI 1uLDWxlrutASAmmK6lOUXt Y3b6WlUuReY5UFydX6Mprl W0HRFdqXYo CGGgeAWOhH5ucqnse2pqsb hnVlKqTFKzSGi8IYf8HYAq nTuzStFiXYU4TrZ3DDN2iS ZfaG1tqQiw enpdyY3yIhm+BEV6bDKhrB ROTL5gMsmvhOG+PHRkIHN0 gTbcZKklMZSchI2pPYYxE8 n9HuJxFoS0 BAihQ9NkgjH2CILqeVFuBJ JyyCSRbT5zvfstk2opevhv GtWvIGCeNXq0TFu9APTeeZ duOiBsZWZ0 ZsQ9EEV1dUTytC5jeQqkds kkdH9jDzo+QmlydGggRGF0 KDs7O3DkAin2ITLvdWbkEG 0ncGFkZGlu Iy1kbAmfmCseQA8vIHOgnf oxh650OzLxc7xrTCSheVKg MDmnULW9H13ep4A8GYEdKU WkFGK0hCP1 kM6ndOkwrwmdkFMflQsavj PafDbbJKpwBVsyA642CKCs uZsjMfRyJRp6A1WxQyu7UZ CynIbaNW8h pUIcZZuhSi7jaJzzmUycVK 5aIKSvnffzi179FsYpg0jf MFOffEJxLZnuXTB1B32fk4 W1VGUtTRSb QTF9aWT6lV0rcSfiyequgS VmdDsgdmVydGljYWwtYWxp S944XUTicNnkNzXfjFx5R9 GwKdq5MUVs eUsrYR9elGWuUGnuHd6ajF lbwQzlSL3eMDUzgpiaf745 ByZgb8vtAMGduJFxSHgtPU E5E92ec4J0 TRTmEOGyJFN7zJM6cH7rkS lnbjogbGVmdDsgdmVydGlj QFndQKviT234DXMhvBusKv BhdGllbnQg VYddVZv5F9FqDqpakMX+PC 60BMSfWL87kESosNAka2bq qMl1VoBvRPUtTEN4nQebCB xuf4DtGUGc Z32ohDDkq9I7NBBxrVzydD JtWcCyyHE4jB2ySCjmpeyn j2onzbmoJpxqc3kanm06iJ 71D33kMUkw ZHRoPSIzMCUiIHZhbGlnbj 8ynO5uJb6+VGXawRC2pBA6 fO5wLPQdKsM5HAqwF461Qm RvcCIvPjxj k4kua7kzvNu6GgR6WXZmgs TgcLdrYKF2v2SvUn72U57y IHdpZHRoPSIyMCUiIHZhbG vwfa4hvR0g Ii8+NQYhnKT1ySZ0oS2hRg NfRsS0NWfkX343WkCyhSZb AyjzC98fL6WsfFM+PHRyPj t5SWRwwXza JB1ocQEcIHntWf7uXVN1Dd QgMfXfPGioC6CoCREvqrdf dxuwrMD9ADWcOMBptF79Vs 9udDogMTBw oJJJlW5nycskq4stwsdiTw WcEBUfZYa3UAf6GIIjaIak KpSpPTX9RnF6EFM2kSDduD 1hbGlnbjog eN2gR1LgIEKwqjflPm55cP 7sNiWoGtF4VUtgFxq+V09M HbDhPKEQHm4WDM15YS96wA Wyb5T2pAW6 B2NpKHPxhwxrgykopYD5WN KsQELxpP84iWSjPPqdYp2o v2C5o649ZDVpFMIdnF90Ht 9udDogMTBw tUQYhJ0isegba3tshcarDq ReTPUtUFh1YAw4KVBxtKhv FrGmHKV4DgF0EFB7oKLcmJ 1hbGlnbjog vK1nFwi+JTgoSZPhZCg7LC wvdGQ+KNBhLVC7kPvqCIth VOTwyQ6tLBJjD7s2PzXlDr S7TDvkZ9Ts LBZckpvcSe31gX3iLcArJq X9FHkzM5SvuyA9NXPvgFMt WDcgDSX5Q37oi8W3HLKwBT JoNXW2mEU4 bF7voYnsclbciBRgeHjjse AmrLnoYOzeSSybL387MBHl xNqjLjOeQBsyXVQrJJ76EL 49yPQaa6A5 xKD8K8UhNKZruupdgxggfM U5WTBbKRWyyZ39nEJqARwl Wb0dr7I9g339FYWcCTPzaU 67Xl7lqRvp RKPaiACZgM2xrrhse5omsk yzMeXqSLCaJRi3COe8PWEa oWlwMfQsCUU3ZxZ5KBS8pW EtpC9mgPcb ryxkeP2jZdy+TUFMRTwvdG Q+XBAnBYN9mWqdFMlpZRLf zG8nTWTfB2b4PlImJlM4FL baN5GvXXDg sgybXl35xT8rPfWoZgA8PZ srM0WpiwG1WCNiyQLxYGmr PMM0H25mh9Q1RRMlIIFpOJ K6fUX8nZ2y bGlnbjogbGVmdDsgdmVydG kjSXacKXiwC940AKNwuPpg StQazWJHcPQqTQD6XC43PD 26Z2YvTfey dGFibGU+PHRhYmxlIHdpZH PjTBmeJXUlLzNvxWjaHK9j Kl6nMEYnLKZtvQuqwNToBe Syz0znYEHp SVnmGL9fdSybB9VqlNF3HJ Lvh3e9Pu64Y36vY9XrlMZ+ KFPaaYW2xET7nM3wNqMqNo K3KLzrS353 ZtLsbAYkGizie8uze8rgjY r2UxZvFDRzjbVugZkxKTK1 t9VgVq27M52bNJgtVARiJN IyMCUiIHZh wEsjdn6bmP9jRh2+PGNvbC E1tHW5sL0lAeLoFxJ2VSbu O819VwVkoNKmJhtgH49dU7 JvdXA+PHRy Xyo7UPXuyMxuOM1diTVzGX rqTq1uEWA7OmTlQrVqBMiv L2SuWNNmjbtnyvyhoLS4VZ XuIUVsrD91 Ki7boJceDj4dPAHjXKT8BY DwwZRdV0ImhS4jAtZvYFMi HVWwX4HioZPfIMgqM756OR yyNbF8IWLb rcHdE1TeLDPiqGklWtC5x1 K9Nt3ItYgxhVVrYY6fThUa OEu1I1JwLcn8NDAxbXugMS 0ncGFkZGlu Lp6hlEciiPhoOW0mBDZcsr agx418JeMzp8ytHJVhoJWq IRroRXL7H50ut5D3JVOpHF OdVHK2nRQ1 wW5nyMxbscmbrOQnnTfltg YfbFbhFMbuAHjmV791KEPu sEztZmLCFaw8L6UvSoi0MF VfrDghWM4k oRWjFMhbIq1lsZfvqNapMZ 3wKMNtbavtd750XhTrt6xq AZQfiQXyAGlcEHD7P45nn8 W8CUTwHGUl PJT5kFZ5qF3gmLoegbtkkJ VmdDsgdmVydGljYWwtYWxp E807JWMpoWjdNw1RAmj8S4 SaGuh7SXQb pCcgUO5grKThWVaxCj5ofK ptzCmaPS0wGMVbfjava087 AyGel5osDQKgvGGgXTciAQ P9Q43ox0P6 JKHxEACtAKJ4bMM7dN9boL lnbjogbGVmdDsgdmVydGlj TXdnTGhsS766FAIoqBsmQz BheWVyOjwv dGQ+XO23ho81A5FbXkiqZj f2YHWnTZC9tWD4fF1sEUQm UPhje7V9tYG0Q1HyxeOmjn 0yp7ekPVKb ZTo (more content not included)... [facility] Consent Formson 05-22-2023 Consent Forms [id number]#1.0 [facility] 05-22-2023 Outside Records [id number]#1.0 [facility] Telemetry Stripson Telemetry Strips [id number] 02 [id number]#1.00 [facility] Anesthesia Note Patient: CHRIS BERGMAN Age: 43 years Sex: MALE : 1980 Associated Diagnoses: None Author: Darryl Khan MD Postoperative Information Post Operative Note Health Status Allergies: Allergic Reactions (All) Mild Penicillin- Green. Problem list (past medical history): All Problems Enlarged prostate / SNOMED CT 178850457 / Confirmed Tobacco user / SNOMED CT 563298520 / Probable Type 2 diabetes mellitus / SNOMED CT 863504274 / Confirmed Physical Examination VS/Measurements Vital Signs (last 24 hrs) Last Charted Heart Rate Monitored 84 bpm (MAY 19:) Resp Rate 16 br/min (MAY 19 10:06) SBP 120 mmHg (MAY 19:06) DBP 75 mmHg (MAY 19:06) Weight 86.600 kg (MAY 19 07:05) Height 180.34 cm (MAY 19 07:05) Assessment Anesthetic outcome No anesthetic complications noted. Plan Transfer/ Discharge: To home, Patient can be discharged from PACU when criteria met. Condition good. pt did well. pain controlled. no n/v. hd stable. resp and neuro status at baseline. volume status adequate [Electronically Signed on: 05/19/2023 10:12 EDT] Darryl Khan MD [Verified on: 05/19/2023 10:12 EDT] Darryl Khan MD [facility] Anesthesia Note Patient: CHRIS BERGMAN Age: 43 [...] All Problems Enlarged prostate / SNOMED CT 081067059 / Confirmed Tobacco user / SNOMED CT 621107523 / Probable Type 2 diabetes mellitus / SNOMED CT 091674605 / Confirmed Histories Family History: No family history items have been selected or recorded. Procedure history: Wrist ([id number]). Scrotum ([id number]). Comments: 05/18/2023 10:40 EDT - Greg Astorga RN infection Social History [...] 19 07:05) Height 180.34 cm (MAY 19 07:05) Review / Management Laboratory Results Plan [place] [employer] (ASA) physical status classification: Class III. Anesthetic Preoperative Plan Anesthesia: Monitored anesthesia care. Anesthetic plan, risks, benefits, and alternatives discussed with the patient and/or family. Patient verbalized understanding. [Electronically Signed on: 05/19/2023 08:36 EDT] Darryl Khan MD [Verified on: 05/19/2023 08:36 EDT] Darryl Khan MD [facility] Inpatient Patient Summaryon 05-19-2023 Inpatient Patient Summary [place] [id number] Patient Discharge Instructions Name: ARTURO BERGMAN : 1980 Patient Address: [address] [id number] Primary Care Provider: Name: Lisa Madden CNP After you are discharged if you find you have any questions, please, call [phone] ext [phone] to speak to a nurse. Discharge Diagnosis: [...] alcohol and/or drug addiction problems; contact the [facility] 27/02 Crisis Hotline -Text 9JEEB tb 934068. If you received any narcotics, sedation, or [...] business decisions or sign any legal documents [facility] would like to thank you for allowing us to assist you with your healthcare needs. The following includes patient education materials and information regarding your injury/illness. ARTURO BERGMAN has been given the following list of follow-up instructions, prescriptions, and patient education materials: Follow-up Instructions With: Address: When: Troy De Paz [address] [place] [id number] Business (1) Comments: wound care center 05/24/23 keep appointment at [facility] With: Address: When: Lisa Madden [address] [place] [address] Business (1) Medications During the course of your visit, your medication list was updated with the most current information. The details of those changes are reflected below: New Medications [facility], [address] [place], [place] [id number], [phone] acetaminophen-oxycodon e (Percocet 5 mg-325 mg oral [...] oral d (more content not included)... Normal [facility] Intraoperative [facility]20[facility] Intra-Op Record Summary Primary Physician: Troy De Paz DPM Finalized Date/Time: 05/19/23 11:16:21 Pt. Name: ARTURO BERGMAN/Sex: 1980 MALE Med Rec #: [id number] Physician: Troy De Paz DPM Financial #: [id number] Pt. Type: D Room/Bed: / Admit/Disch: 05/19/23 06:53:08 - Institution: Case Times MAGR Entry 1 Patient In Room Time 05/19/23 09:23:00 Out Room Time 05/19/23 10:04:00 Anesthesia Start Time 05/19/23 09:24:00 Stop Time 05/19/23 10:03:00 Surgery Start Time 05/19/23 09:46:00 Stop Time 05/19/23 10:02:00 Last Modified By: Nadja Melol RN 05/19/23 10:04:59 Case Attendance MAGR Entry 1 Entry 2 Entry 3 Case Attendee Troy De Paz DPM, John M MD Long, Barbara RN Role Performed Surgeon - Primary Anesthesiologist of [employer] Record Time In 05/19/23 09:25:00 05/19/23 09:23:00 05/19/23 09:23:00 Time Out 05/19/23 10:04:00 05/19/23 10:04:00 05/19/23 10:04:00 Procedure Wound Debridement- Wound Debridement- Wound Debridement- SURG(Right) SURG(Right) SURG(Right) Last Modified By: Nadja Mello RN, Barbara RN Long, Barbara RN 05/19/23 10:12:38 05/19/23 10:12:38 05/19/23 10:12:38 Entry 4 Entry 5 Case Attendee Chelo King CST SPEECH PATHOLOGIST ASSISTANT/RUDDYAMeagan SPEECH PATHOLOGIST ASSISTANT Role Performed Scrub Personnel Outdoor Adventure Leader Time In 05/19/23 09:23:00 05/19/23 09:23:00 Time [...] Count Final Count Status Correct Final Counts Long, (more content not included)... Normal [facility] PACU Recordon MAGR PACU Record MAGR PACU Record Summary Primary Physician: Troy De Paz DPM Finalized Date/Time: 05/19/23 10:38:03 Pt. Name: ARTURO BERGMAN/Sex: 1980 MALE Med Rec #: [id number] Physician: Troy De Paz DPM Financial #: [id number] Pt. Type: D Room/Bed: / Admit/Disch: 05/19/23 06:53:08 - Institution: PACU Case Times MAGR Entry 1 In PACU I 05/19/23 10:05:00 Discharge from PACU 05/19/23 10:37:00 I Last Modified By: Nata Flor RN 05/19/23 10:37:54 Finalized By: Nata Flor RN Document Signatures Signed By: Nata Flor RN 05/19/23 10:38 [facility] MAGR Postoperative Recordon 05-19-2023 MAGR Postoperative Record MAGR Phase II Record Summary Primary Physician: Troy De Paz DPM Finalized Date/Time: 05/19/23 11:56:39 Pt. Name: ARTURO BERGMAN/Sex: 1980 MALE Med Rec #: [id number] Physician: Troy De Paz DPM Financial #: [id number] Pt. Type: D Room/Bed: / Admit/Disch: 05/19/23 [...] Signed By: Nata Flor RN 05/19/23 11:56 [facility] MAGR Preoperative Recordon 1 MAGR Preoperative Record MAGR Pre-Op Record Summary Primary Physician: Troy De Paz DPM Finalized Date/Time: 05/19/23 11:57:02 Pt. Name: ARTURO BERGMAN /Sex: 1980 MALE Med Rec #: [id number] Physician: Troy De Paz DPM Financial #: [id number] Pt. Type: D Room/Bed: / Admit/Disch: 05/19/23 [...] consent correct. General Comments: Pt arrives to psw ambulatory. PT denies cp, sob, cough or flu like symptoms. Pt denies pacemaker/defibillator or sleep apnea. Finalized By: Nata Flor RN Document Signatures Signed By: Nata Flor RN 05/19/23 11:57 [facility] Operative Report - Surgeon/P joanna 05-19-2023 Operative [...] seen in the wound care center in [place] for nonhealing chronic wound right foot. Patient [...] seen in the wound care center in [place] on Monday of next week that insistent thank you. 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 Anesthesia: General with local to the [...] thigh. [Electronically Signed on: 05/19/2023 10:29 EDT] DolTroy guerrero R DPM [Verified on: 05/19/2023 10:29 EDT] DolTroy guerrero R DPM [facility] POCT Glucose Levelon 023 Glucose [Mass/Vol] 157 mg/dL High [address] [place] [address] Comment on above: Performed By: #### 4 [id number] ####[facility] (DEFAULT)[address] [place] [address] 09896 Glucose [Mass/Vol] 234 mg/dL [address] Comment on above: Performed By: #### 4 [id number] ####[facility] (DEFAULT)[address] [place] [address] 77865 Glucose [Mass/Vol] 247 mg/dL [address] Comment on above: Performed By: #### 4 [id number] #### [facility] (DEFAULT) [address] [place] [address] Patient Handouton 05-19-2023 Patient Handout [facility] Triage Panel 12on 05-19-2023 Triage Internal Control Pass [facility] Comment on above: Performed By: #### 1 [id number] ####[facility] (DEFAULT)[address] [place] [address] 01460 U Amph Scr Negative [facility] Comment on above: Performed By: #### 1 [id number] ####[facility] (DEFAULT)[address] [place] [address] 61210 U Carola Scr Negative [facility] Comment on above: Performed By: #### 1 [id number] ####[facility] (DEFAULT)[address] [place] [address] 54930 U Benzodia Scr Negative [facility] Comment on above: Performed By: #### 1 [id number] ####[facility] (DEFAULT)[address] [place] [address] 94740 U Cannab Scrn Positive [facility] Comment on above: Performed By: #### 1 [id number] ####[facility] (DEFAULT)[address] [place] [address] 26424 U Cocaine Scr Negative [facility] Comment on above: Performed By: #### 1 [id number] ####[facility] (DEFAULT)[address] [place] [address] 02704 U Methadone Scr Negative [facility] Comment on above: Performed By: #### 1 [id number] ####[facility] (DEFAULT)[address] [place] [address] 70838 U Methamp Scrn Negative [facility] Comment on above: Performed By: #### 1 [id number] ####[facility] (DEFAULT)[address] [place] [address] 88920 U Opiate Scr Positive [facility] Comment on above: Performed By: #### 1 [id number] ####[facility] (DEFAULT)[address] [place] [address] 03148 U Oxycod Scr Negative Normal [facility] Comment on above: Performed By: #### 1 [id number] ####[facility] (DEFAULT)[address] [place] [address] 68020 U Phencyclidine Scr Negative Normal [facility] Comment on above: Performed By: #### 1 [id number] ####[facility] (DEFAULT)[address] [place] [address] 82834 U Propoxyphene Scr Negative Normal [facility] Comment on above: Performed By: #### 1 [id number] ####[facility] (DEFAULT)[address] [place] [address] U Tricyclic Antidepress Scr Negative [facility] Comment on above: Result Comment: Resu lts [...] PPX Propoxyphene (Norpropoxyphene): 300 ng/mL THC Cannabinoids (28-nmd-0-carboxy- -THC): 50 ng/mL TCA Tricyclic-Antidepressants (Desipramine): 300 ng/mL Performed By: #### 1 [id number] ####[facility] (DEFAULT)[address] [place] [address] 22651 Urine Source Voided [facility] Comment on above: Performed By: #### 1 [id number] ####[facility] (DEFAULT)[address] [place] [address] 53182 Procedure - Woundon 05-17-20 23 Procedure - Wound [id number] 00 [id number]#1. 00TIFF [facility] Progress Note - Woundon 05-07 Progress Note - Wound [id number] [id number]#1. 00TIFF [facility] Consent for Procedure/Surger yon 05-16-2023 Consent for Procedure/Surgery [id number]#1. 00TIFF [facility] Consent for Treatmenton 05-07 Consent for Treatment [id number] 3100 [id number]#1.0 0TIFF Normal [facility] Correspondence - Woundon Correspondence - Wound [id number]#1. 00TIFF Normal [facility] Multi-Wound Charton 05-16-20 Multi-Wound Chart [id number] 00 [id number]#1. 00TIFF Normal [facility] Nursing Assessment - Woundon 05-16-2023 Nursing Assessment - Wound [id number]#1. 00TIFF [facility] Nursing Note - Woundon 05-16 Nursing Note - Wound [id number] 100 [id number]#1. 00TIFF Normal [facility] Physician Orderon 05-16-2023 Physician Order [id number] 00 [id number]#1. 00TIFF Normal [facility] Auto Diffon 05-15-2023 Basophils/100 WBC (Bld) 0.6 % Normal 0.0-2.0 [facility] Comment on above: Order Comment: Order Added by Discern Expert. Performed By: #### 1 9798577, 8728459, 6807050, 6297390 ####[facility] [address] [place] [address] Basophils/Leukocytes Auto (Bld) [Pure # fraction] 0.0 E9/L Normal 0.0-0.2 [facility] Comment on above: Order Comment: Order Added by Discern Expert. Performed By: #### 1 9764109, 2685827, 3186533, 9877801 ####[facility] [address] [place] [address] Eosinophils/100 WBC (Bld) 1.6 % Normal 0.0-8.0 [facility] Comment on above: Order Comment: Order Added by Discern Expert. Performed By: #### 1 7215438, 9844977, 3968930, 2978020 ####[address] [place] [address] Eosinophils/Leukocyte s Auto (Bld) [Pure # fraction] 0.1 E9/L Normal 0.0-0.5 [facility] Comment on above: Order Comment: Order Added by Discern Expert. Performed By: #### 1 1509740, 9363089, 7152181, 6229194 ####[address] [place] [address] Lymphocytes/100 WBC (Bld) 23.0 % Normal 14.0-50.0 [facility] Comment on above: Order Comment: Order Added by Discern Expert. Performed By: #### 1 1264760, 5206912, 5239248, 6563610 ####[address] [address] Lymphocytes/Leukocyte s Auto (Bld) [Pure # fraction] 1.8 E9/L Normal 1.0-4.0 [facility] Comment on above: Order Comment: Order Added by Discern Expert. Performed By: #### 1 6443044, 8871868, 1227063, 2775472 ####[address] [address] Monocytes/100 WBC (Bld) 7.0 % Normal 4.0-14.0 [facility] Comment on above: Order Comment: Order Added by Discern Expert. Performed By: #### 1 6287857, 6617744, 0460539, 7012424 ####[address] [place] [address] Monocytes/Leukocytes Auto (Bld) [Pure # fraction] 0.5 E9/L Normal 0.2-1.0 [facility] Comment on above: Order Comment: Order Added by Discern Expert. Performed By: #### 1 2884138, 4987133, 1468851, 1240787 ####[address] [place] [address] Neutrophils/100 WBC (Bld) 67.8 % Normal 36.0-75.0 [facility] Comment on above: Order Comment: Order Added by Discern Expert. Performed By: #### 1 4707272, 1807008, 1399440, 7363457 ####[facility] [address] [place] [address] Neutrophils/Leukocyte s Auto (Bld) [Pure # fraction] 5.3 E9/L Normal 2.0-7.5 [facility] Comment on above: Order Comment: Order Added by Discern Expert. Performed By: #### 1 9875065, 7089980, 1251250, 1708290 ####[facility] [address] [place] [address] BMPon 05-15-2023 Anion gap [Moles/Vol] 7 mmol/L Normal 6-16 [facility] Comment on above: Performed By: #### 1 5208028, 5363386, 7854267, 0413680 ####[facility] [address] [place] [address] Calcium [Mass/Vol] 8.5 mg/dL Low 8.9-11.1 [facility] Comment on above: Performed By: #### 1 6029560, 6477566, 0476752, 7056369 ####[facility] [address] [place] [address] Chloride [Moles/Vol] 106 mmol/L Normal 101-111 [facility] Comment on above: Performed By: #### 1 2191909, 6667228, 4632582, 7190901 ####[facility] [address] [place] [address] CO2 [Moles/Vol] 28 mmol/L Normal 21-31 [facility] Comment on above: Performed By: #### 1 1300309, 6285104, 2265482, 8602485 ####[facility] [address] [place] [address] Creatinine [Mass/Vol] 1.1 mg/dL Normal 0.5-1.3 [facility] Comment on above: Performed By: #### 1 6278708, 1544428, 5117335, 2199731 ####[facility] [address] [place] [address] Glucose [Mass/Vol] 182 mg/dL Normal 55-199 [facility] Comment on above: Result Comment: If t his glucose result represents a fasting glucose, interpretation should refer to the following reference range: 55-99 mg/dL Performed By: #### 1 8974091, 4338271, 1001941, 2727005 ####[facility] [address] [place] [address] Potassium [Moles/Vol] 4.4 mmol/L Normal 3.5-5.3 [facility] Comment on above: Performed By: #### 1 4458981, 8814681, 9388600, 3670069 ####[facility] [address] [place] [address] Sodium [Moles/Vol] 137 mmol/L Normal 135-145 [facility] Comment on above: Performed By: #### 1 5917806, 7530623, 2311078, 6313849 ####[facility] [address] [place] [address] Urea nitrogen [Mass/Vol] 24 mg/dL High 5-21 [facility] Comment on above: Performed By: #### 1 5178248, 2409452, 2349085, 5316184 ####[facility] [address] [place] [address] Urea nitrogen/Creatinine [Mass ratio] 22 No Units High 10-20 [facility] Comment on above: Performed By: #### 1 2656537, 2160348, 9045605, 3243771 ####[facility] [address] [place] [address] CBC w/ Auto Diffon 3 Erythrocyte distribution width (RBC) [Ratio] 13.5 % Normal 10.9-14.2 [facility] Comment on above: Performed By: #### 1 6244466, 1165518, 0859088, 6919907 ####[facility] [address] [place] [address] Hematocrit (Bld) [Volume fraction] 41.7 % Normal 37.7-49.0 [facility] Comment on above: Performed By: #### 1 2803814, 8834401, 8328179, 9978773 ####[facility] [address] [place] [address] Hemoglobin (Bld) [Mass/Vol] 14.2 g/dL Normal 13.5-17.5 [facility] Comment on above: Performed By: #### 1 3849516, 1234528, 6153347, 3189842 ####[address] [place] [address] MCH (RBC) [Entitic mass] 29.3 pg Normal 27.0-34.0 [facility] Comment on above: Performed By: #### 1 1785797, 8788426, 9251721, 6475916 ####[id number] MCHC (RBC) [Mass/Vol] 34.2 g/dL Normal 31.4-36.0 [facility] Comment on above: Performed By: #### 1 9978875, 2597766, 0689986, 6290341 ####[address] [place] [address] MCV (RBC) [Entitic vol] 85.7 fL Normal 80.0-100.0 [facility] Comment on above: Performed By: #### 1 7200747, 0819704, 4739760, 4858532 ####[address] [place] [address] Platelet mean volume (Bld) [Entitic vol] 8.8 fL Normal 6.4-10.8 [facility] Comment on above: Performed By: #### 1 1516337, 0177457, 4927842, 8842558 ####[address] [place] [address] Platelets (Bld) [#/Vol] 200.0 E9/L Normal 150.0-500.0 [facility] Comment on above: Performed By: #### 1 3633337, 6414565, 5837847, 2801660 ####[facility] [address] [place] [address] RBC (Bld) [#/Vol] 4.9 E12/L Normal 4.3-5.9 [facility] Comment on above: Performed By: #### 1 4651692, 6675676, 1240720, 2068612 ####[facility] [address] [place] [address] WBC corrected for nucl RBC Auto (Bld) [#/Vol] 7.8 E9/L Normal 4.0-11.0 [facility] Comment on above: Performed By: #### 1 8541058, 3690535, 0368700, 7321622 ####[facility] [address] [place] [address] Consent for Treatmenton Consent for Treatment [id number] 3100 [id number]#1.0 0TIFF Normal [facility] Physician Orderon 05-15-2023 Physician Order [id number] 03 [id number]#1. 00TIFF Normal [facility] XR Chest 2 Viewson 3 [...] CAROLE Technologist: KVNG Technical Comments Radiation Dose: Kasu in mGy = . DAP = . Normal [facility] eGFRon 05-15-2023 GFR/1.73 sq M.predicted among non-blacks MDRD (S/P/Bld) [Vol rate/Area] 85 mL/min/1.73 m2 Normal >=59 [facility] Comment on above: Order Comment: Order added by Discern Expert. Result Comment: Rn Infusion kylee kidney disease could be indicated at eGFR's of less than 60 mL/min/1.73m2. Kidney failure is indicated at less than 15 mL/min/1.73m2. Performed By: #### 1 9627942, 4106460, 5662971, 0055979 ####[facility] [address] [place] [address] Nursing Note - Woundon 05-12 Nursing Note - Wound [id number] 100 [id number]#2. 00TIFF Normal [facility] Physician Orderon 05-11-2023 Physician Order [id number] 00 [id number]#1. 00TIFF [facility] Procedure - Woundon 05-11-20 Procedure - Wound [id number] 00 [id number]#1. 00TIFF [facility] Physician Orderon 05-10-2023 Physician Order [id number] 00 [id number]#1.0 0CD:127 Normal [facility] Consent for Treatmenton Consent for Treatment [id number]#1.0 0CD:127 Normal [facility] Multi-Wound Charton 05-09-20 Multi-Wound Chart [id number] 00 [id number]#1. 00CD:127 Normal [facility] Nursing Assessment - Woundon 05-09-2023 Nursing Assessment - Wound [id number]#1. 00CD:127 Normal [facility] Consent for Treatmenton 04-08 Consent for Treatment [id number] 3090 [id number]#1.0 0CD:127 [facility] Multi-Wound Charton 05-03-20 Multi-Wound Chart [id number] 90 [id number]#1. 00CD:127 [facility] Nursing Assessment - Woundon 05-03-2023 Nursing Assessment - Wound [id number]#1. 00CD:127 [facility] Nursing Note - Woundon 05-03 Nursing Note - Wound [id number] 090 [id number]#1. 00CD:127 [facility] Outside Recordson 05-03-2023 Outside Records [id number] 03 [id number]#1.0 0CD:127 [facility] Physician Orderon 05-03-2023 Physician Order [id number] 90 [id number]#1. 00CD:127 [facility] Procedure - Woundon 05-03-20 Procedure - Wound [id number] 90 [id number]#1. 00CD:127 [facility] Progress Note - Woundon 04-08 Progress Note - Wound [id number] 2816 [id number]#1. 00CD:127 [facility] Physician Orderon 04-28-2023 Physician Order [id number] 05 [id number]#1. 00CD:127 [facility] Nursing Note - Woundon 04-27 Nursing Note - Wound [id number] 090 [id number]#2. 00CD:127 [facility] Outside Recordson 04-27-2023 Outside Records [id number] 04 [id number]#1. 00CD:127 [facility] Consent for Procedure/Surger yon 04-25-2023 Consent for Procedure/Surgery [id number]#1. 00CD:127 [facility] Consent for Treatmenton 04-07 Consent for Treatment [id number] 3090 [id number]#1.0 0CD:127 [facility] Consent to Photographon 04-07 Consent to Photograph [id number] 0902 [id number]#1. 00CD:127 [facility] Consent to Photograph [id number] 0902 [id number]#1. 00CD:127 [facility] Correspondence - Woundon Correspondence - Wound [id number]#1. 00CD:127 [facility] Correspondence - Wound [id number]#1. 00CD:127 [facility] Multi-Wound Charton 04-25-20 Multi-Wound Chart [id number] 90 [id number]#1. 00CD:127 [facility] Nursing Assessment - Woundon 04-25-2023 Nursing Assessment - Wound [id number]#1. 00CD:127 [facility] Nursing Assessment - Wound [id number]#1. 00CD:127 [facility] Physician Orderon 04-25-2023 Physician Order [id number] 90 [id number]#1. 00CD:127 [facility] Procedure - Woundon 04-25-20 Procedure - Wound [id number] 90 [id number]#1. 00CD:127 [facility] Progress Note - Woundon 04-07 Progress Note - Wound [id number] 8790 [id number]#1. 00CD:127 Normal [facility] Screenson 04-17-2023 Screens [id number] 01 [id number]#1. 00CD:127 Normal [facility] Screens [id number] 01 [id number]#1. 00CD:127 Normal [facility] Ambulatory Visit Summaryon 0 04-14-2023 Ambulatory Visit [...] medicines. ? (more content not included)... Normal [facility] Patient Educationon 04-14-20 Patient Education [...] these instructions at home: Medicines ? Take rxel-qzl-mqcylwr and prescription medicines only as told by [...] include cig (more content not included)... 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 [...] With When (more content not included)... Normal [facility] Comment on above: Result Comment: Elec tronically Signed By: Yenni Watt MD\.br\Date and Time Signed: 04/14/23 13:14 EDT\.br\Electronically Co-Signed By: Mary Montana\.br\Date and Time Co-Signed: 04/14/23 12:01 EDT\.br\Electronically Co-Signed By: Mary Montana\.br\Date and Time Co-Signed: 04/14/23 12:01 EDT Auto Diffon 03-09-2023 Basophils/100 WBC (Bld) 1.0 % Normal 0.0-2.0 [facility] Comment on above: Order Comment: Order Added by Discern Expert. Performed By: #### 2 583793, 1585434, 37406536, 0275071, 0880959, 79293056 ####[facility] [address] [place] [address] Basophils/Leukocytes Auto (Bld) [Pure # fraction] 0.1 E9/L Normal 0.0-0.2 [facility] Comment on above: Order Comment: Order Added by Discern Expert. Performed By: #### 2 995750, 7004078, 92444653, 4399934, 6225137, 05695378 ####[address] [place] [address] Eosinophils/100 WBC (Bld) 1.8 % Normal 0.0-8.0 [facility] Comment on above: Order Comment: Order Added by Discern Expert. Performed By: #### 2 351603, 5752106, 16873546, 2594858, 5152165, 83544487 ####[facility] [address] [place] [address] Eosinophils/Leukocyte s Auto (Bld) [Pure # fraction] 0.1 E9/L Normal 0.0-0.5 [facility] Comment on above: Order Comment: Order Added by Discern Expert. Performed By: #### 2 553296, 0337452, 06010456, 2147226, 2223893, 91132112 ####[facility] [address] [place] [address] Lymphocytes/100 WBC (Bld) 24.7 % Normal 14.0-50.0 [facility] Comment on above: Order Comment: Order Added by Discern Expert. Performed By: #### 2 592369, 0000080, 11874059, 4199533, 9955511, 08708633 ####[facility] [address] [place] [address] Lymphocytes/Leukocyte s Auto (Bld) [Pure # fraction] 1.7 E9/L Normal 1.0-4.0 [facility] Comment on above: Order Comment: Order Added by Discern Expert. Performed By: #### 2 063066, 0778925, 05089587, 9119782, 2679837, 28619044 ####[address] [place] [address] Monocytes/100 WBC (Bld) 6.3 % Normal 4.0-14.0 [facility] Comment on above: Order Comment: Order Added by Discern Expert. Performed By: #### 2 098138, 7454599, 67109820, 8969319, 9851671, 04489532 ####[address] [address] Monocytes/Leukocytes Auto (Bld) [Pure # fraction] 0.4 E9/L Normal 0.2-1.0 [facility] Comment on above: Order Comment: Order Added by Discern Expert. Performed By: #### 2 304548, 4166911, 17680062, 5890332, 3827904, 24350470 ####[address] [address] Neutrophils/100 WBC (Bld) 66.2 % Normal 36.0-75.0 [facility] Comment on above: Order Comment: Order Added by Discern Expert. Performed By: #### 2 269989, 7234674, 05638664, 5424376, 3642053, 67046513 ####[address] [place] [address] Neutrophils/Leukocyte s Auto (Bld) [Pure # fraction] 4.6 E9/L Normal 2.0-7.5 [facility] Comment on above: Order Comment: Order Added by Discern Expert. Performed By: #### 2 903258, 3717317, 58539963, 2555296, 1223914, 17476214 ####[address] [place] [address] CBC w/ Auto Diffon 3 Erythrocyte distribution width (RBC) [Ratio] 13.6 % Normal 10.9-14.2 [facility] Comment on above: Performed By: #### 2 076606, 3803411, 54672293, 8094071, 0641206, 38641506 ####[address] [place] [address] Hematocrit (Bld) [Volume fraction] 42.3 % Normal 37.7-49.0 [facility] Comment on above: Performed By: #### 2 568972, 6569258, 65596650, 6181697, 3934601, 33138903 ####[address] [place] [address] Hemoglobin (Bld) [Mass/Vol] 14.1 g/dL Normal 13.5-17.5 [facility] Comment on above: Performed By: #### 2 373755, 5785521, 98024268, 6760829, 7832636, 56794223 ####[address] [address] MCH (RBC) [Entitic mass] 29.1 pg Normal 27.0-34.0 [facility] Comment on above: Performed By: #### 2 424882, 7975180, 13284204, 9810320, 3873245, 35949847 ####[address] [address] MCHC (RBC) [Mass/Vol] 33.2 g/dL Normal 31.4-36.0 [facility] Comment on above: Performed By: #### 2 242441, 8717864, 44419096, 8084062, 4611390, 67409537 ####[address] [place] [address] MCV (RBC) [Entitic vol] 87.6 fL Normal 80.0-100.0 [facility] Comment on above: Performed By: #### 2 651491, 9514391, 50342870, 5766606, 1626207, 53457973 ####[facility] [address] [place] [address] Platelet mean volume (Bld) [Entitic vol] 10.0 fL Normal 6.4-10.8 [facility] Comment on above: Performed By: #### 2 291721, 8551914, 93278609, 6259304, 9525397, 43296482 ####[facility] [address] [place] [address] Platelets (Bld) [#/Vol] 239.0 E9/L Normal 150.0-500.0 [facility] Comment on above: Performed By: #### 2 567508, 9927394, 71760161, 6972604, 3093439, 08283664 ####[address] [place] [address] RBC (Bld) [#/Vol] 4.8 E12/L Normal 4.3-5.9 [facility] Comment on above: Performed By: #### 2 927394, 1844148, 29416216, 5130407, 4096641, 18809196 ####[address] [place] [address] WBC corrected for nucl RBC Auto (Bld) [#/Vol] 6.9 E9/L Normal 4.0-11.0 [facility] Comment on above: Performed By: #### 2 036705, 4856760, 85110730, 8517054, 3120790, 52501486 ####[facility] [address] [place] [address] CMPon 03-09-2023 Albumin [Mass/Vol] 3.0 g/dL Low 3.3-5.0 [facility] Comment on above: Performed By: #### 2 641071, 7503367, 28018330, 8667465, 2454929, 82124360 ####[facility] [address] [place] [address] Albumin/Globulin (S) [Mass conc ratio] 0.9 Low 1.1-2.2 [facility] Comment on above: Performed By: #### 2 376979, 4082484, 80679802, 7953828, 8022469, 90857915 ####[facility] [address] [place] [address] ALP [Catalytic activity/Vol] 105 Int._Unit/L High 21-98 [facility] Comment on above: Performed By: #### 2 128927, 6388766, 04702813, 3395461, 8841159, 25997658 ####[facility] [address] [place] [address] ALT No additional P-5'-P [Catalytic activity/Vol] 14 Int._Unit/L Normal 6-46 [facility] Comment on above: Performed By: #### 2 943342, 9767755, 90534437, 0820291, 0689600, 05016578 ####[facility] [address] [place] [address] Anion gap [Moles/Vol] 12 mmol/L Normal 6-16 [facility] Comment on above: Performed By: #### 2 366039, 9266221, 89280562, 7597185, 9354377, 29910266 ####[facility] [address] [place] [address] AST [Catalytic activity/Vol] 12 Int._Unit/L Normal 5-43 [facility] Comment on above: Performed By: #### 2 121249, 3888959, 35245899, 0590289, 1323021, 09334202 ####[facility] [address] [place] [address] Bilirubin [Mass/Vol] 0.4 mg/dL Normal 0.0-1.1 [facility] Comment on above: Performed By: #### 2 354841, 7785487, 32210025, 6629027, 8769496, 07748256 ####[facility] [address] [place] [address] Calcium [Mass/Vol] 9.5 mg/dL Normal 8.9-11.1 [facility] Comment on above: Performed By: #### 2 485870, 9990707, 96634624, 6895120, 6564867, 90821390 ####[facility] [address] [place] [address] Chloride [Moles/Vol] 102 mmol/L Normal 101-111 [facility] Comment on above: Performed By: #### 2 716935, 8702928, 77063299, 4321226, 3052896, 06803650 ####[facility] [address] [place] [address] CO2 [Moles/Vol] 29 mmol/L Normal 21-31 [facility] Comment on above: Performed By: #### 2 188138, 8811996, 66625818, 0983617, 5462259, 49960299 ####[facility] [address] [place] [address] Creatinine [Mass/Vol] 1.0 mg/dL Normal 0.5-1.3 [facility] Comment on above: Performed By: #### 2 408990, 8606830, 34070612, 9013891, 1978895, 49111523 ####[facility] [address] [place] [address] Globulin (S) [Mass/Vol] 3.4 g/dL Normal 1.4-4.0 [facility] Comment on above: Performed By: #### 2 870166, 2224807, 94229683, 7165600, 5871491, 07994458 ####[facility] [address] [place] [address] Glucose [Mass/Vol] 228 mg/dL High 55-199 [facility] Comment on above: Result Comment: If t his glucose result represents a fasting glucose, interpretation should refer to the following reference range: 55-99 mg/dL Performed By: #### 2 026520, 1763515, 77260742, 8346869, 1207637, 25602008 ####[facility] [address] [place] [address] Potassium [Moles/Vol] 5.2 mmol/L Normal 3.5-5.3 [facility] Comment on above: Performed By: #### 2 002671, 9038429, 37192703, 5930369, 1741633, 28468691 ####[facility] [address] [place] [address] Protein [Mass/Vol] 6.4 g/dL Normal 6.0-7.8 [facility] Comment on above: Performed By: #### 2 200057, 5444724, 39047105, 6694349, 0716409, 61473524 ####[facility] [address] [place] [address] Sodium [Moles/Vol] 138 mmol/L Normal 135-145 [facility] Comment on above: Performed By: #### 2 435727, 9303695, 20223571, 5892869, 0810337, 15053007 ####[facility] [address] [place] [address] Urea nitrogen [Mass/Vol] 17 mg/dL Normal 5-21 [facility] Comment on above: Performed By: #### 2 545575, 4300673, 39192093, 9055697, 6191933, 64548309 ####[facility] [address] [place] [address] Urea nitrogen/Creatinine [Mass ratio] 17 No Units Normal 10-20 [facility] Comment on above: Performed By: #### 2 516410, 3930428, 93776492, 1884679, 4886768, 74380293 ####[facility] [address] [place] [address] Lipid Panelon 03-09-2023 Cholesterol [Mass/Vol] 263 mg/dL High 120-200 [facility] Comment on above: Performed By: #### 1 9102027, 9642320585, 5613271881, 49209551, 9070907213 #### [facility] [address] [place] [address] Cholesterol in HDL [Mass/Vol] 46 mg/dL Invalid Interpretation Code [facility] Comment on above: Result Comment: HDL > or equal to 60 mg/dL: Low cardiovascular risk HDL < 40 mg/dL : High cardiovascular risk Performed By: #### 1 5988643, 7273316069, 9510857175, 58744133, 4504088501 #### [facility] [address] [place] [address] Cholesterol in LDL [Mass/Vol] 189 mg/dL High <=129 [facility] Comment on above: Performed By: #### 1 5024060, 8187487931, 6501674100, 41036670, 0205404053 #### [facility] [address] [place] [address] Cholesterol in VLDL [Mass/Vol] 43 mg/dL High 7-40 [facility] Comment on above: Performed By: #### 1 5450981, 2866977003, 3582944407, 40515232, 6142959531 #### [facility] [address] [place] [address] Triglyceride [Mass/Vol] 213 mg/dL High <=149 [facility] Comment on above: Performed By: #### 1 1009292, 4103756518, 4651057866, 41627682, 8959408150 #### [facility] [address] [place] [address] Physician Orderon 03-09-2023 Physician Order [id number]. 00CD:127 Normal [facility] T4 & TSHon 03-09-2023 T4 [Mass/Vol] 8.9 microgram/dL Normal 4.6-9.1 [facility] Comment on above: Performed By: #### 1 9995795, 1560314226, 3119661104, 31745805, 6464664713 #### [facility] [address] [place] [address] TSH Qn 3.26 m[IU]/L Normal 0.34-5.60 [facility] Comment on above: Performed By: #### 1 2102112, 9447974388, 7178013099, 94881032, 2322898091 #### [facility] [address] [place] [address] eGFRon 03-09-2023 GFR/1.73 sq M.predicted among non-blacks MDRD (S/P/Bld) [Vol rate/Area] 96 mL/min/1.73 m2 Normal >=59 [facility] Comment on above: Order Comment: Order added by Discern Expert. Result Comment: Rn Infusion kylee kidney disease could be indicated at eGFR's of less than 60 mL/min/1.73m2. Kidney failure is indicated at less than 15 mL/min/1.73m2. Performed By: #### 1 0971536, 3743471788, 9085577918, 60747645, 8170723585 #### [facility] [address] [place] [address] Physician Referralon 023 Physician Referral [id number]. 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 Substitutions may have occurred due to the [...] q8hr, # 24 cap(s), Refills(s) 0, Pharmacy: [facility], 177, cm, 02/08/23 14:32:00 EDT, Height/Length Dosing, 179.2, kg, 02/08/23 14:32:00 EDT, Weight Dosing [facility] External Ambulatory Referral 2. [...] With When Contact Information Nancy JAY, Josselin M [address] [place] [address]- Additional Instructions: Patient Education Excision of Skin [...] day. Yes, (more content not included)... Normal [facility] Comment on above: Result Comment: Elec tronically Signed By: Negro Roblero PA-C.sammy\Date and Time Signed: 02/08/23 15:05 EDT Patient [...] including vitamins, herbs, eye drops, creams, and kowu-okk-xtqqqfx medicines. ? Any problems you or family [...] tells you to take them. ? Taking dnhg-plx-ybpdsxh medicines, vitamins, herbs, and supplements. General instructions [...] hole punch is used to cut a duckwater shape out of the skin. ? The [...] Summary ? (more content not included)... Normal [facility] Patient Letter FTon 2022 Patient Letter [facility] [address], [place] [address] [id number] February 08, [address] [place] [address] : 1980 Please excuse ARTURO BERGMAN from work . Date and/or Time of Absence: 02/08/23 Restrictions: None Comments: Please excuse due to an acute illness. Provider Signature: Carmelina Schaefer APRN, MARSHAL-C Nurse Practitioner [facility] [address] [address] [facility] Testost Totalon 01-22-2023 Testosterone [Mass/Vol] 535 ng/dL Invalid Interpretation Code [id number] [facility] Comment on above: Result Comment: Adul t male reference interval is based on a population of healthy nonobese males (BMI <30) between 19 and 39 years old. Jt et.al. JCEM 2017,102;9741-9615. PMID: 92029001. Performed at: [facility] [address] [id number] PhD Edwar Kaplan Performed By: #### 2 007197 #### [facility] [address] [place] [address] Consent for Treatmenton 01-05 Consent for Treatment [id number] 0CD:127 Normal [facility] Screenson 01-09-2023 Screens [id number] 0CD:127 Normal [facility] Patient Educationon 01-07-20 Patient Education Urology Erectile [...] these instructions at home: Medicines ? Take xspp-mdu-rfioggu and prescription medicines only as told by [...] include cig (more content not included)... Normal [facility] Provider Letteron 01-06-2023 Provider Letter January 06, [address] [place] [address] : 1980 To Whom It May Concern, Please excuse above patient from work. Date of Illness: From: _ 01/06/2023 To: _ May Return to Work On:01/06/2023 Restrictions: _n/a Comments: _ Sincerely, [facility] [address] [place] [address] Normal [facility] Urology Office/Clinic Noteon 01-06-2023 Urology [...] future there may be need for a long-term catheter if he loses complete bladder function. [...] discussed 6. (more content not included)... Normal [facility] Comment on above: Result Comment: Elec tronically Signed By: Yenni Watt MD\.br\Date and Time Signed: 01/06/23 12:39 EDT\.br\Electronically Co-Signed By: Erin Blanco MA\.br\Date and Time Co-Signed: 01/06/23 10:58 EDT CHEMISTRYOrdered By: Lab MANUEL User on 12-07-2022 Glucose [Mass/Vol] 369 mg/dL High 55 - 99 mg/dL [facility] POC Subsection Comment on above: Result Comment: Drea espinal RN/ POC Device SN [id number] Invalid Interpretation Code [facility] POC Subsection POC User ID [id number] Invalid Interpretation Code [facility] POC Subsection POC Username CUAUHTEMOC RODRIGUEZ Invalid Interpretation Code [facility] POC Subsection CHEMISTRYOrdered By: Carlos JACKSON User on 12-06-2022 Glucose [Mass/Vol] 285 mg/dL High 55 - 99 mg/dL [facility] POC Subsection Comment on above: Result Comment: Drea espinal RN/ POC Device SN [id number] Invalid Interpretation Code [facility] POC Subsection POC User ID [id number] Invalid Interpretation Code [facility] POC Subsection POC Username RENARD KEEN Invalid Interpretation Code [facility] POC Subsection Glucose [Mass/Vol] 318 mg/dL High 55 - 99 mg/dL [facility] POC Subsection Comment on above: Result Comment: Drea espinal RN/ POC Device SN [id number] Invalid Interpretation Code [facility] POC Subsection POC User ID [id number] Invalid Interpretation Code [facility] POC Subsection POC Username CUAUHTEMOC RODRIUGEZ Invalid Interpretation Code [facility] POC Subsection CHEMISTRYOrdered By: SYSTEM SYSTEM on 12-06-2022 Vancomycin trough [Moles/Vol] 11 microgram/mL Normal 10 - 20 mcg/mL [facility] Remisol Vancomycin peak [Moles/Vol] 38 microgram/mL Normal 20 - 40 mcg/mL [facility] Remisol CHEMISTRYOrdered By: SYSTEM SYSTEM on 12-05-2022 Anion gap [Moles/Vol] 7 mmol/L Normal 6 - 16 mEq/L [facility] Remisol Calcium [Mass/Vol] 7.8 mg/dL Low 8.9 - 11. 1 mg/dL [facility] Remisol Chloride [Moles/Vol] 103 mmol/L Normal 101 - 1 11 mmol/L [facility] CO2 [Moles/Vol] 26 mmol/L Normal 21 - 31 mmol/L [facility] Creatinine [Mass/Vol] 0.9 mg/dL Normal 0.5 - 1.3 mg/dL [facility] CRP [Mass/Vol] 10.2 mg/dL High <=1.9mg/dL [facility] Remis ol GFR/1.73 sq M.predicted among non-blacks MDRD (S/P/Bld) [Vol rate/Area] 109 mL/min/1.73 m2 Normal >=59mL/min/ 1.73 m2 [facility] Chem S Glucose [Mass/Vol] 280 mg/dL High 55 - 199 mg/dL [facility] Potassium [Moles/Vol] 4.0 mmol/L Normal 3.5 [...] (Bld) [Mass fraction] 13.0 % High <=5.9% [facility] ChemAutoSS COAGULATIONOrdered By: Sunil Santa on 12-05-2022 aPTT Coag (PPP) [Time] 34.9 s Normal 25.1 - 36.5 second(s) [facility] Auto Coag INR Coag (PPP) [Relative time] 1.0 {INR} Invalid Interpretation Code [facility] Auto Coag PT Coag (PPP) [Time] 11.5 s Normal 9.4 - 1 2.5 second(s) [facility] Auto Coag HEMATOLOGYOrdered By: SYSTEM SYSTEM on 12-05-2022 Basophils/100 WBC (Bld) 0.3 [...] 69.5 % Normal 36.0 - 75.0 % [facility] HemeAutoSS Neutrophils/Leukocyte s Auto (Bld) [Pure # fraction] 7.2 E9/L Normal 2.0 - 7.5 E9/L [facility] HemeAutoSS HEMATOLOGYOrdered By: Sunil Santa on 12-05-2022 Erythrocyte distribution width (RBC) [Ratio] 12.1 % Normal 10.9 - 14.2 % [facility] HemeAutoSS Hematocrit (Bld) [Volume fraction] 37.0 % [...] 8.6 fL Normal 6.4 - 10.8 fL [facility] HemeAutoSS Platelets (Bld) [#/Vol] 180.0 E9/L Normal 150.0 - 500.0 E9/L [facility] HemeAutoSS RBC (Bld) [#/Vol] 4.3 E12/L Normal 4.3 - 5.9 E12/L [facility] HemeAutoSS WBC corrected for nucl RBC Auto (Bld) [#/Vol] 10.3 E9/L Normal 4.0 - 11.0 E9/L [facility] HemeAutoSS CHEMISTRYOrdered By: SYSTEM SYSTEM on 12-04-2022 Anion gap [Moles/Vol] 11 mmol/L Normal 6 - 16 mEq/L [facility] Calcium [Mass/Vol] 8.3 mg/dL Low 8.9 - 11. 1 mg/dL [facility] Remisol Chloride [Moles/Vol] 100 mmol/L Low 101 - 1 11 mmol/L [facility] Remisol CO2 [Moles/Vol] 26 mmol/L Normal 21 - 31 mmol/L [facility] Creatinine [Mass/Vol] 1.0 mg/dL Normal 0.5 - 1.3 mg/dL [facility] Remisol CRP [Mass/Vol] 8.8 mg/dL High <=1.9mg/dL [facility] Remis ol GFR/1.73 sq M.predicted among non-blacks MDRD (S/P/Bld) [Vol rate/Area] 96 mL/min/1.73 m2 Normal >=59mL/min/ 1.73 m2 [facility] Chem S Glucose [Mass/Vol] 286 mg/dL High [...] 76.5 % High 36.0 - 75.0 % [facility] HemeAutoSS Neutrophils/Leukocyte s Auto (Bld) [Pure # fraction] 7.9 E9/L High 2.0 - 7.5 E9/L [facility] HemeAutoSS HEMATOLOGYOrdered By: Sunil Santa on 12-04-2022 Erythrocyte distribution width (RBC) [Ratio] 12.2 % Normal 10.9 - 14.2 % [facility] HemeAutoSS Hematocrit (Bld) [Volume fraction] 39.2 % Normal 37.7 - 49.0 % [facility] HemeAutoSS Hemoglobin (Bld) [Mass/Vol] 13.2 g/dL Low 13.5 - 17.5 gm/dL [facility] HemeAutoSS MCH (RBC) [Entitic mass] 28.9 pg Normal 27.0 - 34.0 pg FT HemeAutoSS MCHC (RBC) [Mass/Vol] 33.7 g/dL Normal 31.4 - 36.0 gm/dL [facility] HemeAutoSS MCV (RBC) [Entitic vol] 85.5 fL Normal 80.0 - 100.0 fL [facility] HemeAutoSS Platelet mean volume (Bld) [Entitic vol] 8.6 fL Normal 6.4 - 10.8 fL [facility] HemeAutoSS Platelets (Bld) [#/Vol] 213.0 E9/L Normal 150.0 - 500.0 E9/L [facility]eAutoSS RBC (Bld) [#/Vol] 4.6 E12/L Normal 4.3 - 5.9 E12/L [facility] Sed Rate Automated 54 mm/h High 0 - 19 mm/hr FT HemeAutoSS WBC corrected for nucl RBC Auto (Bld) [#/Vol] 10.3 E9/L Normal 4.0 - 11.0 E9/L FT HemeAutoSS No Panel InformationOrdered By: ANGPROCESSSERVER MICROBIOLOGY on 12-04-2022 Blood Culture Charcoal No growth at 2 days. Final to follow at 7 days. [facility] Blood Culture Charcoal No growth at 2 days. Final to follow at 7 days. [facility] Vital Signs Date Time Vital Sign Value Performing Clinician Facility 01-25-2024 10:12-0400 Diastolic blood pressure 82 mm[Hg] [facility] 01-25-2024 10:12-0400 Systolic blood pressure 163 mm[Hg] [facility] 01-25-2024 09:51-0400 Body height 180.34 cm [facility] 01-25-2024 09:51-0400 Body mass index (BMI) [Ratio] 27.2 kg/m2 [facility] 01-25-2024 09:51-0400 Body weight 88.5 kg [facility] 01-25-2024 09:51-0400 Heart rate 88 /min [facility] 01-25-2024 09:51-0400 Respiratory rate 20 /min [facility] 01-25-2024 09:51-0400 SaO2% (BldA) [Mass fraction] 95 % [facility] 12-13-2023 13:07-0400 Body height 180.34 cm [employer]GER[employer] Lisa Maryanne Work Phone: [facility] 12-13-2023 13:07-0400 Body mass index (BMI) [Ratio] 27 kg/m2 [employer]MENT MANAGER[employer] Lisa Maryanne Work Phone: [facility] 12-13-2023 13:07-0400 Body weight 88 kg [employer]MENT MANAGER[employer]BC Lisa Maryanne Work Phone: [facility] 11-16-2023 10:02-0400 Body height 180.34 cm [employer]SEMENT MANAGER-BC Lisa Maryanne Work Phone: [facility] 11-16-2023 10:02-0400 Body mass index (BMI) [Ratio] 27.2 kg/m2 [employer]MENT MANAGER[employer]BC Lisa Maryanne Work Phone: [facility] 11-16-2023 10:02-0400 Body weight 88.59 kg [employer]SEMENT MANAGER-BC Lisa Maryanne Work Phone: [facility] 11-16-2023 10:02-0400 Diastolic blood pressure 80 mm[Hg] [employer]MENT MANAGER[employer] Lisa Maryanne Work Phone: [facility] 11-16-2023 10:02-0400 Heart rate 88 /min [employer]MENT MANAGER-BC Lisa Maryanne Work Phone: [facility] 11-16-2023 10:02-0400 Respiratory rate 18 /min [employer]MENT MANAGER-BC Lisa Maryanne Work Phone: [facility] 11-16-2023 10:02-0400 SaO2% (BldA) [Mass fraction] 96 % [employer]MENT MANAGER-BC Lisa Maryanne Work Phone: [facility] 11-16-2023 10:02-0400 Systolic blood pressure 119 mm[Hg] [employer]MENT MANAGER[employer] Lisa Maryanne Work Phone: [facility] 10-18-2023 10:48-0400 Diastolic blood pressure 88 mm[Hg] [employer]SEMENT MANAGER[employer]BC Lisa Maryanne Work Phone: [facility] 10-18-2023 10:48-0400 Heart rate 77 /min [employer]SEMENT MANAGER-BC Lisa Maryanne Work Phone: [facility] 10-18-2023 10:48-0400 Respiratory rate 16 /min [employer]MENT MANAGER[employer] Lisa Maryanne Work Phone: [facility] 10-18-2023 10:48-0400 SaO2% (BldA) [Mass fraction] 95 % [employer]SEMENT MANAGER-BC Lisa Maryanne Work Phone: [facility] 10-18-2023 10:48-0400 Systolic blood pressure 145 mm[Hg] [employer]SEMENT MANAGER-BC Lisa Maryanne Work Phone: [facility] 10-18-2023 08:43-0400 Body height 180.34 cm [employer]SEMENT MANAGER-BC Lisa Maryanne Work Phone: [facility] 10-18-2023 08:43-0400 Body weight 83.91 kg [employer]SEMENT MANAGER-[employer] Lisa Maryanne Work Phone: [facility] 09-21-2023 11:38-0500 Body height 177.8 cm [employer]SEMENT MANAGER[employer]BC Lisa Maryanne Work Phone: [facility] 09-21-2023 11:38-0500 Body mass index (BMI) [Ratio] 28.2 kg/m2 [employer] MANAGER[employer] Lisa Maryanne Work Phone: [facility] 09-21-2023 11:38-0500 Body weight 89.15 kg [employer] REIMBURSEMENT MANAGER-BC Lisaerasmo Madden Work Phone: [facility] 09-21-2023 11:38-0500 Diastolic blood pressure 84 mm[Hg] [employer] REIM[employer]SEMENT MANAGER-BC Lisaerasmo Madden Work Phone: [facility] 09-21-2023 11:38-0500 Heart rate 79 /min [facility]- Lisa Madden Work Phone: [facility] 09-21-2023 11:38-0500 Respiratory rate 18 /min [facility]- Lisa Madden Work Phone: [facility] 09-21-2023 11:38-0500 SaO2% (BldA) [Mass fraction] 96 % [facility]- Lisa Madden Work Phone: [facility] 09-21-2023 11:38-0500 Systolic blood pressure 125 mm[Hg] [facility]- Lisa Madden Work Phone: [facility] 08-24-2023 09:00-0500 Body height 179.71 cm Karina Ugarte Other [facility] 08-24-2023 09:00-0500 Body mass index (BMI) [Ratio] 28.65 kg/m2 Karina Ugarte Other [employer] Other 08-24-2023 09:00-0500 Body weight 92.53 kg Karina Ugarte Other [facility] 08-10-2023 13:00-0500 Body height 179.71 cm Elva Scally Other [facility] 08-10-2023 13:00-0500 Body mass index (BMI) [Ratio] 28.71 kg/m2 Elva Scally Other [employer] Other 08-10-2023 13:00-0500 Body weight 92.72 kg Elva Scally Other [facility] [employer] Other 08-10-2023 13:00-0500 Body weight 92.71 kg [facility] Lisa Madden Work Phone: [facility] 07-21-2023 10:15-0500 Body height 179.71 cm Elva Scally Other [facility] 07-21-2023 10:15-0500 Body mass index (BMI) [Ratio] 26.42 kg/m2 Elva Scally Other [facility] [employer] Other 07-21-2023 10:15-0500 Body weight 85.32 kg Elva Scally Other [facility] 07-21-2023 10:15-0500 Diastolic blood pressure 84 mm[Hg] Elva Scally Other [facility] 07-21-2023 10:15-0500 Respiratory rate 18 /min Elva Scally Other [facility] [employer] Other 07-21-2023 10:15-0500 SaO2% (BldA) [Mass fraction] 97 % Elva Scally Other [facility] [employer] Other 07-21-2023 10:15-0500 Systolic blood pressure 121 mm[Hg] Elva Scally Other [facility] 04-14-2023 11:29-0400 Blood Pressure Location Yenni Lue [facility] 04-14-2023 11:29-0400 Diastolic blood pressure 87 mm[Hg] Yenni Lue [facility] 04-14-2023 11:29-0400 Heart rate 71 /min Yenni Lue [facility] 04-14-2023 11:29-0400 Systolic blood pressure 125 mm[Hg] Yenni Lue [facility] 02-08-2023 14:29-0400 Blood Pressure Location Negro Spasic [facility] 02-08-2023 14:29-0400 Body temperature 97.7 [degF] Negro Spasic [facility] 02-08-2023 14:29-0400 Diastolic blood pressure 60 mm[Hg] Negro Spasic [facility] 02-08-2023 14:29-0400 Heart rate 87 /min Negro Spasic [facility] 02-08-2023 14:29-0400 SaO2% (BldA) [Mass fraction] 99 % Negro Spasic [facility] 02-08-2023 14:29-0400 Systolic blood pressure 104 mm[Hg] Negro Spasic [facility] 01-06-2023 10:01-0400 Blood Pressure Location Yenni Lue [facility] 01-06-2023 10:01-0400 Diastolic blood pressure 89 mm[Hg] Yenni Lue [facility] 01-06-2023 10:01-0400 Heart rate 107 /min Yenni Lue [facility] 01-06-2023 10:01-0400 Systolic blood pressure 119 mm[Hg] Yneni Lue [facility] 12-07-2022 09:17-0400 gluc 369 mg/dL Zuhairjulia WEBSTERSLIN [facility] 12-07-2022 09:16-0400 Diastolic blood pressure 72 mm[Hg] Zuhair YAHIR [facility] 12-07-2022 09:16-0400 Systolic blood pressure 122 mm[Hg] Zuhair YAHIR [facility] 12-07-2022 08:06-0400 Heart rate 74 /min Zuhair YAHIR [facility] 12-07-2022 08:06-0400 SaO2% (BldA) [Mass fraction] 97 % Zuhair YAHIR [facility] 12-07-2022 08:04-0400 Diastolic blood pressure 72 mm[Hg] Zuhair YAHIR [facility] 12-07-2022 08:04-0400 Mean blood pressure 89 mm[Hg] Zuhair YAHIR [facility] 12-07-2022 08:04-0400 Systolic blood pressure 122 mm[Hg] Zuhair YAHIR [facility] 12-07-2022 08:04-0400 Body temperature 98.24 [degF] Zuhairjulia WEBSTERSLIN [facility] 12-07-2022 06:00-0400 Hourly Rounding Zuhair YAHIR [facility] 12-07-2022 06:00-0400 Promise to Return Zuhair YAHIR [facility] 12-07-2022 05:00-0400 Hourly Rounding Zuhair YAHIR [facility] 12-07-2022 05:00-0400 Promise to Return Zuhair YAHIR [facility] 12-07-2022 04:00-0400 Hourly Rounding Zuhair YAHIR [facility] 12-07-2022 04:00-0400 Promise to Return Zuhair YAHIR [facility] 12-07-2022 03:50-0400 Blood Pressure Location Zuhair YAHIR [facility] 12-07-2022 03:50-0400 Body temperature 98.78 [degF] Zuhair YAHIR [facility] 12-07-2022 03:50-0400 Diastolic blood pressure 71 mm[Hg] Zuhair YAHIR [facility] 12-07-2022 03:50-0400 Heart rate 88 /min Zuhair YAHIR [facility] 12-07-2022 03:50-0400 Mean blood pressure 88 mm[Hg] Zuhair YHAIR [facility] 12-07-2022 03:50-0400 Respiratory rate 16 /min Zuhair YAHIR [facility] 12-07-2022 03:50-0400 SaO2% (BldA) [Mass fraction] 96 % Zuhair YAHIR [facility] 12-07-2022 03:50-0400 Systolic blood pressure 121 mm[Hg] Zuhairjulia WEBSTERSLIN [facility] 12-07-2022 00:10-0400 Blood Pressure Location Zuhairjulia TELLESLIN [facility] 12-07-2022 00:10-0400 Body temperature 98.96 [degF] Zuhair WEBSTERSLIN [facility] 12-07-2022 00:10-0400 Heart rate 91 /min Zuhair WEBSTERSLIN [facility] 12-07-2022 00:10-0400 Mean blood pressure 70 mm[Hg] Zuhair WEBSTERSLIN [facility] 12-07-2022 00:10-0400 Respiratory rate 16 /min Zuhair WEBSTERSLIN [facility] 12-07-2022 00:10-0400 SaO2% (BldA) [Mass fraction] 97 % Zuhairjulia WEBSTERSLIN [facility] 12-06-2022 20:42-0400 gluc 285 mg/dL Zuhairjuila WEBSTERSLIN [facility] 12-06-2022 17:00-0400 gluc 318 mg/dL Zuhairjulia WEBSTERSLIN [facility] 12-06-2022 16:28-0400 Mean blood pressure 107 mm[Hg] Zuhairjulia WEBSTERSLIN [facility] 12-06-2022 12:03-0400 Mean blood pressure 92 mm[Hg] Zuhairjulia WEBSTERSLIN [facility] 12-05-2022 07:00-0400 Heart rate 84 /min Zuhairjulia WEBSTERSLIN [facility] 12-05-2022 07:00-0400 Mean blood pressure 79 mm[Hg] Zuhair WEBSTERSLIN [facility] 12-05-2022 00:00-0400 Heart rate 85 /min Zuhair WEBSTERSLIN [facility] 12-04-2022 23:30-0400 Respiratory rate 14 /min Zuhair TELLESLIN [facility] 12-04-2022 23:00-0400 Respiratory rate 16 /min Zuhair WEBSTERSLIN [facility] 12-04-2022 18:22-0400 Heart rate 89 /min Zuhair TELLESLIN [facility] 02-22-2022 08:59-0400 Blood Pressure Location Nilo Summers Jr. [facility] 02-22-2022 08:59-0400 Diastolic blood pressure 84 mm[Hg] Nilo Summers Jr. [facility] 02-22-2022 08:59-0400 Heart rate 100 /min Nilo Summers Jr. [facility] 02-22-2022 08:59-0400 Respiratory rate 16 /min Nilo Summers Jr. [facility] 02-22-2022 08:59-0400 Systolic blood pressure 128 mm[Hg] Nilo Summers Jr. [facility] 02-08-2022 08:42-0400 Blood Pressure Location Nilo Summers Jr. [facility] 02-08-2022 08:42-0400 Diastolic blood pressure 79 mm[Hg] Nilo Summers Jr. [facility] 02-08-2022 08:42-0400 Heart rate 98 /min Nilo Summers Jr. [facility] 02-08-2022 08:42-0400 Respiratory rate 16 /min Nilo Summers Jr. [facility] 02-08-2022 08:42-0400 Systolic blood pressure 111 mm[Hg] Nilo Summers Jr. [facility] 01-24-2022 08:12-0400 Blood Pressure Location Nilo Summers Jr. [facility] 01-24-2022 08:12-0400 Diastolic blood pressure 81 mm[Hg] Nilo Summers Jr. [facility] 01-24-2022 08:12-0400 Heart rate 89 /min Nilo Summers Jr. [facility] 01-24-2022 08:12-0400 Systolic blood pressure 125 mm[Hg] Nilo Summers Jr. [facility] Amy Encounters Encounter Date Encounter Type Care Provider Facility Start: 02-07-2024 End: 02-07-2024 ambulatory [facility] Work Phone: Start: 02-07-2024 End: 02-07-2024 Patient encounter procedure [facility] Work Phone: Start: 01-25-2024 End: 01-25-2024 ambulatory [facility] Work Phone: Start: 01-25-2024 End: 01-25-2024 Patient encounter procedure [facility] Work Phone: Start: 01-11-2024 Non-patient / Non-visit [facility] Work Phone: Start: 12-21-2023 End: 12-22-2023 ambulatory LISA MADDEN Facility:[facility] Start: 12-21-2023 Non-patient / Non-visit [facility] Work Phone: Start: 12-21-2023 End: 12-21-2023 Patient encounter procedure ELVA Portillo DICKDEBRA [facility] Start: 12-13-2023 End: 12-13-2023 ambulatory FIELD REIMBURSEMENT MANAGER-BC Lisaerasmo Madden Work Phone: [facility] Work Phone: Start: 12-13-2023 End: 12-13-2023 Patient encounter procedure FIELD REIMBURSEMENT MANAGER-BC Lisa Maryanne Work Phone: [facility] Work Phone: Start: 12-13-2023 End: 12-13-2023 ambulatory FIELD REIMBURSEMENT MANAGER-BC Lisa Maryanne Work Phone: [facility] Work Phone: Start: 12-13-2023 End: 12-13-2023 Patient encounter procedure FIELD REIMBURSEMENT MANAGER-BC Lisa Madden Work Phone: [facility] Work Phone: Start: 11-16-2023 End: 11-16-2023 ambulatory FIELD REIMBURSEMENT MANAGER-BC Lisa Madden Work Phone: [facility] Work Phone: Start: 11-16-2023 End: 11-16-2023 Patient encounter procedure FIELD REIMBURSEMENT MANAGER-BC Lisa Madden Work Phone: [facility] Work Phone: Start: 10-18-2023 End: 10-18-2023 ambulatory Red Harden Facility:[facility] Start: 10-18-2023 Non-patient / Non-visit FIELD REIMBURSEMENT MANAGER- Lisa Websterault Work Phone: [facility] Work Phone: Start: 10-18-2023 End: 10-18-2023 Admission to same day surgery center [facility] Lisa Madden Work Phone: [facility] Work Phone: Start: 10-12-2023 End: 10-13-2023 ambulatory LISA MARYANNE Facility:[facility] Start: 10-12-2023 End: 10-12-2023 Patient encounter procedure LISA J MARYANNE [facility] Start: 10-11-2023 End: 10-12-2023 ambulatory LISA MARYANNE Facility:[facility] Start: 09-21-2023 ambulatory Lisa Maryanne Facil ity:[facility] Start: 09-21-2023 End: 09-21-2023 ambulatory FIELD REIMBURSEMENT MANAGER-BC Lisa Madden Work Phone: [facility] Work Phone: Start: 09-21-2023 End: 09-21-2023 Patient encounter procedure FIELD REIMBURSEMENT MANAGER-BC Lisa Madden Work Phone: [facility] Work Phone: Start: 09-14-2023 End: 09-14-2023 ambulatory Lisa Madden Facility:[facility] Start: 09-14-2023 End: 09-14-2023 Admission to same day surgery center FIELD REIMBURSEMENT MANAGER-BC Lisa Madden Work Phone: [facility] Work Phone: Start: 09-14-2023 End: 09-14-2023 ambulatory FIELD REIMBURSEMENT MANAGER- Lisa Madden Work Phone: [facility] Work Phone: Start: 09-07-2023 End: 09-08-2023 ambulatory KARINA UGARTE Facility:[facility] Start: 09-07-2023 End: 09-07-2023 Patient encounter procedure KARINA UGARTE [facility] Start: 08-24-2023 End: 08-24-2023 ambulatory Karina Ugarte Other [employer] Other Start: 08-24-2023 Office outpatient ne w 30 minutes Karina Ugarte [facility] Gastroenter[facility] Start: 08-24-2023 End: 08-24-2023 Patient encounter procedure [facility]- Lisa Madden Work Phone: [facility]- Start: 08-10-2023 Nursing evaluation o f patient and report Elva Howard [facility] Start: 08-10-2023 End: 08-11-2023 ambulatory FIELD REIMBURSEMENT MANAGER-BC Lisa Madden Work Phone: [facility] [employer] Other Start: 08-10-2023 End: 08-10-2023 Discharged Recurring FIELD REIMBURSEMENT MANAGER-BC Lisa [facility] Work Phone: Start: 08-10-2023 Registered Recurring [facility] St gladis Madden Work [facility]: [facility] Work Phone: Start: 08-10-2023 End: 08-10-2023 Patient encounter procedure [facility] Lisa Maryanne [facility] Phone[facility]: Start: 07-28-2023 End: 07-29-2023 ambulatory LISA MADDEN Facility:[facility] Start: 07-28-2023 End: 07-28-2023 Patient encounter procedure Yenni Watt [facility] Start: 07-21-2023 End: 07-21-2023 ambulatory Elva Howard Other [facility] [employer] Other Start: 07-21-2023 FQ visit new patient Elva Howard [facility] Start: 07-21-2023 End: 07-21-2023 Patient encounter procedure [facility] Lisa Websterault Work Phone: [facility] Work Phone: Start: 07-10-2023 End: 07-11-2023 ambulatory LISA MADDEN Facility:[facility] Start: 07-10-2023 End: 07-10-2023 Patient encounter procedure LISA MADDEN [facility] Start: 06-14-2023 End: 06-15-2023 ambulatory Troy De Paz Facility:[facility] Start: 06-14-2023 End: 06-14-2023 Patient encounter procedure Troy R Majorce [facility] Start: 06-12-2023 End: 06-13-2023 ambulatory LISA MADDEN Facility:[facility] Start: 06-12-2023 End: 06-12-2023 Patient encounter procedure LISA MADDEN [facility] Start: 06-07-2023 End: 06-08-2023 ambulatory Troy R Dolce Facility:[facility] Start: 06-07-2023 End: 06-07-2023 Patient encounter procedure Troy R Dolce [facility] Start: 05-31-2023 End: 06-01-2023 ambulatory Troy R Dolce Facility:[facility] Start: 05-31-2023 End: 05-31-2023 Patient encounter procedure Troy R Dolce [facility] Start: 05-24-2023 End: 05-25-2023 ambulatory Troy R Dolce Facility:[facility] Start: 05-24-2023 End: 05-24-2023 Patient encounter procedure Troy R Dolce [facility] Start: 05-19-2023 End: 05-19-2023 ambulatory Troy R Dolce Facility:[facility] Start: 05-16-2023 End: 05-17-2023 ambulatory Holden D Dolce Facility:[facility] Start: 05-15-2023 End: 05-16-2023 ambulatory Troy R Dolce Facility:[facility] Start: 05-09-2023 End: 05-10-2023 ambulatory Holden D Dolce Facility:[facility] Start: 05-09-2023 End: 05-09-2023 Patient encounter procedure Holden D Zandra [facility] Start: 05-03-2023 End: 05-04-2023 ambulatory Troy R Dolce Facility:[facility] Start: 04-25-2023 End: 04-26-2023 ambulatory Holden D Dolce Facility:[facility] Start: 04-25-2023 End: 04-25-2023 Patient encounter procedure Holden D Zandra [facility] Start: 04-14-2023 End: 04-15-2023 ambulatory Yenni Watt Facility:[facility] Start: 04-14-2023 End: 04-14-2023 Patient encounter procedure Yenni Rosse [facility] [place] Start: 03-08-2023 End: 03-09-2023 ambulatory LISA MARYANNE Facility:[facility] Start: 02-08-2023 End: 02-09-2023 ambulatory Negro V. Spasic Facility:[facility] Start: 02-08-2023 End: 02-08-2023 Patient encounter procedure Negro V. Spasic [facility] Start: 01-21-2023 End: 01-22-2023 ambulatory Yenni Watt Facility:[facility] Start: 01-21-2023 End: 01-21-2023 Patient encounter procedure Yenni Rosse [facility] Start: 01-06-2023 End: 01-07-2023 ambulatory Yenni Watt Facility:[facility] Start: 01-06-2023 End: 01-06-2023 Patient encounter procedure [facility] Rosse [facility] Start: 12-04-2022 End: 12-07-2022 Evaluation and management of inpatient Zuhair A YAHIR [facility] Start: 11-16-2022 End: 11-16-2022 Patient encounter procedure Yenni Rosse [facility] [place] Start: 02-22-2022 End: 02-22-2022 Patient encounter procedure Nilo Summers Jr. [facility] Start: 02-08-2022 End: 02-08-2022 Patient encounter procedure Nilo Summers Jr. [facility] Start: 01-26-2022 End: 01-26-2022 Patient encounter procedure Nilo Summers Jr. [facility] Start: 01-24-2022 End: 01-24-2022 Patient encounter procedure Nilo Summers Jr. [facility] [place] Start: 12-24-2021 End: 12-24-2021 Lab Drop off CHRISTIANA COSTELLO [facility] Start: 12-23-2021 End: 12-23-2021 Patient encounter procedure CHRISTIANA COSTELLO [facility] Start: 11-25-2021 End: 12-03-2021 Pre-admission assessment Darryl Ware [facility] Start: 11-17-2021 End: 11-26-2021 Pre-admission assessment Darryl Ware [facility] Procedures Date Procedure Procedure Detail Performing Clinician Start: 10-18-2023 Esophagogastroduodenoscopy FIELD REIMBURSEMENT MANAGER- Randa Madden Work Phone: Start: 10-11-2021 Cystoscopy Darryl Ware Start: 09-12-2021 Excision of multiple scrotal sebaceous cysts Darryl Ware Closed fracture disl ocation of wrist (disorder) Darryl Ware Plan of Treatment Date Care Activity Detail Author Start: 10-18-2023 [facility] Helicobacter pylori Ag [Presence] in Stool by Immunoassay [facility] Insulin C-peptide measurement [facility] Immunizations Immunization Date Immunization Notes Care Provider Justice savage NEGATED: Highlighted row has not occurred!12-23-2021 SARS-CoV-2 mRNA (tozinameran 5y-11y) vaccine CHRISTIANA COSTELLO [facility] Amy NEGATED: Highlighted row has not occurred!10-11-2021 SARS-CoV-2 (COVID-19) Ad26 vaccine, recombinant Darryl Ware [facility] Payers Date Payer Category Payer Medicaid [id number] 2. [id number] 2021 Self-pay [id number] 1980 Unknown [id number] 2.16.8 40.1.233006.3.579.2.718 1980 Unknown [id number] 2.16.8 40.1.279269.3.579.2. 1980 Unknown [id number] 2.16.8 40.1.440487.3.579.2.7 1980 Unknown [id number] 2.16.8 40.1.805769.3.579.2.727 1980 Unknown [id number] 2.16.8 40.1.414667.3.579.2. 1980 Unknown [id number] 2.16.8 40.1.914561.3.579.2. 1980 Unknown [id number] 2.16.8 40.1.185079.3.579.2. 1980 Unknown [id number] 2.16.8 40.1.351064.3.579.2 1980 Unknown [id number] 2.16.8 40.1.332777.3.579.2. 1980 Unknown [id number] 2.16.8 40.1.012302.3.579.2 1980 Unknown [id number] 2.16.8 40.1.541423.3.579.2 1980 Unknown [id number] 2.16.8 40.1.470342.3.579.2 1980 Unknown [id number] 2.16.8 40.1.311717.3.579.2 1980 Unknown [id number] 2.16.8 40.1.024219.3.579.2 1980 Unknown [id number] 2.16.8 40.1.731572.3.579.2 1980 Unknown [id number] 2.16.8 40.1.938949.3.579.2 1980 Unknown [id number] 2.16.8 40.1.963313.3.579.2. 1980 Unknown [id number] 2.16.8 40.1.178656.3.579.2 1980 Unknown [id number] 2.16.8 40.1.202010.3.579.2 1980 Unknown [id number] 2.16.8 40.1.675044.3.579.2 1980 Unknown [id number] 2.16.8 40.1.924669.3.579.2.727 1980 Unknown [id number] 2.16.8 40.1.391467.3.579.2.727 1980 Unknown [id number] 2.16.8 40.1.691258.3.579.2.727 Unknown [id number] 2.16.8 40.1.460329.3.579.2.531 Unknown [id number] 2.16.8 40.1.564462.3.579.2.531 Unknown [id number] 2.16.8 40.1.666689.3.579.2.531 Unknown [id number] 2.16.8 40.1.226975.3.579.2.531 Social History Date Type Detail Facility Tobacco 2 ppd Tobacco Us e:. Cigarettes [facility] Sex Assigned At Male [facility] Start: 01-24-2022 End: 01-06-2023 Tobacco smoking status Heavy tobacco smoker (finding) [facility] Tobacco smoking status Never [facility] Comment on above: a pack a day Start: 12-05-2022 End: 11-16-2023 Tobacco smoking status Smoker (finding) [facility] Comment on above: a pack a day Start: 1980 Sex Assigned At Male [facility] Medical Equipment Procedure Code Equipment Code [...] X 3/16 NEEDLE, DISPOSABLE Start: 04-14-2023 Pen [place] 30G X 5 MM Start: 03-30-2023 ULTRA-FINE [...] 30 gauge x 5/16 needle Start: 09-21-2023 Goals Date Patient Goal Desired Activity /State Functional Status Date Assessment Result Facility 04-14-2023 Functional Status N/A [facility] 02-08-2023 Functional Status N/A [facility] 01-06-2023 Functional Status N/A [facility] 12-05-2022 Functional Status No [facility] 12-04-2022 Functional Status [facility] 02-22-2022 Functional Status N/A [facility] 02-08-[facility]22 Functional Status N/A [facility] 01-24-2022 Functional Status N/A [facility] Amy Clinical Notes 12-23-2021 to 12-21-2023 Note Date & Type Note Facility 12-21-2023 Evaluation + Plan note Diagnostic Tests PendingC-Peptide 12/21/23 [facility] 09-21-2023 Evaluation note Authored September 21, 2023 2:11pm [facility] Work Phone: [phone]) 748-664002-15-2024 Evaluation note* Author Elva [facility] Authored September 21, 2023 1:11pm [facility] Work Phone: [phone]) 981-515102-01-2024 Evaluation + Plan note Diagnostic Tests Pending * HIV Screen 4th Generation wRfx 09/07/23 * Celiac Disease Comprehensive 09/07/23 * Enteric Panel by PCR 09/07/23 * O & P Exam, Routine 09/07/23 * Pancreatic Elastase, Fecal 09/07/23 [facility]02-01-2024 Evaluation note* Author Elva [facility] Authored September 21, 2023 11:51am Libre2 AGP to September throu 21 September 2023, CGM active 25%, average glucose 287, variability is 23.9%. Ranges: Greater than 250 is 68%, 181-250 is 26%, 70-180 is 6%, below 69 0 0%. Full day omissions from data are through 15 September and through 21 September 1. Uncontrolled, a Type 2 diabetes [...] issues. 6. Prescriptions: []New patient 07-21-2023 uses [facility]. 2. Vitamin D deficiency Learning About Vitamin D material was published to portal 3. Dietary counseling and surveillance Learning About Healthy Weight material was published to portal 4. Hyperlipidemia Learning About High Cholesterol material was published to portal 5. HTN (hypertension) High Blood Pressure: Care Instructions material was published to portal [facility] Work Phone: 1(399) 350-703501-18-2024 Evaluation note* Encounter Date Diagnosis Assessment Notes [...] this for the time being. Proceed with [employer] Other 01-04-2024 Evaluation note* Encounter Date Diagnosis Assessment Notes Treatment Notes Treatment Clinical Notes Aug, Type 2 diabetes mellitus with hyperglycemia (ICD-10 - E11.65) Patient in today for review of blood glucose logs, food logs, and insulin dosing. Patient's Soha 2 was downloaded with ranges between lowest [...] not wearing CGM. Pt encouraged to contact [facility] for Soha sensor replacement, pt agrees with plan. All questions and concerns addressed. Encouraged to follow up for next appointment, will plan to order labs at this time per Miah. 45 minutes was spent on education by Taylor MELISSA, RN [employer] Other 12-15-2023 Evaluation note* Encounter Date Diagnosis [...] issues. 6. Prescriptions: New patient 07-21-2023 uses [facility]. 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10-13-[address] [facility] SURGERY Clinical Discharge Summary PERSON INFORMATION Name ARTURO BERGMAN Age 43 Years 1980 Sex MALE Language Tajik PCP Lisa Madden CNP Marital Status Single Phone Med Service Ambulatory Surgery Acct# Arrival 05/19/2023 06:53:08 Visit Reason SURGERY - PARTIAL THICKNESS WOUND GRAFT WITH WOUND DEBRIDEMENT RIGHT ANKLE Acuity LOS 003 03:48 Address: [address] [place] [address] Comment: PROVIDER INFORMATION VITALS INFORMATION Vital Sign [...] day. Refills: 0. Medication List: New Medications [facility], [address] [place] [id number], [phone] acetaminophen-oxycodone (Percocet 5 mg-325 mg oral tablet) [...] Oral 2 times a day. New Medications [facility], [address] [place], [place] [id number], [phone] acetaminophen-oxycodone (Percocet 5 mg-325 mg oral tablet) [...] injectable solution) USE DIRECTED WITH (morecontent not included)...[id number] Note Microbiology PROCEDURE: Wound Culture [R1] SOURCE: [...] Locations R1: This test was performed at: [facility], [address] [place] [address], [id number] [place] [address], [facility]fdxkb[facility] CenterComment on above:Performed By: #### [id number], [id number], [id number], [id number], [id number] #### [facility] [address] [place] [address] [id number] Hospital Discharge instructions Follow Up Care 04/14/2023 12:03:01 With:Shukri JAY, INDU Haile, URO Address: [facility] [place] [id number] When: Unknown [facility] [facility] Hospital Discharge instructions Patient Education 04/14/2023 [...] Follow these instructions at home: Medicines Take wgbw-mis-urrfyfw and prescription medicines only as told by [...] provider. Document Revised: 10/20/2021 Document Reviewed: 10/20/2021 [employer] Patient Education 2022 [employer]. Follow Up Care 01/06/2023 10:58:16 With:Shukri JAY, INDU Haile, URO Address: When: Unknown [facility] 07-05-2023 Hospital Discharge instructions Patient Education 02/08/2023 [...] including vitamins, herbs, eye drops, creams, and kgxl-htl-jpdgtpc medicines. Any problems you or family members [...] provider tells you to take them. Taking tvzp-eiu-sffriiz medicines, vitamins, herbs, and supplements. General instructions [...] hole punch is used to cut a duckwater shape out of theskin. ?The outer edges [...] provider. Document Revised: 02/22/2022 Document Reviewed: 02/22/2022 [employer]Trace Patient Education 2022 [employer]. 02/08/2023 15:02:40 Blood Glucose Monitoring, Adult Blood [...] or if there is an jose for Appdrater. Most glucose meters store a record of [...] mayhave. Where to find more information The [place] [employer]: www.diabetes.org The Association of Diabetes [...] provider. Document Revised: 04/21/2021 Document Reviewed: 04/21/2021 [employer]Trace Patient Education 2022 [employer]. 02/08/2023 15:02:38 Steps to Quit Smoking Steps [...] require a prescription. You can also purchase rylf-wkn-omsgyby medicines. Medicines may have nicotine in them [...] and encouragement. Call telephone quitlines, such as 4-152-GBGO-NOW, reach out to support groups, or work [...] provider. Document Revised: 07/15/2022 Document Reviewed: 07/15/2022 [employer]Trace Patient Education 2022 [employer]. 02/08/2023 15:02:37 Health Risks of Smoking Health [...] to children increases the risk of: Sudden infant syndrome (SIDS). Infections in the nose, throat, [...] Department of Health and Human Services: www.smokefree.gov [employer]: www.freedomfromsmoking.org [employer] Heart Association: www.heart.org Where to find more [...] provider. Document Revised: 07/26/2022 Document Reviewed: 07/26/2022 [employer]Trace Patient Education 2022 [employer]. Follow Up Care 02/08/2023 14:20:24 With:Josselin Cruz MD Address: [address] [place], [place] [id number] When: Unknown [facility] 06-02-2023 Hospital Discharge instructions Patient [...] Follow these instructions at home: Medicines Take zqpm-bob-tbbqfri and prescription medicines only as told by [...] provider. Document Revised: 10/20/2021 Document Reviewed: 10/20/2021 [employer] Patient Education 2022 [employer]. Follow Up Care 11/24/2022 14:04:21 With:Shukri JAY, Yenni Mckeon, URL, URO Address: [phone] When:Within 3 Month(s) [facility] 05-03-2023 Evaluation + Plan noteExtracted from: Title:Discharge Note Author:TALIA JAY, Suha Tani e:12/07/22 Left AMA Discharge To, Anticipated II - Home independently Discharged to - Home with family [facility] Left AMA Prescriptions clindamycin 300 mg oral [...] BID With When Contact Information Josselin Cruz [employer] [place], [place] [address] (1) Additional Instructions: Extracted from: Title:Admission [...] basal insulin he had been prescribed. Last hospice social worker to assist to see if there are [...] the short-term in light of above. 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 Hyponatremia (E87.1: Hypo-osmolality [...] day, # 74 cap(s), Refills(s) 0, Pharmacy: [facility], 177, cm, 09/07/22 10:14:00 EST, Height/Length Dosing, [...] TIDAC, # 15 mL, Refills(s) 0, Pharmacy: [facility], 177, cm, 09/12/21 9:14:00 EST, [...] 2 midnight stay Extracted from: Title:ED Note Author:Hans THOMAS, Kenrick Freire e:12/05/22 Cellulitis (L03.90: Cellulit is, unspecified) Septic [...] Future Appointments Appointment Date:01/06/2023 10:00:00 AM Scheduled Provider:Yenni Watt MD Location:[facility] [place] Appointment Type:URO Office Visit [facility]04-30-2023 Hospital Discharge instructions Follow Up Care 12/04/2022 18:20:17 With:Josselin Cruz Address: [employer] [place] [phone] Business (1) When: Unknown [facility]07-19-2022 Hospital Discharge instructions Patient Education 02/22/2022 09:14:08 Testicular Self-Exam, Ymcv-pb-Yplc Testicular Self-Exam A self-exam of your testicles [...] 10/20/2009 Document Revised: 11/14/2019 Document Reviewed: 06/19/2017 CoreTrace Patient Education 2019 [employer] Follow Up Care 02/08/2022 09:47:56 With:Kristopher Gonzales MD, Nilo Amaya, URO Address: [facility] [address], [place] [address] When:Within 6 Month(s) [facility] 07-05-2022 Hospital Discharge instructions Patient Education 02/08/2022 [...] Watch the hydrocele for any changes. Take xnhw-xab-jvmnllu and prescription medicines only as told by [...] 01/11/2011 Document Revised: 08/04/2018 Document Reviewed: 08/04/2018 CoreTrace Patient Education 2020 [employer] Follow Up Care 01/24/2022 08:56:25 With:Kristopher Gonzales MD, Nilo Amaay, URO Address: [facility] [address], [place] [id number] [phone] When: Unknown [facility] 06-20-2022 Hospital Discharge instructions Patient Education [...] urethra. Follow these instructions at home: Take tdib-hwj-fatqiqc and prescription medicines only as told by [...] 07/24/2006 Document Revised: 06/18/2019 Document Reviewed: 08/28/2017 CoreTrace Patient Education 2020 [employer]. Follow Up Care 01/18/2022 11:14:15 With:Kritsopher Gonzales MD, Nilo Amaya, URO Address: [facility] [address], [place] [address]- When:Within 2 Week(s) Comments:w/ scrotal US [facility] [place] 05-19-2022 Hospital Discharge instructions Patient Education 12/23/2021 [...] alcohol may irritate the prostate. Medicines Take ylhr-rpv-cjtwoav and prescription medicines only as told by [...] 04/21/2005 Document Revised: 07/06/2018 Document Reviewed: 05/10/2018 CoreTrace Patient Education 2020 [employer]. 12/22/2021 14:43:48 Benign Prostatic Hyperplasia Benign Prostatic [...] urethra. Follow these instructions at home: Take flhk-byp-pzkghtl and prescription medicines only as told by [...] 07/24/2006 Document Revised: 06/18/2019 Document Reviewed: 08/28/2017 CoreTrace Patient Education 2020 [employer]. Follow Up Care 11/11/2021 10:42:44 With:DLS 6 weeks Address:Unknown When: Unknown With:CHRISTIANA COSTELLO PA-C, URL Address: [address] [place] [address] When: Unknown [facility] chief complaint+Reason for visit Narrative* Chief Complaint Referral Lisa Agarwal Download DM Ref By Shaheed Madden For Ibs, Diarrhea & Diarrhea, Gerd [facility] Work Phone: chief complaint+Reason for visit Narrative* Chief Complaint Referral iLsa Agarwal Download DM Ref By Shaheed Madden For Ibs, Diarrhea & Diarrhea, Gerd DMN f/u Reason for Visit BMI 26.0-26.9,adult Dietary B12 deficiency HTN (hypertension) Hyperlipidemia half-way current use of insulin Type 2 diabetes mellitus with hyperglycemia Vitamin D deficiency [facility] Work Phone: Evaluation + Plan note Future Appointments Appointment Date:12/02/2021 08:15:00 AM Scheduled Provider:Darryl Ware [facility] Appoint[facility] Type: New Patient 30 (FT) Appointment Date:12/23/2021 03:00:00 PM Scheduled Provider:CHRISTIANA COSTELLO PA-C Location:[facility] App[facility]ments Appointment Date:12/23/2021 03:00:00 PM Scheduled Provider:CHRISTIANA COSTELLO PA-C Location:[facility] Future Appointments Appointment Date:01/31/2022 08:15:00 AM Scheduled Provider:Nilo Summers Jr., MD Location:[facility] Appointment Type:URO Office Visit [facility] Evaluation + Plan note Future Appointments Appointment Date:01/31/2022 08:15:00 AM Scheduled Provider:Nilo Summers Jr., MD Location:[facility] Appointment Type:URO Office Visit Diagnostic Tests Pending * Urine Culture [facility] Future Appointments Appointment Date:02/08/2022 08:30:00 AM Scheduled Provider:Nilo Summers Jr., MD Location:[facility] Appointment Type:URO Office Visit Future Scheduled Tests Radiology* US Scrotum (Contents) 01/24/22 [facility] Evaluation + Plan note Future Appointments Appointment Date:02/08/2022 08:30:00 AM Scheduled Provider:Nilo Summers Jr., MD Location:[facility] App[facility]ments Appointment Date:02/22/2022 08:30:00 AM Scheduled Provider:Nilo Summers Jr., MD Location:[facility] Appointment Type:URO Office Visit [facility] evaluation + Plan note Future Appointments Appointment Date:08/30/2022 08:30:00 AM Scheduled Provider:Nilo Summers Jr., MD Location:[facility] Appointment Type:URO Office Visit [facility] evaluation + Plan note Future Appointments Appointment Date:04/14/2023 11:15:00 AM Scheduled Provider:Yenni Watt MD Location:[facility] Appointment Type:URO Office Visit Future Scheduled Tests Laboratory* Testosterone Level Total 01/06/23 [facility] Evaluation + Plan note Future Appointments Appointment Date:04/14/2023 11:15:00 AM Scheduled Provider:Yenni Watt MD Location:[facility] Appointment Type:URO Office Visit Diagnostic Tests Pending * Testosterone Level Total [facility] App[facility]ments Appointment Date:04/14/2023 11:15:00 AM Scheduled Provider:Yenni Watt MD Location:[facility] Appointment Type:URO Office Visit [facility] Evaluation + Plan note Future Appointments Appointment Date:07/28/2023 11:15:00 AM Scheduled Provider:Yenni Watt MD Location:[facility] Appointment Type:URO Office Visit [facility] Evaluation + Plan note Future Appointments Appointment Date:05/03/2023 11:15:00 AM Scheduled Provider:Troy De Paz DPM [facility] Appointment Type:WC Follow Up Visit (FT) Appointment Date:07/28/2023 11:15:00 AM Scheduled Provider:Yenni Watt MD Location:[facility] Appointment Type:URO Office Visit Diagnostic Tests Pending * Wound Culture [facility] Future App[facility]ments Appointment Date:05/11/2023 07:45:00 AM Scheduled Provider:Shamir SOSA RD, LD, Kelly Location:.DIETARY Appointment Type:DM Diabetes Initial Assessment [address] RD (F Appointment Date:05/16/2023 02:15:00 PM Scheduled Provider:Holden De Paz DPM Location[facility] Appointment Type:WC Follow Up Visit (FT) Appointment Date:07/28/2023 11:15:00 AM Scheduled Provider:Yenni Watt MD Location:[facility] Appointment [facility] Future Appointments Appointment Date:05/31/2023 10:30:00 AM Scheduled Provider:Troy De Paz DPM Location:[facility] Appointment Type:WC Follow Up Visit (FT) Appointment Date:07/28/2023 11:15:00 AM Scheduled Provider:Yenni Watt MD Location:[facility] Appointment Type:[facility]O [facility] Future Appointments Appointment Date:06/07/2023 10:45:00 AM Scheduled Provider:Troy De Paz DPM Location[facility] Appointment Type:WC Follow Up Visit (FT) Appointment Date:07/28/2023 11:15:00 AM Scheduled Provider:Yenni Watt MD Location:[facility] Appointment Type:URO [facility] Future Appointments Appointment Date:06/14/2023 09:00:00 AM Scheduled Provider:Troy De Paz DPM Location:[facility] Appointment Type:WC Follow Up Visit (FT) Appointment Date:07/28/2023 11:15:00 AM Scheduled Provider:Yenni Watt MD Location:[facility] Appointment Type:[facility]O [facility] Future Appointments Appointment Date:07/28/2023 11:15:00 AM Scheduled Provider:Yenni Watt MD Location:[facility] Appointment Type:URO Office Visit Diagnostic Tests Pending * Insulin Level Total 07/10/23 * SINGH w/Reflex if POS [facility]/10/23 [facility] note[facility] assessment information available [facility] Work Phone: evaluation note* Diagnosis Onset Date Resolution Status BMI 26.0-26.9,adult acute Dietary B12 deficiency acute HTN (hypertension) acute Hyperlipidemia acute 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 acute Severe nonproliferative diabetic retinopathy acute Type 2 diabetes mellitus with hyperglycemia acute Vitamin D deficiency acute Type 2 diabetes mellitus with hyperglycemia acute [facility] Work Phone: Hishwpq general Narrative - Reported* Type Description Date Medical History type II diabetes Medical History irritable bowel syndrome Medical History Esophageal reflux Medical History ulcer left ankle Medical History enlarged prostate Medical History neuropathy Medical History stomach ulcers Surgical History testicles 2020 Surgical History left wrist Surgical History left foot Surgical History right foot skin [facility] Hospitalization History See Above [facility] Other [facility] Narrative - Reported* Type Description Date Medical History type II diabetes Medical History irritable bowel syndrome Medical History Esophageal reflux Medical History ulcer left ankle Medical History enlarged prostate Medical History neuropathy Medical History stomach ulcers Surgical History testicles 2020 Surgical History left wrist Surgical History left foot [facility] Hospitalization History See Above Hospitalization History see surgeries above MyShape Other Hospital course Narrative No data available for this section [facility] No data available for this section [facility] No data available for this section [facility] Reason for referral (narrative) , suspicous lesion Referred by: Negro Roblero PA-C, V. 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 Type 2 diabetes mellitus with hyperglycemia Vitamin D deficiency Chief Complaint DMN f/u diarrhea, GERD diarrhea, GERD DMN f/u- METER DL per DS Reason for Visit BMI 26.0-26.9,adult Dietary B12 deficiency HTN (hypertension) Hyperlipidemia half-way current use of insulin Type 2 diabetes mellitus with hyperglycemia Vitamin D deficiency BMI 26.0-26.9,adult Dietary B12 deficiency HTN (hypertension) Hyperlipidemia half-way current use of insulin Type 2 diabetes mellitus with hyperglycemia Vitamin D deficiency Chief Complaint DMN f/u diarrhea, GERD diarrhea, GERD DMN f/u- METER DL per DS follow up h. 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 pylori infection Chief Complaint DMN f/u- METER DL per DS follow up h. 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 pylori infection BMI 26.0-26.9,adult Dietary B12 deficiency HTN (hypertension) Hyperlipidemia half-way current use of insulin Severe nonproliferative diabetic retinopathy Type 2 diabetes mellitus with hyperglycemia Vitamin D deficiency Type 2 diabetes mellitus with hyperglycemia Additional Source Comments Patient Care team informatio n (unrecognized section and content) Team Status: Active Member Role Status Dates Lisa Madden [facility] Primary Care Provider Activ e Team Status: Inactive Member Role Status Dates Elva Howard APRN Attending Provider Active Start: July 21, 2023 End: July 21, 2023 Team Status: Inactive Member Role Status Dates Elva Howard APRN Attending Provider Active Start: August 10, 2023 End: August 10, 2023 Team Status: Active Member Role Status Dates Lisa Madden [facility] Primary Care Provider, Attending Provider Active Start: August 10, 2023 Team Status: Inactive Member Role Status Dates Karina Ugarte APRN Attending Provider Active Start: August 24, 2023 End: August 24, 2023 Team Status: Inactive Member Role Status Dates Lisa Madden [facility] Primary Care Provider Activ e Start: September 14, 2023 End: September 14, 2023 Red Harden MD Attending Provider Active S tart: September 14, 2023 End: September 14, 2023 Personnel Name: LISA MADDEN CNP Address: Address: [address] [place] [address] Name: Jennifer Patel LPN Personnel Name: Josselin Cruz MD Address: Address: [address] [place] [address] Name: Jennifer Patel LPN REASON FOR VISIT [...] section and content) DATE CREATED AUTHOR 09/04/2023 [facility] DATE CREATED AUTHOR AUTHOR'S ORGANIZ ATION 10/23/2023 [facility] DATE CREATED AUTHOR AUTHOR'S ORGANIZ ATION 12/23/2023 [facility] DATE CREATED AUTHOR AUTHOR'S ORGANIZ ATION 12/24/2023 [facility] DATE CREATED AUTHOR AUTHOR'S ORGANIZ ATION 01/03/2024 [facility] Goals (unrecognized section and content) Goals [...] BE BASED ON THE PRIMARY CLINICAL RECORDS. [employer] provides no warranty or guarantee of the accuracy or completeness of information in this document.
== END 2024-04-09 09:26 | disposition home or self-care (01) ==
LOC: EC 09:25
PROVIDERS: Visit Provider Podiatrist Foot & Ankle Surgery
DX: S92.411D Displaced fracture of proximal phalanx of right great toe, subsequent encounter for fracture with routine healing (principal)
CPT/HCPCS: 73630